=== PATIENT | male | born 1965 | race Caucasian/White ===

== ENCOUNTER 2018-09-28 18:02 | Emergency (ER) | payer OTHER ==
[2018-09-28] MEDS ORDERED: SODIUM CHLORIDE 0.9% 500 ML 500 ML IV STA ×2 (19:31→23:24)
[2018-09-28] MEDS ORDERED: HYDROmorphone 1 MG/ML 1 ML SYRINGE IVP STA (19:31)
[2018-09-28] MEDS ORDERED: ONDANSETRON 4 MG/2 ML VIAL IVP STA (19:31)
[2018-09-28] MEDS ORDERED: ACETAMINOPHEN IV (For NPO) 1,000 MG in EMPTY BAG 1 BAG IVPB STA (19:32)
[2018-09-28] MEDS ORDERED: IBUPROFEN IV 600 MG in SODIUM CHLORIDE 0.9% 250 ML IV STA (19:32)
--- NOTE | 2018-09-28 19:40 | ED ---
General Adult HPI - General Source: patient, RN notes reviewed Mode of arrival: wheelchair Limitations: no limitations <Matt Villar - Last Filed: 09/28/18 20:39> <Matt Finney - Last Filed: 09/28/18 23:27> - General Chief complaint: Abdominal Pain Stated complaint: Right flank pain Time Seen by Provider: 09/28/18 18:30 - History of Present Illness Initial comments: This is a 52-year-old male who presents to the emergency room Department complaining of right lower abdominal pain since this morning upon awakening. Patient states since then he's got the chills and has been chilled all day. Patient denies any nausea vomiting per patient denies any diarrhea. Patient denies any similar symptoms. Patient denies any hematuria dysuria or urinary frequency. Patient states he doesn't know if he has a fever or not. He didn't take his temperature. Patient denies any chest pain difficult breathing first breath per patient denies any cough. Patient denies any lightheadedness dizziness or syncopal episode. Patient denies any back pain. (Matt Villar) - Related Data Home Medications Medication Instructions Recorded Confirmed Atorvastatin [Lipitor] 20 mg PO HS 09/28/18 09/28/18 Cyanocobalamin [Vitamin B-12] 1,000 mcg PO DAILY 09/28/18 09/28/18 Famotidine 20 mg PO DAILY PRN 09/28/18 09/28/18 Ferrous Sulfate [Feosol] 325 mg PO BID 09/28/18 09/28/18 Gabapentin [Neurontin] 100 mg PO TID 09/28/18 09/28/18 Insulin Glargine [Lantus] 27 unit SQ HS 09/28/18 09/28/18 Insulin Glulisine [Apidra] 6 unit SQ AC-TID 09/28/18 09/28/18 Levothyroxine Sodium [Synthroid] 125 mcg PO DAILY 09/28/18 09/28/18 Lisinopril [Zestril] 5 mg PO DAILY 09/28/18 09/28/18 Allergies Allergy/AdvReac Type Severity Reaction Status Date / Time No Known Allergies Allergy Verified 09/28/18 18:32 Review of Systems ROS Other: All systems not noted in ROS Statement are negative. <Matt Villar - Last Filed: 09/28/18 20:39> ROS Other: All systems not noted in ROS Statement are negative. <Matt Finney - Last Filed: 09/28/18 23:27> ROS Statement: Those systems with pertinent positive or pertinent negative responses have been documented in the HPI. Past Medical History Past Medical History: Diabetes Mellitus, Deep Vein Thrombosis (DVT) History of Any Multi-Drug Resistant Organisms: None Reported Past Surgical History: No Surgical Hx Reported Past Psychological History: No Psychological Hx Reported Smoking Status: Never smoker Past Alcohol Use History: None Reported Past Drug Use History: None Reported <JianMatt - Last Filed: 09/28/18 20:39> General Exam Limitations: no limitations <JianMatt - Last Filed: 09/28/18 20:39> General appearance: alert, in no apparent distress Head exam: Present: atraumatic, normocephalic, normal inspection Eye exam: Present: normal appearance, PERRL, EOMI. Absent: scleral icterus, conjunctival injection, periorbital swelling ENT exam: Present: normal exam, mucous membranes moist Neck exam: Present: normal inspection. Absent: tenderness, meningismus, lymphadenopathy Respiratory exam: Present: normal lung sounds bilaterally. Absent: respiratory distress, wheezes, rales, rhonchi, stridor Cardiovascular Exam: Present: regular rate, normal rhythm, normal heart sounds. Absent: systolic murmur, diastolic murmur, rubs, gallop, clicks GI/Abdominal exam: Present: soft, normal bowel sounds. Absent: distended, tenderness, guarding, rebound, rigid Extremities exam: Present: normal inspection, full ROM, normal capillary refill. Absent: tenderness, pedal edema, joint swelling, calf tenderness Back exam: Present: normal inspection Neurological exam: Present: alert, oriented X3, CN II-XII intact Psychiatric exam: Present: normal affect, normal mood Skin exam: Present: warm, dry, intact, normal color. Absent: rash <Matt Finney - Last Filed: 09/28/18 23:27> - General Exam Comments Initial Comments: GENERAL: Patient is well-developed and well-nourished. Patient is nontoxic and well- hydrated and is in moderate distress. ENT: Neck is soft and supple. No significant lymphadenopathy is noted. Oropharynx is clear. Moist mucous membranes. Neck has full range of motion without eliciting any pain. EYES: The sclera were anicteric and conjunctiva were pink and moist. Extraocular movements were intact and pupils were equal round and reactive to light. Eyelids were unremarkable. PULMONARY: Unlabored respirations. Good breath sounds bilaterally. No audible rales rhonchi or wheezing was noted. CARDIOVASCULAR: There is a regular rate and rhythm without any murmurs gallops or rubs. ABDOMEN: Right lower quadrant abdominal tenderness with rebound. No palpable organomegaly was noted. There is no palpable pulsatile mass. SKIN: Skin is clear with no lesions or rashes and otherwise unremarkable. NEUROLOGIC: Patient is alert and oriented x3. Cranial nerves II through XII are grossly intact. Motor and sensory are also intact. Normal speech, volume and content. Symmetrical smile. MUSCULOSKELETAL: Normal extremities with adequate strength and full range of motion. No lower extremity swelling or edema. No calf tenderness. LYMPHATICS: No significant lymphadenopathy is noted PSYCHIATRIC: Normal psychiatric evaluation. Normal interpersonal interactions appears functionally intact in deals appropriately with others. No signs of depression. No signs of anxiety. (Matt Villar) Course <Matt Villar - Last Filed: 09/28/18 20:39> <Matt Finney - Last Filed: 09/28/18 23:27> Vital Signs 09/28/18 09/28/18 09/28/18 18:30 19:17 20:00 Temperature 99.4 F 100.4 F H 100.3 F H Pulse Rate 96 79 Respiratory 16 18 Rate Blood Pressure 99/59 94/75 O2 Sat by Pulse 97 97 Oximetry 09/28/18 23:01 Temperature 97.7 F Pulse Rate 70 Respiratory 18 Rate Blood Pressure 87/57 O2 Sat by Pulse 96 Oximetry - Reevaluation(s) Reevaluation #1: 09/28/18 23:25 Medical record is reviewed Patient was reevaluated having more right upper quadrant bowel pain we did perform right upper quadrant ultrasound of gallbladder, that is negative and this time, patient states pain remains improved (Matt Finney) Reevaluation #2: 09/28/18 23:26 Patient asked concerning blood pressure. Patient states his blood pressure usually runs low low end of normal. Really denying any complaints of lightheadedness dizziness or weakness (Matt Finney) Medical Decision Making - Lab Data Result diagrams: 09/28/18 20:20 <Matt Villar - Last Filed: 09/28/18 20:39> - Lab Data Result diagrams: 09/28/18 20:20 09/28/18 20:20 - Radiology Data Radiology results: report reviewed (CT abdomen and pelvis negative for acute disease ultrasound gallbladder negative for acute disease), image reviewed <Matt Finney - Last Filed: 09/28/18 23:27> - Medical Decision Making CT of the brain and C-spine showed no acute abnormality. Since nurse came to me stating that he was now complaining of some right-sided abdominal pain. One pack and reexamined him he was tender in the right mid abdomen I will be placing a CAT scan and for his abdomen. Dr. Finney be taking over the care of this patient at 9 PM (Matt Villar) 52 male the ER with nonspecific abdominal pain. Patient had negative gallbladder ultrasound, negative CT with negative labwork. Patient can be discharged home (Matt Finney) - Lab Data Lab Results 09/28/18 09/28/18 09/28/18 Range/Units 20:20 20:20 21:25 WBC 7.7 (3.8-10.6) k/uL RBC 4.14 L (4.30-5.90) m/uL Hgb 13.0 (13.0-17.5) gm/dL Hct 38.7 L (39.0-53.0) % MCV 93.5 (80.0-100.0) fL MCH 31.3 (25.0-35.0) pg MCHC 33.5 (31.0-37.0) g/dL RDW 13.3 (11.5-15.5) % Plt Count 204 (150-450) k/uL Neutrophils % 70 % Lymphocytes % 20 % Monocytes % 6 % Eosinophils % 3 % Basophils % 0 % Neutrophils # 5.4 (1.3-7.7) k/uL Lymphocytes # 1.5 (1.0-4.8) k/uL Monocytes # 0.4 (0-1.0) k/uL Eosinophils # 0.2 (0-0.7) k/uL Basophils # 0.0 (0-0.2) k/uL Sodium 133 L (137-145) mmol/L Potassium 4.3 (3.5-5.1) mmol/L Chloride 98 (98-107) mmol/L Carbon Dioxide 27 (22-30) mmol/L Anion Gap 8 mmol/L BUN 16 (9-20) mg/dL Creatinine 0.81 (0.66-1.25) mg/dL Est GFR (CKD-EPI)AfAm >90 (>60 ml/min/1.73 sqM) Est GFR (CKD-EPI)NonAf >90 (>60 ml/min/1.73 sqM) Glucose 248 H (74-99) mg/dL Calcium 8.8 (8.4-10.2) mg/dL Total Bilirubin 0.4 (0.2-1.3) mg/dL AST 16 L (17-59) U/L ALT 22 (21-72) U/L Alkaline Phosphatase 43 (38-126) U/L Total Protein 6.4 (6.3-8.2) g/dL Albumin 3.5 (3.5-5.0) g/dL Amylase 36 (30-110) U/L Lipase 38 (23-300) U/L Urine Color Yellow Urine Appearance Clear (Clear) Urine pH 6.0 (5.0-8.0) Ur Specific [place] 1.014 (1.001-1.035) Urine Protein Negative (Negative) Urine Glucose (UA) 3+ H (Negative) Urine Ketones Negative (Negative) Urine Blood Negative (Negative) Urine Nitrite Negative (Negative) Urine Bilirubin Negative (Negative) Urine Urobilinogen <2.0 (<2.0) mg/dL Ur Leukocyte Esterase Negative (Negative) Disposition <Matt Villar - Last Filed: 09/28/18 20:39> Is patient prescribed a controlled substance at d/c from ED?: No <Matt Finney - Last Filed: 09/28/18 23:27> Clinical Impression: Abdominal pain Disposition: HOME SELF-CARE Condition: Good Instructions: Abdominal Pain (ED) Referrals: Nonstaff,Physician [REFERRING] - 1-2 days
[2018-09-28 20:01] VITALS: RESP 18
[2018-09-28 20:34] LABS: Basophils % (A) 0 %; Eosinophils # (A) 0.2 k/uL (0-0.7); Eosinophils % (A) 3 %; HCT 38.7 % (39.0-53.0); Lymphocytes # (A) 1.5 k/uL (1.0-4.8); Lymphocytes % (A) 20 %; MCH 31.3 pg (25.0-35.0); MCHC 33.5 g/dL (31.0-37.0); MCV 93.5 fL (80.0-100.0); Monocytes # (A) 0.4 k/uL (0-1.0); Monocytes % (A) 6 %; Neutrophils # (A) 5.4 k/uL (1.3-7.7); Neutrophils % (A) 70 %; Platelet Count 204 k/uL (150-450); RBC 4.14 m/uL (4.30-5.90); RDW 13.3 % (11.5-15.5); WBC 7.7 k/uL (3.8-10.6)
[2018-09-28 20:43] LABS: ALT 22 U/L (21-72); AST 16 U/L (17-59); Albumin 3.5 g/dL (3.5-5.0); Alkaline Phosphatase 43 U/L (38-126); Amylase 36 U/L (30-110); Anion Gap 8 mmol/L; Blood Urea Nitrogen 16 mg/dL (9-20); Calcium 8.8 mg/dL (8.4-10.2); Carbon Dioxide 27 mmol/L (22-30); Chloride 98 mmol/L (98-107); Glucose 248 mg/dL (74-99); Lipase 38 U/L (23-300); Potassium 4.3 mmol/L (3.5-5.1); Sodium 133 mmol/L (137-145); Total Bilirubin 0.4 mg/dL (0.2-1.3); Total Protein 6.4 g/dL (6.3-8.2)
--- NOTE | 2018-09-28 21:29 | CT ---
EXAMINATION TYPE: CT abdomen pelvis w con DATE OF EXAM: 09/28/2018 COMPARISON: None HISTORY: Right side abdominal pain. CT DLP: 708.2 mGycm Automated exposure control for dose reduction was used. TECHNIQUE: Helical acquisition of images was performed from the lung bases through the pelvis. CONTRAST: Performed without Oral Contrast and with IV Contrast, patient injected with 100ml mL of Isovue 300. FINDINGS: Lung bases are clear. There is no pleural effusion. Heart size is normal. There is no pericardial eff usion. Liver spleen gallbladder appear normal. Bile ducts are not dilated. Stomach appears normal. Th ere is no evidence of pancreatic mass. There is no adrenal mass. Kidneys show satisfactory contrast opacification. There is no hydronephrosi s. Ureters are not dilated. There is no retroperitoneal adenopathy. Bladder distends smoothly. There is no inguinal hernia. There is no evidence of a pelvic mass. There is no ascites. There is no sign o f free air. Appendix is not seen. There is no sign of appendicitis. There are some small bowel mesent sunni lymph nodes. Lumbar spine is intact. I see no bony destructive process. Bony pelvis is intact. IMPRESSION: THERE ARE SOME NONSPECIFIC ENLARGED MESENTERIC LYMPH NODES. OTHERWISE NEGATIVE EXAM.
[2018-09-28 21:45] LABS: Appearance,Urine Clear (Clear); Bilirubin,Urine Negative (Negative); Blood,Urine Negative (Negative); Color,Urine Yellow; Glucose,Urine (UA) 3+ (Negative); Ketones,Urine Negative (Negative); Leukocyte Esterase,Urine Negative (Negative); Nitrite,Urine Negative (Negative); Protein,Urine Negative (Negative); Specific Gravity,Urine 1.014 (1.001-1.035); Urobilinogen,Urine <2.0 mg/dL (<2.0)
[2018-09-28] MEDS ORDERED: MORPHINE SULFATE 4 MG/ML SYRINGE IVP STA (22:10)
[2018-09-28 23:03] VITALS: TEMP 97.7
--- NOTE | 2018-09-28 23:14 | US ---
EXAMINATION TYPE: US gallbladder DATE OF EXAM: 09/28/2018 COMPARISON: CT 09/28/2018 CLINICAL HISTORY: Pain. EXAM MEASUREMENTS: Liver Length: 17.7 cm Gallbladder Wall: 0.2 cm CBD: 0.5 cm Right Kidney: 10.7 x 4.5 x 5.4 cm Pancreas: Tail obscured by overlying bowel gas Liver: Measuring upper limits of normal Gallbladder: wnl Evidence for sonographic Monzon's sign: No CBD: wnl Right Kidney: No hydronephrosis or masses seen IMPRESSION: Negative right upper quadrant abdominal sonogram. No gallstones or dilated ducts.
[2018-09-28] MEDS ORDERED: SODIUM CHLORIDE 0.9% 1,000 ML IV STA (23:24)
[2018-09-29 00:13] VITALS: BP 94/70; PULSE 89
== END 2018-09-29 00:13 | disposition home or self-care (01) ==
LOC: EC 18:02
DX: R10.31 Right lower quadrant pain (principal); E11.9 Type 2 diabetes mellitus without complications; Z79.4 Long term (current) use of insulin; Z79.899 Other long term (current) drug therapy; Z86.718 Personal history of other venous thrombosis and embolism
CPT/HCPCS: 36415; 80053; 82150; 83605; 83690; 85025; 81003; 87040; 76705; 74177; 99284; 96365; 96375 ×3; J2405; J1170; J0131; J1741; Q9967

== ENCOUNTER 2018-10-19 08:32 | Observation (INO) | payer OTHER ==
[2018-10-19] MEDS ORDERED: SODIUM CHLORIDE 0.9% 1,000 ML IV STA ×2 (08:46)
[2018-10-19] MEDS ORDERED: ONDANSETRON 4 MG/2 ML VIAL IVP STA (08:46)
--- NOTE | 2018-10-19 08:49 | ED ---
General Adult HPI - General Chief complaint: Abdominal Pain Stated complaint: Abd.pain Time Seen by Provider: 10/19/18 08:35 Source: patient, EMS, RN notes reviewed Mode of arrival: EMS Limitations: no limitations - History of Present Illness Initial comments: Patient 52-year-old male significant past medical history for diabetes, presenting to the emergency room today with a chief complaint of elevated blood sugar. Patient does admit that around 4 AM he was feeling nauseated and did have a couple episodes of vomiting. States that he did take 10 units of insulin at 6 AM fell back asleep. States he woke up 2 hours later with a dry mouth was worried about possible DKA streaking here to the emergency room. Patient states nausea somewhat improved was able to keep down some water before he came. Patient denies any other complaints or symptoms at this time. Patient denies any recent fever, chills, shortness of breath, chest pain, back pain, numbness or tingling, headaches or visual changes, or any other complaints. - Related Data Home Medications Medication Instructions Recorded Confirmed Atorvastatin [Lipitor] 20 mg PO HS 09/28/18 10/19/18 Cyanocobalamin [Vitamin B-12] 1,000 mcg PO DAILY 09/28/18 10/19/18 Famotidine 20 mg PO DAILY PRN 09/28/18 10/19/18 Ferrous Sulfate [Feosol] 325 mg PO BID 09/28/18 10/19/18 Gabapentin [Neurontin] 100 mg PO TID 09/28/18 10/19/18 Insulin Glargine [Lantus] 27 unit SQ HS 09/28/18 10/19/18 Insulin Glulisine [Apidra] 6 unit SQ AC-TID 09/28/18 10/19/18 Lisinopril [Zestril] 5 mg PO DAILY 09/28/18 10/19/18 Levothyroxine Sodium [Synthroid] 150 mcg PO DAILY 10/19/18 10/19/18 Allergies Allergy/AdvReac Type Severity Reaction Status Date / Time No Known Allergies Allergy Verified 10/19/18 09:38 Review of Systems ROS Statement: Those systems with pertinent positive or pertinent negative responses have been documented in the HPI. ROS Other: All systems not noted in ROS Statement are negative. Past Medical History Past Medical History: Diabetes Mellitus, Deep Vein Thrombosis (DVT) History of Any Multi-Drug Resistant Organisms: None Reported Past Surgical History: No Surgical Hx Reported Past Psychological History: No Psychological Hx Reported Smoking Status: Never smoker Past Alcohol Use History: None Reported Past Drug Use History: None Reported General Exam - General Exam Comments Initial Comments: General: The patient is awake and alert, in no distress, and does not appear acutely ill. Eye: There is normal conjunctiva bilaterally. No signs of icterus. Ears, nose, mouth and throat: There are moist mucous membranes and no oral lesions. Neck: The neck is supple, there is no tenderness or JVD. Cardiovascular: There is a regular rate and rhythm. No murmur, rub or gallop is appreciated. Respiratory: Lungs are clear to auscultation, respirations are non-labored, breath sounds are equal. No wheezes, stridor, rales, or rhonchi. Gastrointestinal: Soft, non-distended, non-tender abdomen without masses or organomegaly noted. There is no rebound or guarding present. No CVA tenderness. Musculoskeletal: Normal ROM, no tenderness. Neurological: A&O x 3. CN II-XII intact, There are no obvious motor or sensory deficits. Coordination appears grossly intact. Speech is normal. Skin: Skin is warm and dry and no rashes or lesions are noted. Psychiatric: Cooperative, appropriate mood & affect, normal judgment. Limitations: no limitations Course Vital Signs 10/19/18 08:34 Temperature 97.1 F L Pulse Rate 115 H Respiratory 18 Rate Blood Pressure 118/75 O2 Sat by Pulse 97 Oximetry Medical Decision Making - Medical Decision Making Patient's labs been reviewed and does show positive acetone. Blood sugar greater than 300. Patient's had multiple episodes of nausea vomiting. Patient will be admitted for DKA started on protocol. - Lab Data Result diagrams: 10/19/18 08:59 10/19/18 08:59 Lab Results 10/19/18 10/19/18 Range/Units 08:59 08:59 WBC 10.9 H (3.8-10.6) k/uL RBC 4.58 (4.30-5.90) m/uL Hgb 14.1 (13.0-17.5) gm/dL Hct 43.0 (39.0-53.0) % MCV 93.9 (80.0-100.0) fL MCH 30.8 (25.0-35.0) pg MCHC 32.9 (31.0-37.0) g/dL RDW 13.1 (11.5-15.5) % Plt Count 227 (150-450) k/uL Neutrophils % 88 % Lymphocytes % 6 % Monocytes % 5 % Eosinophils % 0 % Basophils % 0 % Neutrophils # 9.6 H (1.3-7.7) k/uL Lymphocytes # 0.6 L (1.0-4.8) k/uL Monocytes # 0.6 (0-1.0) k/uL Eosinophils # 0.0 (0-0.7) k/uL Basophils # 0.0 (0-0.2) k/uL Sodium 135 L (137-145) mmol/L Potassium 4.4 (3.5-5.1) mmol/L Chloride 98 (98-107) mmol/L Carbon Dioxide 19 L (22-30) mmol/L Anion Gap 18 mmol/L BUN 21 H (9-20) mg/dL Creatinine 0.93 (0.66-1.25) mg/dL Est GFR (CKD-EPI)AfAm >90 (>60 ml/min/1.73 sqM) Est GFR (CKD-EPI)NonAf >90 (>60 ml/min/1.73 sqM) Glucose 345 H (74-99) mg/dL Calcium 9.7 (8.4-10.2) mg/dL Total Bilirubin 1.5 H (0.2-1.3) mg/dL AST 19 (17-59) U/L ALT 25 (21-72) U/L Alkaline Phosphatase 44 (38-126) U/L Total Protein 7.2 (6.3-8.2) g/dL Albumin 4.3 (3.5-5.0) g/dL Amylase 33 (30-110) U/L Lipase 36 (23-300) U/L Acetone, Qual Positive (Negative) Disposition Clinical Impression: DKA (diabetic ketoacidoses) Disposition: ADMITTED IP TO THIS [facility] Condition: Good Is patient prescribed a controlled substance at d/c from ED?: No Referrals: Marshall Beal DO [Primary Care Provider] - 1-2 days Time of Disposition: 10:10
[2018-10-19 09:33] LABS: Basophils % (A) 0 %; Eosinophils % (A) 0 %; HGB 14.1 gm/dL (13.0-17.5); Lymphocytes # (A) 0.6 k/uL (1.0-4.8); Lymphocytes % (A) 6 %; MCH 30.8 pg (25.0-35.0); MCHC 32.9 g/dL (31.0-37.0); MCV 93.9 fL (80.0-100.0); Mean Platelet Volume 7.4; Monocytes # (A) 0.6 k/uL (0-1.0); Monocytes % (A) 5 %; Neutrophils # (A) 9.6 k/uL (1.3-7.7); Neutrophils % (A) 88 %; Platelet Count 227 k/uL (150-450); RBC 4.58 m/uL (4.30-5.90); RDW 13.1 % (11.5-15.5); WBC 10.9 k/uL (3.8-10.6)
[2018-10-19 09:47] LABS: ALT 25 U/L (21-72); AST 19 U/L (17-59); Albumin 4.3 g/dL (3.5-5.0); Alkaline Phosphatase 44 U/L (38-126); Amylase 33 U/L (30-110); Anion Gap 18 mmol/L; Blood Urea Nitrogen 21 mg/dL (9-20); Calcium 9.7 mg/dL (8.4-10.2); Carbon Dioxide 19 mmol/L (22-30); Chloride 98 mmol/L (98-107); Glucose 345 mg/dL (74-99); Lipase 36 U/L (23-300); Potassium 4.4 mmol/L (3.5-5.1); Sodium 135 mmol/L (137-145); Total Bilirubin 1.5 mg/dL (0.2-1.3); Total Protein 7.2 g/dL (6.3-8.2)
[2018-10-19] MEDS ORDERED: INSULIN REGULAR 100 UNIT in SODIUM CHLORIDE 0.9% 100 ML IV SCH (10:45)
[2018-10-19] MEDS: SODIUM CHLORIDE 0.9% 1,000 ML IV SCH ×3 (11:13→20:26)
[2018-10-19 11:26] LABS: Glucose,Whole Blood 240 mg/dL (75-99)
[2018-10-19] MEDS: D5-0.45% NACL WITH KCL 20MEQ/L 1,000 ML IV SCH ×2 (11:34→17:13)
[2018-10-19] MEDS ORDERED: FAMOTIDINE 20 MG TAB PO PRN (11:50)
[2018-10-19 12:28] LABS: Glucose,Whole Blood 213 mg/dL (75-99)
[2018-10-19 13:57] LABS: Glucose,Whole Blood 178 mg/dL (75-99)
--- NOTE | 2018-10-19 14:01 | P.HPIM ---
History of Present Illness 52-year-old the with the insulin-dependent diabetes mellitus type 2 came in with elevated blood sugars has been feeling nausea today today vomited multiple times with the abdominal discomfort mild to moderate diffusely in the abdomen. Patient felt that he may be having DKA episode because of which patient came to ER patient is found to have anion gap metabolic acidosis found to be in DKA patient was started on IV insulin and IV fluids" lites are being corrected. Patient did not take his Lantus today patient denied any fever chills cough runny nose and dysuria patient does not have any signs or symptoms of infection. Review of Systems REVIEW OF SYSTEMS: CONSTITUTIONAL: No fever, no malaise, no fatigue. HEENT: No recent visual problems or hearing problems. Denied any sore throat. CARDIOVASCULAR: No chest pain, orthopnea, PND, no palpitations, no syncope. PULMONARY: No shortness of breath, no cough, no hemoptysis. GASTROINTESTINAL: As mentioned in HPI NEUROLOGICAL: No headaches, no weakness, no numbness. HEMATOLOGICAL: Denies any bleeding or petechiae. GENITOURINARY: Denies any burning micturition, frequency, or urgency. MUSCULOSKELETAL/RHEUMATOLOGICAL: Denies any joint pain, swelling, or any muscle pain. ENDOCRINE: Denies any polyuria or polydipsia. The rest of the 14-point review of systems is negative. Past Medical History Past Medical History: Diabetes Mellitus, Deep Vein Thrombosis (DVT), GERD/Reflux , Hyperlipidemia, Hypertension Additional Past Medical History / Comment(s): IDDM type II, neuropathy bilateral hands/feet, bilateral leg DVTs, carpal tunnel syndrome bilaterally, migraines,. hypothyroid, low iron, hydrocele R side. History of Any Multi-Drug Resistant Organisms: None Reported Past Surgical History: No Surgical Hx Reported Additional Past Surgical History / Comment(s): Colonoscopy Past Anesthesia/Blood Transfusion Reactions: No Reported Reaction Smoking Status: Former smoker - Past Family History Father Family Medical History: Cancer Additional Family Medical History / Comment(s): Father had melanoma. He is -pt is not sure but thinks he drowned. Mother Family Medical History: No Reported History Additional Family Medical History / Comment(s): Mother is healthy. Medications and Allergies Home Medications Medication Instructions Recorded Confirmed Type Atorvastatin [Lipitor] 20 mg PO HS 09/28/18 10/19/18 History Cyanocobalamin [Vitamin B-12] 1,000 mcg PO DAILY 09/28/18 10/19/18 History Famotidine 20 mg PO DAILY PRN 09/28/18 10/19/18 History Ferrous Sulfate [Feosol] 325 mg PO BID 09/28/18 10/19/18 History Gabapentin [Neurontin] 100 mg PO TID 09/28/18 10/19/18 History Insulin Glargine [Lantus] 27 unit SQ HS 09/28/18 10/19/18 History Insulin Glulisine [Apidra] 6 unit SQ AC-TID 09/28/18 10/19/18 History Lisinopril [Zestril] 5 mg PO DAILY 09/28/18 10/19/18 History Levothyroxine Sodium [Synthroid] 150 mcg PO DAILY 10/19/18 10/19/18 History Allergies Allergy/AdvReac Type Severity Reaction Status Date / Time No Known Allergies Allergy Verified 10/19/18 09:38 Physical Exam Vitals: Vital Signs Temp Pulse Pulse Resp BP BP Pulse Ox 10/19/18 12:00 98.2 F 107 H 16 109/66 98 10/19/18 11:19 99 18 114/67 97 10/19/18 08:34 97.1 F L 115 H 18 118/75 97 Intake and Output 10/18/18 10/19/18 10/19/18 22:59 06:59 14:59 Intake Total 10.013 Balance 10.013 Intake: Intake, IV Titration 10.013 Amount Insulin Regular 100 unit 10.013 In Sodium Chloride 0.9% 100 ml @ 0.1 UNITS/KG/HR 8.01 mls/hr IV .[id number] [facility] Rx#:[id number] Other: Weight 79.379 kg PHYSICAL EXAMINATION: GENERAL: The patient is alert and oriented x3, not in any acute distress. Well developed, well nourished. HEENT: Pupils are round and equally reacting to light. EOMI. No scleral icterus. No conjunctival pallor. Normocephalic, atraumatic. No pharyngeal erythema. No thyromegaly. CARDIOVASCULAR: S1 and S2 present. No murmurs, rubs, or gallops. PULMONARY: Chest is clear to auscultation, no wheezing or crackles. ABDOMEN: Soft, nontender, nondistended, normoactive bowel sounds. No palpable organomegaly. MUSCULOSKELETAL: No joint swelling or deformity. EXTREMITIES: No cyanosis, clubbing, or pedal edema. NEUROLOGICAL: Gross neurological examination did not reveal any focal deficits. SKIN: No rashes. Results CBC & Chem 7: 10/19/18 08:59 10/19/18 08:59 Labs: Abnormal Lab Results - Last 24 Hours (Table) 10/19/18 10/19/18 10/19/18 Range/Units 08:59 08:59 11:14 WBC 10.9 H (3.8-10.6) k/uL Neutrophils # 9.6 H (1.3-7.7) k/uL Lymphocytes # 0.6 L (1.0-4.8) k/uL Sodium 135 L (137-145) mmol/L Carbon Dioxide 19 L (22-30) mmol/L BUN 21 H (9-20) mg/dL Glucose 345 H (74-99) mg/dL POC Glucose (mg/dL) 240 H (75-99) mg/dL Total Bilirubin 1.5 H (0.2-1.3) mg/dL 10/19/18 Range/Units 12:26 WBC (3.8-10.6) k/uL Neutrophils # (1.3-7.7) k/uL Lymphocytes # (1.0-4.8) k/uL Sodium (137-145) mmol/L Carbon Dioxide (22-30) mmol/L BUN (9-20) mg/dL Glucose (74-99) mg/dL POC Glucose (mg/dL) 213 H (75-99) mg/dL Total Bilirubin (0.2-1.3) mg/dL Thrombosis Risk Factor Assmnt - Choose All That Apply Any of the Below Risk Factors Present?: Yes Each Factor Represents 1 point: Age 41-60 years Other Risk Factors: Yes Each Risk Factor Represents 3 Points: History of DVT/PE Other congenital or acquired thrombophilia - If yes, enter type in comment: No Thrombosis Risk Factor Assessment Total Risk Factor Score: 4 Thrombosis Risk Factor Assessment Level: Moderate Risk Assessment and Plan Plan: -Diabetic keto acidosis: No signs or symptoms of infection continue with the D5 with insulin once anion gap resolves patient will be started on Lantus and an hour later IV insulin can be discontinued and patient was started on IV normal saline and the patient can use pre-meal insulin and can eat at that time patient will remain in and 21 2 that time. -Type 2 diabetes mellitus with uncontrolled and elevated blood sugars -Tachycardia probably secondary to hypovolemia from DKA -Diabetic peripheral neuropathy -DVT in the past not any anti-correlation at this time -Gastroesophageal reflux disease -Hypertension next For above-mentioned chronic medical problems patient will resume and continued on appropriate home medications.
[2018-10-19 14:24] LABS: Anion Gap 10 mmol/L; Blood Urea Nitrogen 17 mg/dL (9-20); Carbon Dioxide 23 mmol/L (22-30); Chloride 104 mmol/L (98-107); Glucose 209 mg/dL (74-99); Phosphorus 3.4 mg/dL (2.5-4.5); Potassium 3.9 mmol/L (3.5-5.1); Sodium 137 mmol/L (137-145)
[2018-10-19] MEDS ORDERED: INSULIN DETEMIR 100 UNIT/ML 10 ML VIAL SQ ONE (14:35)
[2018-10-19] MEDS: PANTOPRAZOLE 40 MG/10 ML VIAL IVP SCH (15:03)
[2018-10-19] MEDS: GABAPENTIN 100 MG CAP PO SCH ×2 (15:04→20:25)
[2018-10-19 15:26] LABS: Glucose,Whole Blood 116 mg/dL (75-99)
[2018-10-19 16:35] LABS: Glucose,Whole Blood 127 mg/dL (75-99)
[2018-10-19] MEDS: INSULIN ASPART 100 UNIT/ML 1 ML 10 ML VIAL SQ SCH ×3 (17:32→20:25)
[2018-10-19 18:46] LABS: Anion Gap 8 mmol/L; Blood Urea Nitrogen 15 mg/dL (9-20); Carbon Dioxide 24 mmol/L (22-30); Chloride 104 mmol/L (98-107); Glucose 142 mg/dL (74-99); Potassium 4.5 mmol/L (3.5-5.1); Sodium 136 mmol/L (137-145)
[2018-10-19 20:25] LABS: Glucose,Whole Blood 111 mg/dL (75-99)
[2018-10-19 20:43] LABS: Hemoglobin A1C 12.3 % (4.0-6.0)
[2018-10-19] MEDS ORDERED: ATORVASTATIN 20 MG TAB PO SCH (21:00)
[2018-10-20] MEDS: SODIUM CHLORIDE 0.9% 1,000 ML IV SCH ×2 (01:45→07:18)
[2018-10-20] MEDS ORDERED: LEVOTHYROXINE 75 MCG TAB PO SCH (06:30)
[2018-10-20 06:38] LABS: Glucose,Whole Blood 136 mg/dL (75-99)
[2018-10-20] MEDS: INSULIN ASPART 100 UNIT/ML 1 ML 10 ML VIAL SQ SCH ×6 (07:17→17:20)
[2018-10-20 07:32] LABS: Basophils % (A) 0 %; Eosinophils # (A) 0.2 k/uL (0-0.7); Eosinophils % (A) 3 %; HCT 37.5 % (39.0-53.0); Lymphocytes # (A) 1.4 k/uL (1.0-4.8); Lymphocytes % (A) 28 %; MCH 30.7 pg (25.0-35.0); MCHC 32.1 g/dL (31.0-37.0); MCV 95.6 fL (80.0-100.0); Mean Platelet Volume 6.9; Monocytes # (A) 0.2 k/uL (0-1.0); Monocytes % (A) 5 %; Neutrophils % (A) 62 %; Platelet Count 190 k/uL (150-450); RBC 3.92 m/uL (4.30-5.90); RDW 13.3 % (11.5-15.5); WBC 4.9 k/uL (3.8-10.6)
[2018-10-20 07:35] LABS: ALT 21 U/L (21-72); AST 18 U/L (17-59); Albumin 2.9 g/dL (3.5-5.0); Alkaline Phosphatase 32 U/L (38-126); Anion Gap 5 mmol/L; Blood Urea Nitrogen 11 mg/dL (9-20); Calcium 8.3 mg/dL (8.4-10.2); Carbon Dioxide 26 mmol/L (22-30); Chloride 106 mmol/L (98-107); Glucose 134 mg/dL (74-99); Potassium 4.4 mmol/L (3.5-5.1); Sodium 137 mmol/L (137-145); Total Bilirubin 0.8 mg/dL (0.2-1.3); Total Protein 5.5 g/dL (6.3-8.2)
[2018-10-20 08:39] VITALS: PULSE 78
[2018-10-20] MEDS: GABAPENTIN 100 MG CAP PO SCH ×2 (08:44→16:05)
[2018-10-20] MEDS: PANTOPRAZOLE 40 MG/10 ML VIAL IVP SCH (08:44)
[2018-10-20 08:56] LABS: Appearance,Urine Clear (Clear); Bilirubin,Urine Negative (Negative); Blood,Urine Negative (Negative); Color,Urine Light Yellow; Glucose,Urine (UA) 1+ (Negative); Ketones,Urine Trace (Negative); Leukocyte Esterase,Urine Negative (Negative); Nitrite,Urine Negative (Negative); PH, Urine 5.5 (5.0-8.0); Protein,Urine Negative (Negative); Specific Gravity,Urine 1.006 (1.001-1.035); Urobilinogen,Urine <2.0 mg/dL (<2.0)
[2018-10-20 11:51] LABS: Glucose,Whole Blood 178 mg/dL (75-99)
[2018-10-20 12:17] VITALS: TEMP 97.7
--- NOTE | 2018-10-20 12:22 | P.DS ---
Providers Date of admission: 10/19/18 10:16 Attending physician: Deborah Villalobos Primary care physician: Marshall Beal Hospital Course: 52-year-old gentleman admitted for diabetic ketoacidosis which resolved at this time patient did sugars are well controlled with home regimen and patient will be resumed on home regimen and will be discharged today PHYSICAL EXAMINATION: GENERAL: The patient is alert and oriented x3, not in any acute distress. Well developed, well nourished. HEENT: Pupils are round and equally reacting to light. EOMI. No scleral icterus. No conjunctival pallor. Normocephalic, atraumatic. No pharyngeal erythema. No thyromegaly. CARDIOVASCULAR: S1 and S2 present. No murmurs, rubs, or gallops. PULMONARY: Chest is clear to auscultation, no wheezing or crackles. ABDOMEN: Soft, nontender, nondistended, normoactive bowel sounds. No palpable organomegaly. MUSCULOSKELETAL: No joint swelling or deformity. EXTREMITIES: No cyanosis, clubbing, or pedal edema. NEUROLOGICAL: Gross neurological examination did not reveal any focal deficits. SKIN: No rashes. Please refer to my HPI from yesterday for possible physician course chronic medical problems and their management. Patient Condition at Discharge: Good Plan - Discharge Summary Discharge Rx Participant: No New Discharge Prescriptions: No Action Insulin Glulisine [Apidra] 6 unit SQ AC-TID Ferrous Sulfate [Feosol] 325 mg PO BID Famotidine 20 mg PO DAILY PRN PRN Reason: HEART BURN Atorvastatin [Lipitor] 20 mg PO HS Lisinopril [Zestril] 5 mg PO DAILY Insulin Glargine [Lantus] 27 unit SQ HS Gabapentin [Neurontin] 100 mg PO TID Cyanocobalamin [Vitamin B-12] 1,000 mcg PO DAILY Levothyroxine Sodium [Synthroid] 150 mcg PO DAILY Discharge Medication List Atorvastatin [Lipitor] 20 mg PO HS 09/28/18 [History] Cyanocobalamin [Vitamin B-12] 1,000 mcg PO DAILY 09/28/18 [History] Famotidine 20 mg PO DAILY PRN 09/28/18 [History] Ferrous Sulfate [Feosol] 325 mg PO BID 09/28/18 [History] Gabapentin [Neurontin] 100 mg PO TID 09/28/18 [History] Insulin Glargine [Lantus] 27 unit SQ HS 09/28/18 [History] Insulin Glulisine [Apidra] 6 unit SQ AC-TID 09/28/18 [History] Lisinopril [Zestril] 5 mg PO DAILY 09/28/18 [History] Levothyroxine Sodium [Synthroid] 150 mcg PO DAILY 10/19/18 [History] Follow up Appointment(s)/Referral(s): Marshall Beal DO [Primary Care Provider] - 3 Days Discharge Disposition: HOME SELF-CARE
[2018-10-20] MEDS ORDERED: IOPAMIDOL-300 CONTRAST 30 ML VIAL (ORAL USE) PO PRN ×2 (13:50→15:11)
[2018-10-20 13:52] VITALS: BMI 25.1
[2018-10-20 15:27] VITALS: BP 103/65; RESP 20
[2018-10-20 16:48] LABS: Glucose,Whole Blood 221 mg/dL (75-99)
--- NOTE | 2018-10-20 17:30 | CT ---
EXAMINATION TYPE: CT abdomen pelvis w con DATE OF EXAM: 10/20/2018 COMPARISON: Prior CT 09/28/2018 HISTORY: abdominal pain CT DLP: 824 mGycm Automated exposure control for dose reduction was used. TECHNIQUE: Helical acquisition of images from the lung bases through the pelvis have been completed. CONTRAST: Performed with Oral Contrast and with IV Contrast, patient injected with 100 mL of Isovue 300. FINDINGS: LUNG BASES: Stable, no pleural or pericardial effusion, minimal dependent atelectatic changes again s een, left lower lobe lung cyst AORTA: No significant abnormality is appreciated. LIVER/GB: No significant abnormality is appreciated. PANCREAS: No significant abnormality is seen. SPLEEN: No significant abnormality is seen. ADRENALS: No significant abnormality is seen. KIDNEYS: No significant abnormality is seen. REPRODUCTIVE ORGANS: Low dense focus is present within the right hemiscrotum which may represent a si zable hydrocele, serpiginous high density focus at the level of the right hemiscrotum is again noted and may be sales representative church furniture of calcification or postop change, some thickening of the scrotum is stable , correlate BOWEL: Contrast has not coursed distally within the bowel. Retained fecal debris present within the colon. Nonspecific nonenlarged nodes are present within the abdomen as on prior, question some small bowel wall thickening. FREE AIR: No Free Air visible. ASCITES: None visible. PELVIC ADENOPATHY: None visualized. RETROPERITONEAL ADENOPATHY: No Retroperitoneal Adenopathy visible. URINARY BLADDER: No significant abnormality is seen. OSSEOUS STRUCTURES: No significant abnormality is seen. IMPRESSION: CORRELATE FOR POSSIBLE FECAL STASIS. THERE IS SOME LIMITATION IN THE EXAM. Nonspecific lymph nodes se en within the abdomen, correlate for possible enteritis. Additional nonspecific findings above.
[2018-10-20] MEDS ORDERED: INSULIN DETEMIR 100 UNIT/ML 10 ML VIAL SQ SCH (21:00)
== END 2018-10-20 18:21 | disposition home or self-care (01) ==
LOC: EC 08:32 → 3SCARD 10:16 → INTOOBSV 10:16 → 3SCARD 11:28 → UNDODISIN 10-20 18:21
PROVIDERS: ADMIT Internal Medicine; ATTEND Internal Medicine
DX: E11.10 Type 2 diabetes mellitus with ketoacidosis without coma (principal); E03.9 Hypothyroidism, unspecified; E61.1 Iron deficiency; E11.42 Type 2 diabetes mellitus with diabetic polyneuropathy; E78.5 Hyperlipidemia, unspecified; E86.1 Hypovolemia; I10 Essential (primary) hypertension; K21.9 Gastro-esophageal reflux disease without esophagitis; G43.909 Migraine, unspecified, not intractable, without status migrainosus; R00.0 Tachycardia, unspecified; Z79.4 Long term (current) use of insulin; Z79.890 Hormone replacement therapy; Z79.899 Other long term (current) drug therapy; Z87.891 Personal history of nicotine dependence; Z86.718 Personal history of other venous thrombosis and embolism; Z80.8 Family history of malignant neoplasm of other organs or systems
CPT/HCPCS: 96376; 96375; 96361; 96374; 99285; 36415; 80051; 80053 ×2; 82150; 82565; 82009; 83690; 84100; 82947; 84520; 85025 ×2; 81003; 83036; 74177; G0378 ×2; J2405; C9113 ×2; Q9967

== ENCOUNTER 2019-09-17 08:12 | Emergency (ER) | payer OTHER ==
[2019-09-17 08:18] VITALS: BP 99/69; PULSE 102; RESP 20; TEMP 97.7
[2019-09-17] MEDS ORDERED: IBUPROFEN 600 MG STARTER PACK 4 TAB BTL PO STA (08:49)
--- NOTE | 2019-09-17 08:55 | ED ---
General Adult HPI - General Chief complaint: Back Pain/Injury Stated complaint: back pain Time Seen by Provider: 09/17/19 08:25 Source: patient, RN notes reviewed Mode of arrival: ambulatory Limitations: no limitations - History of Present Illness Initial comments: Patient is a pleasant 53-year-old male presenting to the emergency Department with complaints of left lower back discomfort. Discomfort is 5 or 6/10. Patient states symptoms have been occurring for the past 3-4 days. Patient states discomfort is left lower back. Patient states he has been carrying 2 bags on the left shoulder and he believes this is contributing to his symptoms. Patient denies chronic back pain. Patient states carrying the bags makes his symptoms worse. Patient states going from sitting to standing as well as certain positions also make his back discomfort worse. No abdominal pain. Discomfort feels like an ache. No loss of control of bowel or bladder function. No leg weakness. - Related Data Home Medications Medication Instructions Recorded Confirmed Atorvastatin [Lipitor] 20 mg PO HS 09/28/18 10/19/18 Cyanocobalamin [Vitamin B-12] 1,000 mcg PO DAILY 09/28/18 10/19/18 Famotidine 20 mg PO DAILY PRN 09/28/18 10/19/18 Ferrous Sulfate [Feosol] 325 mg PO BID 09/28/18 10/19/18 Gabapentin [Neurontin] 100 mg PO TID 09/28/18 10/19/18 Insulin Glargine [Lantus] 27 unit SQ HS 09/28/18 10/19/18 Insulin Glulisine [Apidra] 6 unit SQ AC-TID 09/28/18 10/19/18 Lisinopril [Zestril] 5 mg PO DAILY 09/28/18 10/19/18 Levothyroxine Sodium [Synthroid] 150 mcg PO DAILY 10/19/18 10/19/18 Previous Rx's Medication Instructions Recorded Omeprazole [PriLOSEC] 40 mg PO AC-BRKFST #14 capsule. 10/20/18 Ibuprofen [Motrin] 600 mg PO Q6HR PRN #20 tab 09/17/19 Allergies Allergy/AdvReac Type Severity Reaction Status Date / Time No Known Allergies Allergy Verified 09/17/19 08:18 Review of Systems ROS Statement: Those systems with pertinent positive or pertinent negative responses have been documented in the HPI. ROS Other: All systems not noted in ROS Statement are negative. Constitutional: Denies: fever Eyes: Denies: eye pain ENT: Denies: ear pain Respiratory: Denies: dyspnea Cardiovascular: Denies: chest pain Endocrine: Denies: fatigue Gastrointestinal: Denies: abdominal pain Genitourinary: Denies: dysuria Musculoskeletal: Reports: as per HPI, back pain Skin: Denies: rash Neurological: Denies: weakness Past Medical History Past Medical History: Diabetes Mellitus, Deep Vein Thrombosis (DVT), GERD/Reflux, Hyperlipidemia Additional Past Medical History / Comment(s): IDDM type II, neuropathy bilateral hands/feet, bilateral leg DVTs, carpal tunnel syndrome bilaterally, migraines,. hypothyroid, low iron, hydrocele R side. History of Any Multi-Drug Resistant Organisms: None Reported Past Surgical History: No Surgical Hx Reported Additional Past Surgical History / Comment(s): Colonoscopy Past Anesthesia/Blood Transfusion Reactions: No Reported Reaction Past Psychological History: No Psychological Hx Reported Smoking Status: Former smoker Past Alcohol Use History: None Reported Past Drug Use History: None Reported - Past Family History Father Family Medical History: Cancer Additional Family Medical History / Comment(s): Father had melanoma. He is -pt is not sure but thinks he drowned. Mother Family Medical History: No Reported History Additional Family Medical History / Comment(s): Mother is healthy. General Exam Limitations: no limitations General appearance: alert, in no apparent distress Head exam: Present: normocephalic Eye exam: Present: normal appearance Neck exam: Present: normal inspection Respiratory exam: Present: normal lung sounds bilaterally Cardiovascular Exam: Present: regular rate, normal rhythm Expanded Peripheral pulses: 2+: Femoral (R), Femoral (L), Posterior Tibialis (R), Posterior Tibialis (L), Dorsalis Pedis (R), Dorsalis Pedis (L) GI/Abdominal exam: Present: soft. Absent: distended, tenderness, guarding, rebound, rigid, pulsatile mass Extremities exam: Present: normal inspection, full ROM. Absent: tenderness Back exam: Present: tenderness (Mild tenderness left lateral lumbar region). Absent: vertebral tenderness Neurological exam: Present: alert. Absent: motor sensory deficit Expanded Motor strength exam: RUE: 5, LUE: 5, RLE: 5, LLE: 5 Psychiatric exam: Present: normal affect, normal mood Skin exam: Present: normal color Course Vital Signs 09/17/19 08:15 Temperature 97.7 F Pulse Rate 102 H Respiratory 20 Rate Blood Pressure 99/69 O2 Sat by Pulse 96 Oximetry Disposition Clinical Impression: Low back pain Disposition: HOME SELF-CARE Condition: Stable Instructions (If sedation given, give patient instructions): Acute Low Back Pain (ED) Additional Instructions: Please try not to carry 2 bags on the left side to allow your back time to rest. Please follow-up with primary care physician in the next couple days for recheck. Return for weakness, loss of control of bowel or bladder function, abdominal pain, worsening symptoms or any other concerns. Your prescription has been sent to [facility] pharmacy Prescriptions: Ibuprofen [Motrin] 600 mg PO Q6HR PRN #20 tab PRN Reason: Pain Is patient prescribed a controlled substance at d/c from ED?: No Referrals: Linda Jasmine MD [Primary Care Provider] - 1-2 days Time of Disposition: 08:55
== END 2019-09-17 09:24 | disposition home or self-care (01) ==
LOC: EC 08:12
DX: M54.5 Low back pain (principal); E78.5 Hyperlipidemia, unspecified; E11.40 Type 2 diabetes mellitus with diabetic neuropathy, unspecified; E03.9 Hypothyroidism, unspecified; Z79.4 Long term (current) use of insulin; Z79.899 Other long term (current) drug therapy; Z79.890 Hormone replacement therapy; Z87.891 Personal history of nicotine dependence; Z86.718 Personal history of other venous thrombosis and embolism
CPT/HCPCS: 99283

== ENCOUNTER 2019-10-03 11:46 | Emergency (ER) | payer OTHER ==
[2019-10-03 11:55] VITALS: TEMP 97.8
[2019-10-03] MEDS ORDERED: ORPHENADRINE 30 MG/ML 2 ML VIAL IM STA (12:43)
[2019-10-03] MEDS ORDERED: KETOROLAC 60 MG/2 ML VIAL IM STA (12:43)
[2019-10-03 13:32] LABS: Appearance,Urine Clear (Clear); Bilirubin,Urine Negative (Negative); Blood,Urine Negative (Negative); Color,Urine Light Yellow; Glucose,Urine (UA) 4+ (Negative); Ketones,Urine Negative (Negative); Leukocyte Esterase,Urine Negative (Negative); Nitrite,Urine Negative (Negative); Protein,Urine Negative (Negative); Specific Gravity,Urine 1.021 (1.001-1.035); Urobilinogen,Urine <2.0 mg/dL (<2.0)
--- NOTE | 2019-10-03 13:46 | XR ---
Lumbar spine HISTORY: Pain 3 views of the lumbar spine Lumbar vertebral bodies show preserved height, alignment, and bone mineralization. Disc spaces are ma intained with exception of some disc height loss L5-S1. Sclerosis present in the posterior elements o f the lower lumbar spine is consistent with facet arthropathy. IMPRESSION: Degenerative disc disease and facet arthropathy, lumbar MRI may be of benefit.
--- NOTE | 2019-10-03 13:47 | XR ---
Thoracic spine HISTORY: Pain 3 views of the thoracic spine Dressed vertebral bodies show preserved height and bone mineralization. There is a mild spinal curvat ure. Disc spaces are maintained. No paraspinal mass. IMPRESSION: Mild spinal curvature.
--- NOTE | 2019-10-03 13:57 | ED ---
Back Pain HPI - General Chief Complaint: Back Pain/Injury Stated Complaint: recheck- back apin Time Seen by Provider: 10/03/19 12:21 Source: patient, RN notes reviewed, old records reviewed Limitations: no limitations - History of Present Illness Initial Comments: 53 year old male presents for recheck for lower back pain and pain with movement for the past 2 weeks. PAtient reports no fall or trauma. He was seen in ED placed on pain medication, but reports the pain continues. Patient reports that he has no abdominal pain, saddle anesthesia. Denies weight loss and fevers and chills. - Related Data Home Medications Medication Instructions Recorded Confirmed Atorvastatin [Lipitor] 20 mg PO HS 09/28/18 09/17/19 Cyanocobalamin [Vitamin B-12] 1,000 mcg PO DAILY 09/28/18 09/17/19 Famotidine 20 mg PO BID 09/28/18 09/17/19 Ferrous Sulfate [Feosol] 325 mg PO TID 09/28/18 09/17/19 Gabapentin [Neurontin] 100 mg PO TID 09/28/18 09/17/19 Insulin Glargine [Lantus] 40 unit SQ HS 09/28/18 09/17/19 Insulin Lispro [Admelog] 6 unit SQ AC-TID 09/17/19 09/17/19 Insulin Lispro [Admelog] See Protocol SQ AC-TID 09/17/19 09/17/19 Levothyroxine Sodium [Synthroid] 125 mcg PO DAILY 09/17/19 09/17/19 Lisinopril [Zestril] 2.5 mg PO DAILY 09/17/19 09/17/19 Previous Rx's Medication Instructions Recorded Ibuprofen [Motrin] 600 mg PO Q6HR PRN #20 tab 09/17/19 Cyclobenzaprine [Flexeril] 10 mg PO TID #12 tab 10/03/19 Ketorolac [Toradol] 10 mg PO Q6HR #12 tab 10/03/19 Allergies Allergy/AdvReac Type Severity Reaction Status Date / Time No Known Allergies Allergy Verified 10/03/19 11:51 Review of Systems ROS Statement: Those systems with pertinent positive or pertinent negative responses have been documented in the HPI. ROS Other: All systems not noted in ROS Statement are negative. Past Medical History Past Medical History: Diabetes Mellitus, Deep Vein Thrombosis (DVT), GERD/Reflux, Hyperlipidemia Additional Past Medical History / Comment(s): IDDM type II, neuropathy bilateral hands/feet, bilateral leg DVTs, carpal tunnel syndrome bilaterally, migraines,. hypothyroid, low iron, hydrocele R side. History of Any Multi-Drug Resistant Organisms: None Reported Past Surgical History: No Surgical Hx Reported Additional Past Surgical History / Comment(s): Colonoscopy Past Anesthesia/Blood Transfusion Reactions: No Reported Reaction Past Psychological History: No Psychological Hx Reported Smoking Status: Former smoker Past Alcohol Use History: None Reported Past Drug Use History: None Reported - Past Family History Father Family Medical History: Cancer Additional Family Medical History / Comment(s): Father had melanoma. He is -pt is not sure but thinks he drowned. Mother Family Medical History: No Reported History Additional Family Medical History / Comment(s): Mother is healthy. General Exam - General Exam Comments Initial Comments: 53 year old male, no distress. Limitations: no limitations General appearance: alert, in no apparent distress Head exam: Present: atraumatic, normocephalic, normal inspection Eye exam: Present: normal appearance, PERRL, EOMI. Absent: scleral icterus, conjunctival injection, periorbital swelling ENT exam: Present: normal exam, mucous membranes moist Neck exam: Present: normal inspection. Absent: tenderness, meningismus, lymphadenopathy Respiratory exam: Present: normal lung sounds bilaterally. Absent: respiratory distress, wheezes, rales, rhonchi, stridor Cardiovascular Exam: Present: regular rate, normal rhythm, normal heart sounds. Absent: systolic murmur, diastolic murmur, rubs, gallop, clicks GI/Abdominal exam: Present: soft, normal bowel sounds. Absent: distended, tenderness, guarding, rebound, rigid Extremities exam: Present: normal inspection, full ROM, normal capillary refill. Absent: tenderness, pedal edema, joint swelling, calf tenderness Back exam: Present: normal inspection Neurological exam: Present: alert, oriented X3, CN II-XII intact Psychiatric exam: Present: normal affect, normal mood Skin exam: Present: warm, dry, intact, normal color. Absent: rash Course Vital Signs 10/03/19 10/03/19 11:52 14:00 Temperature 97.8 F Pulse Rate 78 70 Respiratory 16 18 Rate Blood Pressure 133/84 105/76 O2 Sat by Pulse 100 98 Oximetry Medical Decision Making - Medical Decision Making 53 year old male presents today for concern for lower back pain, worse with movment. Due to repeat visit, xrays obtained. PAtient has no compression fracture. PAtient given IM toradol adn norflex. Discussed patient follow up with back specialist for possible MRI. Discussed return parameters. - Lab Data Lab Results 10/03/19 Range/Units 12:56 Urine Color Light Yellow Urine Appearance Clear (Clear) Urine pH 5.0 (5.0-8.0) Ur Specific [place] 1.021 (1.001-1.035) Urine Protein Negative (Negative) Urine Glucose (UA) 4+ H (Negative) Urine Ketones Negative (Negative) Urine Blood Negative (Negative) Urine Nitrite Negative (Negative) Urine Bilirubin Negative (Negative) Urine Urobilinogen <2.0 (<2.0) mg/dL Ur Leukocyte Esterase Negative (Negative) - Radiology Data Radiology results: report reviewed Thoracic spine shows mild spinal curvature. Lumbar spine shows degenerative disc disease and facet arthropathy, lumbar MRI may be of benefit. Read by Dr. Olivera. Disposition Clinical Impression: Lumbar degenerative disc disease, Glucose found in urine on examination, Back spasm Disposition: HOME SELF-CARE Condition: Good Instructions (If sedation given, give patient instructions): Acute Low Back Pain (ED), Degenerative Disc Disease (ED) Additional Instructions: Please use medication as discussed. Please follow up with family doctor if symptoms have not improved over the next two days. Please return to the emergency room if your symptoms increase or worsen or for any other concerns. Prescriptions: Cyclobenzaprine [Flexeril] 10 mg PO TID #12 tab Ketorolac [Toradol] 10 mg PO Q6HR #12 tab Is patient prescribed a controlled substance at d/c from ED?: No Referrals: Linda Jasmine MD [Primary Care Provider] - 1-2 days Hali Hernandez DO [Doctor of Osteopathic Medicine] - 1-2 days Time of Disposition: 13:56
[2019-10-03 14:02] VITALS: BP 105/76; PULSE 70; RESP 18
== END 2019-10-03 14:15 | disposition home or self-care (01) ==
LOC: EC 11:46
DX: M51.36 Other intervertebral disc degeneration, lumbar region (principal); R81 Glycosuria; E11.42 Type 2 diabetes mellitus with diabetic polyneuropathy; K21.9 Gastro-esophageal reflux disease without esophagitis; E78.5 Hyperlipidemia, unspecified; E03.9 Hypothyroidism, unspecified; Z87.891 Personal history of nicotine dependence; Z79.4 Long term (current) use of insulin; Z79.890 Hormone replacement therapy; Z79.899 Other long term (current) drug therapy; Z86.2 Personal history of diseases of the blood and blood-forming organs and certain disorders involving the immune mechanism; Z86.69 Personal history of other diseases of the nervous system and sense organs
CPT/HCPCS: 81003; 72070; 72100; 99284; 96372 ×2; J2360; J1885

== ENCOUNTER 2019-12-03 09:58 | Observation (INO) | payer OTHER ==
[2019-12-03 18:11] VITALS: RESP 16
[2019-12-04 11:05] VITALS: BP 112/76; PULSE 76; TEMP 97.8
[2019-12-04 13:09] VITALS: BMI 28.8
== END 2019-12-04 15:15 | disposition home or self-care (01) ==
LOC: EC 09:58 → INTOOBSV 11:25 → UNDOADMIN 11:25 → 3SCARD 11:25 → UNDODISIN 12-04 15:15
PROVIDERS: ADMIT Internal Medicine; ATTEND Internal Medicine
DX: E11.10 Type 2 diabetes mellitus with ketoacidosis without coma (principal); E03.9 Hypothyroidism, unspecified; E78.5 Hyperlipidemia, unspecified; I10 Essential (primary) hypertension; E11.40 Type 2 diabetes mellitus with diabetic neuropathy, unspecified; E86.0 Dehydration; K21.9 Gastro-esophageal reflux disease without esophagitis; G43.909 Migraine, unspecified, not intractable, without status migrainosus; G56.03 Carpal tunnel syndrome, bilateral upper limbs; Z79.4 Long term (current) use of insulin; Z79.890 Hormone replacement therapy; Z79.899 Other long term (current) drug therapy; Z80.8 Family history of malignant neoplasm of other organs or systems; Z86.718 Personal history of other venous thrombosis and embolism; Z87.891 Personal history of nicotine dependence
CPT/HCPCS: 93005; 96361; 96365; 96366; 99285; 36415; 80053; 80048 ×2; 82009; 85025; 81003; 83036; G0378 ×2; J3480

== ENCOUNTER 2019-12-18 13:01 | Emergency (ER) | payer OTHER ==
[2019-12-18 13:10] VITALS: TEMP 97.9
[2019-12-18] MEDS ORDERED: IBUPROFEN 600 MG TAB PO STA (13:44)
[2019-12-18 13:58] LABS: Appearance,Urine Clear (Clear); Bilirubin,Urine Negative (Negative); Blood,Urine Negative (Negative); Color,Urine Light Yellow; Glucose,Urine (UA) 4+ (Negative); Ketones,Urine Negative (Negative); Leukocyte Esterase,Urine Negative (Negative); Nitrite,Urine Negative (Negative); PH, Urine 5.5 (5.0-8.0); Protein,Urine Negative (Negative); Specific Gravity,Urine 1.026 (1.001-1.035); Urobilinogen,Urine <2.0 mg/dL (<2.0)
--- NOTE | 2019-12-18 14:18 | XR ---
EXAMINATION TYPE: XR Hip LT and AP Pelvis DATE OF EXAM: 12/18/2019 COMPARISON: NONE HISTORY: Left hip pain for 3 days with no known injury TECHNIQUE: A single AP view of the pelvis is obtained. Two views of the left hip are obtained. FINDINGS: There is no acute fracture/dislocation evident in the pelvis. The hip and sacroiliac join ts appear symmetric with mild cephalad joint space narrowing bilaterally and acetabular roof sclerosi s. The overlying soft tissue appears unremarkable. Two views of left hip show no acute fracture or dislocation. No focal lytic or sclerotic lesion seen in the proximal left femur. Few subchondral cysts are seen of the left acetabular rim. The overlyin g soft tissue is unremarkable. IMPRESSION: There is no acute fracture or dislocation in the pelvis or left hip.
[2019-12-18 14:40] VITALS: BP 97/77; PULSE 83; RESP 16
--- NOTE | 2019-12-18 15:08 | ED ---
General Adult HPI - General Chief complaint: Abdominal Pain Stated complaint: left side hip pain Source: patient Mode of arrival: ambulatory Limitations: no limitations - History of Present Illness Initial comments: The patient is a 54-year-old male with past medical history of diabetes who presents to emergency room with reported left-sided abdominal wall pain. The patient reports that he is insulin-dependent and has been taking his insulin injections to the left side of his abdomen. He does believe that it has caused him some discomfort in this area. He is also having left-sided hip pain. Denies trauma to the site. No history of arthritis. Denies any swelling. Denies difficulty with ambulation. States the pain is worse when he was sitting still at a computer. He has not taken any medications for his symptoms. He denies any weakness in his lower extremity. Denies back or flank pain. Denies any changes in his urination. No saddle anesthesia or bowel or bladder incontinence. States that his sugars have been well controlled in the 200s. Denies any fevers or chills. No hardware in his back or hips. Denies any chest pain or shortness of breath. There are no alleviating, precipitating or modifying factors - Related Data Home Medications Medication Instructions Recorded Confirmed Cyanocobalamin [Vitamin B-12] 1,000 mcg PO DAILY 09/28/18 12/18/19 Gabapentin [Neurontin] 100 mg PO TID 09/28/18 12/18/19 Insulin Glargine [Lantus] 50 unit SQ HS 09/28/18 12/18/19 Insulin Lispro [Admelog] 6 unit SQ AC-TID 09/17/19 12/18/19 Insulin Lispro [Admelog] See Protocol SQ AC-TID 09/17/19 12/18/19 Levothyroxine Sodium [Synthroid] 125 mcg PO DAILY 09/17/19 12/18/19 Lisinopril [Zestril] 2.5 mg PO DAILY 09/17/19 12/18/19 Famotidine 20 mg PO BID 12/18/19 12/18/19 Previous Rx's Medication Instructions Recorded Ibuprofen 400 mg PO BID #10 tab 12/18/19 Allergies Allergy/AdvReac Type Severity Reaction Status Date / Time No Known Allergies Allergy Verified 12/18/19 14:45 Review of Systems ROS Statement: Those systems with pertinent positive or pertinent negative responses have been documented in the HPI. ROS Other: All systems not noted in ROS Statement are negative. Past Medical History Past Medical History: Diabetes Mellitus, Deep Vein Thrombosis (DVT), GERD/Reflux, Hyperlipidemia Additional Past Medical History / Comment(s): IDDM type II, neuropathy bilateral hands/feet, bilateral leg DVTs, carpal tunnel syndrome bilaterally, migraines,. hypothyroid, low iron, hydrocele R side. History of Any Multi-Drug Resistant Organisms: None Reported Past Surgical History: No Surgical Hx Reported Additional Past Surgical History / Comment(s): Colonoscopy Past Anesthesia/Blood Transfusion Reactions: No Reported Reaction Past Psychological History: No Psychological Hx Reported Smoking Status: Former smoker Past Alcohol Use History: None Reported Past Drug Use History: None Reported - Past Family History Father Family Medical History: Cancer Additional Family Medical History / Comment(s): Father had melanoma. He is -pt is not sure but thinks he drowned. Mother Family Medical History: No Reported History Additional Family Medical History / Comment(s): Mother is healthy. General Exam Limitations: no limitations Course Vital Signs 12/18/19 12/18/19 13:05 14:37 Temperature 97.9 F Pulse Rate 99 83 Respiratory 20 16 Rate Blood Pressure 109/77 97/77 O2 Sat by Pulse 97 97 Oximetry Medical Decision Making - Medical Decision Making Upon arrival the patient was placed into room 10. A thorough history and was performed in the patient does provide a urine sample. He does have reproducible pain with palpation of the subcutaneous tissue on the left side of his abdomen. He also has pain with palpation of the left hip. I did recommend a urinalysis, laboratory studies and imaging the patient's abdomen. He states that he will consent to a urinalysis and an x-ray at this time. He is refusing all other laboratory studies. He is of sound mind and capable of making his own decisions. I did discuss the risks of completing an incomplete workup and the patient understood this. Laboratory studies demonstrate 4+ glucose in the urine. I did request to perform an Accu-Chek of the patient refused. We did perform a left hip and pelvic x-ray which demonstrates no acute fracture dislocation. The patient was given 400 mg of Motrin for his pain. I reevaluated the patient he states that his pain has improved. He is requesting discharge at this time. I did inform the patient and he needs to follow up with his primary care physician in 2-4 days for reevaluation of his symptoms. Return to the emergency room for any new or worsening symptoms. Patient did agree to this. He was given a prescription for Motrin. She states he does not have a history of kidney issues. He is to take it on full stomach. He was then discharged home in good and stable condition - Lab Data Lab Results 12/18/19 Range/Units 13:40 Urine Color Light Yellow Urine Appearance Clear (Clear) Urine pH 5.5 (5.0-8.0) Ur Specific [place] 1.026 (1.001-1.035) Urine Protein Negative (Negative) Urine Glucose (UA) 4+ H (Negative) Urine Ketones Negative (Negative) Urine Blood Negative (Negative) Urine Nitrite Negative (Negative) Urine Bilirubin Negative (Negative) Urine Urobilinogen <2.0 (<2.0) mg/dL Ur Leukocyte Esterase Negative (Negative) Disposition Clinical Impression: Left hip pain Disposition: HOME SELF-CARE Condition: Stable Instructions (If sedation given, give patient instructions): Hip Pain (ED) Additional Instructions: Please follow-up with your primary care doctor in 2-4 days. Return to the emergency room for any new or worsening symptoms Prescriptions: Ibuprofen 400 mg PO BID #10 tab Is patient prescribed a controlled substance at d/c from ED?: No Referrals: Linda Jasmine MD [Primary Care Provider] - 1-2 days Time of Disposition: 15:08
== END 2019-12-18 15:25 | disposition home or self-care (01) ==
LOC: EC 13:01
DX: M25.552 Pain in left hip (principal); R10.9 Unspecified abdominal pain; E11.40 Type 2 diabetes mellitus with diabetic neuropathy, unspecified; E03.9 Hypothyroidism, unspecified; Z79.4 Long term (current) use of insulin; Z79.890 Hormone replacement therapy; Z87.891 Personal history of nicotine dependence; Z86.718 Personal history of other venous thrombosis and embolism
CPT/HCPCS: 73502; 81003; 99284

== ENCOUNTER 2020-01-30 13:19 | Inpatient (IN) | payer OTHER ==
[2020-01-30] MEDS ORDERED: ONDANSETRON 4 MG/2 ML VIAL IVP STA ×2 (13:45→14:55)
[2020-01-30] MEDS ORDERED: SODIUM CHLORIDE 0.9% 1,000 ML IV STA (13:45)
[2020-01-30 13:57] LABS: Glucose,Whole Blood 406 mg/dL (75-99)
[2020-01-30 13:59] LABS: Basophils % (A) 1 %; Eosinophils # (A) 0.1 k/uL (0-0.7); Eosinophils % (A) 2 %; HCT 47.3 % (39.0-53.0); HGB 15.3 gm/dL (13.0-17.5); Lymphocytes # (A) 1.6 k/uL (1.0-4.8); Lymphocytes % (A) 23 %; MCH 30.8 pg (25.0-35.0); MCHC 32.3 g/dL (31.0-37.0); MCV 95.4 fL (80.0-100.0); Mean Platelet Volume 7.5; Monocytes # (A) 0.3 k/uL (0-1.0); Monocytes % (A) 5 %; Neutrophils # (A) 4.8 k/uL (1.3-7.7); Neutrophils % (A) 68 %; Platelet Count 276 k/uL (150-450); RBC 4.95 m/uL (4.30-5.90); RDW 12.7 % (11.5-15.5); WBC 7.1 k/uL (3.8-10.6)
[2020-01-30 14:13] LABS: ALT 19 U/L (4-49); AST 19 U/L (17-59); African American GFR (CKD) >90 (>60 ml/min/1.73 sqM); Albumin 4.3 g/dL (3.5-5.0); Alkaline Phosphatase 81 U/L (38-126); Anion Gap 21 mmol/L; Blood Urea Nitrogen 19 mg/dL (9-20); Calcium 8.9 mg/dL (8.4-10.2); Carbon Dioxide 10 mmol/L (22-30); Chloride 100 mmol/L (98-107); Glucose 454 mg/dL (74-99); Non-African American GFR(CKD) 82 (>60 ml/min/1.73 sqM); Potassium 5.3 mmol/L (3.5-5.1); Sodium 131 mmol/L (137-145); Total Protein 7.3 g/dL (6.3-8.2)
[2020-01-30] MEDS ORDERED: INSULIN REGULAR BOLUS (FROM DRIP BAG) IV ONE (14:40)
[2020-01-30 14:45] LABS: VBG PH 7.27 (7.31-7.41)
--- NOTE | 2020-01-30 14:45 | ED ---
Abdominal Pain HPI - General Source: patient Mode of arrival: wheelchair Limitations: no limitations <Vaibhav Anderson - Last Filed: 01/30/20 15:34> <Lesvia Adkins - Last Filed: 02/03/20 21:09> - General Chief Complaint: Abdominal Pain Stated Complaint: Abd Pain Time Seen by Provider: 01/30/20 13:36 - History of Present Illness Initial Comments: Patient is a 54-year-old male with history of diabetes presenting to emergency Department with a chief complaint of abdominal pain nausea vomiting. Patient states his been following strict carbohydrate diet for his diabetes. Patient states prior to coming to the ED he checked his blood sugar and it was in the low 200s. Patient reports his glucose meter could be inaccurate. States he is also been urinating almost every hour. States the "water is running through him". States she has been in DKA before and this one feels like it. Does report some abdominal pain at the epigastric region but he suspects it is more due to the vomiting. Denies any hematuria, hematochezia or melena. Denies any diarrhea or constipation. Denies any fevers or chills cough chest pain shortness of breath headaches. (Vaibhav Anderson) - Related Data Home Medications Medication Instructions Recorded Confirmed Cyanocobalamin [Vitamin B-12] 1,000 mcg PO DAILY 09/28/18 01/30/20 Gabapentin [Neurontin] 100 mg PO DAILY 09/28/18 01/30/20 Insulin Lispro [Admelog] 6 unit SQ AC-TID 09/17/19 01/30/20 Insulin Lispro [Admelog] See Protocol SQ AC-TID 09/17/19 01/30/20 Lisinopril [Zestril] 2.5 mg PO DAILY 09/17/19 01/30/20 Atorvastatin Calcium [Lipitor] 20 mg PO DAILY 01/30/20 01/30/20 Ferrous Sulfate [Iron (65 MG 325 mg PO DAILY 01/30/20 01/30/20 Elemental)] Insulin Glargine,Hum.rec.anlog 50 unit SQ HS 01/30/20 01/30/20 [Basaglar Kwikpen U-100] Allergies Allergy/AdvReac Type Severity Reaction Status Date / Time No Known Allergies Allergy Verified 01/30/20 15:19 Review of Systems ROS Other: All systems not noted in ROS Statement are negative. <Vaibhav Anderson - Last Filed: 01/30/20 15:34> ROS Other: All systems not noted in ROS Statement are negative. <Lesvia Adkins Ezio - Last Filed: 02/03/20 21:09> ROS Statement: Those systems with pertinent positive or pertinent negative responses have been documented in the HPI. Past Medical History Past Medical History: Diabetes Mellitus, Deep Vein Thrombosis (DVT), GERD/Reflux, Hyperlipidemia Additional Past Medical History / Comment(s): IDDM type II, neuropathy bilateral hands/feet, bilateral leg DVTs, carpal tunnel syndrome bilaterally, migraines,. hypothyroid, low iron, hydrocele R side. History of Any Multi-Drug Resistant Organisms: None Reported Past Surgical History: No Surgical Hx Reported Additional Past Surgical History / Comment(s): Colonoscopy Past Anesthesia/Blood Transfusion Reactions: No Reported Reaction Past Psychological History: No Psychological Hx Reported Smoking Status: Former smoker Past Alcohol Use History: None Reported Past Drug Use History: None Reported - Past Family History Father Family Medical History: Cancer Additional Family Medical History / Comment(s): Father had melanoma. He is -pt is not sure but thinks he drowned. Mother Family Medical History: No Reported History Additional Family Medical History / Comment(s): Mother is healthy. <Vaibhav Anderson - Last Filed: 01/30/20 15:34> General Exam Limitations: no limitations General appearance: alert, in no apparent distress Head exam: Present: atraumatic, normocephalic, normal inspection Eye exam: Present: normal appearance Pupils: Present: normal accommodation ENT exam: Present: normal exam, normal oropharynx, mucous membranes moist, TM's normal bilaterally Neck exam: Present: normal inspection, full ROM Respiratory exam: Present: normal lung sounds bilaterally Cardiovascular Exam: Present: regular rate, normal rhythm, normal heart sounds GI/Abdominal exam: Present: soft, tenderness (Left lower quadrant epigastric tenderness, Mild.). Absent: distended Extremities exam: Present: normal inspection, full ROM Back exam: Present: normal inspection, full ROM Neurological exam: Present: alert, oriented X3 Psychiatric exam: Present: normal affect, normal mood Skin exam: Present: warm, dry, intact, normal color <Vaibhav Anderson - Last Filed: 01/30/20 15:34> Course Vital Signs 01/30/20 01/30/20 13:25 15:58 Temperature 98.2 F Pulse Rate 121 H 104 H Respiratory 18 19 Rate Blood Pressure 103/70 110/76 O2 Sat by Pulse 98 100 Oximetry Medical Decision Making - Lab Data Result diagrams: 01/30/20 13:42 01/30/20 13:42 <Vaibhav Anderson - Last Filed: 01/30/20 15:34> - Lab Data Result diagrams: 02/01/20 05:45 02/01/20 05:45 <Lesvia Adkins - Last Filed: 02/03/20 21:09> - Medical Decision Making Patient is a 54-year-old male with history of type 2 diabetes presenting to the emergency room with a chief complaint abdominal pain nausea vomiting. On exam patient does have some epigastric left upper quadrant abdominal tenderness that is mild. Patient was given fluids anti-medics. DK protocol started. Patient given bolus fluids and insulin with a slow drip of insulin. Potassium levels are at 5.3. Patient is positive for acetone. Blood glucose is 450. UA shows positive ketones and glucose. VBG shows metabolic acidosis with respiratory compensation.. Patient will be admitted for further management. also examined the patient and is in agreement with treatment plan. (Vaibhav Anderson) I was available for consultation in the emergency department. The history and physical exam were done by the midlevel provider. I was consulted for this patients care. I reviewed the case with the midlevel provider and based on the ir presentation of the patient, I agree with the assessment, medical decision making and plan of care as documented. I discussed the case with Dr. Garcia who accepted admission. Chart was dictated using [employer] dictation software. Attempts were made to correct any dictation errors however some typographical errors may persist. (Lesvia Adkins) - Lab Data Lab Results 01/30/20 01/30/20 01/30/20 Range/Units 13:42 13:42 13:45 WBC 7.1 (3.8-10.6) k/uL RBC 4.95 (4.30-5.90) m/uL Hgb 15.3 (13.0-17.5) gm/dL Hct 47.3 (39.0-53.0) % MCV 95.4 (80.0-100.0) fL MCH 30.8 (25.0-35.0) pg MCHC 32.3 (31.0-37.0) g/dL RDW 12.7 (11.5-15.5) % Plt Count 276 (150-450) k/uL Neutrophils % 68 % Lymphocytes % 23 % Monocytes % 5 % Eosinophils % 2 % Basophils % 1 % Neutrophils # 4.8 (1.3-7.7) k/uL Lymphocytes # 1.6 (1.0-4.8) k/uL Monocytes # 0.3 (0-1.0) k/uL Eosinophils # 0.1 (0-0.7) k/uL Basophils # 0.0 (0-0.2) k/uL VBG pH (7.31-7.41) VBG pCO2 (37-51) mmHg VBG HCO3 (24-28) mmol/L Sodium 131 L (137-145) mmol/L Potassium 5.3 H (3.5-5.1) mmol/L Chloride 100 (98-107) mmol/L Carbon Dioxide 10 L (22-30) mmol/L Anion Gap 21 mmol/L BUN 19 (9-20) mg/dL Creatinine 1.02 (0.66-1.25) mg/dL Est GFR (CKD-EPI)AfAm >90 (>60 ml/min/1.73 sqM) Est GFR (CKD-EPI)NonAf 82 (>60 ml/min/1.73 sqM) Glucose 454 H (74-99) mg/dL POC Glucose (mg/dL) 406 H (75-99) mg/dL POC Glu Financial Aid ID [place] Calcium 8.9 (8.4-10.2) mg/dL Total Bilirubin 1.0 (0.2-1.3) mg/dL AST 19 (17-59) U/L ALT 19 (4-49) U/L Alkaline Phosphatase 81 (38-126) U/L Total Protein 7.3 (6.3-8.2) g/dL Albumin 4.3 (3.5-5.0) g/dL Urine Color Urine Appearance (Clear) Urine pH (5.0-8.0) Ur Specific [place] (1.001-1.035) Urine Protein (Negative) Urine Glucose (UA) (Negative) Urine Ketones (Negative) Urine Blood (Negative) Urine Nitrite (Negative) Urine Bilirubin (Negative) Urine Urobilinogen (<2.0) mg/dL Ur Leukocyte Esterase (Negative) Acetone, Qual (Negative) 01/30/20 01/30/20 01/30/20 Range/Units 13:45 14:23 14:56 WBC (3.8-10.6) k/uL RBC (4.30-5.90) m/uL Hgb (13.0-17.5) gm/dL Hct (39.0-53.0) % MCV (80.0-100.0) fL MCH (25.0-35.0) pg MCHC (31.0-37.0) g/dL RDW (11.5-15.5) % Plt Count (150-450) k/uL Neutrophils % % Lymphocytes % % Monocytes % % Eosinophils % % Basophils % % Neutrophils # (1.3-7.7) k/uL Lymphocytes # (1.0-4.8) k/uL Monocytes # (0-1.0) k/uL Eosinophils # (0-0.7) k/uL Basophils # (0-0.2) k/uL VBG pH 7.27 L (7.31-7.41) VBG pCO2 21 L (37-51) mmHg VBG HCO3 9 L* (24-28) mmol/L Sodium (137-145) mmol/L Potassium (3.5-5.1) mmol/L Chloride (98-107) mmol/L Carbon Dioxide (22-30) mmol/L Anion Gap mmol/L BUN (9-20) mg/dL Creatinine (0.66-1.25) mg/dL Est GFR (CKD-EPI)AfAm (>60 ml/min/1.73 sqM) Est GFR (CKD-EPI)NonAf (>60 ml/min/1.73 sqM) Glucose (74-99) mg/dL POC Glucose (mg/dL) 427 H (75-99) mg/dL POC Glu Financial Aid ID [place], [place] Calcium (8.4-10.2) mg/dL Total Bilirubin (0.2-1.3) mg/dL AST (17-59) U/L ALT (4-49) U/L Alkaline Phosphatase (38-126) U/L Total Protein (6.3-8.2) g/dL Albumin (3.5-5.0) g/dL Urine Color Urine Appearance (Clear) Urine pH (5.0-8.0) Ur Specific [place] (1.001-1.035) Urine Protein (Negative) Urine Glucose (UA) (Negative) Urine Ketones (Negative) Urine Blood (Negative) Urine Nitrite (Negative) Urine Bilirubin (Negative) Urine Urobilinogen (<2.0) mg/dL Ur Leukocyte Esterase (Negative) Acetone, Qual Positive (Negative) 01/30/20 Range/Units 15:39 WBC (3.8-10.6) k/uL RBC (4.30-5.90) m/uL Hgb (13.0-17.5) gm/dL Hct (39.0-53.0) % MCV (80.0-100.0) fL MCH (25.0-35.0) pg MCHC (31.0-37.0) g/dL RDW (11.5-15.5) % Plt Count (150-450) k/uL Neutrophils % % Lymphocytes % % Monocytes % % Eosinophils % % Basophils % % Neutrophils # (1.3-7.7) k/uL Lymphocytes # (1.0-4.8) k/uL Monocytes # (0-1.0) k/uL Eosinophils # (0-0.7) k/uL Basophils # (0-0.2) k/uL VBG pH (7.31-7.41) VBG pCO2 (37-51) mmHg VBG HCO3 (24-28) mmol/L Sodium (137-145) mmol/L Potassium (3.5-5.1) mmol/L Chloride (98-107) mmol/L Carbon Dioxide (22-30) mmol/L Anion Gap mmol/L BUN (9-20) mg/dL Creatinine (0.66-1.25) mg/dL Est GFR (CKD-EPI)AfAm (>60 ml/min/1.73 sqM) Est GFR (CKD-EPI)NonAf (>60 ml/min/1.73 sqM) Glucose (74-99) mg/dL POC Glucose (mg/dL) (75-99) mg/dL POC Glu Financial Aid ID Calcium (8.4-10.2) mg/dL Total Bilirubin (0.2-1.3) mg/dL AST (17-59) U/L ALT (4-49) U/L Alkaline Phosphatase (38-126) U/L Total Protein (6.3-8.2) g/dL Albumin (3.5-5.0) g/dL Urine Color Light Yellow Urine Appearance Clear (Clear) Urine pH 5.0 (5.0-8.0) Ur Specific [place] 1.025 (1.001-1.035) Urine Protein Trace H (Negative) Urine Glucose (UA) 4+ H (Negative) Urine Ketones 4+ H (Negative) Urine Blood Negative (Negative) Urine Nitrite Negative (Negative) Urine Bilirubin Negative (Negative) Urine Urobilinogen <2.0 (<2.0) mg/dL Ur Leukocyte Esterase Negative (Negative) Acetone, Qual (Negative) Disposition Is patient prescribed a controlled substance at d/c from ED?: No Time of Disposition: 15:57 <Vaibhav Anderson - Last Filed: 01/30/20 15:34> <Lesvia Adkins - Last Filed: 02/03/20 21:09> Clinical Impression: DKA (diabetic ketoacidoses) Disposition: ADMITTED IP TO THIS HOSP Condition: Good
[2020-01-30 14:58] LABS: Glucose,Whole Blood 427 mg/dL (75-99)
[2020-01-30] MEDS: INSULIN REGULAR 100 UNIT in SODIUM CHLORIDE 0.9% 100 ML IV SCH (15:33)
[2020-01-30 15:48] LABS: Appearance,Urine Clear (Clear); Bilirubin,Urine Negative (Negative); Blood,Urine Negative (Negative); Color,Urine Light Yellow; Glucose,Urine (UA) 4+ (Negative); Leukocyte Esterase,Urine Negative (Negative); Nitrite,Urine Negative (Negative); Protein,Urine Trace (Negative); Specific Gravity,Urine 1.025 (1.001-1.035); Urobilinogen,Urine <2.0 mg/dL (<2.0)
[2020-01-30 15:54] LABS: Ketones,Urine 4+ (Negative)
[2020-01-30] MEDS: SODIUM CHLORIDE 0.9% 1,000 ML IV SCH ×2 (15:58→21:56)
[2020-01-30 16:17] LABS: Glucose,Whole Blood 419 mg/dL (75-99)
[2020-01-30] MEDS ORDERED: ACETAMINOPHEN TAB 325 MG TAB PO PRN (16:30)
[2020-01-30] MEDS ORDERED: NALOXONE 0.4 MG/ML 1 ML VIAL IV PRN (16:30)
--- NOTE | 2020-01-30 16:35 | P.HPIM ---
History of Present Illness H&P Date: 01/30/20 Chief Complaint: Vomiting 54-year-old male with a PMH of type 2 diabetes mellitus insulin-dependent, hypertension, hyperlipidemia, and hypothyroidism who is mentally challenged, presented to the emergency room with complaints of increased urination, thirst, nausea, vomiting, abdominal pain and high blood glucose levels at home. The patient reports that though he has been compliant with his insulin at home. He reported problems with his meter but denied any changes to his insulin doses. Symptoms started today. He denied visual changes, chest pain, shortness of breath, nausea, vomiting, headaches. No hematemesis, no hematochezia, no diarrhea. Evaluation in the emergency room revealed a blood glucose level of 454, A-gap 21, urine with 4+ ketones. The patient was admitted to the medicine service for management of DKA. Review of Systems Complete review of system performed, pertinent positives per HPI, otherwise negative Past Medical History Past Medical History: Diabetes Mellitus, Deep Vein Thrombosis (DVT), GERD/Reflux, Hyperlipidemia Additional Past Medical History / Comment(s): IDDM type II, neuropathy bilateral hands/feet, bilateral leg DVTs, carpal tunnel syndrome bilaterally, migraines,. hypothyroid, low iron, hydrocele R side. History of Any Multi-Drug Resistant Organisms: None Reported Past Surgical History: No Surgical Hx Reported Additional Past Surgical History / Comment(s): Colonoscopy Past Anesthesia/Blood Transfusion Reactions: No Reported Reaction Past Psychological History: No Psychological Hx Reported Smoking Status: Former smoker Past Alcohol Use History: None Reported Past Drug Use History: None Reported - Past Family History Father Family Medical History: Cancer Additional Family Medical History / Comment(s): Father had melanoma. He is -pt is not sure but thinks he drowned. Mother Family Medical History: No Reported History Additional Family Medical History / Comment(s): Mother is healthy. Medications and Allergies Home Medications Medication Instructions Recorded Confirmed Type Cyanocobalamin [Vitamin B-12] 1,000 mcg PO DAILY 09/28/18 01/30/20 History Gabapentin [Neurontin] 100 mg PO DAILY 09/28/18 01/30/20 History Insulin Lispro [Admelog] 6 unit SQ AC-TID 09/17/19 01/30/20 History Insulin Lispro [Admelog] See Protocol SQ AC-TID 09/17/19 01/30/20 History Lisinopril [Zestril] 2.5 mg PO DAILY 09/17/19 01/30/20 History Atorvastatin Calcium [Lipitor] 20 mg PO DAILY 01/30/20 01/30/20 History Ferrous Sulfate [Feosol] 325 mg PO DAILY 01/30/20 01/30/20 History Insulin Glargine,Hum.rec.anlog 50 unit SQ HS 01/30/20 01/30/20 History [Basaglnaida Brunerpen U-100] Allergies Allergy/AdvReac Type Severity Reaction Status Date / Time No Known Allergies Allergy Verified 01/30/20 15:19 Physical Exam Vitals: Vital Signs Temp Pulse Resp BP Pulse Ox 01/30/20 15:58 104 H 19 110/76 100 01/30/20 13:25 98.2 F 121 H 18 103/70 98 Intake and Output 01/30/20 01/30/20 01/30/20 06:59 14:59 22:59 Other: Weight 83.915 kg Constitutional: No acute distress, conversant, pleasant Eyes:Anicteric sclerae, moist conjunctiva, no lid-lag, PERRLA, ENMT: Oropharynx clear, no erythema, exudates Neck: Supple, FROM, no masses, or JVD, No carotid bruits, No thyromegaly Lungs: Clear to auscultation, Clear to percussion, Normal respiratory effort, no accessory muscle use Cardiovascular: Heart regular in rate and rhythm, No murmurs, gallops, or rubs, No peripheral edema Abdominal: Soft, diffusely tender, no guarding, rebound or rigidity, Normoactive bowel sounds, No hepatomegaly, No splenomegaly, No palpable mass Skin: Normal temperature, tone, texture, turgor, no induration, No subcutaneous nodules, No rash, lesions, No ulcers Extremities: No digital cyanosis, No clubbing, Pedal pulses intact and symmetrical, Radial pulses intact and symmetrical, No calf tenderness Psychiatric: Alert and oriented to person, place and time, appropriate affect, intact judgement Neuro: Muscles Strength 5/5 in all 4 extremities, Sensation to light touch grossly present throughout, Cranial nerves II-XII grossly intact, no focal sensory deficits Results CBC & Chem 7: 01/30/20 13:42 01/30/20 13:42 Labs: Abnormal Lab Results - Last 24 Hours (Table) 01/30/20 01/30/20 01/30/20 Range/Units 13:42 13:45 14:23 VBG pH 7.27 L (7.31-7.41) VBG pCO2 21 L (37-51) mmHg VBG HCO3 9 L* (24-28) mmol/L Sodium 131 L (137-145) mmol/L Potassium 5.3 H (3.5-5.1) mmol/L Carbon Dioxide 10 L (22-30) mmol/L Glucose 454 H (74-99) mg/dL POC Glucose (mg/dL) 406 H (75-99) mg/dL Urine Protein (Negative) Urine Glucose (UA) (Negative) Urine Ketones (Negative) 01/30/20 01/30/20 01/30/20 Range/Units 14:56 15:39 16:15 VBG pH (7.31-7.41) VBG pCO2 (37-51) mmHg VBG HCO3 (24-28) mmol/L Sodium (137-145) mmol/L Potassium (3.5-5.1) mmol/L Carbon Dioxide (22-30) mmol/L Glucose (74-99) mg/dL POC Glucose (mg/dL) 427 H 419 H (75-99) mg/dL Urine Protein Trace H (Negative) Urine Glucose (UA) 4+ H (Negative) Urine Ketones 4+ H (Negative) Assessment and Plan Plan: Diabetic ketoacidosis IV fluids Insulin drip BMP every 4hrs Blood glucose every 1 hour Restart subcu insulin once gap closes Nausea and vomiting Secondary to above Zofran and Reglan when necessary Chronic GERD/Reflux, Hyperlipidemia All stable Resume meds Patient will be admitted to inpatient Expected length of stay more than 2 midnights
[2020-01-30] MEDS ORDERED: ONDANSETRON 4 MG/2 ML VIAL IVP PRN (16:37)
[2020-01-30 16:53] LABS: Glucose,Whole Blood 349 mg/dL (75-99)
[2020-01-30 17:22] LABS: Glucose,Whole Blood 294 mg/dL (75-99)
[2020-01-30 18:57] LABS: Glucose,Whole Blood 199 mg/dL (75-99)
[2020-01-30 19:58] LABS: Glucose,Whole Blood 165 mg/dL (75-99)
[2020-01-30 20:09] LABS: African American GFR (CKD) >90 (>60 ml/min/1.73 sqM); Anion Gap 13 mmol/L; Blood Urea Nitrogen 18 mg/dL (9-20); Calcium 8.4 mg/dL (8.4-10.2); Carbon Dioxide 14 mmol/L (22-30); Chloride 104 mmol/L (98-107); Glucose 162 mg/dL (74-99); Non-African American GFR(CKD) >90 (>60 ml/min/1.73 sqM); Phosphorus 2.7 mg/dL (2.5-4.5); Potassium 4.3 mmol/L (3.5-5.1); Sodium 131 mmol/L (137-145)
[2020-01-30 20:43] LABS: Glucose,Whole Blood 95 mg/dL (75-99)
[2020-01-30 21:17] LABS: Glucose,Whole Blood 77 mg/dL (75-99)
[2020-01-30 21:36] LABS: Glucose,Whole Blood 99 mg/dL (75-99)
[2020-01-30] MEDS ORDERED: DEXTROSE 5%-0.45% NACL 1,000 ML with POTASSIUM CHLORIDE 20 MEQ IV SCH ×2 (21:45)
[2020-01-30] MEDS: D5-0.45% NACL WITH KCL 20MEQ/L 1,000 ML IV SCH (22:36)
[2020-01-30 22:39] LABS: Glucose,Whole Blood 166 mg/dL (75-99)
[2020-01-30 22:54] LABS: African American GFR (CKD) >90 (>60 ml/min/1.73 sqM); Anion Gap 14 mmol/L; Blood Urea Nitrogen 18 mg/dL (9-20); Calcium 7.9 mg/dL (8.4-10.2); Carbon Dioxide 13 mmol/L (22-30); Chloride 104 mmol/L (98-107); Glucose 166 mg/dL (74-99); Non-African American GFR(CKD) >90 (>60 ml/min/1.73 sqM); Sodium 131 mmol/L (137-145)
[2020-01-30 23:03] LABS: Potassium 4.7 mmol/L (3.5-5.1)
[2020-01-30 23:42] LABS: Glucose,Whole Blood 303 mg/dL (75-99)
[2020-01-31 00:46] LABS: Glucose,Whole Blood 288 mg/dL (75-99)
[2020-01-31 00:58] LABS: African American GFR (CKD) >90 (>60 ml/min/1.73 sqM); Anion Gap 14 mmol/L; Blood Urea Nitrogen 16 mg/dL (9-20); Carbon Dioxide 14 mmol/L (22-30); Chloride 102 mmol/L (98-107); Glucose 288 mg/dL (74-99); Non-African American GFR(CKD) >90 (>60 ml/min/1.73 sqM); Phosphorus 3.5 mg/dL (2.5-4.5); Potassium 4.5 mmol/L (3.5-5.1); Sodium 130 mmol/L (137-145)
[2020-01-31 01:45] LABS: Glucose,Whole Blood 258 mg/dL (75-99)
[2020-01-31 02:39] LABS: Glucose,Whole Blood 186 mg/dL (75-99)
[2020-01-31] MEDS: INSULIN REGULAR 100 UNIT in SODIUM CHLORIDE 0.9% 100 ML IV SCH (03:37)
[2020-01-31 03:42] LABS: Glucose,Whole Blood 152 mg/dL (75-99)
[2020-01-31 03:51] LABS: Basophils % (A) 0 %; Eosinophils # (A) 0.1 k/uL (0-0.7); Eosinophils % (A) 2 %; HCT 42.1 % (39.0-53.0); Lymphocytes # (A) 1.9 k/uL (1.0-4.8); Lymphocytes % (A) 31 %; MCH 30.7 pg (25.0-35.0); MCHC 33.2 g/dL (31.0-37.0); MCV 92.6 fL (80.0-100.0); Mean Platelet Volume 7.1; Monocytes # (A) 0.4 k/uL (0-1.0); Monocytes % (A) 6 %; Neutrophils # (A) 3.7 k/uL (1.3-7.7); Neutrophils % (A) 60 %; Platelet Count 210 k/uL (150-450); RBC 4.55 m/uL (4.30-5.90); RDW 12.5 % (11.5-15.5); WBC 6.3 k/uL (3.8-10.6)
[2020-01-31 04:05] LABS: African American GFR (CKD) >90 (>60 ml/min/1.73 sqM); Anion Gap 8 mmol/L; Blood Urea Nitrogen 16 mg/dL (9-20); Calcium 8.3 mg/dL (8.4-10.2); Carbon Dioxide 19 mmol/L (22-30); Chloride 105 mmol/L (98-107); Glucose 153 mg/dL (74-99); Non-African American GFR(CKD) >90 (>60 ml/min/1.73 sqM); Sodium 132 mmol/L (137-145)
[2020-01-31 04:41] LABS: Glucose,Whole Blood 90 mg/dL (75-99)
[2020-01-31 05:14] LABS: Glucose,Whole Blood 89 mg/dL (75-99)
[2020-01-31 06:02] LABS: Glucose,Whole Blood 132 mg/dL (75-99)
[2020-01-31] MEDS: D5-0.45% NACL WITH KCL 20MEQ/L 1,000 ML IV SCH ×2 (06:24→15:47)
[2020-01-31 06:32] LABS: African American GFR (CKD) >90 (>60 ml/min/1.73 sqM); Anion Gap 9 mmol/L; Blood Urea Nitrogen 15 mg/dL (9-20); Calcium 8.2 mg/dL (8.4-10.2); Carbon Dioxide 16 mmol/L (22-30); Chloride 108 mmol/L (98-107); Glucose 139 mg/dL (74-99); Magnesium 1.9 mg/dL (1.6-2.3); Non-African American GFR(CKD) >90 (>60 ml/min/1.73 sqM); Phosphorus 2.5 mg/dL (2.5-4.5); Potassium 4.3 mmol/L (3.5-5.1); Sodium 133 mmol/L (137-145)
[2020-01-31 06:51] LABS: Glucose,Whole Blood 164 mg/dL (75-99)
[2020-01-31 07:51] LABS: Glucose,Whole Blood 233 mg/dL (75-99)
[2020-01-31] MEDS: GABAPENTIN 100 MG CAP PO SCH (08:43)
[2020-01-31] MEDS: ATORVASTATIN 20 MG TAB PO SCH (08:43)
[2020-01-31] MEDS: FERROUS SULFATE 325 MG TAB PO SCH (08:43)
[2020-01-31] MEDS: CYANOCOBALAMIN 500 MCG TAB PO SCH (08:43)
[2020-01-31] MEDS: LISINOPRIL 2.5 MG TAB PO SCH (08:43)
[2020-01-31 08:52] LABS: Glucose,Whole Blood 213 mg/dL (75-99)
[2020-01-31 09:51] LABS: Glucose,Whole Blood 256 mg/dL (75-99)
[2020-01-31 10:53] LABS: Glucose,Whole Blood 199 mg/dL (75-99)
[2020-01-31 11:16] VITALS: BMI 28.3
[2020-01-31 11:51] LABS: Glucose,Whole Blood 148 mg/dL (75-99)
[2020-01-31 12:51] LABS: Glucose,Whole Blood 197 mg/dL (75-99)
[2020-01-31 13:03] LABS: Glucose,Whole Blood 201 mg/dL (75-99)
[2020-01-31 13:50] LABS: Glucose,Whole Blood 203 mg/dL (75-99)
[2020-01-31] MEDS ORDERED: INSULIN DETEMIR (LEVEMIR) 100 UNIT/ML SYR SQ ONE (14:05)
[2020-01-31 14:22] LABS: Glucose,Whole Blood 186 mg/dL (75-99)
[2020-01-31 16:36] LABS: Glucose,Whole Blood 170 mg/dL (75-99)
[2020-01-31] MEDS: INSULIN ASPART (NovoLOG) 100 UNIT/ML VIAL SQ SCH ×2 (17:38→21:15)
--- NOTE | 2020-01-31 19:51 | P.PN ---
Subjective Progress Note Date: 01/31/20 (delayed charting seen at 1100) Principal diagnosis: vomiting Patient is a 54-year-old male past medical history of diabetes mellitus, DVT, GERD, and dyslipidemia who presented to the emergency department with complaints of increased urination, thirst, nausea, and vomiting. He was ultimately diagnosed with DKA. He was started on an insulin drip and IV fluids. He was admitted for further monitoring. By the morning after admission his anion gap had closed and his acidosis was improving. Patient seen and examined at bedside. He complains of continued abdominal pain across the lower abdomen that is worse when he is eating. He denies any nausea or vomiting. He denies any chest discomfort. He is very concerned about what insulin to take when he goes home. He has no other complaints currently. Apparently he is just going to start switching to basal Magdy from his Lantus. He states that his meter has not been working but he has his lancets and testing supplies. He is out of both needles and syringes. Objective - Vital Signs Vital signs: Vital Signs Temp 98.2 F 01/31/20 16:00 Pulse 95 01/31/20 16:00 Resp 16 01/31/20 16:00 BP 119/76 01/31/20 16:00 Pulse Ox 97 01/31/20 16:00 Intake & Output 01/31/20 01/31/20 02/01/20 06:59 18:59 06:59 Intake Total 512.367 4099 Output Total 300 300 Balance 43.849 976 Weight 87 kg 87 kg Intake: Intake, IV Titration 103.849 Amount Insulin Regular 100 unit 103.849 In Sodium Chloride 0.9% 100 ml @ 0.1 UNITS/KG/HR 8.475 mls/hr IV .[id number] EUGENIA Rx#:[id number] Oral 240 1276 Output: Urine 300 300 Other: # Voids 1 1 - Exam General: non toxic , no distress, appears at stated age Derm: warm, dry Head: atraumatic, normocephalic, symmetric Eyes: EOMI, no lid lag, anicteric sclera Mouth: no lip lesion, mucus membranes moist Cardiovascular: S1S2 reg, no murmur, positive posterior tibial pulse bilateral, Lungs: CTA bilateral, no rhonchi, no rales , no accessory muscle use Abdominal: soft, + tender to palpation right upper quadrant, no guarding, no appreciable organomegaly Ext: no gross muscle atrophy, no edema, no contractures Neuro: CN II-XI grossly intact, no focal neuro deficits Psych: Alert, oriented, appropriate affect , appears fixated - Labs CBC & Chem 7: 01/31/20 03:26 01/31/20 05:51 Labs: Abnormal Lab Results - Last 24 Hours (Table) 01/30/20 01/30/20 01/30/20 Range/Units 19:24 19:46 22:25 Sodium 131 L 131 L (137-145) mmol/L Chloride (98-107) mmol/L Carbon Dioxide 14 L 13 L (22-30) mmol/L Glucose 162 H 166 H (74-99) mg/dL POC Glucose (mg/dL) 165 H (75-99) mg/dL Calcium 7.9 L (8.4-10.2) mg/dL 01/30/20 01/30/20 01/31/20 Range/Units 22:36 23:40 00:17 Sodium 130 L (137-145) mmol/L Chloride (98-107) mmol/L Carbon Dioxide 14 L (22-30) mmol/L Glucose 288 H (74-99) mg/dL POC Glucose (mg/dL) 166 H 303 H (75-99) mg/dL Calcium (8.4-10.2) mg/dL 01/31/20 01/31/20 01/31/20 Range/Units 00:44 01:43 02:37 Sodium (137-145) mmol/L Chloride (98-107) mmol/L Carbon Dioxide (22-30) mmol/L Glucose (74-99) mg/dL POC Glucose (mg/dL) 288 H 258 H 186 H (75-99) mg/dL Calcium (8.4-10.2) mg/dL 01/31/20 01/31/20 01/31/20 Range/Units 03:26 03:40 05:51 Sodium 132 L 133 L (137-145) mmol/L Chloride 108 H (98-107) mmol/L Carbon Dioxide 19 L 16 L (22-30) mmol/L Glucose 153 H 139 H (74-99) mg/dL POC Glucose (mg/dL) 152 H (75-99) mg/dL Calcium 8.3 L 8.2 L (8.4-10.2) mg/dL 01/31/20 01/31/20 01/31/20 Range/Units 05:58 06:50 07:49 Sodium (137-145) mmol/L Chloride (98-107) mmol/L Carbon Dioxide (22-30) mmol/L Glucose (74-99) mg/dL POC Glucose (mg/dL) 132 H 164 H 233 H (75-99) mg/dL Calcium (8.4-10.2) mg/dL 01/31/20 01/31/20 01/31/20 Range/Units 08:50 09:49 10:52 Sodium (137-145) mmol/L Chloride (98-107) mmol/L Carbon Dioxide (22-30) mmol/L Glucose (74-99) mg/dL POC Glucose (mg/dL) 213 H 256 H 199 H (75-99) mg/dL Calcium (8.4-10.2) mg/dL 01/31/20 01/31/20 01/31/20 Range/Units 11:49 12:50 13:00 Sodium (137-145) mmol/L Chloride (98-107) mmol/L Carbon Dioxide (22-30) mmol/L Glucose (74-99) mg/dL POC Glucose (mg/dL) 148 H 197 H 201 H (75-99) mg/dL Calcium (8.4-10.2) mg/dL 01/31/20 01/31/20 01/31/20 Range/Units 13:49 14:20 16:33 Sodium (137-145) mmol/L Chloride (98-107) mmol/L Carbon Dioxide (22-30) mmol/L Glucose (74-99) mg/dL POC Glucose (mg/dL) 203 H 186 H 170 H (75-99) mg/dL Calcium (8.4-10.2) mg/dL Assessment and Plan Assessment: Diabetic ketoacidosis -Transition from insulin drip to sliding scale and long-acting, diet, follow blood sugars -Await hemoglobin A1c -He needs a new order for syringes and needles on discharge Abdominal pain - check CMP and lipase in AM - Start PPI - likely related to DKA DM 2 with neuropathy - Neurontin -Management and diabetes as above dyslipidemia -Statin Chronic: Hypothyroidism Iron deficiency GERD nausea and vomiting, resolved DVT prophylaxis: SCDs Discussed with: Patient, nursing Anticipated discharge: In a.m. Anticipated discharge place: Home A total of 25 minutes was spent on the care of this complex patient more than 50% of the time was spent in counseling and care coordination.
[2020-01-31 20:31] LABS: Glucose,Whole Blood 300 mg/dL (75-99)
[2020-01-31] MEDS ORDERED: INSULIN DETEMIR (LEVEMIR) 100 UNIT/ML SYR SQ SCH ×2 (21:00)
[2020-02-01 03:41] LABS: Glucose,Whole Blood 126 mg/dL (75-99)
[2020-02-01 04:38] VITALS: TEMP 97.9
[2020-02-01 06:08] LABS: HCT 39.4 % (39.0-53.0); HGB 13.3 gm/dL (13.0-17.5); MCH 31.2 pg (25.0-35.0); MCHC 33.7 g/dL (31.0-37.0); MCV 92.7 fL (80.0-100.0); Mean Platelet Volume 7.3; Platelet Count 207 k/uL (150-450); RBC 4.25 m/uL (4.30-5.90); RDW 12.8 % (11.5-15.5); WBC 4.3 k/uL (3.8-10.6)
[2020-02-01 06:22] LABS: Glucose,Whole Blood 127 mg/dL (75-99)
[2020-02-01 06:29] LABS: ALT 15 U/L (4-49); AST 24 U/L (17-59); African American GFR (CKD) >90 (>60 ml/min/1.73 sqM); Albumin 3.1 g/dL (3.5-5.0); Alkaline Phosphatase 51 U/L (38-126); Anion Gap 6 mmol/L; Blood Urea Nitrogen 10 mg/dL (9-20); Calcium 8.4 mg/dL (8.4-10.2); Carbon Dioxide 25 mmol/L (22-30); Chloride 105 mmol/L (98-107); Glucose 143 mg/dL (74-99); Non-African American GFR(CKD) >90 (>60 ml/min/1.73 sqM); Potassium 4.1 mmol/L (3.5-5.1); Sodium 136 mmol/L (137-145); Total Bilirubin 0.4 mg/dL (0.2-1.3)
[2020-02-01] MEDS: INSULIN ASPART (NovoLOG) 100 UNIT/ML VIAL SQ SCH ×2 (06:36→12:02)
[2020-02-01 09:49] VITALS: RESP 18
[2020-02-01] MEDS: FERROUS SULFATE 325 MG TAB PO SCH (09:57)
[2020-02-01] MEDS: ATORVASTATIN 20 MG TAB PO SCH (09:57)
[2020-02-01] MEDS: CYANOCOBALAMIN 500 MCG TAB PO SCH (09:57)
[2020-02-01] MEDS: LISINOPRIL 2.5 MG TAB PO SCH (09:57)
[2020-02-01] MEDS: GABAPENTIN 100 MG CAP PO SCH (09:57)
--- NOTE | 2020-02-01 11:24 | P.DS ---
Providers Date of admission: 01/30/20 15:41 Expected date of discharge: 02/01/20 Attending physician: Marv Adams MD Primary care physician: Linda Jasmine [facility] Course: Discharge Diagnosis: Diabetic ketoacidosis Abdominal pain Diabetes mellitus type 2 with neuropathy Dyslipidemia Hypothyroidism Iron deficiency GERD Intractable nausea and vomiting Hospital Course: Patient is a 54-year-old male past medical history of diabetes mellitus, DVT, GERD, and dyslipidemia who presented to the emergency department with complaints of increased urination, thirst, nausea, and vomiting. He was ultimately diagnosed with DKA. He was started on an insulin drip and IV fluids. He was admitted for further monitoring. By the morning after admission his anion gap had closed and his acidosis was improving. He was transitioned to sliding scale plus fixed dose insulin. He continued to do well. His anion gap remained close to his blood sugars were controlled. He was determined stable for discharge home. He will follow-up with his primary care physician. He was given a new prescription for needles and syringes. Patient seen and examined at bedside. Feeling much improved today. His abdominal pain is better but not completely resolved. No chest pain or shortness of breath. Vital signs reviewed and stable. General: non toxic, no distress, appears at stated age Derm: warm, dry Head: atraumatic, normocephalic, symmetric Eyes: EOMI, no lid lag, anicteric sclera Mouth: no lip lesion, mucus membranes moist Cardiovascular: S1S2 reg, no murmur, positive posterior tibial pulse bilateral, Lungs: CTA bilateral, no rhonchi, no rales , no accessory muscle use Abdominal: soft, nontender to palpation, no guarding, no appreciable organomegaly Ext: no gross muscle atrophy, no edema, no contractures Neuro: CN II-XI grossly intact, no focal neuro deficits Psych: Alert, oriented, appropriate affect A total of 35 minutes of time were spent preparing this complex discharge summary . Patient Condition at Discharge: Good Plan - Discharge Summary Discharge Rx Participant: Yes New Discharge Prescriptions: Continue Gabapentin [Neurontin] 100 mg PO DAILY Cyanocobalamin [Vitamin B-12] 1,000 mcg PO DAILY Insulin Lispro [Admelog] 6 unit SQ AC-TID Lisinopril [Zestril] 2.5 mg PO DAILY Insulin Lispro [Admelog] See Protocol SQ AC-TID Atorvastatin Calcium [Lipitor] 20 mg PO DAILY Insulin Glargine,Hum.rec.anlog [Basaglar Kwikpen U-100] 50 unit SQ HS Ferrous Sulfate [Iron (65 MG Elemental)] 325 mg PO DAILY Discharge Medication List Cyanocobalamin [Vitamin B-12] 1,000 mcg PO DAILY 09/28/18 [History] Gabapentin [Neurontin] 100 mg PO DAILY 09/28/18 [History] Insulin Lispro [Admelog] 6 unit SQ AC-TID 09/17/19 [History] Insulin Lispro [Admelog] See Protocol SQ AC-TID 09/17/19 [History] Lisinopril [Zestril] 2.5 mg PO DAILY 09/17/19 [History] Atorvastatin Calcium [Lipitor] 20 mg PO DAILY 01/30/20 [History] Ferrous Sulfate [Iron (65 MG Elemental)] 325 mg PO DAILY 01/30/20 [History] Insulin Glargine,Hum.rec.anlog [Basaglar Kwikpen U-100] 50 unit SQ HS 01/30/20 [History] Follow up Appointment(s)/Referral(s): iLnda Jasmine MD [Primary Care Provider] - 1-2 days Patient Instructions/Handouts: Diabetic Ketoacidosis (DC) Activity/Diet/Wound Care/Special Instructions: Activity: As tolerated Diet: carb consistent Special Instructions: Check blood sugars 4 times daily, make a log for your physician. Seek medical attention if BS is greater and 250 Discharge Disposition: HOME SELF-CARE
[2020-02-01 11:31] LABS: Glucose,Whole Blood 221 mg/dL (75-99)
[2020-02-01 12:42] VITALS: BP 118/74; PULSE 72
== END 2020-02-01 13:12 | disposition home or self-care (01) | DRG 639 ==
LOC: EC 13:19 → 3SCARD 15:41
PROVIDERS: ADMIT Internal Medicine; ATTEND Internal Medicine
DX: E11.10 Type 2 diabetes mellitus with ketoacidosis without coma (principal); E03.9 Hypothyroidism, unspecified; E11.40 Type 2 diabetes mellitus with diabetic neuropathy, unspecified; E78.5 Hyperlipidemia, unspecified; I10 Essential (primary) hypertension; K21.9 Gastro-esophageal reflux disease without esophagitis; Z79.4 Long term (current) use of insulin; Z79.899 Other long term (current) drug therapy; Z80.8 Family history of malignant neoplasm of other organs or systems; Z86.718 Personal history of other venous thrombosis and embolism; Z87.891 Personal history of nicotine dependence; Z98.890 Other specified postprocedural states
CPT/HCPCS: 36415; 80048; 80051; 80053; 81003; 82009; 82565; 82803; 82947; 83690; 83735; 84100; 84520; 85025; 85027; 93005; 96361; 96374; 96376; 99285

== ENCOUNTER 2020-04-13 10:00 | Observation (INO) | payer OTHER ==
[2020-04-13] MEDS ORDERED: SODIUM CHLORIDE 0.9% 1,000 ML IV STA (10:51)
--- NOTE | 2020-04-13 10:52 | ED ---
General Adult HPI - General Chief complaint: Nausea/Vomiting/Diarrhea Stated complaint: light headed, vomiting Time Seen by Provider: 04/13/20 10:44 Source: patient Mode of arrival: wheelchair Limitations: no limitations - History of Present Illness Initial comments: Patient is a 54-year-old male with history of diabetes and DKA presenting to emergency Department with a chief complaint of nausea vomiting and drama. Patient states yesterday he developed nausea with multiple episodes of nonbilious, nonbloody vomiting. States he took 50 units of long acting insulin last night. Patient states he continued to have dry mouth and some lightheadedness. States he feels dehydrated. States he woke up multiple times throughout the night with nausea. States he obtained his blood glucose level but was not coherent enough to repeat it. Patient states this morning he took 20 units short-acting insulin the morning. States he did not check his blood g lucose levels prior to ED arrival. This report abdominal discomfort from the vomiting. Denies any diarrhea. Neither night sweats or chills. - Related Data Home Medications Medication Instructions Recorded Confirmed Cyanocobalamin [Vitamin B-12] 1,000 mcg PO DAILY 09/28/18 01/30/20 Gabapentin [Neurontin] 100 mg PO DAILY 09/28/18 01/30/20 Insulin Lispro [Admelog] 6 unit SQ AC-TID 09/17/19 01/30/20 Insulin Lispro [Admelog] See Protocol SQ AC-TID 09/17/19 01/30/20 Lisinopril [Zestril] 2.5 mg PO DAILY 09/17/19 01/30/20 Atorvastatin Calcium [Lipitor] 20 mg PO DAILY 01/30/20 01/30/20 Ferrous Sulfate [Iron (65 MG 325 mg PO DAILY 01/30/20 01/30/20 Elemental)] Insulin Glargine,Hum.rec.anlog 50 unit SQ HS 01/30/20 01/30/20 [Basaglar Kwikpen U-100] Allergies Allergy/AdvReac Type Severity Reaction Status Date / Time No Known Allergies Allergy Verified 04/13/20 10:41 Review of Systems ROS Statement: Those systems with pertinent positive or pertinent negative responses have been documented in the HPI. ROS Other: All systems not noted in ROS Statement are negative. Past Medical History Past Medical History: Diabetes Mellitus, Deep Vein Thrombosis (DVT), GERD/Reflux, Hyperlipidemia Additional Past Medical History / Comment(s): IDDM type II, neuropathy bilateral hands/feet, bilateral leg DVTs, carpal tunnel syndrome bilaterally, migraines,. hypothyroid, low iron, hydrocele R side. History of Any Multi-Drug Resistant Organisms: None Reported Past Surgical History: No Surgical Hx Reported Additional Past Surgical History / Comment(s): Colonoscopy Past Anesthesia/Blood Transfusion Reactions: No Reported Reaction Past Psychological History: No Psychological Hx Reported Smoking Status: Former smoker Past Alcohol Use History: None Reported Past Drug Use History: None Reported - Past Family History Father Family Medical History: Cancer Additional Family Medical History / Comment(s): Father had melanoma. He is -pt is not sure but thinks he drowned. Mother Family Medical History: No Reported History Additional Family Medical History / Comment(s): Mother is healthy. General Exam Limitations: no limitations General appearance: alert, in no apparent distress Head exam: Present: atraumatic, normocephalic, normal inspection Eye exam: Present: normal appearance, PERRL, EOMI Pupils: Present: normal accommodation ENT exam: Present: normal exam, normal oropharynx, mucous membranes dry Neck exam: Present: normal inspection, full ROM Respiratory exam: Present: normal lung sounds bilaterally Cardiovascular Exam: Present: normal rhythm, tachycardia, normal heart sounds Extremities exam: Present: normal inspection, full ROM Back exam: Present: normal inspection, full ROM Neurological exam: Present: alert, oriented X3 Psychiatric exam: Present: normal affect, normal mood Skin exam: Present: warm, dry, intact, normal color Course Vital Signs 04/13/20 10:34 Temperature 98.5 F Pulse Rate 125 H Respiratory 18 Rate Blood Pressure 102/69 O2 Sat by Pulse 98 Oximetry Medical Decision Making - Medical Decision Making Patient 54-year-old male with history of diabetes and DKA presenting to the emergency department with a chief complaint of nausea vomiting and dry mouth. Patient has been admitted multiple times today hospital for DKA. Patient noticed the symptoms after he developed dry mouth along with nausea and vomiting. Patient take his nightly dose of long acting insulin. He took his short-acting insulin this morning but continued to be symptomatic so he came to the ED for evaluation. Patient is otherwise well-appearing. No complains of fevers chills or night sweats. Blood glucose is 290. Patient positive for a cetone. Patient has low carbon dioxide enlarged. Patient started on bolus fluids. He'll be admitted under DKA protocol. I spoke with who will admit the patient for further medical management. Case discussed with - Lab Data Result diagrams: 04/13/20 11:06 04/13/20 11:06 Lab Results 04/13/20 04/13/20 04/13/20 Range/Units 11:06 11:06 11:06 WBC 15.4 H (3.8-10.6) k/uL RBC 4.98 (4.30-5.90) m/uL Hgb 15.7 (13.0-17.5) gm/dL Hct 46.7 (39.0-53.0) % MCV 93.8 (80.0-100.0) fL MCH 31.5 (25.0-35.0) pg MCHC 33.6 (31.0-37.0) g/dL RDW 12.6 (11.5-15.5) % Plt Count 255 (150-450) k/uL Neutrophils % 86 % Lymphocytes % 8 % Monocytes % 5 % Eosinophils % 0 % Basophils % 0 % Neutrophils # 13.3 H (1.3-7.7) k/uL Lymphocytes # 1.2 (1.0-4.8) k/uL Monocytes # 0.8 (0-1.0) k/uL Eosinophils # 0.0 (0-0.7) k/uL Basophils # 0.0 (0-0.2) k/uL Sodium 137 (137-145) mmol/L Potassium 5.2 H (3.5-5.1) mmol/L Chloride 104 (98-107) mmol/L Carbon Dioxide 10 L (22-30) mmol/L Anion Gap 23 mmol/L BUN 19 (9-20) mg/dL Creatinine 1.05 (0.66-1.25) mg/dL Est GFR (CKD-EPI)AfAm >90 (>60 ml/min/1.73 sqM) Est GFR (CKD-EPI)NonAf 80 (>60 ml/min/1.73 sqM) Glucose 289 H (74-99) mg/dL Calcium 9.2 (8.4-10.2) mg/dL Total Bilirubin 0.9 (0.2-1.3) mg/dL AST 26 (17-59) U/L ALT 22 (4-49) U/L Alkaline Phosphatase 66 (38-126) U/L Total Protein 7.8 (6.3-8.2) g/dL Albumin 4.4 (3.5-5.0) g/dL Lipase 15 L (23-300) U/L Acetone, Qual Positive (Negative) Disposition Clinical Impression: Hyperglycemia, Dehydration, DKA (diabetic ketoacidoses) Disposition: ADMITTED IP TO THIS [facility] Condition: Stable Instructions (If sedation given, give patient instructions): Acute Diarrhea (ED) Additional Instructions: She will be admitted Is patient prescribed a controlled substance at d/c from ED?: No Referrals: Linda Jasmine MD [Primary Care Provider] - 1-2 days Time of Disposition: 12:22
[2020-04-13 11:17] LABS: Basophils % (A) 0 %; Eosinophils % (A) 0 %; HCT 46.7 % (39.0-53.0); HGB 15.7 gm/dL (13.0-17.5); Lymphocytes # (A) 1.2 k/uL (1.0-4.8); Lymphocytes % (A) 8 %; MCH 31.5 pg (25.0-35.0); MCHC 33.6 g/dL (31.0-37.0); MCV 93.8 fL (80.0-100.0); Mean Platelet Volume 7.5; Monocytes # (A) 0.8 k/uL (0-1.0); Monocytes % (A) 5 %; Neutrophils # (A) 13.3 k/uL (1.3-7.7); Neutrophils % (A) 86 %; Platelet Count 255 k/uL (150-450); RBC 4.98 m/uL (4.30-5.90); RDW 12.6 % (11.5-15.5); WBC 15.4 k/uL (3.8-10.6)
[2020-04-13 11:28] LABS: ALT 22 U/L (4-49); AST 26 U/L (17-59); African American GFR (CKD) >90 (>60 ml/min/1.73 sqM); Albumin 4.4 g/dL (3.5-5.0); Alkaline Phosphatase 66 U/L (38-126); Blood Urea Nitrogen 19 mg/dL (9-20); Calcium 9.2 mg/dL (8.4-10.2); Chloride 104 mmol/L (98-107); Glucose 289 mg/dL (74-99); Non-African American GFR(CKD) 80 (>60 ml/min/1.73 sqM); Potassium 5.2 mmol/L (3.5-5.1); Sodium 137 mmol/L (137-145); Total Bilirubin 0.9 mg/dL (0.2-1.3); Total Protein 7.8 g/dL (6.3-8.2)
[2020-04-13 11:35] LABS: Anion Gap 23 mmol/L; Carbon Dioxide 10 mmol/L (22-30)
[2020-04-13 12:36] LABS: Glucose,Whole Blood 255 mg/dL (75-99)
[2020-04-13 13:25] LABS: Glucose,Whole Blood 219 mg/dL (75-99)
[2020-04-13 13:41] LABS: VBG PH 7.22 (7.31-7.41)
[2020-04-13] MEDS: SODIUM CHLORIDE 0.9% 1,000 ML IV SCH ×2 (13:41→18:18)
[2020-04-13] MEDS: INSULIN REGULAR 100 UNIT in SODIUM CHLORIDE 0.9% 100 ML IV SCH ×2 (13:44→17:33)
--- NOTE | 2020-04-13 14:04 | P.HPIM ---
History of Present Illness 54-year-old male came in with complains of nausea vomiting epigastric abdominal pain multiple episodes abuse vomiting. Patient says he may have missed some pre-meal insulin as today I believe he missed more than that. Patient is found to be in DKA patient is insulin-dependent and insulin deficiency diabetic unsure whether patient has type I or type 2 diabetes mellitus. Patient was diagnosed with diabetes with us in 2008. Patient denied any fever chills dysuria patient doesn't have any signs or symptoms of sepsis. Patient presently has an gap of 23 and a bicarbonate of 10 patient's acetone is positive. Review of Systems REVIEW OF SYSTEMS: CONSTITUTIONAL: No fever, no malaise, no fatigue. HEENT: No recent visual problems or hearing problems. Denied any sore throat. CARDIOVASCULAR: No chest pain, orthopnea, PND, no palpitations, no syncope. PULMONARY: No shortness of breath, no cough, no hemoptysis. GASTROINTESTINAL: No diarrhea, no nausea, no vomiting, no abdominal pain. NEUROLOGICAL: No headaches, no weakness, no numbness. HEMATOLOGICAL: Denies any bleeding or petechiae. GENITOURINARY: Denies any burning micturition, frequency, or urgency. MUSCULOSKELETAL/RHEUMATOLOGICAL: Denies any joint pain, swelling, or any muscle pain. ENDOCRINE: As mentioned in HPI patient does have polyuria and polydipsia The rest of the 14-point review of systems is negative. Past Medical History Past Medical History: Diabetes Mellitus, Deep Vein Thrombosis (DVT), GERD/Reflux, Hyperlipidemia Additional Past Medical History / Comment(s): IDDM type II, neuropathy bilateral hands/feet, bilateral leg DVTs, carpal tunnel syndrome bilaterally, migraines,. hypothyroid, low iron, hydrocele R side. History of Any Multi-Drug Resistant Organisms: None Reported Past Surgical History: No Surgical Hx Reported Additional Past Surgical History / Comment(s): Colonoscopy Past Anesthesia/Blood Transfusion Reactions: No Reported Reaction Past Psychological History: No Psychological Hx Reported Smoking Status: Former smoker Past Alcohol Use History: None Reported Past Drug Use History: None Reported - Past Family History Father Family Medical History: Cancer Additional Family Medical History / Comment(s): Father had melanoma. He is -pt is not sure but thinks he drowned. Mother Family Medical History: No Reported History Additional Family Medical History / Comment(s): Mother is healthy. Medications and Allergies Home Medications Medication Instructions Recorded Confirmed Type Cyanocobalamin [Vitamin B-12] 1,000 mcg PO DAILY 09/28/18 04/13/20 History Gabapentin [Neurontin] 100 mg PO TID 09/28/18 04/13/20 History Insulin Lispro [Admelog] 6 unit SQ AC-TID 09/17/19 04/13/20 History Insulin Lispro [Admelog] See Protocol SQ AC-TID 09/17/19 04/13/20 History Lisinopril [Zestril] 2.5 mg PO DAILY 09/17/19 04/13/20 History Atorvastatin Calcium [Lipitor] 20 mg PO DAILY 01/30/20 04/13/20 History Ferrous Sulfate [Iron (65 MG 325 mg PO DAILY 01/30/20 04/13/20 History Elemental)] Insulin Glargine,Hum.rec.anlog 50 unit SQ HS 01/30/20 04/13/20 History [Basaglar Kwikpen U-100] Famotidine [Pepcid] 20 mg PO BID 04/13/20 04/13/20 History Levothyroxine Sodium [Synthroid] 137 mcg PO DAILY 04/13/20 04/13/20 History Allergies Allergy/AdvReac Type Severity Reaction Status Date / Time No Known Allergies Allergy Verified 04/13/20 12:36 Physical Exam Vitals: Vital Signs Temp Pulse Resp BP Pulse Ox 04/13/20 13:44 82 18 106/71 99 04/13/20 10:34 98.5 F 125 H 18 102/69 98 Intake and Output 04/12/20 04/13/20 04/13/20 22:59 06:59 14:59 Other: Weight 92.986 kg PHYSICAL EXAMINATION: GENERAL: The patient is alert and oriented x3, not in any acute distress. Well developed, well nourished. HEENT: Pupils are round and equally reacting to light. EOMI. No scleral icterus. No conjunctival pallor. Normocephalic, atraumatic. No pharyngeal erythema. No thyromegaly. CARDIOVASCULAR: S1 and S2 present. No murmurs, rubs, or gallops. PULMONARY: Chest is clear to auscultation, no wheezing or crackles. ABDOMEN: Soft, nontender, nondistended, normoactive bowel sounds. No palpable organomegaly. MUSCULOSKELETAL: No joint swelling or deformity. EXTREMITIES: No cyanosis, clubbing, or pedal edema. NEUROLOGICAL: Gross neurological examination did not reveal any focal deficits. SKIN: No rashes. Results CBC & Chem 7: 04/13/20 11:06 04/13/20 11:06 Labs: Abnormal Lab Results - Last 24 Hours (Table) 04/13/20 04/13/20 04/13/20 Range/Units 11:00 11:06 11:06 WBC 15.4 H (3.8-10.6) k/uL Neutrophils # 13.3 H (1.3-7.7) k/uL Potassium 5.2 H (3.5-5.1) mmol/L Carbon Dioxide 10 L (22-30) mmol/L Glucose 289 H (74-99) mg/dL POC Glucose (mg/dL) 255 H (75-99) mg/dL Lipase (23-300) U/L 04/13/20 04/13/20 Range/Units 11:06 13:19 WBC (3.8-10.6) k/uL Neutrophils # (1.3-7.7) k/uL Potassium (3.5-5.1) mmol/L Carbon Dioxide (22-30) mmol/L Glucose (74-99) mg/dL POC Glucose (mg/dL) 219 H (75-99) mg/dL Lipase 15 L (23-300) U/L Assessment and Plan Plan: -Diabetic ketoacidosis: His symptoms of nausea vomiting abdominal pain are secondary to diabetic ketoacidosis. Patient will be started on IV insulin and will be on DKA protocol here. Was in DKA resolves patient will be given long- acting insulin and at that time patient kidney. Correct lites will be corrected accordingly -Uncontrolled elevated blood sugars and insulin-dependent diabetes with us: Was indicated results patient will be resumed on his home regimen and will monitor -History of DVT in the past Heparin gases patient reflux disease -Hyperlipidemia -Leukocytosis no evidence of infection reactive secondary to DKA -Hyperkalemia secondary to acidosis expected to improve with IV insulin and resolution of DKA -Acute renal failure secondary to excessive diuresis and dehydration from DKA -DVT prophylaxis early ambulation
[2020-04-13 14:26] LABS: Glucose,Whole Blood 233 mg/dL (75-99)
[2020-04-13 15:04] VITALS: BMI 30.2
[2020-04-13 15:47] LABS: Appearance,Urine Clear (Clear); Bilirubin,Urine 1+ (Negative); Blood,Urine Negative (Negative); Color,Urine Yellow; Glucose,Urine (UA) 4+ (Negative); Granular Casts,Urine 1 /lpf (0); Hyaline Casts,Urine 21 /lpf (0-2); Leukocyte Esterase,Urine Negative (Negative); Mucus,Urine Rare /hpf; Nitrite,Urine Negative (Negative); PH, Urine 5.5 (5.0-8.0); Protein,Urine 1+ (Negative); Specific Gravity,Urine 1.023 (1.001-1.035); Squamous Epithelial Cell,Urine <1 /hpf (0-4); WBC,Urine 1 /hpf (0-5)
[2020-04-13 16:02] LABS: Ketones,Urine 4+ (Negative)
[2020-04-13 16:22] LABS: Glucose,Whole Blood 252 mg/dL (75-99)
[2020-04-13] MEDS: GABAPENTIN 100 MG CAP PO SCH ×2 (16:51→20:57)
[2020-04-13 17:05] LABS: African American GFR (CKD) >90 (>60 ml/min/1.73 sqM); Anion Gap 16 mmol/L; Blood Urea Nitrogen 16 mg/dL (9-20); Carbon Dioxide 11 mmol/L (22-30); Chloride 103 mmol/L (98-107); Glucose 266 mg/dL (74-99); Non-African American GFR(CKD) >90 (>60 ml/min/1.73 sqM); Phosphorus 3.3 mg/dL (2.5-4.5); Potassium 4.9 mmol/L (3.5-5.1); Sodium 130 mmol/L (137-145)
[2020-04-13 17:56] LABS: Glucose,Whole Blood 276 mg/dL (75-99)
[2020-04-13 18:53] LABS: Glucose,Whole Blood 327 mg/dL (75-99)
[2020-04-13 19:55] LABS: Glucose,Whole Blood 267 mg/dL (75-99)
[2020-04-13 20:49] LABS: African American GFR (CKD) >90 (>60 ml/min/1.73 sqM); Blood Urea Nitrogen 14 mg/dL (9-20); Glucose 251 mg/dL (74-99); Non-African American GFR(CKD) >90 (>60 ml/min/1.73 sqM); Phosphorus 1.6 mg/dL (2.5-4.5)
[2020-04-13 20:57] LABS: Glucose,Whole Blood 205 mg/dL (75-99)
[2020-04-13] MEDS: FAMOTIDINE 20 MG TAB PO SCH (20:57)
[2020-04-13] MEDS ORDERED: INSULIN DETEMIR (LEVEMIR) 100 UNIT/ML SYR SQ SCH (21:00)
[2020-04-13 21:55] LABS: Glucose,Whole Blood 142 mg/dL (75-99)
[2020-04-13 22:36] LABS: ALT 17 U/L (4-49); AST 16 U/L (17-59); Albumin 3.2 g/dL (3.5-5.0); Alkaline Phosphatase 53 U/L (38-126); Anion Gap 11 mmol/L; Carbon Dioxide 17 mmol/L (22-30); Chloride 103 mmol/L (98-107); Potassium 3.7 mmol/L (3.5-5.1); Sodium 131 mmol/L (137-145); Total Bilirubin 0.6 mg/dL (0.2-1.3); Total Protein 6.2 g/dL (6.3-8.2)
[2020-04-13 22:58] LABS: Glucose,Whole Blood 94 mg/dL (75-99)
[2020-04-13 23:33] LABS: Glucose,Whole Blood 81 mg/dL (75-99)
[2020-04-13 23:57] LABS: Glucose,Whole Blood 90 mg/dL (75-99)
[2020-04-14 01:53] LABS: Glucose,Whole Blood 119 mg/dL (75-99)
[2020-04-14 05:54] LABS: Glucose,Whole Blood 235 mg/dL (75-99)
[2020-04-14 06:12] VITALS: TEMP 98.1
[2020-04-14] MEDS ORDERED: LEVOTHYROXINE 137 MCG TAB PO SCH (06:30)
[2020-04-14 06:31] LABS: HCT 36.9 % (39.0-53.0); MCH 31.8 pg (25.0-35.0); MCHC 33.9 g/dL (31.0-37.0); MCV 93.7 fL (80.0-100.0); Mean Platelet Volume 7.6; Platelet Count 196 k/uL (150-450); RBC 3.94 m/uL (4.30-5.90); RDW 12.8 % (11.5-15.5)
[2020-04-14 06:32] LABS: HGB 12.5 gm/dL (13.0-17.5)
[2020-04-14 06:35] LABS: African American GFR (CKD) >90 (>60 ml/min/1.73 sqM); Anion Gap 9 mmol/L; Blood Urea Nitrogen 13 mg/dL (9-20); Calcium 7.7 mg/dL (8.4-10.2); Carbon Dioxide 16 mmol/L (22-30); Chloride 108 mmol/L (98-107); Glucose 220 mg/dL (74-99); Non-African American GFR(CKD) >90 (>60 ml/min/1.73 sqM); Potassium 4.3 mmol/L (3.5-5.1); Sodium 133 mmol/L (137-145)
[2020-04-14] MEDS: INSULIN ASPART (NovoLOG) 100 UNIT/ML VIAL SQ SCH ×4 (06:35→12:23)
[2020-04-14] MEDS: SODIUM CHLORIDE 0.9% 1,000 ML IV SCH ×2 (07:15)
[2020-04-14] MEDS ORDERED: ATORVASTATIN 20 MG TAB PO SCH (09:00)
[2020-04-14] MEDS: FAMOTIDINE 20 MG TAB PO SCH (09:19)
[2020-04-14] MEDS: GABAPENTIN 100 MG CAP PO SCH (09:19)
[2020-04-14 10:15] LABS: Glucose,Whole Blood 233 mg/dL (75-99)
[2020-04-14] MEDS ORDERED: SODIUM CHLORIDE 0.9% 1,000 ML IV SCH (11:00)
[2020-04-14 11:30] VITALS: RESP 16
[2020-04-14 11:31] LABS: Glucose,Whole Blood 181 mg/dL (75-99)
--- NOTE | 2020-04-14 11:33 | P.DS ---
Providers Date of admission: 04/13/20 12:14 Attending physician: Deborah Villalobos Primary care physician: Linda Mitali [facility] Hospital Course: Patient with initially insulin deficient diabetes with us is admitted for diabetic ketoacidosis Acidosis resolved patient was a switched to subcutaneous insulin patient is eating. Patient's anion gap is around 10 still has some acidosis which is secondary to hyperchloremia rather than ketoacidosis. Patient declined to take Levemir yesterday before he transitioned to subcutaneous insulin patient will be given a Levemir now his blood sugars are elevated as he didn't receive his Levemir last night. I didn't have enough time to titrate his insulin because of which I'll let him follow with PCP closely for titration of his insulin regimen. Patient will be discharged today PHYSICAL EXAMINATION: GENERAL: The patient is alert and oriented x3, not in any acute distress. Well developed, well nourished. HEENT: Pupils are round and equally reacting to light. EOMI. No scleral icterus. No conjunctival pallor. Normocephalic, atraumatic. No pharyngeal erythema. No thyromegaly. CARDIOVASCULAR: S1 and S2 present. No murmurs, rubs, or gallops. PULMONARY: Chest is clear to auscultation, no wheezing or crackles. ABDOMEN: Soft, nontender, nondistended, normoactive bowel sounds. No palpable organomegaly. MUSCULOSKELETAL: No joint swelling or deformity. EXTREMITIES: No cyanosis, clubbing, or pedal edema. NEUROLOGICAL: Gross neurological examination did not reveal any focal deficits. SKIN: No rashes. Please refer to my HPI from yesterday for further details of hospital physician and other medical problems that were addressed during this hospitalization Patient Condition at Discharge: Stable Plan - Discharge Summary Discharge Rx Participant: Yes New Discharge Prescriptions: Continue Gabapentin [Neurontin] 100 mg PO TID Cyanocobalamin [Vitamin B-12] 1,000 mcg PO DAILY Insulin Lispro [Admelog] 6 unit SQ AC-TID Lisinopril [Zestril] 2.5 mg PO DAILY Insulin Lispro [Admelog] See Protocol SQ AC-TID Atorvastatin Calcium [Lipitor] 20 mg PO DAILY Insulin Glargine,Hum.rec.anlog [Basaglar Kwikpen U-100] 50 unit SQ HS Ferrous Sulfate [Iron (65 MG Elemental)] 325 mg PO DAILY Levothyroxine Sodium [Synthroid] 137 mcg PO DAILY Famotidine [Pepcid] 20 mg PO BID Discharge Medication List Cyanocobalamin [Vitamin B-12] 1,000 mcg PO DAILY 09/28/18 [History] Gabapentin [Neurontin] 100 mg PO TID 09/28/18 [History] Insulin Lispro [Admelog] 6 unit SQ AC-TID 09/17/19 [History] Insulin Lispro [Admelog] See Protocol SQ AC-TID 09/17/19 [History] Lisinopril [Zestril] 2.5 mg PO DAILY 09/17/19 [History] Atorvastatin Calcium [Lipitor] 20 mg PO DAILY 01/30/20 [History] Ferrous Sulfate [Iron (65 MG Elemental)] 325 mg PO DAILY 01/30/20 [History] Insulin Glargine,Hum.rec.anlog [Basaglar Kwikpen U-100] 50 unit SQ HS 01/30/20 [History] Famotidine [Pepcid] 20 mg PO BID 04/13/20 [History] Levothyroxine Sodium [Synthroid] 137 mcg PO DAILY 04/13/20 [History] Follow up Appointment(s)/Referral(s): Linda Jasmine MD [Primary Care Provider] - 3 Days Patient Instructions/Handouts: Acute Diarrhea (ED) Activity/Diet/Wound Care/Special Instructions: She will be admitted Discharge Disposition: HOME SELF-CARE
[2020-04-14] MEDS ORDERED: INSULIN DETEMIR (LEVEMIR) 100 UNIT/ML SYR SQ ONE (12:00)
[2020-04-14 12:25] VITALS: BP 97/56; PULSE 77
[2020-04-14] MEDS ORDERED: INSULIN DETEMIR (LEVEMIR) 100 UNIT/ML SYR SQ SCH (21:00)
== END 2020-04-14 14:54 | disposition home or self-care (01) ==
LOC: EC 10:00 → INTOOBSV 12:14 → 3SCARD 12:14 → UNDODISIN 04-14 14:54
PROVIDERS: ADMIT Internal Medicine; ATTEND Internal Medicine
DX: E11.10 Type 2 diabetes mellitus with ketoacidosis without coma (principal); E11.65 Type 2 diabetes mellitus with hyperglycemia; E86.0 Dehydration; E87.5 Hyperkalemia; K21.9 Gastro-esophageal reflux disease without esophagitis; N17.9 Acute kidney failure, unspecified; Z86.718 Personal history of other venous thrombosis and embolism; E78.5 Hyperlipidemia, unspecified; E11.40 Type 2 diabetes mellitus with diabetic neuropathy, unspecified; G56.03 Carpal tunnel syndrome, bilateral upper limbs; G43.909 Migraine, unspecified, not intractable, without status migrainosus; E03.9 Hypothyroidism, unspecified; E61.1 Iron deficiency; N43.3 Hydrocele, unspecified; Z98.890 Other specified postprocedural states; Z87.891 Personal history of nicotine dependence; Z80.8 Family history of malignant neoplasm of other organs or systems; Z79.890 Hormone replacement therapy; Z79.4 Long term (current) use of insulin; Z79.899 Other long term (current) drug therapy
CPT/HCPCS: 93005; 96360; 99285; 36415; 80051; 80053; 80048; 82565; 82803; 82009; 83690; 84100; 82947; 84520; 85025; 85027; 81001; G0378 ×2; U0003; 96361; 99284

== ENCOUNTER 2020-07-31 14:06 | Inpatient (IN) | payer OTHER ==
[2020-07-31 14:34] LABS: Glucose,Whole Blood 359 mg/dL (75-99)
[2020-07-31] MEDS ORDERED: SODIUM CHLORIDE 0.9% 1,000 ML IV STA ×2 (14:44→15:42)
[2020-07-31] MEDS ORDERED: ONDANSETRON 4 MG/2 ML VIAL IVP STA (14:48)
[2020-07-31] MEDS ORDERED: MORPHINE SULFATE 4 MG/ML SYRINGE IVP STA (14:48)
--- NOTE | 2020-07-31 14:53 | ED ---
General Adult HPI - General Chief complaint: Nausea/Vomiting/Diarrhea Stated complaint: Vomiting,Dry Mouth Time Seen by Provider: 07/31/20 14:18 Source: patient, RN notes reviewed Mode of arrival: ambulatory Limitations: no limitations - History of Present Illness Initial comments: 54-year-old male with a past medical history of IDDM, DVT, GERD, hyperlipidemia recently seen for DKA presents to the emergency department for nausea or vomiting. Patient states it started last night. States he has a generalized abdominal pain associated with this. Denies diarrhea. States his mouth feels very dry. Patient denies any chest pain or shortness of breath whatsoever. Denies any fevers at home.Patient has no other complaints at this time including shortness of breath, chest pain, abdominal pain, headache, or visual changes. - Related Data Home Medications Medication Instructions Recorded Confirmed Cyanocobalamin [Vitamin B-12] 1,000 mcg PO DAILY 09/28/18 04/13/20 Gabapentin [Neurontin] 100 mg PO TID 09/28/18 04/13/20 Insulin Lispro [Admelog] 6 unit SQ AC-TID 09/17/19 04/13/20 Insulin Lispro [Admelog] See Protocol SQ AC-TID 09/17/19 04/13/20 lisinopriL [Zestril] 2.5 mg PO DAILY 09/17/19 04/13/20 Atorvastatin Calcium [Lipitor] 20 mg PO DAILY 01/30/20 04/13/20 Ferrous Sulfate [Iron (65 MG 325 mg PO DAILY 01/30/20 04/13/20 Elemental)] Insulin Glargine,Hum.rec.anlog 50 unit SQ HS 01/30/20 04/13/20 [Basaglar Kwikpen U-100] Famotidine [Pepcid] 20 mg PO BID 04/13/20 04/13/20 Levothyroxine Sodium [Synthroid] 137 mcg PO DAILY 04/13/20 04/13/20 Allergies Allergy/AdvReac Type Severity Reaction Status Date / Time No Known Allergies Allergy Verified 07/31/20 14:16 Review of Systems ROS Statement: Those systems with pertinent positive or pertinent negative responses have been documented in the HPI. ROS Other: All systems not noted in ROS Statement are negative. Past Medical History Past Medical History: Diabetes Mellitus, Deep Vein Thrombosis (DVT), GERD/Reflux, Hyperlipidemia Additional Past Medical History / Comment(s): IDDM type II, neuropathy bilateral hands/feet, bilateral leg DVTs, carpal tunnel syndrome bilaterally, migraines,. hypothyroid, low iron, hydrocele R side. History of Any Multi-Drug Resistant Organisms: None Reported Past Surgical History: No Surgical Hx Reported Additional Past Surgical History / Comment(s): Colonoscopy Past Anesthesia/Blood Transfusion Reactions: No Reported Reaction Past Psychological History: No Psychological Hx Reported Smoking Status: Never smoker Past Alcohol Use History: None Reported Past Drug Use History: None Reported - Past Family History Father Family Medical History: Cancer Additional Family Medical History / Comment(s): Father had melanoma. He is -pt is not sure but thinks he drowned. Mother Family Medical History: No Reported History Additional Family Medical History / Comment(s): Mother is healthy. General Exam Limitations: no limitations General appearance: alert, in no apparent distress Head exam: Present: atraumatic, normocephalic, normal inspection Eye exam: Present: normal appearance, PERRL, EOMI. Absent: scleral icterus, conjunctival injection, periorbital swelling ENT exam: Present: normal exam, mucous membranes moist Neck exam: Present: normal inspection, full ROM. Absent: tenderness, meningismus, lymphadenopathy Respiratory exam: Present: normal lung sounds bilaterally. Absent: respiratory distress, wheezes, rales, rhonchi, stridor Cardiovascular Exam: Present: regular rate, normal rhythm, normal heart sounds. Absent: systolic murmur, diastolic murmur, rubs, gallop, clicks GI/Abdominal exam: Present: soft, normal bowel sounds. Absent: distended, tenderness, guarding, rebound, rigid Neurological exam: Present: alert Course Vital Signs 07/31/20 07/31/20 07/31/20 14:16 14:42 15:11 Temperature 98.1 F 99.4 F 98.4 F Pulse Rate 144 H 128 H 128 H Respiratory 16 26 H 25 H Rate Blood Pressure 111/78 107/74 O2 Sat by Pulse 98 100 100 Oximetry EKG Findings - EKG Comments: EKG Findings:: Sinus tachycardia, ventricular rate 123, IN interval 124, QTC is 475. Medical Decision Making - Medical Decision Making Patient presents with a chief complaint of vomiting. Patient has a strong history of DKA. Patient reports his glucose has been running in the 200s and he has been taking his insulin. CBC demonstrates leukocytosis of 21.5. CMP shows a potassium of 5.6 with a CO2 of less than 5. Glucose is 389. Lactic acid 4.7. Labs consistent with DKA with positive acetone and 4+ ketones in the urine. Patient was given 2 L of fluids. He was started on an insulin drip. Dr. Henderson reviewed EKG and consulted with exhibit electrician as well as admitting Dr. Espino. Patient will go to ICU. - Lab Data Result diagrams: 07/31/20 14:46 07/31/20 14:46 Lab Results 07/31/20 07/31/20 07/31/20 Range/Units 14:32 14:46 14:46 WBC 21.5 H (3.8-10.6) k/uL RBC 5.52 (4.30-5.90) m/uL Hgb 16.0 (13.0-17.5) gm/dL Hct 54.0 H (39.0-53.0) % MCV 97.8 (80.0-100.0) fL MCH 29.0 (25.0-35.0) pg MCHC 29.7 L (31.0-37.0) g/dL RDW 13.4 (11.5-15.5) % Plt Count 301 (150-450) k/uL Neutrophils % 90 % Lymphocytes % 4 % Monocytes % 5 % Eosinophils % 0 % Basophils % 0 % Neutrophils # 19.4 H (1.3-7.7) k/uL Lymphocytes # 0.9 L (1.0-4.8) k/uL Monocytes # 1.0 (0-1.0) k/uL Eosinophils # 0.0 (0-0.7) k/uL Basophils # 0.0 (0-0.2) k/uL Hypochromasia Moderate VBG pH (7.31-7.41) VBG pCO2 (37-51) mmHg VBG HCO3 (24-28) mmol/L Sodium (137-145) mmol/L Potassium (3.5-5.1) mmol/L Chloride (98-107) mmol/L Carbon Dioxide (22-30) mmol/L Anion Gap mmol/L BUN (9-20) mg/dL Creatinine (0.66-1.25) mg/dL Est GFR (CKD-EPI)AfAm (>60 ml/min/1.73 sqM) Est GFR (CKD-EPI)NonAf (>60 ml/min/1.73 sqM) Glucose (74-99) mg/dL POC Glucose (mg/dL) 359 H (75-99) mg/dL POC Glu Primary Care Md ID Stephanie De La Torre Plasma Lactic Acid Marcos (0.7-2.0) mmol/L Calcium (8.4-10.2) mg/dL Total Bilirubin (0.2-1.3) mg/dL AST (17-59) U/L ALT (4-49) U/L Alkaline Phosphatase (38-126) U/L Total Protein (6.3-8.2) g/dL Albumin (3.5-5.0) g/dL Amylase (30-110) U/L Lipase (23-300) U/L Urine Color Light Yellow Urine Appearance Clear (Clear) Urine pH 5.0 (5.0-8.0) Ur Specific [place] 1.023 (1.001-1.035) Urine Protein 1+ H (Negative) Urine Glucose (UA) 4+ H (Negative) Urine Ketones 4+ H (Negative) Urine Blood Negative (Negative) Urine Nitrite Negative (Negative) Urine Bilirubin Negative (Negative) Urine Urobilinogen <2.0 (<2.0) mg/dL Ur Leukocyte Esterase Negative (Negative) Urine WBC <1 (0-5) /hpf Hyaline Casts 5 H (0-2) /lpf Urine Mucus Rare H (None) /hpf Acetone, Qual (Negative) 07/31/20 07/31/20 07/31/20 Range/Units 14:46 14:46 15:09 WBC (3.8-10.6) k/uL RBC (4.30-5.90) m/uL Hgb (13.0-17.5) gm/dL Hct (39.0-53.0) % MCV (80.0-100.0) fL MCH (25.0-35.0) pg MCHC (31.0-37.0) g/dL RDW (11.5-15.5) % Plt Count (150-450) k/uL Neutrophils % % Lymphocytes % % Monocytes % % Eosinophils % % Basophils % % Neutrophils # (1.3-7.7) k/uL Lymphocytes # (1.0-4.8) k/uL Monocytes # (0-1.0) k/uL Eosinophils # (0-0.7) k/uL Basophils # (0-0.2) k/uL Hypochromasia VBG pH 7.16 L* (7.31-7.41) VBG pCO2 19 L (37-51) mmHg VBG HCO3 7 L* (24-28) mmol/L Sodium 143 (137-145) mmol/L Potassium 5.6 H (3.5-5.1) mmol/L Chloride 109 H (98-107) mmol/L Carbon Dioxide <5 L* (22-30) mmol/L Anion Gap mmol/L BUN 14 (9-20) mg/dL Creatinine 1.60 H (0.66-1.25) mg/dL Est GFR (CKD-EPI)AfAm 55 (>60 ml/min/1.73 sqM) Est GFR (CKD-EPI)NonAf 48 (>60 ml/min/1.73 sqM) Glucose 389 H (74-99) mg/dL POC Glucose (mg/dL) (75-99) mg/dL POC Glu Primary Care Md ID Plasma Lactic Acid Marcos 4.7 H* (0.7-2.0) mmol/L Calcium 10.0 (8.4-10.2) mg/dL Total Bilirubin 0.6 (0.2-1.3) mg/dL AST 22 (17-59) U/L ALT 25 (4-49) U/L Alkaline Phosphatase 99 (38-126) U/L Total Protein 8.4 H (6.3-8.2) g/dL Albumin 4.9 (3.5-5.0) g/dL Amylase 60 (30-110) U/L Lipase 21 L (23-300) U/L Urine Color Urine Appearance (Clear) Urine pH (5.0-8.0) Ur Specific [place] (1.001-1.035) Urine Protein (Negative) Urine Glucose (UA) (Negative) Urine Ketones (Negative) Urine Blood (Negative) Urine Nitrite (Negative) Urine Bilirubin (Negative) Urine Urobilinogen (<2.0) mg/dL Ur Leukocyte Esterase (Negative) Urine WBC (0-5) /hpf Hyaline Casts (0-2) /lpf Urine Mucus (None) /hpf Acetone, Qual Positive (Negative) Disposition Clinical Impression: DKA (diabetic ketoacidoses), Dehydration Disposition: ADMITTED IP TO THIS HOSP Condition: Serious Is patient prescribed a controlled substance at d/c from ED?: No Referrals: Linda Jasmine MD [Primary Care Provider] - 1-2 days Time of Disposition: 16:12
[2020-07-31 15:35] LABS: Basophils % (A) 0 %; Eosinophils % (A) 0 %; Hypochromasia Moderate; Lymphocytes # (A) 0.9 k/uL (1.0-4.8); Lymphocytes % (A) 4 %; MCHC 29.7 g/dL (31.0-37.0); MCV 97.8 fL (80.0-100.0); Mean Platelet Volume 7.6; Monocytes % (A) 5 %; Neutrophils # (A) 19.4 k/uL (1.3-7.7); Neutrophils % (A) 90 %; Platelet Count 301 k/uL (150-450); RBC 5.52 m/uL (4.30-5.90); RDW 13.4 % (11.5-15.5); WBC 21.5 k/uL (3.8-10.6)
[2020-07-31 15:39] LABS: Appearance,Urine Clear (Clear); Bilirubin,Urine Negative (Negative); Blood,Urine Negative (Negative); Color,Urine Light Yellow; Glucose,Urine (UA) 4+ (Negative); Hyaline Casts,Urine 5 /lpf (0-2); Leukocyte Esterase,Urine Negative (Negative); Mucus,Urine Rare /hpf; Nitrite,Urine Negative (Negative); Protein,Urine 1+ (Negative); Specific Gravity,Urine 1.023 (1.001-1.035); Urobilinogen,Urine <2.0 mg/dL (<2.0); WBC,Urine <1 /hpf (0-5)
[2020-07-31 15:40] LABS: VBG PH 7.16 (7.31-7.41)
[2020-07-31 15:49] LABS: ALT 25 U/L (4-49); AST 22 U/L (17-59); African American GFR (CKD) 55 (>60 ml/min/1.73 sqM); Albumin 4.9 g/dL (3.5-5.0); Alkaline Phosphatase 99 U/L (38-126); Amylase 60 U/L (30-110); Blood Urea Nitrogen 14 mg/dL (9-20); Chloride 109 mmol/L (98-107); Glucose 389 mg/dL (74-99); Non-African American GFR(CKD) 48 (>60 ml/min/1.73 sqM); Potassium 5.6 mmol/L (3.5-5.1); Sodium 143 mmol/L (137-145); Total Bilirubin 0.6 mg/dL (0.2-1.3); Total Protein 8.4 g/dL (6.3-8.2)
[2020-07-31 15:52] LABS: Ketones,Urine 4+ (Negative)
--- NOTE | 2020-07-31 15:52 | XR ---
EXAMINATION TYPE: XR chest 2V DATE OF EXAM: 07/31/2020 CLINICAL HISTORY: DKA TECHNIQUE: Frontal and lateral views of the chest are obtained. COMPARISON: None FINDINGS: The cardiomediastinal silhouette is within normal limits for size. Pulmonary vasculature i s normal. There is no focal air space opacity, pleural effusion, or pneumothorax seen. The osseous st ructures are intact. IMPRESSION: No acute cardiopulmonary process.
[2020-07-31 15:55] LABS: Carbon Dioxide <5 mmol/L (22-30)
[2020-07-31 16:14] LABS: Glucose,Whole Blood 314 mg/dL (75-99)
[2020-07-31] MEDS: INSULIN REGULAR 100 UNIT in SODIUM CHLORIDE 0.9% 100 ML IV SCH (17:01)
[2020-07-31] MEDS: SODIUM CHLORIDE 0.9% 1,000 ML IV SCH ×2 (17:09→19:33)
[2020-07-31 17:24] LABS: Glucose,Whole Blood 301 mg/dL (75-99)
[2020-07-31 18:10] LABS: Glucose,Whole Blood 268 mg/dL (75-99)
[2020-07-31] MEDS: D5-0.45% NACL WITH KCL 20MEQ/L 1,000 ML IV SCH (18:50)
--- NOTE | 2020-07-31 19:06 | P.HPIM ---
History of Present Illness H&P Date: 07/31/20 Chief Complaint: Nausea/vomiting/diarrhea 54-year-old male with a past medical history of IDDM, DVT, GERD, hyperlipidemia recently seen for DKA presents to the emergency department for nausea or vomiting. Patient states it started last night. States he has a generalized abdominal pain associated with this. Denies diarrhea. States his mouth feels very dry. Patient denies any chest pain or shortness of breath whatsoever. Denies any fevers at home.Patient has no other complaints at this time including shortness of breath, chest pain, abdominal pain, headache, or visual changes. Workup in ED including an EKG revealed a sinus tachycardia with heart rate in 120s; blood work revealed a white blood count of 21.5, potassium of 5.6 with a CO2 of less than 5; glucose was 389 with a lactic acid of 4.7; patient was given 2 L of IV fluid and started on IV insulin infusion and is being admitted to ICU Review of Systems REVIEW OF SYSTEMS: CONSTITUTIONAL: No fever, no malaise, no fatigue. HEENT: No recent visual problems or hearing problems. Denied any sore throat. CARDIOVASCULAR: No chest pain, orthopnea, PND, no palpitations, no syncope. PULMONARY: No shortness of breath, no cough, no hemoptysis. GASTROINTESTINAL: Complaining of nausea/vomiting/diarrhea. NEUROLOGICAL: No headaches, no weakness, no numbness. HEMATOLOGICAL: Denies any bleeding or petechiae. GENITOURINARY: Denies any burning micturition, frequency, or urgency. MUSCULOSKELETAL/RHEUMATOLOGICAL: Denies any joint pain, swelling, or any muscle pain. ENDOCRINE: Denies any polyuria or polydipsia. The rest of the 14-point review of systems is negative. Past Medical History Past Medical History: Diabetes Mellitus, Deep Vein Thrombosis (DVT), GERD/Reflux, Hyperlipidemia Additional Past Medical History / Comment(s): IDDM type II, neuropathy bilateral hands/feet, bilateral leg DVTs, carpal tunnel syndrome bilaterally, migraines,. hypothyroid, low iron, hydrocele R side. History of Any Multi-Drug Resistant Organisms: None Reported Past Surgical History: No Surgical Hx Reported Additional Past Surgical History / Comment(s): Colonoscopy Past Anesthesia/Blood Transfusion Reactions: No Reported Reaction Past Psychological History: No Psychological Hx Reported Smoking Status: Never smoker Past Alcohol Use History: None Reported Past Drug Use History: None Reported - Past Family History Father Family Medical History: Cancer Additional Family Medical History / Comment(s): Father had melanoma. He is -pt is not sure but thinks he drowned. Mother Family Medical History: No Reported History Additional Family Medical History / Comment(s): Mother is healthy. Medications and Allergies Home Medications Medication Instructions Recorded Confirmed Type Cyanocobalamin [Vitamin B-12] 1,000 mcg PO DAILY 09/28/18 07/31/20 History Gabapentin [Neurontin] 100 mg PO TID 09/28/18 07/31/20 History Insulin Lispro [Admelog] See Protocol SQ AC-TID 09/17/19 07/31/20 History lisinopriL [Zestril] 2.5 mg PO DAILY 09/17/19 07/31/20 History Atorvastatin Calcium [Lipitor] 20 mg PO HS 01/30/20 07/31/20 History Ferrous Sulfate [Iron (65 MG 325 mg PO DAILY 01/30/20 07/31/20 History Elemental)] Insulin Glargine,Hum.rec.anlog 50 unit SQ HS 01/30/20 07/31/20 History [Basaglar Kwikpen U-100] Famotidine [Pepcid] 20 mg PO BID 04/13/20 07/31/20 History Levothyroxine Sodium [Synthroid] 137 mcg PO DAILY 04/13/20 07/31/20 History Triamcinolone 0.1% Ointment 1 applic TOPICAL BID 07/31/20 07/31/20 History [Kenalog 0.1% Ointment] Allergies Allergy/AdvReac Type Severity Reaction Status Date / Time No Known Allergies Allergy Verified 07/31/20 16:19 Physical Exam Vitals: Vital Signs Temp Pulse Resp BP Pulse Ox 07/31/20 17:00 98.5 F 121 H 24 110/70 99 07/31/20 16:13 121 H 24 103/73 07/31/20 15:11 98.4 F 128 H 25 H 107/74 100 07/31/20 14:42 99.4 F 128 H 26 H 111/78 100 07/31/20 14:16 98.1 F 144 H 16 98 Intake and Output 07/31/20 07/31/20 07/31/20 06:59 14:59 22:59 Other: Weight 89.358 kg General appearance: alert, in no apparent distress Head exam: Present: atraumatic, normocephalic, normal inspection Eye exam: Present: normal appearance, PERRL, EOMI. Absent: scleral icterus, conjunctival injection, periorbital swelling ENT exam: Present: normal exam, mucous membranes moist Neck exam: Present: normal inspection, full ROM. Absent: tenderness, meningismus, lymphadenopathy Respiratory exam: Present: normal lung sounds bilaterally. Absent: respiratory distress, wheezes, rales, rhonchi, stridor Cardiovascular Exam: Present: regular rate, normal rhythm, normal heart sounds. Absent: systolic murmur, diastolic murmur, rubs, gallop, clicks GI/Abdominal exam: Present: soft, normal bowel sounds. Absent: distended, tenderness, guarding, rebound, rigid Neurological exam: Present: alert Results CBC & Chem 7: 07/31/20 14:46 07/31/20 14:46 Labs: Abnormal Lab Results - Last 24 Hours (Table) 07/31/20 07/31/20 07/31/20 Range/Units 14:32 14:46 14:46 WBC 21.5 H (3.8-10.6) k/uL Hct 54.0 H (39.0-53.0) % MCHC 29.7 L (31.0-37.0) g/dL Neutrophils # 19.4 H (1.3-7.7) k/uL Lymphocytes # 0.9 L (1.0-4.8) k/uL VBG pH (7.31-7.41) VBG pCO2 (37-51) mmHg VBG HCO3 (24-28) mmol/L Potassium (3.5-5.1) mmol/L Chloride (98-107) mmol/L Carbon Dioxide (22-30) mmol/L Creatinine (0.66-1.25) mg/dL Glucose (74-99) mg/dL POC Glucose (mg/dL) 359 H (75-99) mg/dL Plasma Lactic Acid Marcos (0.7-2.0) mmol/L Total Protein (6.3-8.2) g/dL Lipase (23-300) U/L Urine Protein 1+ H (Negative) Urine Glucose (UA) 4+ H (Negative) Urine Ketones 4+ H (Negative) Hyaline Casts 5 H (0-2) /lpf Urine Mucus Rare H (None) /hpf 07/31/20 07/31/20 07/31/20 Range/Units 14:46 14:46 15:09 WBC (3.8-10.6) k/uL Hct (39.0-53.0) % MCHC (31.0-37.0) g/dL Neutrophils # (1.3-7.7) k/uL Lymphocytes # (1.0-4.8) k/uL VBG pH 7.16 L* (7.31-7.41) VBG pCO2 19 L (37-51) mmHg VBG HCO3 7 L* (24-28) mmol/L Potassium 5.6 H (3.5-5.1) mmol/L Chloride 109 H (98-107) mmol/L Carbon Dioxide <5 L* (22-30) mmol/L Creatinine 1.60 H (0.66-1.25) mg/dL Glucose 389 H (74-99) mg/dL POC Glucose (mg/dL) (75-99) mg/dL Plasma Lactic Acid Marcos 4.7 H* (0.7-2.0) mmol/L Total Protein 8.4 H (6.3-8.2) g/dL Lipase 21 L (23-300) U/L Urine Protein (Negative) Urine Glucose (UA) (Negative) Urine Ketones (Negative) Hyaline Casts (0-2) /lpf Urine Mucus (None) /hpf 07/31/20 07/31/20 07/31/20 Range/Units 16:12 17:22 18:09 WBC (3.8-10.6) k/uL Hct (39.0-53.0) % MCHC (31.0-37.0) g/dL Neutrophils # (1.3-7.7) k/uL Lymphocytes # (1.0-4.8) k/uL VBG pH (7.31-7.41) VBG pCO2 (37-51) mmHg VBG HCO3 (24-28) mmol/L Potassium (3.5-5.1) mmol/L Chloride (98-107) mmol/L Carbon Dioxide (22-30) mmol/L Creatinine (0.66-1.25) mg/dL Glucose (74-99) mg/dL POC Glucose (mg/dL) 314 H 301 H 268 H (75-99) mg/dL Plasma Lactic Acid Marcos (0.7-2.0) mmol/L Total Protein (6.3-8.2) g/dL Lipase (23-300) U/L Urine Protein (Negative) Urine Glucose (UA) (Negative) Urine Ketones (Negative) Hyaline Casts (0-2) /lpf Urine Mucus (None) /hpf Assessment and Plan Assessment: 1. Acute diabetic ketoacidosis - Patient is admitted to ICU with IV fluids, IV insulin per protocol; monitor Accu-Cheks and metabolic panel per protocol with plan to make adjustments accordingly; inspectors and regulatory officers consult is in place; we will resume with home schedule of insulin once stable 2. Hypertension; restart home dose of lisinopril 2.5 mg daily 3. Hyperlipidemia; Lipitor 20 mg by mouth daily at bedtime 4. Hypothyroidism; levothyroxin 137 MCG daily 5. Peripheral neuropathy; Neurontin 100 mg 3 times a day DVT prophylaxis; subcu Lovenox CODE STATUS; full code
[2020-07-31 19:16] LABS: Glucose,Whole Blood 234 mg/dL (75-99)
[2020-07-31 20:04] LABS: Glucose,Whole Blood 241 mg/dL (75-99)
[2020-07-31] MEDS: FAMOTIDINE 20 MG TAB PO SCH (20:12)
[2020-07-31] MEDS: ATORVASTATIN 20 MG TAB PO SCH (20:12)
[2020-07-31] MEDS: GABAPENTIN 100 MG CAP PO SCH (20:12)
[2020-07-31 20:52] LABS: Phosphorus 2.1 mg/dL (2.5-4.5); Potassium 4.5 mmol/L (3.5-5.1)
[2020-07-31 21:04] LABS: Glucose,Whole Blood 208 mg/dL (75-99)
[2020-07-31 22:08] LABS: Glucose,Whole Blood 158 mg/dL (75-99)
[2020-07-31 23:01] LABS: Glucose,Whole Blood 134 mg/dL (75-99)
[2020-08-01] MEDS: INSULIN REGULAR 100 UNIT in SODIUM CHLORIDE 0.9% 100 ML IV SCH (00:04)
[2020-08-01 00:05] LABS: Glucose,Whole Blood 132 mg/dL (75-99)
[2020-08-01 01:09] LABS: Glucose,Whole Blood 140 mg/dL (75-99)
[2020-08-01 01:19] LABS: African American GFR (CKD) >90 (>60 ml/min/1.73 sqM); Anion Gap 5 mmol/L; Blood Urea Nitrogen 13 mg/dL (9-20); Carbon Dioxide 18 mmol/L (22-30); Chloride 116 mmol/L (98-107); Glucose 142 mg/dL (74-99); Non-African American GFR(CKD) 89 (>60 ml/min/1.73 sqM); Phosphorus 1.6 mg/dL (2.5-4.5); Potassium 4.4 mmol/L (3.5-5.1); Sodium 139 mmol/L (137-145)
[2020-08-01 02:12] LABS: Glucose,Whole Blood 145 mg/dL (75-99)
[2020-08-01] MEDS: SODIUM CHLORIDE 0.9% 1,000 ML IV SCH ×3 (03:22→17:49)
[2020-08-01 03:23] LABS: Glucose,Whole Blood 158 mg/dL (75-99)
[2020-08-01] MEDS: D5-0.45% NACL WITH KCL 20MEQ/L 1,000 ML IV SCH ×2 (03:23)
[2020-08-01 04:18] LABS: Glucose,Whole Blood 181 mg/dL (75-99)
[2020-08-01 05:14] LABS: Glucose,Whole Blood 235 mg/dL (75-99)
[2020-08-01 05:58] LABS: Glucose,Whole Blood 229 mg/dL (75-99)
[2020-08-01] MEDS: LEVOTHYROXINE 137 MCG TAB PO SCH (06:41)
[2020-08-01 07:06] LABS: Basophils % (A) 0 %; Eosinophils % (A) 0 %; HCT 42.3 % (39.0-53.0); Lymphocytes # (A) 1.3 k/uL (1.0-4.8); Lymphocytes % (A) 12 %; MCH 29.3 pg (25.0-35.0); MCHC 30.6 g/dL (31.0-37.0); MCV 95.8 fL (80.0-100.0); Mean Platelet Volume 7.4; Monocytes # (A) 0.7 k/uL (0-1.0); Monocytes % (A) 7 %; Neutrophils # (A) 8.7 k/uL (1.3-7.7); Neutrophils % (A) 79 %; Platelet Count 181 k/uL (150-450); RBC 4.42 m/uL (4.30-5.90); RDW 13.7 % (11.5-15.5)
[2020-08-01 07:08] LABS: Glucose,Whole Blood 232 mg/dL (75-99)
[2020-08-01 07:19] LABS: ALT 17 U/L (4-49); AST 16 U/L (17-59); African American GFR (CKD) >90 (>60 ml/min/1.73 sqM); Albumin 3.1 g/dL (3.5-5.0); Alkaline Phosphatase 64 U/L (38-126); Anion Gap 9 mmol/L; Blood Urea Nitrogen 11 mg/dL (9-20); Calcium 8.2 mg/dL (8.4-10.2); Carbon Dioxide 16 mmol/L (22-30); Chloride 113 mmol/L (98-107); Glucose 245 mg/dL (74-99); Non-African American GFR(CKD) >90 (>60 ml/min/1.73 sqM); Potassium 4.5 mmol/L (3.5-5.1); Sodium 138 mmol/L (137-145); Total Bilirubin 0.7 mg/dL (0.2-1.3); Total Protein 5.9 g/dL (6.3-8.2)
[2020-08-01] MEDS ORDERED: BENZOCAINE/MENTHOL LOZENG 1 EACH LOZENGE MUCOUS MEM PRN (07:53)
[2020-08-01] MEDS: FERROUS SULFATE 325 MG TAB PO SCH (08:22)
[2020-08-01] MEDS: INSULIN DETEMIR (LEVEMIR) 100 UNIT/ML SYR SQ SCH (08:22)
[2020-08-01] MEDS: GABAPENTIN 100 MG CAP PO SCH ×3 (08:22→22:02)
[2020-08-01] MEDS: FAMOTIDINE 20 MG TAB PO SCH ×2 (08:22→22:02)
[2020-08-01] MEDS: CYANOCOBALAMIN 500 MCG TAB PO SCH (08:22)
[2020-08-01 11:01] VITALS: BMI 28.5
--- NOTE | 2020-08-01 11:49 | P.CNPUL ---
History of Present Illness Consult date: 08/01/20 Chief complaint: diminished level of consciousness, nausea vomiting, DKA, hyperglycemia History of present illness: 54-year-old male patient, diabetic, experienced nausea and emesis and missed insulin dose. He came in with acute DKA. His serum bicarbonate was less than 5. Potassium level is at 5.6. Anion gap was elevated at more than 20, the initial blood sugar was at 389. The lactic acid level was at 4.7. The patient had positive acetones and ketones. Amylase lipase were within normal limits. The patient some reactive leukocytosis white cell count of 21. The VBG showed a pH of 7.16. Based on that, the patient was given IV fluids and the patient was started on insulin drip per DKA protocol. He was transferred to the intensive care unit. Overnight he was treated appropriately and anion gap this morning is down to 9 and the serum bicarb is up to 16. He was given long-acting insulin and the patient received Levemir insulin 50 units and he is also on a NovoLog 5 units every before meals and at bedtime. The patient is back on having his breakfast and is tolerating it well without any major difficulties and is on a D5 half-normal infusion at the rate of 150 mL an hour. This will be cut down to 50 mL. All medications will be also resume. No fever. No chills. No hypotension. He seems to be rather noncompliant and he has been in DKA in the past. Review of Systems CONSTITUTIONAL: No fever, no malaise, no fatigue. HEENT: No recent visual problems or hearing problems. Denied any sore throat. CARDIOVASCULAR: No chest pain, orthopnea, PND, no palpitations, no syncope. PULMONARY: No shortness of breath, no cough, no hemoptysis. GASTROINTESTINAL: Complaining of nausea/vomiting/diarrhea. NEUROLOGICAL: No headaches, no weakness, no numbness. HEMATOLOGICAL: Denies any bleeding or petechiae. GENITOURINARY: Denies any burning micturition, frequency, or urgency. MUSCULOSKELETAL/RHEUMATOLOGICAL: Denies any joint pain, swelling, or any muscle pain. ENDOCRINE: positive polyuria, polydipsia and hyperglycemia indicating an underlying diabetic ketoacidosis. Past Medical History Past Medical History: Diabetes Mellitus, Deep Vein Thrombosis (DVT), GERD/Reflux, Hyperlipidemia Additional Past Medical History / Comment(s): IDDM type II, neuropathy bilateral hands/feet, bilateral leg DVTs, carpal tunnel syndrome bilaterally, migraines,. hypothyroid, low iron, hydrocele R side. History of Any Multi-Drug Resistant Organisms: None Reported Past Surgical History: No Surgical Hx Reported Additional Past Surgical History / Comment(s): Colonoscopy Past Anesthesia/Blood Transfusion Reactions: No Reported Reaction Past Psychological History: No Psychological Hx Reported Smoking Status: Never smoker Past Alcohol Use History: None Reported Past Drug Use History: None Reported - Past Family History Father Family Medical History: Cancer Additional Family Medical History / Comment(s): Father had melanoma. He is -pt is not sure but thinks he drowned. Mother Family Medical History: No Reported History Additional Family Medical History / Comment(s): Mother is healthy. Medications and Allergies Home Medications Medication Instructions Recorded Confirmed Type Cyanocobalamin [Vitamin B-12] 1,000 mcg PO DAILY 09/28/18 07/31/20 History Gabapentin [Neurontin] 100 mg PO TID 09/28/18 07/31/20 History Insulin Lispro [Admelog] See Protocol SQ AC-TID 09/17/19 07/31/20 History lisinopriL [Zestril] 2.5 mg PO DAILY 09/17/19 07/31/20 History Atorvastatin Calcium [Lipitor] 20 mg PO HS 01/30/20 07/31/20 History Ferrous Sulfate [Iron (65 MG 325 mg PO DAILY 01/30/20 07/31/20 History Elemental)] Insulin Glargine,Hum.rec.anlog 50 unit SQ HS 01/30/20 07/31/20 History [Basaglar Kwikpen U-100] Famotidine [Pepcid] 20 mg PO BID 04/13/20 07/31/20 History Levothyroxine Sodium [Synthroid] 137 mcg PO DAILY 04/13/20 07/31/20 History Triamcinolone 0.1% Ointment 1 applic TOPICAL BID 07/31/20 07/31/20 History [Kenalog 0.1% Ointment] Allergies Allergy/AdvReac Type Severity Reaction Status Date / Time No Known Allergies Allergy Verified 07/31/20 16:19 Physical Exam Vitals: Vital Signs Temp Pulse Resp BP Pulse Ox 08/01/20 10:00 92 17 94/74 08/01/20 09:00 98.6 F 97 16 104/86 98 08/01/20 08:00 29 H 08/01/20 07:00 105 H 16 103/69 08/01/20 06:00 99 12 103/69 97 08/01/20 05:00 104 H 17 92/61 96 08/01/20 04:00 98.3 F 96 16 92/58 95 08/01/20 03:00 101 H 18 89/61 94 L 08/01/20 02:00 98 16 87/57 93 L 08/01/20 01:00 108 H 18 98/75 94 L 08/01/20 00:00 97.9 F 105 H 15 95/69 94 L 07/31/20 23:00 101 H 16 93/58 96 07/31/20 22:00 110 H 16 107/70 95 07/31/20 21:00 112 H 18 89/62 96 07/31/20 20:00 99.2 F 114 H 17 99/65 95 07/31/20 19:00 118 H 13 99/65 97 07/31/20 18:04 98.9 F 07/31/20 18:00 117 H 14 101/68 96 07/31/20 17:24 21 103/68 96 07/31/20 17:00 98.5 F 121 H 24 110/70 99 07/31/20 16:13 121 H 24 103/73 07/31/20 15:11 98.4 F 128 H 25 H 107/74 100 07/31/20 14:42 99.4 F 128 H 26 H 111/78 100 07/31/20 14:16 98.1 F 144 H 16 98 Intake and Output 07/31/20 08/01/20 08/01/20 22:59 06:59 14:59 Intake Total 294.118 7422.235 960 Output Total 700 400 Balance 616.546 550.235 560 Intake: IV 600 1200 600 D5-0.45% NaCl with KCl 600 1200 600 20Meq/l 1,000 ml @ 150 mls/hr IV .[id number] [facility] Rx# :[id number] Intake, IV Titration 16.546 50.235 Amount Insulin Regular 100 unit 16.546 50.235 In Sodium Chloride 0.9% 100 ml @ 0.1 UNITS/KG/HR 9.025 mls/hr IV .[id number] [facility] Rx#:[id number] Blood Product 360 Output: Urine 700 400 Other: Weight 89.358 kg 90.1 kg 90.1 kg The patient appeared well nourished and normally developed. Vital signs as documented. Head exam is unremarkable. No scleral icterus or corneal arcus noted. Neck is without jugular venous distension, thyromegaly, or carotid bruits. Carotid upstrokes are brisk bilaterally. Lungs are clear to auscultation and percussion. Cardiac exam reveals the PMI to be normally sized and situated. Rhythm is regular. First and second heart sounds normal. No murmurs, rubs or gallops. Abdominal exam reveals normal bowel sounds, no masses, no organomegaly and no aortic enlargement. Extremities are nonedematous and both femoral and p edal pulses are normal. Examination of the skin revealed no evidence of significant rashes, suspicious appearing nevi or other concerning lesions.Neurologically, the patient is awake and alert and the patient does not have any focal neurological deficit. Cranial nerves are essentially intact. Results - Laboratory Findings CBC and BMP: 08/01/20 06:25 08/01/20 06:25 Abnormal lab findings: Abnormal Labs 07/31/20 07/31/20 07/31/20 14:32 14:46 14:46 WBC 21.5 H Hct 54.0 H MCHC 29.7 L Neutrophils # 19.4 H Lymphocytes # 0.9 L VBG pH VBG pCO2 VBG HCO3 Potassium Chloride Carbon Dioxide Creatinine Glucose POC Glucose (mg/dL) 359 H Plasma Lactic Acid Marcos Calcium Phosphorus AST Total Protein Albumin Lipase Urine Protein 1+ H Urine Glucose (UA) 4+ H Urine Ketones 4+ H Hyaline Casts 5 H Urine Mucus Rare H 07/31/20 07/31/20 07/31/20 14:46 14:46 15:09 WBC Hct MCHC Neutrophils # Lymphocytes # VBG pH 7.16 L* VBG pCO2 19 L VBG HCO3 7 L* Potassium 5.6 H Chloride 109 H Carbon Dioxide <5 L* Creatinine 1.60 H Glucose 389 H POC Glucose (mg/dL) Plasma Lactic Acid Marcos 4.7 H* Calcium Phosphorus AST Total Protein 8.4 H Albumin Lipase 21 L Urine Protein Urine Glucose (UA) Urine Ketones Hyaline Casts Urine Mucus 07/31/20 07/31/20 07/31/20 16:12 17:22 18:09 WBC Hct MCHC Neutrophils # Lymphocytes # VBG pH VBG pCO2 VBG HCO3 Potassium Chloride Carbon Dioxide Creatinine Glucose POC Glucose (mg/dL) 314 H 301 H 268 H Plasma Lactic Acid Marcos Calcium Phosphorus AST Total Protein Albumin Lipase Urine Protein Urine Glucose (UA) Urine Ketones Hyaline Casts Urine Mucus 07/31/20 07/31/20 07/31/20 19:14 20:03 20:27 WBC Hct MCHC Neutrophils # Lymphocytes # VBG pH VBG pCO2 VBG HCO3 Potassium Chloride 115 H Carbon Dioxide 13 L Creatinine Glucose 234 H POC Glucose (mg/dL) 234 H 241 H Plasma Lactic Acid Marcos Calcium Phosphorus 2.1 L AST Total Protein Albumin Lipase Urine Protein Urine Glucose (UA) Urine Ketones Hyaline Casts Urine Mucus 07/31/20 07/31/20 07/31/20 21:03 22:07 23:00 WBC Hct MCHC Neutrophils # Lymphocytes # VBG pH VBG pCO2 VBG HCO3 Potassium Chloride Carbon Dioxide Creatinine Glucose POC Glucose (mg/dL) 208 H 158 H 134 H Plasma Lactic Acid Marcos Calcium Phosphorus AST Total Protein Albumin Lipase Urine Protein Urine Glucose (UA) Urine Ketones Hyaline Casts Urine Mucus 08/01/20 08/01/20 08/01/20 00:03 00:10 01:08 WBC Hct MCHC Neutrophils # Lymphocytes # VBG pH VBG pCO2 VBG HCO3 Potassium Chloride 116 H Carbon Dioxide 18 L Creatinine Glucose 142 H POC Glucose (mg/dL) 132 H 140 H Plasma Lactic Acid Marcos Calcium Phosphorus 1.6 L AST Total Protein Albumin Lipase Urine Protein Urine Glucose (UA) Urine Ketones Hyaline Casts Urine Mucus 08/01/20 08/01/20 08/01/20 02:11 03:22 04:17 WBC Hct MCHC Neutrophils # Lymphocytes # VBG pH VBG pCO2 VBG HCO3 Potassium Chloride Carbon Dioxide Creatinine Glucose POC Glucose (mg/dL) 145 H 158 H 181 H Plasma Lactic Acid Marcos Calcium Phosphorus AST Total Protein Albumin Lipase Urine Protein Urine Glucose (UA) Urine Ketones Hyaline Casts Urine Mucus 08/01/20 08/01/20 08/01/20 05:12 05:56 06:25 WBC 11.0 H Hct MCHC 30.6 L Neutrophils # 8.7 H Lymphocytes # VBG pH VBG pCO2 VBG HCO3 Potassium Chloride Carbon Dioxide Creatinine Glucose POC Glucose (mg/dL) 235 H 229 H Plasma Lactic Acid Marcos Calcium Phosphorus AST Total Protein Albumin Lipase Urine Protein Urine Glucose (UA) Urine Ketones Hyaline Casts Urine Mucus 08/01/20 08/01/20 06:25 07:07 WBC Hct MCHC Neutrophils # Lymphocytes # VBG pH VBG pCO2 VBG HCO3 Potassium Chloride 113 H Carbon Dioxide 16 L Creatinine Glucose 245 H POC Glucose (mg/dL) 232 H Plasma Lactic Acid Marcos Calcium 8.2 L Phosphorus AST 16 L Total Protein 5.9 L Albumin 3.1 L Lipase Urine Protein Urine Glucose (UA) Urine Ketones Hyaline Casts Urine Mucus - Diagnostic Findings Chest x-ray: image reviewed Assessment and Plan Plan: 1 diabetic ketoacidosis. The patient had a positive anion gap. The patient was hyperglycemic. The patient's electrolytes abnormalities are all consistent with DKA including some mild hyperkalemia. The patient was resuscitated with IV fluids. The patient was treated with insulin protocol per DKA protocol. Blood sugars have been checked. Anion gap has closed today the serum bicarbs of 16. The patient was given long-acting insulin with Levemir 50 units this morning and he is also on a sliding scale coverage. 2 hypothyroidism 3 hypertension 4 hyperlipidemia 5 reactive leukocytosis 6 peripheral neuropathy maintained on Neurontin 7 previous history of DVTs currently on no anticoagulants. Plan kept on IV fluids to 50 mL an hour Long-acting insulin with Levemir has been initiated 50 units daily along with a scale and NovoLog 5 units every before meals and at bedtime Resume home medication Diet has been provided the patient is able to tolerate without any major difficulties We'll continue to follow. The patient will be leaving the ICU to medical floor.
[2020-08-01 11:56] LABS: Glucose,Whole Blood 325 mg/dL (75-99)
[2020-08-01] MEDS: INSULIN ASPART (NovoLOG) 100 UNIT/ML VIAL SQ SCH ×5 (12:10→22:12)
[2020-08-01 13:40] LABS: Glucose,Whole Blood 301 mg/dL (75-99)
[2020-08-01 17:34] LABS: Glucose,Whole Blood 136 mg/dL (75-99)
--- NOTE | 2020-08-01 17:54 | P.PN ---
Subjective Progress Note Date: 08/01/20 Principal diagnosis: DKA 54-year-old male with a past medical history of IDDM, DVT, GERD, hyperlipidemia recently seen for DKA presents to the emergency department for nausea or vo miting. Patient states it started last night. States he has a generalized abdominal pain associated with this. Denies diarrhea. States his mouth feels very dry. Patient denies any chest pain or shortness of breath whatsoever. Denies any fevers at home.Patient has no other complaints at this time including shortness of breath, chest pain, abdominal pain, headache, or visual changes. Workup in ED including an EKG revealed a sinus tachycardia with heart rate in 120s; blood work revealed a white blood count of 21.5, potassium of 5.6 with a CO2 of less than 5; glucose was 389 with a lactic acid of 4.7; patient was given 2 L of IV fluid and started on IV insulin infusion and is being admitted to ICU 08/01/2020 Patient is seen and evaluated in ICU at bedside; patient has been maintained on IV fluids and IV insulin infusion per protocol; anion gap is down to 9 and bicarb is up to 16; patient has been started on subcu Levemir 50 units along with NovoLog 5 units before each meal and bedtime; he is planned to be continued on IV fluids; transfer to general medical floor Objective - Vital Signs Vital signs: Vital Signs Temp 98.6 F 08/01/20 09:00 Pulse 92 08/01/20 10:00 Resp 17 08/01/20 10:00 BP 94/74 08/01/20 10:00 Pulse Ox 98 08/01/20 09:00 Intake & Output 07/31/20 08/01/20 08/01/20 18:59 06:59 18:59 Intake Total 16.546 7820.439 6694 Output Total 700 400 Balance 16.546 5826.437 8556 Weight 89.358 kg 90.1 kg 90.1 kg Intake: IV 1800 800 D5-0.45% NaCl with KCl 1800 800 20Meq/l 1,000 ml @ 50 mls /hr IV .Q20H [facility] Rx#: [id number] Intake, IV Titration 16.546 50.235 Amount Insulin Regular 100 unit 16.546 50.235 In Sodium Chloride 0.9% 100 ml @ 0.1 UNITS/KG/HR 9.025 mls/hr IV .[id number] [facility] Rx#:[id number] Blood Product 960 Output: Urine 700 400 Other: # Voids 1 - Exam PHYSICAL EXAMINATION: GENERAL: The patient is alert and oriented x3, not in any acute distress. Well developed, well nourished. HEENT: Pupils are round and equally reacting to light. EOMI. No scleral icterus. No conjunctival pallor. Normocephalic, atraumatic. No pharyngeal erythema. No thyromegaly. CARDIOVASCULAR: S1 and S2 present. No murmurs, rubs, or gallops. PULMONARY: Chest is clear to auscultation, no wheezing or crackles. ABDOMEN: Soft, nontender, nondistended, normoactive bowel sounds. No palpable organomegaly. MUSCULOSKELETAL: No joint swelling or deformity. EXTREMITIES: No cyanosis, clubbing, or pedal edema. NEUROLOGICAL: Gross neurological examination did not reveal any focal deficits. SKIN: No rashes. - Labs CBC & Chem 7: 08/01/20 06:25 08/01/20 06:25 Labs: Abnormal Lab Results - Last 24 Hours (Table) 07/31/20 07/31/20 07/31/20 Range/Units 14:32 14:46 14:46 WBC 21.5 H (3.8-10.6) k/uL Hct 54.0 H (39.0-53.0) % MCHC 29.7 L (31.0-37.0) g/dL Neutrophils # 19.4 H (1.3-7.7) k/uL Lymphocytes # 0.9 L (1.0-4.8) k/uL VBG pH (7.31-7.41) VBG pCO2 (37-51) mmHg VBG HCO3 (24-28) mmol/L Potassium (3.5-5.1) mmol/L Chloride (98-107) mmol/L Carbon Dioxide (22-30) mmol/L Creatinine (0.66-1.25) mg/dL Glucose (74-99) mg/dL POC Glucose (mg/dL) 359 H (75-99) mg/dL Plasma Lactic Acid Marcos (0.7-2.0) mmol/L Calcium (8.4-10.2) mg/dL Phosphorus (2.5-4.5) mg/dL AST (17-59) U/L Total Protein (6.3-8.2) g/dL Albumin (3.5-5.0) g/dL Lipase (23-300) U/L Urine Protein 1+ H (Negative) Urine Glucose (UA) 4+ H (Negative) Urine Ketones 4+ H (Negative) Hyaline Casts 5 H (0-2) /lpf Urine Mucus Rare H (None) /hpf 07/31/20 07/31/20 07/31/20 Range/Units 14:46 14:46 15:09 WBC (3.8-10.6) k/uL Hct (39.0-53.0) % MCHC (31.0-37.0) g/dL Neutrophils # (1.3-7.7) k/uL Lymphocytes # (1.0-4.8) k/uL VBG pH 7.16 L* (7.31-7.41) VBG pCO2 19 L (37-51) mmHg VBG HCO3 7 L* (24-28) mmol/L Potassium 5.6 H (3.5-5.1) mmol/L Chloride 109 H (98-107) mmol/L Carbon Dioxide <5 L* (22-30) mmol/L Creatinine 1.60 H (0.66-1.25) mg/dL Glucose 389 H (74-99) mg/dL POC Glucose (mg/dL) (75-99) mg/dL Plasma Lactic Acid Marcos 4.7 H* (0.7-2.0) mmol/L Calcium (8.4-10.2) mg/dL Phosphorus (2.5-4.5) mg/dL AST (17-59) U/L Total Protein 8.4 H (6.3-8.2) g/dL Albumin (3.5-5.0) g/dL Lipase 21 L (23-300) U/L Urine Protein (Negative) Urine Glucose (UA) (Negative) Urine Ketones (Negative) Hyaline Casts (0-2) /lpf Urine Mucus (None) /hpf 07/31/20 07/31/20 07/31/20 Range/Units 16:12 17:22 18:09 WBC (3.8-10.6) k/uL Hct (39.0-53.0) % MCHC (31.0-37.0) g/dL Neutrophils # (1.3-7.7) k/uL Lymphocytes # (1.0-4.8) k/uL VBG pH (7.31-7.41) VBG pCO2 (37-51) mmHg VBG HCO3 (24-28) mmol/L Potassium (3.5-5.1) mmol/L Chloride (98-107) mmol/L Carbon Dioxide (22-30) mmol/L Creatinine (0.66-1.25) mg/dL Glucose (74-99) mg/dL POC Glucose (mg/dL) 314 H 301 H 268 H (75-99) mg/dL Plasma Lactic Acid Marcos (0.7-2.0) mmol/L Calcium (8.4-10.2) mg/dL Phosphorus (2.5-4.5) mg/dL AST (17-59) U/L Total Protein (6.3-8.2) g/dL Albumin (3.5-5.0) g/dL Lipase (23-300) U/L Urine Protein (Negative) Urine Glucose (UA) (Negative) Urine Ketones (Negative) Hyaline Casts (0-2) /lpf Urine Mucus (None) /hpf 07/31/20 07/31/20 07/31/20 Range/Units 19:14 20:03 20:27 WBC (3.8-10.6) k/uL Hct (39.0-53.0) % MCHC (31.0-37.0) g/dL Neutrophils # (1.3-7.7) k/uL Lymphocytes # (1.0-4.8) k/uL VBG pH (7.31-7.41) VBG pCO2 (37-51) mmHg VBG HCO3 (24-28) mmol/L Potassium (3.5-5.1) mmol/L Chloride 115 H (98-107) mmol/L Carbon Dioxide 13 L (22-30) mmol/L Creatinine (0.66-1.25) mg/dL Glucose 234 H (74-99) mg/dL POC Glucose (mg/dL) 234 H 241 H (75-99) mg/dL Plasma Lactic Acid Marcos (0.7-2.0) mmol/L Calcium (8.4-10.2) mg/dL Phosphorus 2.1 L (2.5-4.5) mg/dL AST (17-59) U/L Total Protein (6.3-8.2) g/dL Albumin (3.5-5.0) g/dL Lipase (23-300) U/L Urine Protein (Negative) Urine Glucose (UA) (Negative) Urine Ketones (Negative) Hyaline Casts (0-2) /lpf Urine Mucus (None) /hpf 07/31/20 07/31/20 07/31/20 Range/Units 21:03 22:07 23:00 WBC (3.8-10.6) k/uL Hct (39.0-53.0) % MCHC (31.0-37.0) g/dL Neutrophils # (1.3-7.7) k/uL Lymphocytes # (1.0-4.8) k/uL VBG pH (7.31-7.41) VBG pCO2 (37-51) mmHg VBG HCO3 (24-28) mmol/L Potassium (3.5-5.1) mmol/L Chloride (98-107) mmol/L Carbon Dioxide (22-30) mmol/L Creatinine (0.66-1.25) mg/dL Glucose (74-99) mg/dL POC Glucose (mg/dL) 208 H 158 H 134 H (75-99) mg/dL Plasma Lactic Acid Marcos (0.7-2.0) mmol/L Calcium (8.4-10.2) mg/dL Phosphorus (2.5-4.5) mg/dL AST (17-59) U/L Total Protein (6.3-8.2) g/dL Albumin (3.5-5.0) g/dL Lipase (23-300) U/L Urine Protein (Negative) Urine Glucose (UA) (Negative) Urine Ketones (Negative) Hyaline Casts (0-2) /lpf Urine Mucus (None) /hpf 08/01/20 08/01/20 08/01/20 Range/Units 00:03 00:10 01:08 WBC (3.8-10.6) k/uL Hct (39.0-53.0) % MCHC (31.0-37.0) g/dL Neutrophils # (1.3-7.7) k/uL Lymphocytes # (1.0-4.8) k/uL VBG pH (7.31-7.41) VBG pCO2 (37-51) mmHg VBG HCO3 (24-28) mmol/L Potassium (3.5-5.1) mmol/L Chloride 116 H (98-107) mmol/L Carbon Dioxide 18 L (22-30) mmol/L Creatinine (0.66-1.25) mg/dL Glucose 142 H (74-99) mg/dL POC Glucose (mg/dL) 132 H 140 H (75-99) mg/dL Plasma Lactic Acid Marcos (0.7-2.0) mmol/L Calcium (8.4-10.2) mg/dL Phosphorus 1.6 L (2.5-4.5) mg/dL AST (17-59) U/L Total Protein (6.3-8.2) g/dL Albumin (3.5-5.0) g/dL Lipase (23-300) U/L Urine Protein (Negative) Urine Glucose (UA) (Negative) Urine Ketones (Negative) Hyaline Casts (0-2) /lpf Urine Mucus (None) /hpf 08/01/20 08/01/20 08/01/20 Range/Units 02:11 03:22 04:17 WBC (3.8-10.6) k/uL Hct (39.0-53.0) % MCHC (31.0-37.0) g/dL Neutrophils # (1.3-7.7) k/uL Lymphocytes # (1.0-4.8) k/uL VBG pH (7.31-7.41) VBG pCO2 (37-51) mmHg VBG HCO3 (24-28) mmol/L Potassium (3.5-5.1) mmol/L Chloride (98-107) mmol/L Carbon Dioxide (22-30) mmol/L Creatinine (0.66-1.25) mg/dL Glucose (74-99) mg/dL POC Glucose (mg/dL) 145 H 158 H 181 H (75-99) mg/dL Plasma Lactic Acid Marcos (0.7-2.0) mmol/L Calcium (8.4-10.2) mg/dL Phosphorus (2.5-4.5) mg/dL AST (17-59) U/L Total Protein (6.3-8.2) g/dL Albumin (3.5-5.0) g/dL Lipase (23-300) U/L Urine Protein (Negative) Urine Glucose (UA) (Negative) Urine Ketones (Negative) Hyaline Casts (0-2) /lpf Urine Mucus (None) /hpf 08/01/20 08/01/20 08/01/20 Range/Units 05:12 05:56 06:25 WBC 11.0 H (3.8-10.6) k/uL Hct (39.0-53.0) % MCHC 30.6 L (31.0-37.0) g/dL Neutrophils # 8.7 H (1.3-7.7) k/uL Lymphocytes # (1.0-4.8) k/uL VBG pH (7.31-7.41) VBG pCO2 (37-51) mmHg VBG HCO3 (24-28) mmol/L Potassium (3.5-5.1) mmol/L Chloride (98-107) mmol/L Carbon Dioxide (22-30) mmol/L Creatinine (0.66-1.25) mg/dL Glucose (74-99) mg/dL POC Glucose (mg/dL) 235 H 229 H (75-99) mg/dL Plasma Lactic Acid Marcos (0.7-2.0) mmol/L Calcium (8.4-10.2) mg/dL Phosphorus (2.5-4.5) mg/dL AST (17-59) U/L Total Protein (6.3-8.2) g/dL Albumin (3.5-5.0) g/dL Lipase (23-300) U/L Urine Protein (Negative) Urine Glucose (UA) (Negative) Urine Ketones (Negative) Hyaline Casts (0-2) /lpf Urine Mucus (None) /hpf 08/01/20 08/01/20 08/01/20 Range/Units 06:25 07:07 11:55 WBC (3.8-10.6) k/uL Hct (39.0-53.0) % MCHC (31.0-37.0) g/dL Neutrophils # (1.3-7.7) k/uL Lymphocytes # (1.0-4.8) k/uL VBG pH (7.31-7.41) VBG pCO2 (37-51) mmHg VBG HCO3 (24-28) mmol/L Potassium (3.5-5.1) mmol/L Chloride 113 H (98-107) mmol/L Carbon Dioxide 16 L (22-30) mmol/L Creatinine (0.66-1.25) mg/dL Glucose 245 H (74-99) mg/dL POC Glucose (mg/dL) 232 H 325 H (75-99) mg/dL Plasma Lactic Acid Marcos (0.7-2.0) mmol/L Calcium 8.2 L (8.4-10.2) mg/dL Phosphorus (2.5-4.5) mg/dL AST 16 L (17-59) U/L Total Protein 5.9 L (6.3-8.2) g/dL Albumin 3.1 L (3.5-5.0) g/dL Lipase (23-300) U/L Urine Protein (Negative) Urine Glucose (UA) (Negative) Urine Ketones (Negative) Hyaline Casts (0-2) /lpf Urine Mucus (None) /hpf 08/01/20 Range/Units 13:28 WBC (3.8-10.6) k/uL Hct (39.0-53.0) % MCHC (31.0-37.0) g/dL Neutrophils # (1.3-7.7) k/uL Lymphocytes # (1.0-4.8) k/uL VBG pH (7.31-7.41) VBG pCO2 (37-51) mmHg VBG HCO3 (24-28) mmol/L Potassium (3.5-5.1) mmol/L Chloride (98-107) mmol/L Carbon Dioxide (22-30) mmol/L Creatinine (0.66-1.25) mg/dL Glucose (74-99) mg/dL POC Glucose (mg/dL) 301 H (75-99) mg/dL Plasma Lactic Acid Marcos (0.7-2.0) mmol/L Calcium (8.4-10.2) mg/dL Phosphorus (2.5-4.5) mg/dL AST (17-59) U/L Total Protein (6.3-8.2) g/dL Albumin (3.5-5.0) g/dL Lipase (23-300) U/L Urine Protein (Negative) Urine Glucose (UA) (Negative) Urine Ketones (Negative) Hyaline Casts (0-2) /lpf Urine Mucus (None) /hpf Assessment and Plan Assessment: 1. Acute diabetic ketoacidosis - Patient is admitted to ICU with IV fluids, IV insulin per protocol; monitor Accu-Cheks and metabolic panel per protocol with plan to make adjustments accordingly; senior java software engineer consult is in place; we will resume with home schedule of insulin once stable 2. Hypertension; restart home dose of lisinopril 2.5 mg daily 3. Hyperlipidemia; Lipitor 20 mg by mouth daily at bedtime 4. Hypothyroidism; levothyroxin 137 MCG daily 5. Peripheral neuropathy; Neurontin 100 mg 3 times a day DVT prophylaxis; subcu Lovenox CODE STATUS; full code
[2020-08-01 21:34] LABS: Glucose,Whole Blood 139 mg/dL (75-99)
[2020-08-01] MEDS: ATORVASTATIN 20 MG TAB PO SCH (22:02)
[2020-08-02] MEDS: LEVOTHYROXINE 137 MCG TAB PO SCH (06:12)
[2020-08-02 06:45] LABS: Glucose,Whole Blood 110 mg/dL (75-99)
[2020-08-02] MEDS: INSULIN ASPART (NovoLOG) 100 UNIT/ML VIAL SQ SCH ×6 (07:11→17:24)
[2020-08-02] MEDS: CYANOCOBALAMIN 500 MCG TAB PO SCH (07:32)
[2020-08-02] MEDS: FAMOTIDINE 20 MG TAB PO SCH ×2 (07:32→21:00)
[2020-08-02] MEDS: INSULIN DETEMIR (LEVEMIR) 100 UNIT/ML SYR SQ SCH (07:32)
[2020-08-02] MEDS: FERROUS SULFATE 325 MG TAB PO SCH (07:33)
[2020-08-02] MEDS: GABAPENTIN 100 MG CAP PO SCH ×3 (07:33→21:00)
[2020-08-02 11:31] LABS: Glucose,Whole Blood 255 mg/dL (75-99)
[2020-08-02 11:51] LABS: African American GFR (CKD) >90 (>60 ml/min/1.73 sqM); Anion Gap 6 mmol/L; Blood Urea Nitrogen 9 mg/dL (9-20); Calcium 8.2 mg/dL (8.4-10.2); Carbon Dioxide 19 mmol/L (22-30); Chloride 105 mmol/L (98-107); Glucose 271 mg/dL (74-99); Non-African American GFR(CKD) >90 (>60 ml/min/1.73 sqM); Potassium 4.6 mmol/L (3.5-5.1); Sodium 130 mmol/L (137-145)
[2020-08-02 11:59] LABS: Basophils % (A) 0 %; Eosinophils # (A) 0.1 k/uL (0-0.7); Eosinophils % (A) 2 %; HCT 41.1 % (39.0-53.0); HGB 12.8 gm/dL (13.0-17.5); Hypochromasia Slight; Lymphocytes # (A) 1.6 k/uL (1.0-4.8); Lymphocytes % (A) 23 %; MCH 30.5 pg (25.0-35.0); MCHC 31.2 g/dL (31.0-37.0); MCV 97.6 fL (80.0-100.0); Mean Platelet Volume 6.9; Monocytes # (A) 0.5 k/uL (0-1.0); Monocytes % (A) 7 %; Neutrophils # (A) 4.5 k/uL (1.3-7.7); Neutrophils % (A) 66 %; Platelet Count 179 k/uL (150-450); RBC 4.21 m/uL (4.30-5.90); RDW 13.9 % (11.5-15.5); WBC 6.8 k/uL (3.8-10.6)
[2020-08-02] MEDS: NITROGLYCERIN OINT 1 INCH/GM PACKET TOPICAL SCH ×2 (13:32→21:00)
[2020-08-02 13:52] LABS: Creatine Kinase MB 0.3 ng/mL (0.0-2.4)
--- NOTE | 2020-08-02 14:57 | P.PN ---
Subjective Progress Note Date: 08/02/20 Principal diagnosis: DKA 54-year-old male with a past medical history of IDDM, DVT, GERD, hyperlipidemia recently seen for DKA presents to the emergency department for nausea or vo miting. Patient states it started last night. States he has a generalized abdominal pain associated with this. Denies diarrhea. States his mouth feels very dry. Patient denies any chest pain or shortness of breath whatsoever. Denies any fevers at home.Patient has no other complaints at this time including shortness of breath, chest pain, abdominal pain, headache, or visual changes. Workup in ED including an EKG revealed a sinus tachycardia with heart rate in 120s; blood work revealed a white blood count of 21.5, potassium of 5.6 with a CO2 of less than 5; glucose was 389 with a lactic acid of 4.7; patient was given 2 L of IV fluid and started on IV insulin infusion and is being admitted to ICU 08/01/2020 Patient is seen and evaluated in ICU at bedside; patient has been maintained on IV fluids and IV insulin infusion per protocol; anion gap is down to 9 and bicarb is up to 16; patient has been started on subcu Levemir 50 units along with NovoLog 5 units before each meal and bedtime; he is planned to be continued on IV fluids; transfer to general medical floor 08/02/2020 Patient is seen and evaluated on general medical floor; complains of chest pain which has been going on for past few days; patient complains that he gets quite short of breath when he gets episodes of chest pain Vital signs remained stable; DKA has resolved; patient remains on home schedule of insulin; we will order EKG and trend troponin; order 2-D echo; we will consult cardiology for further recommendations Objective - Vital Signs Vital signs: Vital Signs Temp 98 F 08/02/20 06:57 Pulse 90 08/02/20 12:59 Resp 18 08/02/20 12:59 BP 126/83 08/02/20 12:59 Pulse Ox 98 08/02/20 12:59 Intake & Output 08/01/20 08/02/20 08/02/20 18:59 06:59 18:59 Intake Total 1760 Output Total 400 Balance 1360 Weight 90.1 kg 86.8 kg Intake: IV 800 D5-0.45% NaCl with KCl 800 20Meq/l 1,000 ml @ 50 mls /hr IV .Q20H [facility] Rx#: [id number] Blood Product 960 Output: Urine 400 Stool 0 Other: # Voids 1 1 - Exam PHYSICAL EXAMINATION: GENERAL: The patient is alert and oriented x3, not in any acute distress. Well developed, well nourished. HEENT: Pupils are round and equally reacting to light. EOMI. No scleral icterus. No conjunctival pallor. Normocephalic, atraumatic. No pharyngeal erythema. No thyromegaly. CARDIOVASCULAR: S1 and S2 present. No murmurs, rubs, or gallops. PULMONARY: Chest is clear to auscultation, no wheezing or crackles. ABDOMEN: Soft, nontender, nondistended, normoactive bowel sounds. No palpable organomegaly. MUSCULOSKELETAL: No joint swelling or deformity. EXTREMITIES: No cyanosis, clubbing, or pedal edema. NEUROLOGICAL: Gross neurological examination did not reveal any focal deficits. SKIN: No rashes. - Labs CBC & Chem 7: 08/02/20 11:10 08/02/20 11:10 Labs: Abnormal Lab Results - Last 24 Hours (Table) 08/01/20 08/01/20 08/02/20 Range/Units 17:17 21:33 06:41 RBC (4.30-5.90) m/uL Hgb (13.0-17.5) gm/dL Sodium (137-145) mmol/L Carbon Dioxide (22-30) mmol/L Glucose (74-99) mg/dL POC Glucose (mg/dL) 136 H 139 H 110 H (75-99) mg/dL Calcium (8.4-10.2) mg/dL Total Creatine Kinase (55-170) U/L 08/02/20 08/02/20 08/02/20 Range/Units 11:10 11:10 11:10 RBC 4.21 L (4.30-5.90) m/uL Hgb 12.8 L (13.0-17.5) gm/dL Sodium 130 L (137-145) mmol/L Carbon Dioxide 19 L (22-30) mmol/L Glucose 271 H (74-99) mg/dL POC Glucose (mg/dL) (75-99) mg/dL Calcium 8.2 L (8.4-10.2) mg/dL Total Creatine Kinase 30 L (55-170) U/L 08/02/20 Range/Units 11:28 RBC (4.30-5.90) m/uL Hgb (13.0-17.5) gm/dL Sodium (137-145) mmol/L Carbon Dioxide (22-30) mmol/L Glucose (74-99) mg/dL POC Glucose (mg/dL) 255 H (75-99) mg/dL Calcium (8.4-10.2) mg/dL Total Creatine Kinase (55-170) U/L Assessment and Plan Assessment: 1. Acute diabetic ketoacidosis - Patient is admitted to ICU with IV fluids, IV insulin per protocol; monitor Accu-Cheks and metabolic panel per protocol with plan to make adjustments accordingly; lead cytogenetic technologist consult is in place; we will resume with home schedule of insulin once stable 2. Hypertension; restart home dose of lisinopril 2.5 mg daily 3. Hyperlipidemia; Lipitor 20 mg by mouth daily at bedtime 4. Hypothyroidism; levothyroxin 137 MCG daily 5. Peripheral neuropathy; Neurontin 100 mg 3 times a day DVT prophylaxis; subcu Lovenox CODE STATUS; full code
[2020-08-02 15:38] VITALS: RESP 16
[2020-08-02 16:40] LABS: Glucose,Whole Blood 132 mg/dL (75-99)
[2020-08-02 20:39] LABS: Glucose,Whole Blood 78 mg/dL (75-99)
[2020-08-02] MEDS: ATORVASTATIN 20 MG TAB PO SCH (21:00)
[2020-08-03 01:44] LABS: Glucose,Whole Blood 94 mg/dL (75-99)
[2020-08-03 06:06] LABS: Basophils % (A) 1 %; Eosinophils # (A) 0.2 k/uL (0-0.7); Eosinophils % (A) 3 %; HCT 37.6 % (39.0-53.0); HGB 12.3 gm/dL (13.0-17.5); Lymphocytes # (A) 1.2 k/uL (1.0-4.8); Lymphocytes % (A) 23 %; MCH 30.3 pg (25.0-35.0); MCHC 32.8 g/dL (31.0-37.0); Mean Platelet Volume 7.3; Monocytes # (A) 0.3 k/uL (0-1.0); Monocytes % (A) 6 %; Neutrophils # (A) 3.5 k/uL (1.3-7.7); Neutrophils % (A) 66 %; Platelet Count 155 k/uL (150-450); RBC 4.07 m/uL (4.30-5.90); RDW 13.8 % (11.5-15.5); WBC 5.4 k/uL (3.8-10.6)
[2020-08-03 06:10] LABS: MCV 92.4 fL (80.0-100.0)
[2020-08-03] MEDS: LEVOTHYROXINE 137 MCG TAB PO SCH (06:17)
[2020-08-03] MEDS: INSULIN ASPART (NovoLOG) 100 UNIT/ML VIAL SQ SCH ×5 (06:22→12:03)
[2020-08-03 07:28] LABS: Glucose,Whole Blood 237 mg/dL (75-99)
[2020-08-03] MEDS: CYANOCOBALAMIN 500 MCG TAB PO SCH (07:30)
[2020-08-03] MEDS: FERROUS SULFATE 325 MG TAB PO SCH (07:30)
[2020-08-03] MEDS: FAMOTIDINE 20 MG TAB PO SCH (07:30)
[2020-08-03] MEDS: GABAPENTIN 100 MG CAP PO SCH (07:30)
[2020-08-03] MEDS: NITROGLYCERIN OINT 1 INCH/GM PACKET TOPICAL SCH (07:31)
[2020-08-03] MEDS: INSULIN DETEMIR (LEVEMIR) 100 UNIT/ML SYR SQ SCH (07:31)
[2020-08-03 10:07] LABS: African American GFR (CKD) 115.7 (60.0-200.0); Anion Gap 4.7 mmol/L (4.00-12.00); Calcium 8.1 mg/dL (8.7-10.3); Carbon Dioxide 25.3 mmol/L (21.6-31.8); Non-African American GFR(CKD) 99.9 (60.0-200.0); Potassium 4.5 mmol/L (3.5-5.5)
[2020-08-03 11:51] LABS: Glucose,Whole Blood 123 mg/dL (75-99)
[2020-08-03 15:16] VITALS: BP 126/85; PULSE 80; TEMP 98.1
--- NOTE | 2020-08-03 15:16 | P.CN ---
Psychiatric Consult - . Consult date: 08/03/20 Consult:: 08/03/20 15:16IDENTIFYING DATA: This patient is a 54-year-old, on disability, male with a significant history of IDDM, DVT, GERD, hyperlipidemia, DKA who was admitted for nausea and vomiting. Consultation was placed for evaluation of possible response to internal stimuli. HISTORY OF PRESENT ILLNESS: The patient presented to the hospital 54-year-old, male. Patient reports that his mood is good. He is denying any history of mental illness. He is not reporting any symptoms of depression or bipolar disorder at this time. At this time patient denies any suicidal or homicidal ideations, intent or plan. As per nurse, patient has been noted to be responding to internal stimuli as he has been noticed to be having frequent conversations with himself using different voices. When confronted, patient reports that he was practicing multiple impersonation's including that of "Unreal [employer] [facility]." He also reports that he has been talking to himself as a way to differentiate between the direction of the [employer] books and the movies. Patient denies any auditory, visual hallucinations and denies any paranoia or delusions. Patient vehemently denies any alcohol, marijuana, tobacco, or any other illicit drug use. Patient does not endorse any significant history of trauma. He denies any physical, emotional, or sexual abuse. PAST PSYCHIATRIC HISTORY: Patient denies any significant history of mental illness. Patient denies being on any psychiatric medications. Patient denies any previous psychiatric hospitalizations. Patient denies any psychiatric outpatient follow-up. Patient denies any history of suicide attempts in the past. PAST MEDICAL HISTORY: Diabetes mellitus, DVT, GERD, hyperlipidemia, carpal tunnel. ALLERGIES: as per EMR. CHEMICAL DEPENDENCY HISTORY: as per HPI. FAMILY PSYCHIATRIC/SUBSTANCE USE HISTORY: denies SOCIAL HISTORY: Patient was born and raised in [place]. He has recently relocated to [place] after living in [place]. He is currently receiving disability. MENTAL STATUS EXAM: General Appearance: Patient appears to be stated age is alert, pleasant, and cooperative. Patient appears to have fair hygiene and grooming wearing hospital gown with fair eye contact. Behavior: Patient is calmly lying in bed without any agitated behavior. Speech: Patient's speech is fluent and rapid but nonpressured. Patient is interruptible. Mood/Affect: Patient reports their mood is "pretty good", affect is congruent Suicidality/Homicidality: Patient denies having any suicidal or homicidal ideation intent or plan. Perceptions: Patient denies any visual hallucinations and denies any auditory hallucinations Though content/process: There is no evidence of any delusional thought content and thought process is tangential with very specific interests. Memory and concentration: AOX3, grossly intact for the purposes of this session. Can spell "WORLD" backwards Judgment and insight: Fair IMPRESSIONS: Patient has unique and specific interests and odd social mannerisms that may be indicative of an autism spectrum disorder. Due to lack of significant psychiatric history, lack of affective symptoms, and lack of psychotic symptoms, patient is not suspected to have schizophrenia or other psychotic illnesses at this time. He does not feel criteria for dissociative identity disorder and has no significant history of trauma that would point towards this diagnosis. PLAN: -At this time patient DOES NOT meet criteria for inpatient psychiatric admission. -Delirium precautions recommended with patient including - avoiding use of narcotics and SANITATION DIRECTOR sedatives, limit anticholinergic medications when possible, frequent re-orientation, minimize use of restraints, open window shades during the day and close them at night -We will not start medications at this time. -Psychiatry will sign off at this point, please contact with any questions.
[2020-08-03 15:21] LABS: Glucose,Whole Blood 71 mg/dL (75-99)
--- NOTE | 2020-08-03 15:22 | P.CRDCN ---
History of Present Illness Consult date: 08/03/20 History of present illness: CHIEF COMPLAINT: Chest pain HISTORY OF PRESENT ILLNESS: This is a 54-year old male with a past medical history significant for diabetes mellitus, DVT, and hyperlipidemia. Patient does not follow with a senior database engineer outpatient. We have been asked to see the patient in consultation for chest pain. Patient examined at the bedside. Patient states yesterday he was sitting up in bed at a 45 angle and states he began having left-sided chest pain. Patient denies radiation to the jaw or arm. He denies shortness of breath. The patient was given nitropaste yesterday and he reports resolution of his chest pain. Patient is a nonsmoker. He denies alcohol use. He states his father passed a heart attack in his 70s. He is currently denying chest pain and is hoping to be discharged home today. DIAGNOSTICS: EKG reveals sinus rhythm. Chest xray negative for acute cardiopulmonary process. Laboratory data: WBC 5.4. Hemoglobin 12.3. Platelet count 155. Sodium 134. Potassium 4.5. BUN 12. Creatinine 0.8.. Current home cardiac medications include lisinopril 2.5 mg daily and Lipitor 20 mg daily REVIEW OF SYSTEMS: At the time of my exam: CONSTITUTIONAL: Denies fever or chills. HEENT: Denies blurred vision, vision changes, or eye pain. Denies hemoptysis CARDIOVASCULAR: Denies chest pain, orthopnea, PND or palpitations RESPIRATORY: No shortness of breath. GASTROINTESTINAL: Denies abdominal pain. Denies nausea or vomiting. HEMATOLOGIC: Denies bleeding disorders. GENITOURINARY: Denies any blood in urine. SKIN: Denies pruitis. Denies rash. PHYSICAL EXAM: VITAL SIGNS: Reviewed. GENERAL: Well-developed in no acute distress. HEENT: Head is normocephalic. Pupils are equal, round. Sclerae anicteric. Mucous membranes of the mouth are moist. Neck supple. No JVD or thyromegaly LUNGS: Respirations even and unlabored. Lungs essentially clear to auscultation bilaterally. HEART: Regular rate and rhythm. S1 and S2 heard. ABDOMEN: Soft. Nondistended. Nontender. EXTREMITIES: Normal range of motion. No clubbing or cyanosis. Peripheral pulses intact. No lower extremity edema NEUROLOGIC: Awake and alert. Oriented x 3. ASSESSMENT: Chest pain, atypical Diabetic ketoacidosis Hypertension History of DVT, not on long-term anticoagulation PLAN: Continue current cardiac medications Discontinue Nitropaste Obtain additional troponin Obtain 2-D echo to assess cardiac structure and function Nurse practitioner note has been reviewed by physician. Signing provider agrees with the documented findings, assessment, and plan of care. Past Medical History Past Medical History: Diabetes Mellitus, Deep Vein Thrombosis (DVT), GERD/Reflux, Hyperlipidemia Additional Past Medical History / Comment(s): IDDM type II, neuropathy bilateral hands/feet, bilateral leg DVTs, carpal tunnel syndrome bilaterally, migraines,. hypothyroid, low iron, hydrocele R side. History of Any Multi-Drug Resistant Organisms: None Reported Past Surgical History: No Surgical Hx Reported Additional Past Surgical History / Comment(s): Colonoscopy Past Anesthesia/Blood Transfusion Reactions: No Reported Reaction Past Psychological History: No Psychological Hx Reported Smoking Status: Never smoker Past Alcohol Use History: None Reported Past Drug Use History: None Reported - Past Family History Father Family Medical History: Cancer Additional Family Medical History / Comment(s): Father had melanoma. He is -pt is not sure but thinks he drowned. Mother Family Medical History: No Reported History Additional Family Medical History / Comment(s): Mother is healthy. Medications and Allergies Home Medications Medication Instructions Recorded Confirmed Type Cyanocobalamin [Vitamin B-12] 1,000 mcg PO DAILY 09/28/18 07/31/20 History Gabapentin [Neurontin] 100 mg PO TID 09/28/18 07/31/20 History Insulin Lispro [Admelog] See Protocol SQ AC-TID 09/17/19 07/31/20 History lisinopriL [Zestril] 2.5 mg PO DAILY 09/17/19 07/31/20 History Atorvastatin Calcium [Lipitor] 20 mg PO HS 01/30/20 07/31/20 History Ferrous Sulfate [Iron (65 MG 325 mg PO DAILY 01/30/20 07/31/20 History Elemental)] Insulin Glargine,Hum.rec.anlog 50 unit SQ HS 01/30/20 07/31/20 History [Basaglar Kwikpen U-100] Famotidine [Pepcid] 20 mg PO BID 04/13/20 07/31/20 History Levothyroxine Sodium [Synthroid] 137 mcg PO DAILY 04/13/20 07/31/20 History Triamcinolone 0.1% Ointment 1 applic TOPICAL BID 07/31/20 07/31/20 History [Kenalog 0.1% Ointment] Allergies Allergy/AdvReac Type Severity Reaction Status Date / Time No Known Allergies Allergy Verified 07/31/20 16:19 Physical Exam Vitals: Vital Signs Temp Pulse Resp BP Pulse Ox 08/03/20 07:00 98.0 F 87 16 102/86 96 08/03/20 02:05 98.1 F 92 16 113/79 96 08/02/20 18:35 97.7 F 85 16 131/85 98 08/02/20 14:35 98.1 F 60 16 98/60 96 Intake and Output 08/02/20 08/03/20 08/03/20 22:59 06:59 14:59 Intake Total 1180 300 200 Balance 1180 300 200 Intake: Oral 1180 300 200 Other: # Voids 1 1 Weight 88.8 kg Results 08/03/20 05:32 08/03/20 05:32 Cardiac Enzymes 08/02/20 08/02/20 Range/Units 11:10 11:10 CK-MB (CK-2) 0.3 (0.0-2.4) ng/mL Troponin I <0.012 (0.000-0.034) ng/mL CBC 08/03/20 Range/Units 05:32 WBC 5.4 (3.8-10.6) k/uL RBC 4.07 L (4.30-5.90) m/uL Hgb 12.3 L (13.0-17.5) gm/dL Hct 37.6 L (39.0-53.0) % Plt Count 155 (150-450) k/uL Comprehensive Metabolic Panel 08/03/20 Range/Units 05:32 Sodium 134 L (135-145) mmol/L Potassium 4.5 (3.5-5.5) mmol/L Chloride 104 (96-109) mmol/L Carbon Dioxide 25.3 (21.6-31.8) mmol/L BUN 12.0 (9.0-27.0) mg/dL Creatinine 0.8 (0.6-1.5) mg/dL Glucose 228 H (70-110) mg/dL Calcium 8.1 L (8.7-10.3) mg/dL Current Medications Generic Name Dose Route Start Last Admin Trade Name Freq PRN Reason Stop Dose Admin Atorvastatin Calcium 20 mg 07/31/20 21:00 08/02/20 21:00 Atorvastatin 20 Mg Tab PO 20 mg HS EUGENIA Administration Benzocaine/Menthol 1 each 08/01/20 07:53 Benzocaine/Menthol Lozeng 1 Each Lozenge MUCOUS MEM Q4HR PRN Sore Throat Cyanocobalamin 1,000 mcg 08/01/20 09:00 08/03/20 07:30 Cyanocobalamin 500 Mcg Tab PO 1,000 mcg DAILY EUGENIA Administration Famotidine 20 mg 07/31/20 21:00 08/03/20 07:30 Famotidine 20 Mg Tab PO 20 mg BID EUGENIA Administration Ferrous Sulfate 325 mg 08/01/20 09:00 08/03/20 07:30 Ferrous Sulfate 325 Mg Tab PO 325 mg DAILY EUGENIA Administration Gabapentin 100 mg 07/31/20 22:00 08/03/20 07:30 Gabapentin 100 Mg Cap PO 100 mg TID EUGENIA Administration Insulin Aspart 5 unit 08/01/20 12:30 08/03/20 12:03 Insulin Aspart (Novolog) 100 Unit/Ml Vial SQ 5 unit AC-TID EUGENIA Administration Insulin Aspart 0 unit 08/01/20 12:30 08/03/20 11:50 Insulin Aspart (Novolog) 100 Unit/Ml Vial SQ Not Given A[facility]S [facility] Protocol Insulin Detemir 50 unit 08/01/20 07:45 08/03/20 07:31 Insulin Detemir (Levemir) 100 Unit/Ml Syr SQ 50 unit DAILY@0700 EUGENIA Administration Levothyroxine Sodium 137 mcg 08/01/20 06:30 08/03/20 06:17 Levothyroxine 137 Mcg Tab PO 137 mcg 0630 EUGENIA Administration Lisinopril 2.5 mg 08/01/20 09:00 08/03/20 07:31 Lisinopril 2.5 Mg Tab PO Not Given DAILY EUGENIA Nitroglycerin 1 inch 08/02/20 13:15 08/03/20 07:31 Nitroglycerin Oint 1 Inch/Gm Packet TOPICAL Not Given Q12HR EUGENIA Intake and Output 08/02/20 08/03/20 08/03/20 22:59 06:59 14:59 Intake Total 1180 300 200 Balance 1180 300 200 Intake: Oral 1180 300 200 Other: # Voids 1 1 Weight 88.8 kg 08/03/20 05:32 08/03/20 05:32
[2020-08-03] MEDS ORDERED: INSULIN ASPART (NovoLOG) 100 UNIT/ML VIAL SQ SCH (17:30)
--- NOTE | 2020-08-03 18:07 | ECHOF ---
Referral Reason: MEASUREMENTS -------- HEIGHT: 177.8 cm WEIGHT: 88.5 kg BP: 113/79 IVSd: 1.0 cm (0.6 - 1.1) LVIDd: 4.6 cm (3.9 - 5.3) LVPWd: 1.1 cm (0.6 - 1.1) IVSs: 1.5 cm LVIDs: 3.1 cm LVPWs: 1.7 cm LA Diam: 3.4 cm (2.7 - 3.8) RVIDd: 2.9 cm (< 3.3) LAESV Index (A-L): 19.11 ml/m Ao Diam: 3.3 cm (2.0 - 3.7) AV Cusp: 1.6 cm (1.5 - 2.6) EPSS: 0.9 cm MV E Kapil: 0.52 m/s MV DecT: 133 ms MV A Kapil: 0.76 m/s MV E/A Ratio: 0.69 MV EF SLOPE: 60.49 mm/s (70 - 150) MV EXCURSION: 13.36 mm (> 18.000) FINDINGS -------- Sinus rhythm. This was a technically good study. The left ventricular size is normal. Left ventricular wall thickness is normal. Overall left vent ricular systolic function is low-normal with, an EF between 50 - 55 %. The right ventricle is normal in size. Normal LA size by volume 22+/-6 ml/m2. The right atrium is normal in size. Interatrial and interventricular septum intact. The aortic valve is trileaflet and appears structurally normal. Mild mitral regurgitation is present. Trace tricuspid regurgitation present. Trace/mild (physiologic) pulmonic regurgitation. The aortic root size is normal. Normal inferior vena cava with normal inspiratory collapse consistent with estimated right atrial pre ssure of 5 mmHg. There is no pericardial effusion. CONCLUSIONS -------- 1. The left ventricular size is normal. 2. Left ventricular wall thickness is normal. 3. Overall left ventricular systolic function is low-normal with, an EF between 50 - 55 %. 4. Mild mitral regurgitation is present. 5. Trace tricuspid regurgitation present. 6. Trace/mild (physiologic) pulmonic regurgitation. 7. There is no pericardial effusion. [employer]: Iram Hoffman [facility]
[2020-08-04] MEDS ORDERED: INSULIN DETEMIR (LEVEMIR) 100 UNIT/ML SYR SQ SCH ×2 (07:00→21:00)
== END 2020-08-03 16:25 | disposition home or self-care (01) | DRG 638 ==
LOC: EC 14:06 → 2SICU 16:04 → 4SSUR 08-01 16:21
PROVIDERS: ADMIT Internal Medicine; ATTEND Internal Medicine
DX: E11.10 Type 2 diabetes mellitus with ketoacidosis without coma (principal); F84.0 Autistic disorder; I10 Essential (primary) hypertension; K21.9 Gastro-esophageal reflux disease without esophagitis; E78.5 Hyperlipidemia, unspecified; G43.909 Migraine, unspecified, not intractable, without status migrainosus; G56.03 Carpal tunnel syndrome, bilateral upper limbs; E03.9 Hypothyroidism, unspecified; E86.0 Dehydration; N43.3 Hydrocele, unspecified; D72.828 Other elevated white blood cell count; E11.42 Type 2 diabetes mellitus with diabetic polyneuropathy; E87.5 Hyperkalemia; R07.89 Other chest pain; Z79.890 Hormone replacement therapy; Z79.899 Other long term (current) drug therapy; Z79.4 Long term (current) use of insulin; Z86.718 Personal history of other venous thrombosis and embolism; Z98.890 Other specified postprocedural states; Z80.8 Family history of malignant neoplasm of other organs or systems; Z82.49 Family history of ischemic heart disease and other diseases of the circulatory system
CPT/HCPCS: 36415; 71046; 80048; 80051; 80053; 81001; 82009; 82150; 82550; 82553; 82565; 82803; 82947; 83605; 83690; 84100; 84484; 84520; 85025; 93005; 93306; 96361; 96374; 96375; 99285

== ENCOUNTER → 2020-12-22 | Outpatient (CLI) | payer OTHER | END | disposition home or self-care (01) | LOC: LABWHC1 14:26 | PROVIDERS: ATTEND Ophthalmology | DX: M31.6 Other giant cell arteritis (principal) | CPT/HCPCS: 36415; 85652; 86140 ==

== ENCOUNTER 2021-02-06 10:31 | Emergency (ER) | payer OTHER ==
[2021-02-06 10:44] VITALS: RESP 18
[2021-02-06] MEDS ORDERED: IBUPROFEN 800 MG TAB PO STA (10:51)
[2021-02-06] MEDS ORDERED: PANTOPRAZOLE 40 MG/10 ML VIAL IVP STA (10:51)
[2021-02-06] MEDS ORDERED: SODIUM CHLORIDE 0.9% 1,000 ML IV STA ×2 (10:51)
[2021-02-06] MEDS ORDERED: ONDANSETRON 4 MG/2 ML VIAL IVP STA (10:51)
[2021-02-06] MEDS ORDERED: ACETAMINOPHEN TAB 500 MG TAB PO STA (10:51)
--- NOTE | 2021-02-06 10:53 | ED ---
Fever HPI - General Chief Complaint: Upper Respiratory Infection Stated Complaint: ABD pain Time Seen by Provider: 02/06/21 10:49 Source: patient, RN notes reviewed, old records reviewed Mode of arrival: ambulatory Limitations: no limitations - History of Present Illness Initial Comments: This is a 55-year-old male to the ER for evaluation patient presents today for evaluation regards to bodyaches and pains and fevers. Patient is medical history consistent for diabetes. Patient comes in with fever today and left arm left shoulder chest pain bodyaches pains leg pain. Patient does have known positive sick contacts, not immunized for COVID Complaint: fever, malaise -: days(s) Temperature Source: subjective Context: sick contacts, multiple patients with similar symptoms Associated Symptoms: chills, myalgias, sore throat, cough, abdominal pain, nausea Treatments Prior to Arrival: none - Related Data Home Medications Medication Instructions Recorded Confirmed Cyanocobalamin [Vitamin B-12] 1,000 mcg PO DAILY 09/28/18 07/31/20 Gabapentin [Neurontin] 100 mg PO TID 09/28/18 07/31/20 Insulin Lispro [Admelog] See Protocol SQ AC-TID 09/17/19 07/31/20 lisinopriL [Zestril] 2.5 mg PO DAILY 09/17/19 07/31/20 Atorvastatin Calcium [Lipitor] 20 mg PO HS 01/30/20 07/31/20 Ferrous Sulfate [Iron (65 MG 325 mg PO DAILY 01/30/20 07/31/20 Elemental)] Famotidine [Pepcid] 20 mg PO BID 04/13/20 07/31/20 Levothyroxine Sodium [Synthroid] 137 mcg PO DAILY 04/13/20 07/31/20 Triamcinolone 0.1% Ointment 1 applic TOPICAL BID 07/31/20 07/31/20 [Kenalog 0.1% Ointment] Previous Rx's Medication Instructions Recorded Insulin Glargine,Hum.rec.anlog 36 unit SQ HS #0 08/03/20 [Basaglar Kwikpen U-100] Allergies Allergy/AdvReac Type Severity Reaction Status Date / Time No Known Allergies Allergy Verified 02/06/21 10:41 Review of Systems ROS Statement: Those systems with pertinent positive or pertinent negative responses have been documented in the HPI. ROS Other: All systems not noted in ROS Statement are negative. Past Medical History Past Medical History: Diabetes Mellitus, Deep Vein Thrombosis (DVT), GERD/Reflux, Hyperlipidemia Additional Past Medical History / Comment(s): IDDM type II, neuropathy bilateral hands/feet, bilateral leg DVTs, carpal tunnel syndrome bilaterally, migraines,. hypothyroid, low iron, hydrocele R side. History of Any Multi-Drug Resistant Organisms: None Reported Past Surgical History: No Surgical Hx Reported Additional Past Surgical History / Comment(s): Colonoscopy Past Anesthesia/Blood Transfusion Reactions: No Reported Reaction Past Psychological History: No Psychological Hx Reported Smoking Status: Never smoker Past Alcohol Use History: None Reported Past Drug Use History: None Reported - Past Family History Father Family Medical History: Cancer Additional Family Medical History / Comment(s): Father had melanoma. He is -pt is not sure but thinks he drowned. Mother Family Medical History: No Reported History Additional Family Medical History / Comment(s): Mother is healthy. General Exam Limitations: no limitations General appearance: alert, in no apparent distress Head exam: Present: atraumatic, normocephalic, normal inspection Eye exam: Present: normal appearance, PERRL, EOMI. Absent: scleral icterus, conjunctival injection, periorbital swelling ENT exam: Present: normal exam, mucous membranes moist Neck exam: Present: normal inspection. Absent: tenderness, meningismus, lymphadenopathy Respiratory exam: Present: normal lung sounds bilaterally. Absent: respiratory distress, wheezes, rales, rhonchi, stridor Cardiovascular Exam: Present: normal rhythm, tachycardia, normal heart sounds. Absent: systolic murmur, diastolic murmur, rubs, gallop, clicks GI/Abdominal exam: Present: soft, normal bowel sounds. Absent: distended, tenderness, guarding, rebound, rigid Extremities exam: Present: normal inspection, full ROM, normal capillary refill. Absent: tenderness, pedal edema, joint swelling, calf tenderness Back exam: Present: normal inspection Neurological exam: Present: alert, oriented X3, CN II-XII intact Psychiatric exam: Present: normal affect, normal mood Skin exam: Present: warm, dry, intact, normal color. Absent: rash Course Vital Signs 02/06/21 02/06/21 02/06/21 10:41 11:00 11:15 Temperature 100.3 F H 102.4 F H 102.4 F H Pulse Rate 107 H 117 H 115 H Respiratory 18 18 18 Rate Blood Pressure 100/66 103/77 112/79 O2 Sat by Pulse 94 L 100 95 Oximetry 02/06/21 02/06/21 02/06/21 11:30 11:45 12:33 Temperature 102 F H 101.9 F H 101.5 F H Pulse Rate 112 H 110 H 92 Respiratory 18 18 18 Rate Blood Pressure 125/78 119/80 111/78 O2 Sat by Pulse 96 96 95 Oximetry - Reevaluation(s) Reevaluation #1: 02/06/21 12:57 medical records reviewed Reevaluation #2: 02/06/21 12:57 Patient remains in no significant respiratory distress Reevaluation #3: 02/06/21 12:57 Patient symptoms have been improved much here in the ER Reevaluation #4: 02/06/21 12:57 Patient is informed results questions answered, desire to give BAm and patient agrees Medical Decision Making - Medical Decision Making 55 male DF for evaluation of fever bodyaches and pains. Patient is found of coronavirus no difficulty respiratory issues. Patient is diabetic will be given BAM. and can be discharged home - Lab Data Result diagrams: 02/06/21 11:41 02/06/21 11:41 Lab Results 02/06/21 02/06/21 02/06/21 Range/Units 11:41 11:41 11:41 WBC 5.4 (3.8-10.6) k/uL RBC 4.59 (4.30-5.90) m/uL Hgb 14.2 (13.0-17.5) gm/dL Hct 42.8 (39.0-53.0) % MCV 93.2 (80.0-100.0) fL MCH 31.0 (25.0-35.0) pg MCHC 33.3 (31.0-37.0) g/dL RDW 13.2 (11.5-15.5) % Plt Count 146 L (150-450) k/uL MPV 7.5 Neutrophils % 78 % Lymphocytes % 11 % Monocytes % 9 % Eosinophils % 0 % Basophils % 0 % Neutrophils # 4.2 (1.3-7.7) k/uL Lymphocytes # 0.6 L (1.0-4.8) k/uL Monocytes # 0.5 (0-1.0) k/uL Eosinophils # 0.0 (0-0.7) k/uL Basophils # 0.0 (0-0.2) k/uL PT 10.4 (9.0-12.0) sec INR 1.0 (<1.2) APTT 23.2 (22.0-30.0) sec D-Dimer 0.33 (<0.60) mg/L FEU Sodium 132 L (137-145) mmol/L Potassium 4.1 (3.5-5.1) mmol/L Chloride 100 (98-107) mmol/L Carbon Dioxide 21 L (22-30) mmol/L Anion Gap 11 mmol/L BUN 15 (9-20) mg/dL Creatinine 0.73 (0.66-1.25) mg/dL Est GFR (CKD-EPI)AfAm >90 (>60 ml/min/1.73 sqM) Est GFR (CKD-EPI)NonAf >90 (>60 ml/min/1.73 sqM) Glucose 263 H (74-99) mg/dL Plasma Lactic Acid Marcos (0.7-2.0) mmol/L Calcium 8.5 (8.4-10.2) mg/dL Magnesium 1.8 (1.6-2.3) mg/dL Total Bilirubin 0.8 (0.2-1.3) mg/dL AST 30 (17-59) U/L ALT 21 (4-49) U/L Alkaline Phosphatase 61 (38-126) U/L Lactate Dehydrogenase 347 (313-618) U/L C-Reactive Protein 11.4 H (<10.0) mg/L Total Protein 6.7 (6.3-8.2) g/dL Albumin 3.8 (3.5-5.0) g/dL Coronavirus (PCR) (Not Detectd) 02/06/21 02/06/21 Range/Units 11:41 11:41 WBC (3.8-10.6) k/uL RBC (4.30-5.90) m/uL Hgb (13.0-17.5) gm/dL Hct (39.0-53.0) % MCV (80.0-100.0) fL MCH (25.0-35.0) pg MCHC (31.0-37.0) g/dL RDW (11.5-15.5) % Plt Count (150-450) k/uL MPV Neutrophils % % Lymphocytes % % Monocytes % % Eosinophils % % Basophils % % Neutrophils # (1.3-7.7) k/uL Lymphocytes # (1.0-4.8) k/uL Monocytes # (0-1.0) k/uL Eosinophils # (0-0.7) k/uL Basophils # (0-0.2) k/uL PT (9.0-12.0) sec INR (<1.2) APTT (22.0-30.0) sec D-Dimer (<0.60) mg/L FEU Sodium (137-145) mmol/L Potassium (3.5-5.1) mmol/L Chloride (98-107) mmol/L Carbon Dioxide (22-30) mmol/L Anion Gap mmol/L BUN (9-20) mg/dL Creatinine (0.66-1.25) mg/dL Est GFR (CKD-EPI)AfAm (>60 ml/min/1.73 sqM) Est GFR (CKD-EPI)NonAf (>60 ml/min/1.73 sqM) Glucose (74-99) mg/dL Plasma Lactic Acid Marcos 1.1 (0.7-2.0) mmol/L Calcium (8.4-10.2) mg/dL Magnesium (1.6-2.3) mg/dL Total Bilirubin (0.2-1.3) mg/dL AST (17-59) U/L ALT (4-49) U/L Alkaline Phosphatase (38-126) U/L Lactate Dehydrogenase (313-618) U/L C-Reactive Protein (<10.0) mg/L Total Protein (6.3-8.2) g/dL Albumin (3.5-5.0) g/dL Coronavirus (PCR) Detected A (Not Detectd) - EKG Data -: EKG Interpreted by Me (EKG shows sinus tachycardia 109 RI 126 QRS 88 QTc 455) - Radiology Data Radiology results: report reviewed (Chest x-rays negative for acute disease), image reviewed Disposition Clinical Impression: Coronavirus infection, Fever Disposition: HOME SELF-CARE Condition: Good Instructions (If sedation given, give patient instructions): Coronavirus Disease 2019 (COVID-19) Is patient prescribed a controlled substance at d/c from ED?: No Referrals: Linda Jasmine MD [Primary Care Provider] - 1-2 days
--- NOTE | 2021-02-06 11:08 | XR ---
EXAMINATION TYPE: XR chest 1V portable DATE OF EXAM: 02/06/2021 HISTORY: Shortness of breath. COMPARISON: 07/31/2020 TECHNIQUE: Single view of the chest is submitted. FINDINGS: Demonstrated are scattered senescent parenchymal change. There is no evidence for focal infiltrate. The heart is stable. Hilar and mediastinal structures are within normal limits. Degenerative changes are seen of the dorsal spine. IMPRESSION: 1. Chronic changes without evidence for acute pulmonary disease.
[2021-02-06 12:03] LABS: Basophils % (A) 0 %; Eosinophils % (A) 0 %; HCT 42.8 % (39.0-53.0); HGB 14.2 gm/dL (13.0-17.5); Lymphocytes # (A) 0.6 k/uL (1.0-4.8); Lymphocytes % (A) 11 %; MCHC 33.3 g/dL (31.0-37.0); MCV 93.2 fL (80.0-100.0); Mean Platelet Volume 7.5; Monocytes # (A) 0.5 k/uL (0-1.0); Monocytes % (A) 9 %; Neutrophils # (A) 4.2 k/uL (1.3-7.7); Neutrophils % (A) 78 %; Platelet Count 146 k/uL (150-450); RBC 4.59 m/uL (4.30-5.90); RDW 13.2 % (11.5-15.5); WBC 5.4 k/uL (3.8-10.6)
[2021-02-06 12:19] LABS: ALT 21 U/L (4-49); AST 30 U/L (17-59); African American GFR (CKD) >90 (>60 ml/min/1.73 sqM); Albumin 3.8 g/dL (3.5-5.0); Alkaline Phosphatase 61 U/L (38-126); Anion Gap 11 mmol/L; Blood Urea Nitrogen 15 mg/dL (9-20); C Reactive Protein 11.4 mg/L (<10.0); Calcium 8.5 mg/dL (8.4-10.2); Carbon Dioxide 21 mmol/L (22-30); Chloride 100 mmol/L (98-107); Glucose 263 mg/dL (74-99); LDH 347 U/L (313-618); Magnesium 1.8 mg/dL (1.6-2.3); Non-African American GFR(CKD) >90 (>60 ml/min/1.73 sqM); Potassium 4.1 mmol/L (3.5-5.1); Sodium 132 mmol/L (137-145); Total Bilirubin 0.8 mg/dL (0.2-1.3); Total Protein 6.7 g/dL (6.3-8.2)
[2021-02-06 12:26] LABS: D-Dimer 0.33 mg/L FEU (<0.60); Partial Thromboplastin Time 23.2 sec (22.0-30.0); Prothrombin Time 10.4 sec (9.0-12.0)
[2021-02-06] MEDS ORDERED: BAMLANIVIMAB 700 MG in SODIUM CHLORIDE 0.9% 50 ML IVPB ONE (13:45)
[2021-02-06 14:49] VITALS: BP 91/62; PULSE 100; TEMP 99.5
[2021-02-06 14:52] LABS: Glucose,Whole Blood 308 mg/dL (75-99)
[2021-02-06 18:53] LABS: Ferritin 459.3 ng/mL (22.0-322.0)
== END 2021-02-06 15:07 | disposition home or self-care (01) ==
LOC: EC 10:31
DX: U07.1 COVID-19 (principal); K21.9 Gastro-esophageal reflux disease without esophagitis; E03.9 Hypothyroidism, unspecified; E78.5 Hyperlipidemia, unspecified; E11.40 Type 2 diabetes mellitus with diabetic neuropathy, unspecified; Z86.718 Personal history of other venous thrombosis and embolism
CPT/HCPCS: 36415; 93005; 85379; 80053; 82728; 83605; 83615; 83735; 85025; 85610; 85730; 86140; 87040; 84145; 87635; 71045; 99284; 96374; 96375; 96361; J2405; C9113; Q0239

== ENCOUNTER 2021-02-10 10:09 | Inpatient (IN) | payer OTHER ==
[2021-02-10] MEDS ORDERED: SODIUM CHLORIDE 0.9% 1,000 ML IV STA ×3 (10:39→13:19)
[2021-02-10 10:41] LABS: Glucose,Whole Blood >600 mg/dL (75-99)
[2021-02-10 11:02] LABS: Basophils # (A) 0.1 k/uL (0-0.2); Basophils % (A) 0 %; Eosinophils # (A) 0.1 k/uL (0-0.7); Eosinophils % (A) 0 %; HCT 52.5 % (39.0-53.0); HGB 15.5 gm/dL (13.0-17.5); Hypochromasia Marked; Lymphocytes # (A) 2.7 k/uL (1.0-4.8); Lymphocytes % (A) 10 %; MCH 31.2 pg (25.0-35.0); MCHC 29.6 g/dL (31.0-37.0); Macrocytosis Slight; Mean Platelet Volume 7.8; Monocytes # (A) 2.2 k/uL (0-1.0); Monocytes % (A) 9 %; Neutrophils # (A) 20.7 k/uL (1.3-7.7); Neutrophils % (A) 79 %; RBC 4.98 m/uL (4.30-5.90); RDW 12.5 % (11.5-15.5); WBC 26.1 k/uL (3.8-10.6)
[2021-02-10 11:03] LABS: MCV 105.4 fL (80.0-100.0); Platelet Count 336 k/uL (150-450)
[2021-02-10] MEDS ORDERED: INSULIN REGULAR BOLUS (FROM DRIP BAG) IV ONE (11:09)
[2021-02-10 11:13] LABS: ALT 26 U/L (4-49); AST 38 U/L (17-59); African American GFR (CKD) 51 (>60 ml/min/1.73 sqM); Albumin 4.3 g/dL (3.5-5.0); Alkaline Phosphatase 125 U/L (38-126); Blood Urea Nitrogen 22 mg/dL (9-20); C Reactive Protein 41.9 mg/L (<10.0); Chloride 97 mmol/L (98-107); Magnesium 2.8 mg/dL (1.6-2.3); Non-African American GFR(CKD) 44 (>60 ml/min/1.73 sqM); Sodium 130 mmol/L (137-145); Total Bilirubin 0.6 mg/dL (0.2-1.3); Total Protein 7.5 g/dL (6.3-8.2)
[2021-02-10 11:14] LABS: Partial Thromboplastin Time 33.2 sec (22.0-30.0); Prothrombin Time 10.5 sec (9.0-12.0)
--- NOTE | 2021-02-10 11:15 | XR ---
EXAMINATION TYPE: XR chest 2V DATE OF EXAM: 02/10/2021 COMPARISON: 02/06/2021 INDICATION: Weakness, covid TECHNIQUE: Frontal and lateral views of the chest are obtained. FINDINGS: The heart size is normal. The pulmonary vasculature is normal. Mild lower lobe posterior infiltrates are evident better visualized on the lateral projection. Findin gs are worsening over the interval. IMPRESSION: 1. Worsening posterior bibasilar infiltrates. Correlate for atypical pneumonia.
[2021-02-10] MEDS: SODIUM CHLORIDE 0.9% 1,000 ML IV SCH ×5 (11:24→21:23)
[2021-02-10] MEDS: INSULIN REGULAR 100 UNIT in SODIUM CHLORIDE 0.9% 100 ML IV SCH ×2 (11:24→18:30)
[2021-02-10 11:37] LABS: Glucose 880 mg/dL (74-99); Potassium 7.1 mmol/L (3.5-5.1)
[2021-02-10 11:38] LABS: Carbon Dioxide <5 mmol/L (22-30)
--- NOTE | 2021-02-10 12:01 | ED ---
General Adult HPI - General Chief complaint: Weakness Stated complaint: Covid+, Hyperglycemia Time Seen by Provider: 02/10/21 10:21 Source: patient, EMS, RN notes reviewed Mode of arrival: EMS Limitations: no limitations - History of Present Illness Initial comments: 55-year-old male presents emergency department via EMS for hyperglycemia, covid, altered mental status. Patient states she's not been feeling well for several days she was diagnosed with covid 4 days ago emergency department. Patient complaining of diffuse pain abdominal chest. Patient had on-and-off fevers, vomiting. Patient's blood sugar was elevated per EMS. Patient is a known diabetic. Patient does have some confusion. - Related Data Home Medications Medication Instructions Recorded Confirmed Cyanocobalamin [Vitamin B-12] 1,000 mcg PO DAILY 09/28/18 02/10/21 Gabapentin [Neurontin] 100 mg PO TID 09/28/18 02/10/21 lisinopriL [Zestril] 2.5 mg PO DAILY 09/17/19 02/10/21 Atorvastatin Calcium [Lipitor] 20 mg PO HS 01/30/20 02/10/21 Ferrous Sulfate [Iron (65 MG 325 mg PO DAILY 01/30/20 02/10/21 Elemental)] Famotidine [Pepcid] 20 mg PO BID 04/13/20 02/10/21 Levothyroxine Sodium [Synthroid] 137 mcg PO DAILY 04/13/20 02/10/21 Triamcinolone 0.1% Ointment 1 applic TOPICAL BID 07/31/20 02/10/21 [Kenalog 0.1% Ointment] INSULIN LISPRO (humaLOG) [humaLOG] 10 - 20 units SQ AC-TID 02/06/21 02/10/21 Insulin Glargine,Hum.rec.anlog 36 unit SQ HS 02/06/21 02/10/21 [Lantus Solostar] Allergies Allergy/AdvReac Type Severity Reaction Status Date / Time No Known Allergies Allergy Verified 02/10/21 12:25 Review of Systems ROS Statement: Those systems with pertinent positive or pertinent negative responses have been documented in the HPI. ROS Other: All systems not noted in ROS Statement are negative. Past Medical History Past Medical History: Diabetes Mellitus, Deep Vein Thrombosis (DVT), GERD/Reflux, Hyperlipidemia Additional Past Medical History / Comment(s): IDDM type II, neuropathy bilateral hands/feet, bilateral leg DVTs, carpal tunnel syndrome bilaterally, migraines,. hypothyroid, low iron, hydrocele R side. History of Any Multi-Drug Resistant Organisms: None Reported Past Surgical History: No Surgical Hx Reported Additional Past Surgical History / Comment(s): Colonoscopy Past Anesthesia/Blood Transfusion Reactions: No Reported Reaction Past Psychological History: No Psychological Hx Reported Smoking Status: Never smoker Past Alcohol Use History: None Reported Past Drug Use History: None Reported - Past Family History Father Family Medical History: Cancer Additional Family Medical History / Comment(s): Father had melanoma. He is -pt is not sure but thinks he drowned. Mother Family Medical History: No Reported History Additional Family Medical History / Comment(s): Mother is healthy. General Exam Limitations: altered mental status General appearance: alert, in no apparent distress Head exam: Present: atraumatic, normocephalic, normal inspection Eye exam: Present: normal appearance, PERRL, EOMI. Absent: scleral icterus, conjunctival injection, periorbital swelling ENT exam: Present: normal exam, mucous membranes moist Neck exam: Present: normal inspection, full ROM. Absent: tenderness, meningismus, lymphadenopathy Respiratory exam: Present: respiratory distress (Patient is tachypnic), decreased breath sounds. Absent: normal lung sounds bilaterally, wheezes, rales, rhonchi, stridor Cardiovascular Exam: Present: regular rate, normal rhythm, normal heart sounds. Absent: systolic murmur, diastolic murmur, rubs, gallop, clicks GI/Abdominal exam: Present: soft, tenderness, normal bowel sounds. Absent: distended, guarding, rebound, rigid Neurological exam: Present: alert, oriented X3 Skin exam: Present: warm, dry, intact, normal color. Absent: rash Course Vital Signs 02/10/21 10:16 Temperature 97.5 F L Pulse Rate 90 Respiratory 26 H Rate Blood Pressure 106/72 O2 Sat by Pulse 100 Oximetry EKG Findings - EKG Comments: EKG Findings:: EKG upon at 10:20 normal sinus rhythm with prolonged QT rate of 91 by mouth 148 QRS 110 QT/QTC 406/499 Medical Decision Making - Medical Decision Making Patient found to be in severe DKA. Patient was started on fluids insulin drip, bicarb drip. Patient's pH is less than 6.8, undetectable bicarbonate, hyperkalemia. Patient will be admitted to ICU for further management treatment. Case discussed with ICU data warehousing manager Dr. Leos who evaluated the patient emergency department. Case discussed with Dr. Fajardo. - Lab Data Result diagrams: 02/10/21 10:20 02/10/21 10:20 Lab Results 02/10/21 02/10/21 02/10/21 Range/Units 10:20 10:20 10:20 WBC 26.1 H (3.8-10.6) k/uL RBC 4.98 (4.30-5.90) m/uL Hgb 15.5 (13.0-17.5) gm/dL Hct 52.5 (39.0-53.0) % MCV 105.4 H D (80.0-100.0) fL MCH 31.2 (25.0-35.0) pg MCHC 29.6 L (31.0-37.0) g/dL RDW 12.5 (11.5-15.5) % Plt Count 336 D (150-450) k/uL MPV 7.8 Neutrophils % 79 % Lymphocytes % 10 % Monocytes % 9 % Eosinophils % 0 % Basophils % 0 % Neutrophils # 20.7 H (1.3-7.7) k/uL Lymphocytes # 2.7 (1.0-4.8) k/uL Monocytes # 2.2 H (0-1.0) k/uL Eosinophils # 0.1 (0-0.7) k/uL Basophils # 0.1 (0-0.2) k/uL Hypochromasia Marked Macrocytosis Slight PT 10.5 (9.0-12.0) sec INR 1.0 (<1.2) APTT 33.2 H (22.0-30.0) sec Sample Site ABG pH (7.35-7.45) ABG pCO2 (35-45) mmHg ABG pO2 (83-108) mmHg ABG HCO3 (21-25) mmol/L ABG Total CO2 (19-24) mmol/L ABG O2 Saturation (94-97) % ABG Base Excess mmol/L Pritesh Test FiO2 % Sodium 130 L (137-145) mmol/L Potassium 7.1 H* (3.5-5.1) mmol/L Chloride 97 L (98-107) mmol/L Carbon Dioxide <5 L* (22-30) mmol/L Anion Gap mmol/L BUN 22 H (9-20) mg/dL Creatinine 1.70 H (0.66-1.25) mg/dL Est GFR (CKD-EPI)AfAm 51 (>60 ml/min/1.73 sqM) Est GFR (CKD-EPI)NonAf 44 (>60 ml/min/1.73 sqM) Glucose 880 H* (74-99) mg/dL POC Glucose (mg/dL) (75-99) mg/dL POC Glu Machine Compositor ID Plasma Lactic Acid Marcos (0.7-2.0) mmol/L Calcium 9.0 (8.4-10.2) mg/dL Magnesium 2.8 H (1.6-2.3) mg/dL Total Bilirubin 0.6 (0.2-1.3) mg/dL AST 38 (17-59) U/L ALT 26 (4-49) U/L Alkaline Phosphatase 125 (38-126) U/L Troponin I (0.000-0.034) ng/mL C-Reactive Protein 41.9 H (<10.0) mg/L Total Protein 7.5 (6.3-8.2) g/dL Albumin 4.3 (3.5-5.0) g/dL Urine Color Urine Appearance (Clear) Urine pH (5.0-8.0) Ur Specific [place] (1.001-1.035) Urine Protein (Negative) Urine Glucose (UA) (Negative) Urine Ketones (Negative) Urine Blood (Negative) Urine Nitrite (Negative) Urine Bilirubin (Negative) Urine Urobilinogen (<2.0) mg/dL Ur Leukocyte Esterase (Negative) Urine RBC (0-5) /hpf Urine WBC (0-5) /hpf Urine Bacteria (None) /hpf Urine Mucus (None) /hpf Acetone, Qual Positive (Negative) 02/10/21 02/10/21 02/10/21 Range/Units 10:20 10:20 10:40 WBC (3.8-10.6) k/uL RBC (4.30-5.90) m/uL Hgb (13.0-17.5) gm/dL Hct (39.0-53.0) % MCV (80.0-100.0) fL MCH (25.0-35.0) pg MCHC (31.0-37.0) g/dL RDW (11.5-15.5) % Plt Count (150-450) k/uL MPV Neutrophils % % Lymphocytes % % Monocytes % % Eosinophils % % Basophils % % Neutrophils # (1.3-7.7) k/uL Lymphocytes # (1.0-4.8) k/uL Monocytes # (0-1.0) k/uL Eosinophils # (0-0.7) k/uL Basophils # (0-0.2) k/uL Hypochromasia Macrocytosis PT (9.0-12.0) sec INR (<1.2) APTT (22.0-30.0) sec Sample Site ABG pH (7.35-7.45) ABG pCO2 (35-45) mmHg ABG pO2 (83-108) mmHg ABG HCO3 (21-25) mmol/L ABG Total CO2 (19-24) mmol/L ABG O2 Saturation (94-97) % ABG Base Excess mmol/L Pritesh Test FiO2 % Sodium (137-145) mmol/L Potassium (3.5-5.1) mmol/L Chloride (98-107) mmol/L Carbon Dioxide (22-30) mmol/L Anion Gap mmol/L BUN (9-20) mg/dL Creatinine (0.66-1.25) mg/dL Est GFR (CKD-EPI)AfAm (>60 ml/min/1.73 sqM) Est GFR (CKD-EPI)NonAf (>60 ml/min/1.73 sqM) Glucose (74-99) mg/dL POC Glucose (mg/dL) >600 H (75-99) mg/dL POC Glu Machine Compositor ID Marshall Craig Plasma Lactic Acid Marcos 4.0 H* (0.7-2.0) mmol/L Calcium (8.4-10.2) mg/dL Magnesium (1.6-2.3) mg/dL Total Bilirubin (0.2-1.3) mg/dL AST (17-59) U/L ALT (4-49) U/L Alkaline Phosphatase (38-126) U/L Troponin I <0.012 (0.000-0.034) ng/mL C-Reactive Protein (<10.0) mg/L Total Protein (6.3-8.2) g/dL Albumin (3.5-5.0) g/dL Urine Color Urine Appearance (Clear) Urine pH (5.0-8.0) Ur Specific [place] (1.001-1.035) Urine Protein (Negative) Urine Glucose (UA) (Negative) Urine Ketones (Negative) Urine Blood (Negative) Urine Nitrite (Negative) Urine Bilirubin (Negative) Urine Urobilinogen (<2.0) mg/dL Ur Leukocyte Esterase (Negative) Urine RBC (0-5) /hpf Urine WBC (0-5) /hpf Urine Bacteria (None) /hpf Urine Mucus (None) /hpf Acetone, Qual (Negative) 02/10/21 02/10/21 Range/Units 10:42 12:37 WBC (3.8-10.6) k/uL RBC (4.30-5.90) m/uL Hgb (13.0-17.5) gm/dL Hct (39.0-53.0) % MCV (80.0-100.0) fL MCH (25.0-35.0) pg MCHC (31.0-37.0) g/dL RDW (11.5-15.5) % Plt Count (150-450) k/uL MPV Neutrophils % % Lymphocytes % % Monocytes % % Eosinophils % % Basophils % % Neutrophils # (1.3-7.7) k/uL Lymphocytes # (1.0-4.8) k/uL Monocytes # (0-1.0) k/uL Eosinophils # (0-0.7) k/uL Basophils # (0-0.2) k/uL Hypochromasia Macrocytosis PT (9.0-12.0) sec INR (<1.2) APTT (22.0-30.0) sec Sample Site rbrach ABG pH <6.80 L* (7.35-7.45) ABG pCO2 <15 L* (35-45) mmHg ABG pO2 148 H (83-108) mmHg ABG HCO3 0 L* (21-25) mmol/L ABG Total CO2 0 L (19-24) mmol/L ABG O2 Saturation 98.2 H (94-97) % ABG Base Excess 0.0 mmol/L Pritesh Test Yes FiO2 21 % Sodium (137-145) mmol/L Potassium (3.5-5.1) mmol/L Chloride (98-107) mmol/L Carbon Dioxide (22-30) mmol/L Anion Gap mmol/L BUN (9-20) mg/dL Creatinine (0.66-1.25) mg/dL Est GFR (CKD-EPI)AfAm (>60 ml/min/1.73 sqM) Est GFR (CKD-EPI)NonAf (>60 ml/min/1.73 sqM) Glucose (74-99) mg/dL POC Glucose (mg/dL) (75-99) mg/dL POC Glu Machine Compositor ID Plasma Lactic Acid Marcos (0.7-2.0) mmol/L Calcium (8.4-10.2) mg/dL Magnesium (1.6-2.3) mg/dL Total Bilirubin (0.2-1.3) mg/dL AST (17-59) U/L ALT (4-49) U/L Alkaline Phosphatase (38-126) U/L Troponin I (0.000-0.034) ng/mL C-Reactive Protein (<10.0) mg/L Total Protein (6.3-8.2) g/dL Albumin (3.5-5.0) g/dL Urine Color Light Yellow Urine Appearance Clear (Clear) Urine pH 5.0 (5.0-8.0) Ur Specific [place] 1.019 (1.001-1.035) Urine Protein 1+ H (Negative) Urine Glucose (UA) 4+ H (Negative) Urine Ketones 3+ H (Negative) Urine Blood Moderate H (Negative) Urine Nitrite Negative (Negative) Urine Bilirubin Negative (Negative) Urine Urobilinogen <2.0 (<2.0) mg/dL Ur Leukocyte Esterase Negative (Negative) Urine RBC <1 (0-5) /hpf Urine WBC 1 (0-5) /hpf Urine Bacteria Rare H (None) /hpf Urine Mucus Rare H (None) /hpf Acetone, Qual (Negative) Critical Care Time Critical Care Time: Yes Total Critical Care Time: 35 Critical Care Time: 1235 minutes of critical care time were used initially that the patient and reviewed past medical history ordering labs, EKG, or any medications. Patient's found to be in DKA was started on fluid bolus, pain is fluids, insulin drip. Patient found to have PH of 6.76. Patient was started on bicarb drip. Patient case discussed with hospitalist and Dr. Leos intensivists. Disposition Clinical Impression: DKA (diabetic ketoacidoses), Dehydration, Hyperglycemia, COVID-19, Hyperkalemia Disposition: ADMITTED IP TO THIS HOSP Condition: Critical Referrals: Linda Jasmine MD [Primary Care Provider] - 1-2 days
[2021-02-10 12:41] LABS: ABG Oxygen Saturation 98.2 % (94-97); ABG PO2 148 mmHg (83-108); Allen Test Performed? Yes
[2021-02-10 12:42] LABS: ABG PCO2 <15 mmHg (35-45); ABG PH <6.80 (7.35-7.45)
[2021-02-10 12:43] LABS: ABG HCO3 0 mmol/L (21-25); ABG TCO2 0 mmol/L (19-24)
[2021-02-10 12:52] LABS: Appearance,Urine Clear (Clear); Bacteria,Urine Rare /hpf; Bilirubin,Urine Negative (Negative); Blood,Urine Moderate (Negative); Color,Urine Light Yellow; Glucose,Urine (UA) 4+ (Negative); Leukocyte Esterase,Urine Negative (Negative); Mucus,Urine Rare /hpf; Nitrite,Urine Negative (Negative); Protein,Urine 1+ (Negative); RBC,Urine <1 /hpf (0-5); Specific Gravity,Urine 1.019 (1.001-1.035); Urobilinogen,Urine <2.0 mg/dL (<2.0); WBC,Urine 1 /hpf (0-5)
[2021-02-10] MEDS ORDERED: NALOXONE 0.4 MG/ML 1 ML VIAL IV PRN (12:56)
[2021-02-10] MEDS ORDERED: ACETAMINOPHEN SUPPOSITORY 650 MG SUPP RECTAL PRN (12:56)
[2021-02-10 13:11] LABS: Ketones,Urine 3+ (Negative)
[2021-02-10] MEDS ORDERED: SODIUM BICARB 8.4% 50 ML SYR (1 MEQ/ML) IV STA (13:18)
[2021-02-10 13:36] LABS: Glucose,Whole Blood >600 mg/dL (75-99)
[2021-02-10] MEDS ORDERED: DEXTROSE 5% IN WATER 1,000 ML with SODIUM BICARB (1 MEQ/ML) 150 ML IV ONE (13:45)
[2021-02-10 14:42] LABS: African American GFR (CKD) 56 (>60 ml/min/1.73 sqM); Blood Urea Nitrogen 23 mg/dL (9-20); Chloride 105 mmol/L (98-107); Non-African American GFR(CKD) 48 (>60 ml/min/1.73 sqM); Phosphorus 7.5 mg/dL (2.5-4.5); Potassium 5.6 mmol/L (3.5-5.1); Sodium 136 mmol/L (137-145)
[2021-02-10 14:48] LABS: Glucose,Whole Blood 545 mg/dL (75-99)
[2021-02-10 14:54] LABS: Carbon Dioxide <5 mmol/L (22-30); Glucose 678 mg/dL (74-99)
[2021-02-10 15:42] LABS: Glucose,Whole Blood 598 mg/dL (75-99)
--- NOTE | 2021-02-10 16:01 | P.CNPUL ---
History of Present Illness Consult date: 02/10/21 Requesting physician: Patricia Fajardo Reason for consult: other (Acute DKA and covid 19 infection.) Chief complaint: Hyperglycemia and altered mental status. History of present illness: This is a 55-year-old white male, seen in the admission room 4 days ago with abdominal pain and chest discomfort. Patient was diagnosed with covid 19 infection, received BAM, and he was discharged home since he had no respiratory symptoms whatsoever. Patient is a very poor historian, he is definitely confused, moaning and groaning in the ER, he is known to have history of diabetes, deep vein thrombosis, hyperlipidemia, and GERD. He is also known to have history of diabetic neuropathy, carpal tunnel syndrome, and history of hydrocele. At any rate I evaluated the patient in the ER, patient was noted to have acute diabetic ketoacidosis with bicarb of less than 5, his ABG on room air showed a pO2 of 148 pCO2 of less than 15 pH of 0.80. His blood sugar was as high as 678. And he had positive ketones. Obviously the patient has acute diabetic ketoacidosis, most likely triggered by his Covid 19 infection. Chest x-ray showed posterior bi basilar infiltrates, consistent with Covid 19 pneumonia. Recommended that the patient gets sodium bicarb, sodium bicarb drip, Covid 19 cocktail, and recommended admission to the ICU. Patient was also placed on insulin drip as per protocol for DKA. Review of Systems Patient is a poor historian, he is confused, mostly moaning and groaning, could not give me any history whatsoever. Past Medical History Past Medical History: Diabetes Mellitus, Deep Vein Thrombosis (DVT), GERD/Reflux, Hyperlipidemia Additional Past Medical History / Comment(s): IDDM type II, neuropathy bilateral hands/feet, bilateral leg DVTs, carpal tunnel syndrome bilaterally, migraines,. hypothyroid, low iron, hydrocele R side. History of Any Multi-Drug Resistant Organisms: None Reported Past Surgical History: No Surgical Hx Reported Additional Past Surgical History / Comment(s): Colonoscopy Past Anesthesia/Blood Transfusion Reactions: No Reported Reaction Past Psychological History: No Psychological Hx Reported Smoking Status: Never smoker Past Alcohol Use History: None Reported Past Drug Use History: None Reported - Past Family History Father Family Medical History: Cancer Additional Family Medical History / Comment(s): Father had melanoma. He is -pt is not sure but thinks he drowned. Mother Family Medical History: No Reported History Additional Family Medical History / Comment(s): Mother is healthy. Medications and Allergies Home Medications Medication Instructions Recorded Confirmed Type Cyanocobalamin [Vitamin B-12] 1,000 mcg PO DAILY 09/28/18 02/10/21 History Gabapentin [Neurontin] 100 mg PO TID 09/28/18 02/10/21 History lisinopriL [Zestril] 2.5 mg PO DAILY 09/17/19 02/10/21 History Atorvastatin Calcium [Lipitor] 20 mg PO HS 01/30/20 02/10/21 History Ferrous Sulfate [Iron (65 MG 325 mg PO DAILY 01/30/20 02/10/21 History Elemental)] Famotidine [Pepcid] 20 mg PO BID 04/13/20 02/10/21 History Levothyroxine Sodium [Synthroid] 137 mcg PO DAILY 04/13/20 02/10/21 History Triamcinolone 0.1% Ointment 1 applic TOPICAL BID 07/31/20 02/10/21 History [Kenalog 0.1% Ointment] INSULIN LISPRO (humaLOG) [humaLOG] 10 - 20 units SQ AC-TID 02/06/21 02/10/21 History Insulin Glargine,Hum.rec.anlog 36 unit SQ HS 02/06/21 02/10/21 History [Lantus Solostar] Allergies Allergy/AdvReac Type Severity Reaction Status Date / Time No Known Allergies Allergy Verified 02/10/21 12:25 Physical Exam Vitals: Vital Signs Temp Pulse Resp BP Pulse Ox 02/10/21 14:49 90 18 96/62 99 02/10/21 13:41 93 18 92/59 100 02/10/21 10:16 97.5 F L 90 26 H 106/72 100 Intake and Output 02/10/21 02/10/21 02/10/21 06:59 14:59 22:59 Output Total 1700 Balance -1700 Output: Urine 1700 Other: Weight 80.739 kg Physical Exam: Revealed 55-year-old white male not in respiratory distress, confused Head: Atraumatic, normocephalic. HEENT:[Neck is supple.] [No neck masses.] [No thyromegaly.] [No JVD.] Chest: [Crackles at the bases no rhonchi no wheezes. Cardiac Exam: [Normal S1 and S2, no S3 gallop, no murmur.] Abdomen: [Soft, nontender, no megaly, no rebound, no guarding, normal bowel sounds.] Extremities: [No clubbing, no edema, no cyanosis.] Neurological Exam: [No focal neurologic deficit.] However the patient is clearly confused and was not following any instructions. Psychiatric: Anxious mood, blunt affect, and confused mental status Results - Laboratory Findings CBC and BMP: 02/10/21 10:20 02/10/21 14:09 ABG ABG pH <6.80 (7.35-7.45) L* 02/10/21 12:37 ABG pCO2 <15 mmHg (35-45) L* 02/10/21 12:37 ABG pO2 148 mmHg (83-108) H 02/10/21 12:37 ABG O2 Saturation 98.2 % (94-97) H 02/10/21 12:37 PT/INR, D-dimer PT 10.5 sec (9.0-12.0) 02/10/21 10:20 INR 1.0 (<1.2) 02/10/21 10:20 Abnormal lab findings: Abnormal Labs 02/10/21 02/10/21 02/10/21 10:20 10:20 10:20 WBC 26.1 H MCV 105.4 H D MCHC 29.6 L Neutrophils # 20.7 H Monocytes # 2.2 H APTT 33.2 H ABG pH ABG pCO2 ABG pO2 ABG HCO3 ABG Total CO2 ABG O2 Saturation Sodium 130 L Potassium 7.1 H* Chloride 97 L Carbon Dioxide <5 L* BUN 22 H Creatinine 1.70 H Glucose 880 H* POC Glucose (mg/dL) Plasma Lactic Acid Marcos Phosphorus Magnesium 2.8 H C-Reactive Protein 41.9 H Urine Protein Urine Glucose (UA) Urine Ketones Urine Blood Urine Bacteria Urine Mucus 02/10/21 02/10/21 02/10/21 10:20 10:40 10:42 WBC MCV MCHC Neutrophils # Monocytes # APTT ABG pH ABG pCO2 ABG pO2 ABG HCO3 ABG Total CO2 ABG O2 Saturation Sodium Potassium Chloride Carbon Dioxide BUN Creatinine Glucose POC Glucose (mg/dL) >600 H Plasma Lactic Acid Marcos 4.0 H* Phosphorus Magnesium C-Reactive Protein Urine Protein 1+ H Urine Glucose (UA) 4+ H Urine Ketones 3+ H Urine Blood Moderate H Urine Bacteria Rare H Urine Mucus Rare H 02/10/21 02/10/21 02/10/21 12:37 13:34 14:09 WBC MCV MCHC Neutrophils # Monocytes # APTT ABG pH <6.80 L* ABG pCO2 <15 L* ABG pO2 148 H ABG HCO3 0 L* ABG Total CO2 0 L ABG O2 Saturation 98.2 H Sodium 136 L Potassium 5.6 H Chloride Carbon Dioxide <5 L* BUN 23 H Creatinine 1.58 H Glucose 678 H* POC Glucose (mg/dL) >600 H Plasma Lactic Acid Marcos Phosphorus 7.5 H Magnesium C-Reactive Protein Urine Protein Urine Glucose (UA) Urine Ketones Urine Blood Urine Bacteria Urine Mucus 02/10/21 02/10/21 02/10/21 14:09 14:46 15:41 WBC MCV MCHC Neutrophils # Monocytes # APTT ABG pH ABG pCO2 ABG pO2 ABG HCO3 ABG Total CO2 ABG O2 Saturation Sodium Potassium Chloride Carbon Dioxide BUN Creatinine Glucose POC Glucose (mg/dL) 545 H 598 H Plasma Lactic Acid Marcos 2.5 H* Phosphorus Magnesium C-Reactive Protein Urine Protein Urine Glucose (UA) Urine Ketones Urine Blood Urine Bacteria Urine Mucus - Diagnostic Findings Chest x-ray: image reviewed (As noted in HPI.) Assessment and Plan Assessment: Impression: Acute diabetic ketoacidosis Acute covid 19 pneumonia but no evidence of hypoxemia patient is on room air with O2 saturation of 99% Benign essential hypertension. History of hypothyroidism. History of hyperlipidemia. Peripheral diabetic neuropathy. Recommendation: Patient will be admitted to the ICU mostly because of his acute DKA. Start patient on DKA protocol. Start patient on Covid 19 cocktail. Patient already received BAM//monoclonal antibody. Will monitor closely in the ICU patient replaced on the protocol including insulin drip, bicarbonate drip, and would have to closely monitor his electrolytes specifically potassium. Prognosis is guarded, we'll continue to follow. Time with Patient: Greater than 30
[2021-02-10 16:57] LABS: Glucose,Whole Blood 576 mg/dL (75-99)
[2021-02-10] MEDS: ENOXAPARIN 40 MG/0.4 ML SYRINGE SQ SCH (17:04)
[2021-02-10] MEDS ORDERED: D5-0.45% NACL WITH KCL 20MEQ/L 1,000 ML IV SCH (18:00)
[2021-02-10 18:05] LABS: Glucose,Whole Blood 502 mg/dL (75-99)
[2021-02-10 18:31] LABS: African American GFR (CKD) 71 (>60 ml/min/1.73 sqM); Blood Urea Nitrogen 22 mg/dL (9-20); Chloride 109 mmol/L (98-107); Non-African American GFR(CKD) 61 (>60 ml/min/1.73 sqM); Phosphorus 3.9 mg/dL (2.5-4.5); Potassium 4.6 mmol/L (3.5-5.1); Sodium 135 mmol/L (137-145)
[2021-02-10 19:07] LABS: Glucose,Whole Blood 483 mg/dL (75-99)
[2021-02-10 19:15] LABS: Carbon Dioxide <5 mmol/L (22-30); Glucose 541 mg/dL (74-99)
--- NOTE | 2021-02-10 20:18 | HP ---
HISTORY AND PHYSICAL DATE OF SERVICE: 02/10/2021 CHIEF COMPLAINT: Change in mental status, acute diabetic ketoacidosis and Covid. HISTORY OF PRESENT ILLNESS: This 55-year-old gentleman with a past medical history of diabetes, DVT, GERD, hyperlipidemia, history of previous DKA, being followed by Dr. Jasmine in the outpatient setting was symptomatic with Covid symptoms for the last one week. The patient came to the ER about 3 days ago. Patient received Bamalinivumab. The patient went home. Subsequently, patient was apparently getting confused and the patient was not remembering how much insulin patient was taking and patient was taken to [facility] today with complaints of significant weakness and as well as extremely high blood sugars. The patient had blood sugars more than 800, acute diabetic ketoacidosis, severe metabolic acidosis. Patient admitted for further evaluation and treatment. There is no history of any fever, rigor or chills at this time. A detailed history could not be taken from the patient. Patient is severely confused and most of the history taken from my discussion with staff and review of chart and discussion with the ER physician at this time. PAST MEDICAL HISTORY: Diabetes, history of DVT, GERD, hyperlipidemia, history of recent diagnosis of Covid. MEDICATIONS: Home medication are: Zestril, Kenalog, Synthroid, Lantus 36 subcu q.h.s., Humalog, Neurontin, iron sulfate, Pepcid, vitamin B12, Lipitor. ALLERGIES: None. FAMILY HISTORY: Family history of cancer, melanoma. SOCIAL HISTORY: Per chart: Previous history of smoking. No history of current smoking or alcohol. REVIEW OF SYSTEMS: Could not be taken because of above mentioned reasons. PHYSICAL EXAMINATION: Patient is conscious, confused. Pulse 105, blood pressure is 89/59, respirations 30, temperature 93.2, pulse ox 97% on room air. HEENT: Conjunctivae normal. Oral mucosa moist. NECK is no jugular venous distention. No carotid bruit. No lymph node enlargement. CARDIOVASCULAR: S1, S2 muffled. RESPIRATORY: Breath sounds diminished in the bases. A few scattered rhonchi and crackles. ABDOMEN: Soft, nontender. No mass palpable. LEGS: No edema. No swelling. NERVOUS SYSTEM: Higher functions as mentioned earlier. Moves all four limbs. No focal motor or sensory deficits. LYMPHATICS: No lymph nodes palpable in the neck, axillae or groin. SKIN: No ulcer. No rashes and no bleeding. JOINTS: No active deforming arthropathy. LABS: WBC 23.1 and ABGs noted. Sodium 130. Potassium 5.6 creatinine is 1.58. ASSESSMENT: 1. Acute severe diabetic ketoacidosis. 2. Change in mental status and metabolic encephalopathy secondary to acute diabetic ketoacidosis. 3. Increased WBC with possible sepsis, severe sepsis and hypotension. 4. Acute Covid 19 status post BAM. 5. Hyponatremia. 6. Hyperkalemia. 7. Increased creatinine with possible acute renal failure and acute tubular necrosis. 8. Elevated plasma lactic acid secondary to sepsis. 9. Diabetes mellitus type 2. 10.History of deep vein thrombosis. 11.Gastroesophageal reflux disease. 12.Hyperlipidemia. 13.Diabetic peripheral neuropathy. 14.History of migraines. 15.History of carpal tunnel syndrome. 16.Hypothyroidism. 17.Hydrocele, right side. 18.History of colonoscopy. 19.FULL CODE. RECOMMENDATIONS AND DISCUSSION: In this 55-year-old gentleman who presented with multiple complex medical issues, at this time, I recommend to continue current medications, management, symptomatic treatment, insulin protocol. Resume the home medications. Otherwise, DVT prophylaxis. I would also recommend to obtain cultures and administer broad-spectrum IV antibiotics also. D-dimer will also be ordered. If positive, we will order CT angio of the chest. Prognosis extremely guarded because of multiple complex medical issues. Further recommendations to follow. A copy of this dictation is being forwarded to Dr. Jasmine who is the primary physician. We will also consult Infectious Disease also. MMODL / IJN: [id number] /
[2021-02-10 20:19] LABS: Glucose,Whole Blood 419 mg/dL (75-99)
[2021-02-10] MEDS: ASPIRIN 81 MG PO SCH (21:16)
[2021-02-10] MEDS: ASCORBIC ACID 500 MG TAB PO SCH (21:17)
[2021-02-10] MEDS: GABAPENTIN 100 MG CAP PO SCH (21:17)
[2021-02-10] MEDS: ATORVASTATIN 20 MG TAB PO SCH (21:17)
[2021-02-10] MEDS: PIPERACILLIN-TAZOBACTAM 3.375 GM in SODIUM CHLORIDE 0.9% 100 ML IVPB SCH (21:18)
[2021-02-10] MEDS: ZINC SULFATE 220 MG CAP PO SCH (21:20)
[2021-02-10] MEDS: DEXTROSE 5% IN WATER 1,000 ML with SODIUM BICARB (1 MEQ/ML) 150 ML IV SCH (21:20)
[2021-02-10] MEDS: COLCHICINE 0.6 MG EACH PO SCH (21:21)
[2021-02-10] MEDS: TRIAMCINOLONE ACET 0.1% OINTMENT 15 GM TUBE TOPICAL SCH (21:24)
[2021-02-10 21:40] LABS: Glucose,Whole Blood 288 mg/dL (75-99)
[2021-02-10] MEDS: D5-0.45% NACL WITH KCL 20MEQ/L 1,000 ML IV SCH (22:21)
[2021-02-10 22:30] LABS: Glucose,Whole Blood 242 mg/dL (75-99)
[2021-02-10 23:08] LABS: Glucose,Whole Blood 243 mg/dL (75-99)
[2021-02-11 00:28] LABS: Glucose,Whole Blood 297 mg/dL (75-99)
[2021-02-11] MEDS: SODIUM CHLORIDE 0.9% 1,000 ML IV SCH ×2 (00:34→02:28)
[2021-02-11 01:01] LABS: ALT 20 U/L (4-49); AST 31 U/L (17-59); African American GFR (CKD) >90 (>60 ml/min/1.73 sqM); Albumin 2.8 g/dL (3.5-5.0); Alkaline Phosphatase 68 U/L (38-126); Anion Gap 15 mmol/L; Blood Urea Nitrogen 19 mg/dL (9-20); Calcium 7.7 mg/dL (8.4-10.2); Carbon Dioxide 10 mmol/L (22-30); Chloride 112 mmol/L (98-107); Glucose 264 mg/dL (74-99); Non-African American GFR(CKD) 80 (>60 ml/min/1.73 sqM); Potassium 3.6 mmol/L (3.5-5.1); Sodium 137 mmol/L (137-145); Total Bilirubin 0.3 mg/dL (0.2-1.3); Total Protein 5.4 g/dL (6.3-8.2)
[2021-02-11 01:07] LABS: Glucose,Whole Blood 260 mg/dL (75-99)
[2021-02-11] MEDS: INSULIN REGULAR 100 UNIT in SODIUM CHLORIDE 0.9% 100 ML IV SCH (01:23)
[2021-02-11] MEDS ORDERED: Potassium Replacement Protocol 1 EACH MISC MISCELLANE PRN ×3 (01:31→23:11)
[2021-02-11] MEDS: POTASSIUM CHLORIDE 10 MEQ in WATER FOR INJECTION 1 100ML.BAG IVPB SCH ×7 (02:02→23:51)
[2021-02-11 02:20] LABS: Glucose,Whole Blood 203 mg/dL (75-99)
[2021-02-11 03:10] LABS: Glucose,Whole Blood 246 mg/dL (75-99)
[2021-02-11] MEDS: DEXTROSE 5% IN WATER 1,000 ML with SODIUM BICARB (1 MEQ/ML) 150 ML IV SCH (03:35)
[2021-02-11] MEDS: D5-0.45% NACL WITH KCL 20MEQ/L 1,000 ML IV SCH ×2 (03:35→13:37)
[2021-02-11] MEDS: PIPERACILLIN-TAZOBACTAM 3.375 GM in SODIUM CHLORIDE 0.9% 100 ML IVPB SCH ×3 (04:04→20:32)
[2021-02-11 04:11] LABS: Glucose,Whole Blood 138 mg/dL (75-99)
[2021-02-11 05:14] LABS: Glucose,Whole Blood 151 mg/dL (75-99)
[2021-02-11 05:53] LABS: Basophils % (A) 0 %; Eosinophils % (A) 0 %; HCT 34.6 % (39.0-53.0); Lymphocytes # (A) 0.5 k/uL (1.0-4.8); Lymphocytes % (A) 5 %; MCH 30.6 pg (25.0-35.0); MCHC 34.8 g/dL (31.0-37.0); Monocytes # (A) 0.9 k/uL (0-1.0); Monocytes % (A) 11 %; Neutrophils # (A) 7.1 k/uL (1.3-7.7); Neutrophils % (A) 83 %; Platelet Count 201 k/uL (150-450); RBC 3.94 m/uL (4.30-5.90); RDW 13.1 % (11.5-15.5); WBC 8.6 k/uL (3.8-10.6)
[2021-02-11 06:01] LABS: African American GFR (CKD) >90 (>60 ml/min/1.73 sqM); Anion Gap 5 mmol/L; Blood Urea Nitrogen 17 mg/dL (9-20); Calcium 7.4 mg/dL (8.4-10.2); Carbon Dioxide 20 mmol/L (22-30); Chloride 110 mmol/L (98-107); Glucose 137 mg/dL (74-99); Non-African American GFR(CKD) >90 (>60 ml/min/1.73 sqM); Potassium 3.3 mmol/L (3.5-5.1); Sodium 135 mmol/L (137-145)
[2021-02-11 06:05] LABS: HGB 12.1 gm/dL (13.0-17.5); MCV 87.9 fL (80.0-100.0)
[2021-02-11 06:07] LABS: Glucose,Whole Blood 122 mg/dL (75-99)
[2021-02-11 07:02] LABS: Glucose,Whole Blood 134 mg/dL (75-99)
[2021-02-11 07:12] LABS: Phosphorus <0.5 mg/dL (2.5-4.5)
[2021-02-11] MEDS: LEVOTHYROXINE 137 MCG TAB PO SCH (07:15)
[2021-02-11] MEDS ORDERED: Phosphorus Replacement Protoco 1 EACH MISC MISCELLANE PRN (07:47)
[2021-02-11 08:22] LABS: Glucose,Whole Blood 153 mg/dL (75-99)
[2021-02-11] MEDS ORDERED: INSULIN DETEMIR (LEVEMIR) 100 UNIT/ML SYR SQ SCH (09:00)
[2021-02-11] MEDS: CHOLECALCIFEROL 25 MCG (1000 IU) TABLET PO SCH (09:34)
[2021-02-11] MEDS: ASCORBIC ACID 500 MG TAB PO SCH (09:34)
[2021-02-11] MEDS: CYANOCOBALAMIN 500 MCG TAB PO SCH (09:34)
[2021-02-11] MEDS: COLCHICINE 0.6 MG EACH PO SCH (09:34)
[2021-02-11] MEDS: ASPIRIN 81 MG PO SCH (09:34)
[2021-02-11 09:35] LABS: Ferritin 3976.6 ng/mL (22.0-322.0)
[2021-02-11] MEDS: ZINC SULFATE 220 MG CAP PO SCH (09:35)
[2021-02-11] MEDS: GABAPENTIN 100 MG CAP PO SCH ×3 (09:35→21:12)
[2021-02-11] MEDS: TRIAMCINOLONE ACET 0.1% OINTMENT 15 GM TUBE TOPICAL SCH ×2 (09:40→21:12)
[2021-02-11 09:46] LABS: Glucose,Whole Blood 133 mg/dL (75-99)
[2021-02-11] MEDS: ENOXAPARIN 40 MG/0.4 ML SYRINGE SQ SCH (09:46)
--- NOTE | 2021-02-11 09:53 | XR ---
EXAMINATION TYPE: XR chest 1V DATE OF EXAM: 02/11/2021 COMPARISON: Chest x-ray 02/10/2021 HISTORY: Shortness of breath TECHNIQUE: Single frontal view of the chest is obtained. FINDINGS: Patchy density present in the bilateral lung bases, interstitium is somewhat prominent. No evident pneumothorax or pleural effusion. Cardiomediastinal silhouette is not significantly changed. There are overlying artifacts. IMPRESSION: Correlate for pneumonia, edema
[2021-02-11] MEDS: ONDANSETRON 4 MG/2 ML VIAL IVP PRN ×2 (10:11→18:48)
[2021-02-11] MEDS: POTASSIUM PHOSPHATE 10 MMOL in SODIUM CHLORIDE 0.9% 250 ML IV SCH ×3 (10:11→14:54)
--- NOTE | 2021-02-11 11:39 | P.PN ---
Subjective Progress Note Date: 02/11/21 Principal diagnosis: Acute diabetic ketoacidosis and acute covid 19 pneumonitis. This is a 55-year-old white male, seen in the admission room 4 days ago with abdominal pain and chest discomfort. Patient was diagnosed with covid 19 infection, received BAM, and he was discharged home since he had no respiratory symptoms whatsoever. Patient is a very poor historian, he is definitely confused, moaning and groaning in the ER, he is known to have history of diabetes, deep vein thrombosis, hyperlipidemia, and GERD. He is also known to have history of diabetic neuropathy, carpal tunnel syndrome, and history of hydrocele. At any rate I evaluated the patient in the ER, patient was noted to have acute diabetic ketoacidosis with bicarb of less than 5, his ABG on room air showed a pO2 of 148 pCO2 of less than 15 pH of 0.80. His blood sugar was as high as 678. And he had positive ketones. Obviously the patient has acute diabetic ketoacidosis, most likely triggered by his Covid 19 infection. Chest x-ray showed posterior bi basilar infiltrates, consistent with Covid 19 pn [place]. Recommended that the patient gets sodium bicarb, sodium bicarb drip, Covid 19 cocktail, and recommended admission to the ICU. Patient was also placed on insulin drip as per protocol for DKA. Patient was reevaluated today on 02/11/2021, patient remains in the ICU, he received treatment for his acute diabetic ketoacidosis presentation, and he is receiving the Covid 19 cocktail. Patient is doing much better today compared to yesterday. His anion gap has closed. His bicarb now is 20 and it was less than 5 yesterday. Patient remains on insulin at 2 units per hour, he is now on D5 4 5 at 100 mL per hour. Hence I plan to place him on insulin as per sliding scale, and discontinue insulin drip. Potassium and phosphorus are low and this will be corrected as per protocol. Patient received bam on 02/06/21 his presentation to the hospital. Chest x-ray continues to show minimal bilateral infiltrates. Patient is not requiring any oxygen he is presently on room air, and his O2 saturations 96%. WBC count is 8.6 hemoglobin is 12.1. Basic metabolic profile was noted low potassium and low phosphorus these are being corrected. Renal profile is normal. Objective - Vital Signs Vital signs: Vital Signs Temp 98.1 F 02/11/21 08:00 Pulse 107 H 02/11/21 10:00 Resp 15 02/11/21 10:00 BP 106/81 02/11/21 10:00 Pulse Ox 95 02/11/21 10:00 Intake & Output 02/10/21 02/11/21 02/11/21 18:59 06:59 18:59 Intake Total 0863.059 0898.830 930.188 Output Total 2300 1555 250 Balance -295.823 4895.830 680.188 Weight 80.739 kg 84.6 kg Intake: IV 3425 925 D5-0.45% NaCl with KCl 300 20Meq/l 1,000 ml @ 100 mls/hr IV .Q10H [facility] Rx#: [id number] D5-0.45% NaCl with KCl 1350 150 20Meq/l 1,000 ml @ 150 mls/hr IV .Q6H40M [facility] Rx# :[id number] Dextrose 5% in Water 1, 1375 125 000 ml @ 125 mls/hr IV . Q9H12M [facility] with Sodium Bicarb (1 Meq/ml) 150 ml Rx#:[id number] Piperacillin-Tazobactam 3 100 .375 gm In Sodium Chloride 0.9% 100 ml @ 25 mls/hr IVPB Q8H [facility] Rx#: [id number] Potassium Chloride 10 meq 200 In Water For Injection 1 100ml.bag @ 100 mls/hr IVPB Q1H [facility] Rx#: [id number] Potassium Chloride 10 meq 100 In Water For Injection 1 100ml.bag @ 100 mls/hr IVPB Q1HR [facility] Rx#: [id number] Potassium Phosphate 10 250 mmol In Sodium Chloride 0 .9% 250 ml @ 125 mls/hr IV Q2H [facility] Rx#:[id number] Sodium Chloride 0.9% 1, 400 000 ml @ 200 mls/hr IV . Q5H [facility] Rx#:[id number] Intake, IV Titration 1420.384 467.830 5.188 Amount Dextrose 5% in Water 1, 125 000 ml @ 125 mls/hr IV . Q9H12M [facility] with Sodium Bicarb (1 Meq/ml) 150 ml Rx#:[id number] Dextrose 5% in Water 1, 750 000 ml @ 250 mls/hr IV . Q4H36M [facility] with Sodium Bicarb (1 Meq/ml) 150 ml Rx#:[id number] Insulin Regular 100 unit 70.384 142.830 5.188 In Sodium Chloride 0.9% 100 ml @ 0.1 UNITS/KG/HR 8.155 mls/hr IV .[id number] [facility] Rx#:[id number] Sodium Chloride 0.9% 1, 600 200 000 ml @ 200 mls/hr IV . Q5H [facility] Rx#:[id number] Output: Urine 2300 1555 250 Other: Voiding Method Indwelling Catheter Indwelling Catheter Indwelling Catheter - Exam Physical Exam: Revealed 55-year-old white male not in respiratory distress, remains confused but less confused compared to yesterday. Head: Atraumatic, normocephalic. HEENT:[Neck is supple.] [No neck masses.] [No thyromegaly.] [No JVD.] Chest: [Crackles at the bases no rhonchi no wheezes. Cardiac Exam: [Normal S1 and S2, no S3 gallop, no murmur.] Abdomen: [Soft, nontender, no megaly, no rebound, no guarding, normal bowel sounds.] Extremities: [No clubbing, no edema, no cyanosis.] Neurological Exam: [No focal neurologic deficit.] Except for mild confusion persisting but milder than yesterday. Psychiatric: Anxious mood, blunt affect, and confused mental status - Labs CBC & Chem 7: 02/11/21 05:28 02/11/21 05:28 Labs: Abnormal Lab Results - Last 24 Hours (Table) 02/10/21 02/10/21 02/10/21 Range/Units 10:20 10:20 10:42 RBC (4.30-5.90) m/uL Hgb (13.0-17.5) gm/dL Hct (39.0-53.0) % Lymphocytes # (1.0-4.8) k/uL D-Dimer (<0.60) mg/L FEU ABG pH (7.35-7.45) ABG pCO2 (35-45) mmHg ABG pO2 (83-108) mmHg ABG HCO3 (21-25) mmol/L ABG Total CO2 (19-24) mmol/L ABG O2 Saturation (94-97) % Sodium 130 L (137-145) mmol/L Potassium 7.1 H* (3.5-5.1) mmol/L Chloride 97 L (98-107) mmol/L Carbon Dioxide <5 L* (22-30) mmol/L BUN 22 H (9-20) mg/dL Creatinine 1.70 H (0.66-1.25) mg/dL Glucose 880 H* (74-99) mg/dL POC Glucose (mg/dL) (75-99) mg/dL Plasma Lactic Acid Marcos 4.0 H* (0.7-2.0) mmol/L Calcium (8.4-10.2) mg/dL Phosphorus (2.5-4.5) mg/dL Magnesium 2.8 H (1.6-2.3) mg/dL Ferritin (22.0-322.0) ng/mL Lactate Dehydrogenase (313-618) U/L C-Reactive Protein 41.9 H (<10.0) mg/L Total Protein (6.3-8.2) g/dL Albumin (3.5-5.0) g/dL Procalcitonin (0.02-0.09) ng/mL Urine Protein 1+ H (Negative) Urine Glucose (UA) 4+ H (Negative) Urine Ketones 3+ H (Negative) Urine Blood Moderate H (Negative) Urine Bacteria Rare H (None) /hpf Urine Mucus Rare H (None) /hpf 02/10/21 02/10/21 02/10/21 Range/Units 12:37 13:34 14:09 RBC (4.30-5.90) m/uL Hgb (13.0-17.5) gm/dL Hct (39.0-53.0) % Lymphocytes # (1.0-4.8) k/uL D-Dimer (<0.60) mg/L FEU ABG pH <6.80 L* (7.35-7.45) ABG pCO2 <15 L* (35-45) mmHg ABG pO2 148 H (83-108) mmHg ABG HCO3 0 L* (21-25) mmol/L ABG Total CO2 0 L (19-24) mmol/L ABG O2 Saturation 98.2 H (94-97) % Sodium 136 L (137-145) mmol/L Potassium 5.6 H (3.5-5.1) mmol/L Chloride (98-107) mmol/L Carbon Dioxide <5 L* (22-30) mmol/L BUN 23 H (9-20) mg/dL Creatinine 1.58 H (0.66-1.25) mg/dL Glucose 678 H* (74-99) mg/dL POC Glucose (mg/dL) >600 H (75-99) mg/dL Plasma Lactic Acid Marcos (0.7-2.0) mmol/L Calcium (8.4-10.2) mg/dL Phosphorus 7.5 H (2.5-4.5) mg/dL Magnesium (1.6-2.3) mg/dL Ferritin (22.0-322.0) ng/mL Lactate Dehydrogenase (313-618) U/L C-Reactive Protein (<10.0) mg/L Total Protein (6.3-8.2) g/dL Albumin (3.5-5.0) g/dL Procalcitonin (0.02-0.09) ng/mL Urine Protein (Negative) Urine Glucose (UA) (Negative) Urine Ketones (Negative) Urine Blood (Negative) Urine Bacteria (None) /hpf Urine Mucus (None) /hpf 02/10/21 02/10/21 02/10/21 Range/Units 14:09 14:46 15:41 RBC (4.30-5.90) m/uL Hgb (13.0-17.5) gm/dL Hct (39.0-53.0) % Lymphocytes # (1.0-4.8) k/uL D-Dimer (<0.60) mg/L FEU ABG pH (7.35-7.45) ABG pCO2 (35-45) mmHg ABG pO2 (83-108) mmHg ABG HCO3 (21-25) mmol/L ABG Total CO2 (19-24) mmol/L ABG O2 Saturation (94-97) % Sodium (137-145) mmol/L Potassium (3.5-5.1) mmol/L Chloride (98-107) mmol/L Carbon Dioxide (22-30) mmol/L BUN (9-20) mg/dL Creatinine (0.66-1.25) mg/dL Glucose (74-99) mg/dL POC Glucose (mg/dL) 545 H 598 H (75-99) mg/dL Plasma Lactic Acid Marcos 2.5 H* (0.7-2.0) mmol/L Calcium (8.4-10.2) mg/dL Phosphorus (2.5-4.5) mg/dL Magnesium (1.6-2.3) mg/dL Ferritin (22.0-322.0) ng/mL Lactate Dehydrogenase (313-618) U/L C-Reactive Protein (<10.0) mg/L Total Protein (6.3-8.2) g/dL Albumin (3.5-5.0) g/dL Procalcitonin (0.02-0.09) ng/mL Urine Protein (Negative) Urine Glucose (UA) (Negative) Urine Ketones (Negative) Urine Blood (Negative) Urine Bacteria (None) /hpf Urine Mucus (None) /hpf 02/10/21 02/10/21 02/10/21 Range/Units 16:55 18:03 18:13 RBC (4.30-5.90) m/uL Hgb (13.0-17.5) gm/dL Hct (39.0-53.0) % Lymphocytes # (1.0-4.8) k/uL D-Dimer (<0.60) mg/L FEU ABG pH (7.35-7.45) ABG pCO2 (35-45) mmHg ABG pO2 (83-108) mmHg ABG HCO3 (21-25) mmol/L ABG Total CO2 (19-24) mmol/L ABG O2 Saturation (94-97) % Sodium 135 L (137-145) mmol/L Potassium (3.5-5.1) mmol/L Chloride 109 H (98-107) mmol/L Carbon Dioxide <5 L* (22-30) mmol/L BUN 22 H (9-20) mg/dL Creatinine 1.29 H (0.66-1.25) mg/dL Glucose 541 H* (74-99) mg/dL POC Glucose (mg/dL) 576 H 502 H (75-99) mg/dL Plasma Lactic Acid Marcos (0.7-2.0) mmol/L Calcium (8.4-10.2) mg/dL Phosphorus (2.5-4.5) mg/dL Magnesium (1.6-2.3) mg/dL Ferritin (22.0-322.0) ng/mL Lactate Dehydrogenase (313-618) U/L C-Reactive Protein (<10.0) mg/L Total Protein (6.3-8.2) g/dL Albumin (3.5-5.0) g/dL Procalcitonin (0.02-0.09) ng/mL Urine Protein (Negative) Urine Glucose (UA) (Negative) Urine Ketones (Negative) Urine Blood (Negative) Urine Bacteria (None) /hpf Urine Mucus (None) /hpf 02/10/21 02/10/21 02/10/21 Range/Units 18:42 18:42 18:42 RBC (4.30-5.90) m/uL Hgb (13.0-17.5) gm/dL Hct (39.0-53.0) % Lymphocytes # (1.0-4.8) k/uL D-Dimer 1.31 H (<0.60) mg/L FEU ABG pH (7.35-7.45) ABG pCO2 (35-45) mmHg ABG pO2 (83-108) mmHg ABG HCO3 (21-25) mmol/L ABG Total CO2 (19-24) mmol/L ABG O2 Saturation (94-97) % Sodium (137-145) mmol/L Potassium (3.5-5.1) mmol/L Chloride (98-107) mmol/L Carbon Dioxide (22-30) mmol/L BUN (9-20) mg/dL Creatinine (0.66-1.25) mg/dL Glucose (74-99) mg/dL POC Glucose (mg/dL) (75-99) mg/dL Plasma Lactic Acid Marcos (0.7-2.0) mmol/L Calcium (8.4-10.2) mg/dL Phosphorus (2.5-4.5) mg/dL Magnesium (1.6-2.3) mg/dL Ferritin 3976.6 H (22.0-322.0) ng/mL Lactate Dehydrogenase 959 H (313-618) U/L C-Reactive Protein 45.0 H (<10.0) mg/L Total Protein (6.3-8.2) g/dL Albumin (3.5-5.0) g/dL Procalcitonin 2.34 H (0.02-0.09) ng/mL Urine Protein (Negative) Urine Glucose (UA) (Negative) Urine Ketones (Negative) Urine Blood (Negative) Urine Bacteria (None) /hpf Urine Mucus (None) /hpf 02/10/21 02/10/21 02/10/21 Range/Units 19:06 20:17 21:39 RBC (4.30-5.90) m/uL Hgb (13.0-17.5) gm/dL Hct (39.0-53.0) % Lymphocytes # (1.0-4.8) k/uL D-Dimer (<0.60) mg/L FEU ABG pH (7.35-7.45) ABG pCO2 (35-45) mmHg ABG pO2 (83-108) mmHg ABG HCO3 (21-25) mmol/L ABG Total CO2 (19-24) mmol/L ABG O2 Saturation (94-97) % Sodium (137-145) mmol/L Potassium (3.5-5.1) mmol/L Chloride (98-107) mmol/L Carbon Dioxide (22-30) mmol/L BUN (9-20) mg/dL Creatinine (0.66-1.25) mg/dL Glucose (74-99) mg/dL POC Glucose (mg/dL) 483 H 419 H 288 H (75-99) mg/dL Plasma Lactic Acid Marcos (0.7-2.0) mmol/L Calcium (8.4-10.2) mg/dL Phosphorus (2.5-4.5) mg/dL Magnesium (1.6-2.3) mg/dL Ferritin (22.0-322.0) ng/mL Lactate Dehydrogenase (313-618) U/L C-Reactive Protein (<10.0) mg/L Total Protein (6.3-8.2) g/dL Albumin (3.5-5.0) g/dL Procalcitonin (0.02-0.09) ng/mL Urine Protein (Negative) Urine Glucose (UA) (Negative) Urine Ketones (Negative) Urine Blood (Negative) Urine Bacteria (None) /hpf Urine Mucus (None) /hpf 02/10/21 02/10/21 02/10/21 Range/Units 22:28 23:06 23:52 RBC (4.30-5.90) m/uL Hgb (13.0-17.5) gm/dL Hct (39.0-53.0) % Lymphocytes # (1.0-4.8) k/uL D-Dimer (<0.60) mg/L FEU ABG pH (7.35-7.45) ABG pCO2 (35-45) mmHg ABG pO2 (83-108) mmHg ABG HCO3 (21-25) mmol/L ABG Total CO2 (19-24) mmol/L ABG O2 Saturation (94-97) % Sodium (137-145) mmol/L Potassium (3.5-5.1) mmol/L Chloride 112 H (98-107) mmol/L Carbon Dioxide 10 L (22-30) mmol/L BUN (9-20) mg/dL Creatinine (0.66-1.25) mg/dL Glucose 264 H (74-99) mg/dL POC Glucose (mg/dL) 242 H 243 H (75-99) mg/dL Plasma Lactic Acid Marcos (0.7-2.0) mmol/L Calcium 7.7 L (8.4-10.2) mg/dL Phosphorus (2.5-4.5) mg/dL Magnesium (1.6-2.3) mg/dL Ferritin (22.0-322.0) ng/mL Lactate Dehydrogenase (313-618) U/L C-Reactive Protein (<10.0) mg/L Total Protein 5.4 L (6.3-8.2) g/dL Albumin 2.8 L (3.5-5.0) g/dL Procalcitonin (0.02-0.09) ng/mL Urine Protein (Negative) Urine Glucose (UA) (Negative) Urine Ketones (Negative) Urine Blood (Negative) Urine Bacteria (None) /hpf Urine Mucus (None) /hpf 02/11/21 02/11/21 02/11/21 Range/Units 00:26 01:05 02:18 RBC (4.30-5.90) m/uL Hgb (13.0-17.5) gm/dL Hct (39.0-53.0) % Lymphocytes # (1.0-4.8) k/uL D-Dimer (<0.60) mg/L FEU ABG pH (7.35-7.45) ABG pCO2 (35-45) mmHg ABG pO2 (83-108) mmHg ABG HCO3 (21-25) mmol/L ABG Total CO2 (19-24) mmol/L ABG O2 Saturation (94-97) % Sodium (137-145) mmol/L Potassium (3.5-5.1) mmol/L Chloride (98-107) mmol/L Carbon Dioxide (22-30) mmol/L BUN (9-20) mg/dL Creatinine (0.66-1.25) mg/dL Glucose (74-99) mg/dL POC Glucose (mg/dL) 297 H 260 H 203 H (75-99) mg/dL Plasma Lactic Acid Marcos (0.7-2.0) mmol/L Calcium (8.4-10.2) mg/dL Phosphorus (2.5-4.5) mg/dL Magnesium (1.6-2.3) mg/dL Ferritin (22.0-322.0) ng/mL Lactate Dehydrogenase (313-618) U/L C-Reactive Protein (<10.0) mg/L Total Protein (6.3-8.2) g/dL Albumin (3.5-5.0) g/dL Procalcitonin (0.02-0.09) ng/mL Urine Protein (Negative) Urine Glucose (UA) (Negative) Urine Ketones (Negative) Urine Blood (Negative) Urine Bacteria (None) /hpf Urine Mucus (None) /hpf 02/11/21 02/11/21 02/11/21 Range/Units 03:08 04:09 05:13 RBC (4.30-5.90) m/uL Hgb (13.0-17.5) gm/dL Hct (39.0-53.0) % Lymphocytes # (1.0-4.8) k/uL D-Dimer (<0.60) mg/L FEU ABG pH (7.35-7.45) ABG pCO2 (35-45) mmHg ABG pO2 (83-108) mmHg ABG HCO3 (21-25) mmol/L ABG Total CO2 (19-24) mmol/L ABG O2 Saturation (94-97) % Sodium (137-145) mmol/L Potassium (3.5-5.1) mmol/L Chloride (98-107) mmol/L Carbon Dioxide (22-30) mmol/L BUN (9-20) mg/dL Creatinine (0.66-1.25) mg/dL Glucose (74-99) mg/dL POC Glucose (mg/dL) 246 H 138 H 151 H (75-99) mg/dL Plasma Lactic Acid Marcos (0.7-2.0) mmol/L Calcium (8.4-10.2) mg/dL Phosphorus (2.5-4.5) mg/dL Magnesium (1.6-2.3) mg/dL Ferritin (22.0-322.0) ng/mL Lactate Dehydrogenase (313-618) U/L C-Reactive Protein (<10.0) mg/L Total Protein (6.3-8.2) g/dL Albumin (3.5-5.0) g/dL Procalcitonin (0.02-0.09) ng/mL Urine Protein (Negative) Urine Glucose (UA) (Negative) Urine Ketones (Negative) Urine Blood (Negative) Urine Bacteria (None) /hpf Urine Mucus (None) /hpf 02/11/21 02/11/21 02/11/21 Range/Units 05:28 05:28 06:06 RBC 3.94 L (4.30-5.90) m/uL Hgb 12.1 L D (13.0-17.5) gm/dL Hct 34.6 L (39.0-53.0) % Lymphocytes # 0.5 L (1.0-4.8) k/uL D-Dimer (<0.60) mg/L FEU ABG pH (7.35-7.45) ABG pCO2 (35-45) mmHg ABG pO2 (83-108) mmHg ABG HCO3 (21-25) mmol/L ABG Total CO2 (19-24) mmol/L ABG O2 Saturation (94-97) % Sodium 135 L (137-145) mmol/L Potassium 3.3 L (3.5-5.1) mmol/L Chloride 110 H (98-107) mmol/L Carbon Dioxide 20 L (22-30) mmol/L BUN (9-20) mg/dL Creatinine (0.66-1.25) mg/dL Glucose 137 H (74-99) mg/dL POC Glucose (mg/dL) 122 H (75-99) mg/dL Plasma Lactic Acid Marcos (0.7-2.0) mmol/L Calcium 7.4 L (8.4-10.2) mg/dL Phosphorus <0.5 L* (2.5-4.5) mg/dL Magnesium (1.6-2.3) mg/dL Ferritin (22.0-322.0) ng/mL Lactate Dehydrogenase (313-618) U/L C-Reactive Protein (<10.0) mg/L Total Protein (6.3-8.2) g/dL Albumin (3.5-5.0) g/dL Procalcitonin (0.02-0.09) ng/mL Urine Protein (Negative) Urine Glucose (UA) (Negative) Urine Ketones (Negative) Urine Blood (Negative) Urine Bacteria (None) /hpf Urine Mucus (None) /hpf 02/11/21 02/11/21 02/11/21 Range/Units 07:01 08:21 09:45 RBC (4.30-5.90) m/uL Hgb (13.0-17.5) gm/dL Hct (39.0-53.0) % Lymphocytes # (1.0-4.8) k/uL D-Dimer (<0.60) mg/L FEU ABG pH (7.35-7.45) ABG pCO2 (35-45) mmHg ABG pO2 (83-108) mmHg ABG HCO3 (21-25) mmol/L ABG Total CO2 (19-24) mmol/L ABG O2 Saturation (94-97) % Sodium (137-145) mmol/L Potassium (3.5-5.1) mmol/L Chloride (98-107) mmol/L Carbon Dioxide (22-30) mmol/L BUN (9-20) mg/dL Creatinine (0.66-1.25) mg/dL Glucose (74-99) mg/dL POC Glucose (mg/dL) 134 H 153 H 133 H (75-99) mg/dL Plasma Lactic Acid Marcos (0.7-2.0) mmol/L Calcium (8.4-10.2) mg/dL Phosphorus (2.5-4.5) mg/dL Magnesium (1.6-2.3) mg/dL Ferritin (22.0-322.0) ng/mL Lactate Dehydrogenase (313-618) U/L C-Reactive Protein (<10.0) mg/L Total Protein (6.3-8.2) g/dL Albumin (3.5-5.0) g/dL Procalcitonin (0.02-0.09) ng/mL Urine Protein (Negative) Urine Glucose (UA) (Negative) Urine Ketones (Negative) Urine Blood (Negative) Urine Bacteria (None) /hpf Urine Mucus (None) /hpf Microbiology - Last 24 Hours (Table) 02/11/21 02:15 Urine Culture - Preliminary Urine,Catheterized Assessment and Plan Assessment: Impression: Acute diabetic ketoacidosis Acute covid 19 pneumonia but no evidence of hypoxemia patient is on room air with O2 saturation of 99% Benign essential hypertension. History of hypothyroidism. History of hyperlipidemia. Peripheral diabetic neuropathy. Acute toxic metabolic encephalopathy secondary to Covid 19 pneumonitis, and hyperglycemia with DKA. Recommendation: Continue to follow the DKA protocol. Transition patient from IV insulin to subcu insulin as per scale. Start Levemir insulin at 15 units daily. Continue the Covid 19 cocktail. Continue to monitor daily labs electrolytes and renal profile. Considering the patient is on room air, no need to give the patient Decadron or remdesivir Will arrange for the patient be transferred out of the ICU to a regular medical floor today Will follow. Time with Patient: Less than 30
[2021-02-11 11:50] LABS: Glucose,Whole Blood 136 mg/dL (75-99)
[2021-02-11] MEDS: INSULIN ASPART (NovoLOG) 100 UNIT/ML VIAL SQ SCH ×3 (13:27→20:23)
[2021-02-11 13:55] LABS: Hemoglobin A1C 13.8 % (4.0-6.0)
--- NOTE | 2021-02-11 14:29 | CT ---
EXAMINATION TYPE: CT brain wo con DATE OF EXAM: 02/11/2021 COMPARISON: None HISTORY: covid confusion CT DLP: 1100.[address] of the brain was performed. The ventricles, basal cisterns and sulci overlying the cerebral convexities demonstrate mild enlargem ent. There is no evidence for intracranial hemorrhage or sulcal effacement. There is decreased attenuation about the periventricular white matter and deep white matter of both c erebral hemispheres, compatible with chronic small vessel ischemia. Differential diagnosis does inclu de demyelination. No mass effects are seen.No midline shift. Osseous calvarium is intact. If symptoms persist consider MRI. IMPRESSION: 1. Age related atrophic and chronic small vessel ischemic change without acute intracranial process s een at this time.
[2021-02-11] MEDS ORDERED: Magnesium Replacement Protocol 1 EACH MISC MISCELLANE PRN (14:56)
--- NOTE | 2021-02-11 15:36 | PN ---
PROGRESS NOTE DATE OF SERVICE: 02/11/2021 This 55-year-old gentleman admitted with COVID-19 pneumonia as well as diabetic ketoacidosis, being closely monitored at this time. The patient has been transitioned off insulin drip. The patient required significant insulin drip probably more than 150 units per 24 hours, but however the patient is still confused and the patient is not taking a full diet at this time. CAT scan of the brain was requested, which showed age- related atrophic changes without any acute abnormality. Dr. Song is following the patient closely. The patient has no hypoxia, but patient had features of COVID-19 pneumonia. PAST MEDICAL HISTORY: Reviewed. REVIEW OF SYSTEMS: Could not be taken. CURRENT MEDICATIONS: Current medications are reviewed and include Tylenol, vitamin C, aspirin, vitamin D3, Colcrys, Lovenox, Levemir. Doses are reviewed. PHYSICAL EXAMINATION: Patient is conscious, confused. Pulse 103, blood pressure is 106/74, respiration 26, temperature 98.1, pulse ox 96% on room air. HEENT: Conjunctivae normal. NECK: No jugular venous distention. CARDIOVASCULAR: S1, S2 muffled. RESPIRATORY: Breath sounds diminished at the bases. A few scattered rhonchi. ABDOMEN: Soft. NERVOUS SYSTEM: No focal deficits. LABS: WBC 8.2, hemoglobin 12.1 sodium 135, potassium 3.3. ASSESSMENT: 1. Acute severe diabetic ketoacidosis. 2. Change in mental status, acute metabolic encephalopathy secondary to acute diabetic ketoacidosis. 3. Increased WBC with possible sepsis, severe sepsis and hypotension. 4. Acute COVID-19, status post BAM. 5. Hyponatremia. 6. Hyperkalemia. 7. Increased creatinine with possible acute renal failure, acute tubular necrosis, with prerenal renal factors. 8. Elevated plasma lactic acid secondary to sepsis. 9. Diabetes mellitus type 2. 10.History of deep vein thrombosis. 11.Gastroesophageal reflux disease. 12.Hyperlipidemia. 13.Diabetic peripheral neuropathy. 14.History of migraine. 15.History of carpal tunnel syndrome. 16.History of hypothyroidism. 17.History of hydrocele, right side history. 18.History of colonoscopy. 19.FULL CODE. RECOMMENDATIONS AND DISCUSSION: I recommend to continue current medications, continue symptomatic treatment. I recommend transition to Levemir. I would recommend 25 units subcutaneously b.i.d. If the patient is hypoglycemic, hold the insulin. Otherwise, Accu-Cheks a.c. and at bedtime scale. Potassium supplementation. Magnesium supplementation. Follow the cultures. Guarded prognosis because of the multiple complex medical issues and further recommendations to follow. Closely follow with Dr. Song. Further recommendations to follow. MMNICOLEL / IJN: [id number] /
[2021-02-11 16:39] LABS: Glucose,Whole Blood 114 mg/dL (75-99)
[2021-02-11 20:17] LABS: Glucose,Whole Blood 96 mg/dL (75-99)
[2021-02-11] MEDS: ATORVASTATIN 20 MG TAB PO SCH (21:11)
[2021-02-11] MEDS: INSULIN DETEMIR (LEVEMIR) 100 UNIT/ML SYR SQ SCH (21:13)
[2021-02-11 23:54] LABS: Glucose,Whole Blood 92 mg/dL (75-99)
[2021-02-12] MEDS: INSULIN ASPART (NovoLOG) 100 UNIT/ML VIAL SQ SCH ×6 (00:01→20:34)
[2021-02-12] MEDS: POTASSIUM CHLORIDE 10 MEQ in WATER FOR INJECTION 1 100ML.BAG IVPB SCH ×5 (00:55→10:14)
[2021-02-12] MEDS: ONDANSETRON 4 MG/2 ML VIAL IVP PRN (01:53)
[2021-02-12 04:08] LABS: Glucose,Whole Blood 65 mg/dL (75-99)
[2021-02-12] MEDS ORDERED: DEXTROSE 50% SYRINGE 50 ML IVP ONE (04:24)
[2021-02-12] MEDS ORDERED: DEXTROSE 50% SYRINGE 50 ML IVP STA (04:25)
[2021-02-12] MEDS: PIPERACILLIN-TAZOBACTAM 3.375 GM in SODIUM CHLORIDE 0.9% 100 ML IVPB SCH ×3 (04:27→20:34)
[2021-02-12] MEDS: D5-0.45% NACL WITH KCL 20MEQ/L 1,000 ML IV SCH ×2 (05:01)
[2021-02-12 05:06] LABS: Glucose,Whole Blood 118 mg/dL (75-99)
[2021-02-12 05:46] LABS: Basophils % (A) 0 %; Eosinophils % (A) 0 %; HCT 33.2 % (39.0-53.0); HGB 11.5 gm/dL (13.0-17.5); Lymphocytes # (A) 0.4 k/uL (1.0-4.8); Lymphocytes % (A) 6 %; MCH 30.5 pg (25.0-35.0); MCHC 34.6 g/dL (31.0-37.0); MCV 88.2 fL (80.0-100.0); Monocytes # (A) 0.4 k/uL (0-1.0); Monocytes % (A) 7 %; Neutrophils # (A) 5.2 k/uL (1.3-7.7); Neutrophils % (A) 86 %; Platelet Count 169 k/uL (150-450); RBC 3.76 m/uL (4.30-5.90); RDW 13.2 % (11.5-15.5); WBC 6.1 k/uL (3.8-10.6)
[2021-02-12 05:58] LABS: African American GFR (CKD) >90 (>60 ml/min/1.73 sqM); Anion Gap 3 mmol/L; Blood Urea Nitrogen 9 mg/dL (9-20); Calcium 7.1 mg/dL (8.4-10.2); Carbon Dioxide 22 mmol/L (22-30); Chloride 109 mmol/L (98-107); Glucose 113 mg/dL (74-99); Magnesium 1.6 mg/dL (1.6-2.3); Non-African American GFR(CKD) >90 (>60 ml/min/1.73 sqM); Potassium 3.2 mmol/L (3.5-5.1); Sodium 134 mmol/L (137-145)
[2021-02-12] MEDS ORDERED: Potassium Replacement Protocol 1 EACH MISC MISCELLANE PRN (07:01)
[2021-02-12] MEDS: LEVOTHYROXINE 137 MCG TAB PO SCH (07:02)
--- NOTE | 2021-02-12 07:46 | XR ---
EXAMINATION TYPE: XR chest 1V DATE OF EXAM: 02/12/2021 COMPARISON: Chest x-ray 02/11/2021 HISTORY: Shortness of breath TECHNIQUE: Single frontal view of the chest is obtained. FINDINGS: Bilateral patchy airspace disease is again noted. No significant change. IMPRESSION: Correlate for pneumonia.
[2021-02-12] MEDS: ASCORBIC ACID 500 MG TAB PO SCH (10:11)
[2021-02-12] MEDS: CYANOCOBALAMIN 500 MCG TAB PO SCH (10:11)
[2021-02-12] MEDS: ZINC SULFATE 220 MG CAP PO SCH (10:11)
[2021-02-12] MEDS: COLCHICINE 0.6 MG EACH PO SCH (10:11)
[2021-02-12] MEDS: ENOXAPARIN 40 MG/0.4 ML SYRINGE SQ SCH (10:11)
[2021-02-12] MEDS: GABAPENTIN 100 MG CAP PO SCH ×3 (10:11→22:00)
[2021-02-12] MEDS: CHOLECALCIFEROL 25 MCG (1000 IU) TABLET PO SCH (10:11)
[2021-02-12] MEDS: ASPIRIN 81 MG PO SCH (10:11)
[2021-02-12] MEDS: TRIAMCINOLONE ACET 0.1% OINTMENT 15 GM TUBE TOPICAL SCH ×2 (10:12→20:35)
[2021-02-12] MEDS: INSULIN DETEMIR (LEVEMIR) 100 UNIT/ML SYR SQ SCH ×2 (10:12→20:33)
--- NOTE | 2021-02-12 12:14 | P.PN ---
Subjective Progress Note Date: 02/12/21 Principal diagnosis: Acute diabetic ketoacidosis and acute covid 19 pneumonitis. This is a 55-year-old white male, seen in the admission room 4 days ago with abdominal pain and chest discomfort. Patient was diagnosed with covid 19 infection, received BAM, and he was discharged home since he had no respiratory symptoms whatsoever. Patient is a very poor historian, he is definitely confused, moaning and groaning in the ER, he is known to have history of diabetes, deep vein thrombosis, hyperlipidemia, and GERD. He is also known to have history of diabetic neuropathy, carpal tunnel syndrome, and history of hydrocele. At any rate I evaluated the patient in the ER, patient was noted to have acute diabetic ketoacidosis with bicarb of less than 5, his ABG on room air showed a pO2 of 148 pCO2 of less than 15 pH of 0.80. His blood sugar was as high as 678. And he had positive ketones. Obviously the patient has acute diabetic ketoacidosis, most likely triggered by his Covid 19 infection. Chest x-ray showed posterior bi basilar infiltrates, consistent with Covid 19 pn eumonia. Recommended that the patient gets sodium bicarb, sodium bicarb drip, Covid 19 cocktail, and recommended admission to the ICU. Patient was also placed on insulin drip as per protocol for DKA. Patient was reevaluated today on 02/11/2021, patient remains in the ICU, he received treatment for his acute diabetic ketoacidosis presentation, and he is receiving the Covid 19 cocktail. Patient is doing much better today compared to yesterday. His anion gap has closed. His bicarb now is 20 and it was less than 5 yesterday. Patient remains on insulin at 2 units per hour, he is now on D5 4 5 at 100 mL per hour. Hence I plan to place him on insulin as per sliding scale, and discontinue insulin drip. Potassium and phosphorus are low and this will be corrected as per protocol. Patient received bam on 02/06/21 his presentation to the hospital. Chest x-ray continues to show minimal bilateral infiltrates. Patient is not requiring any oxygen he is presently on room air, and his O2 saturations 96%. WBC count is 8.6 hemoglobin is 12.1. Basic metabolic profile was noted low potassium and low phosphorus these are being corrected. Renal profile is normal. Patient was evaluated today on 02/12/2021, remains in the ICU, he responded well to treatment of his diabetic ketoacidosis, however the patient has underlying Covid 19 pneumonitis. Patient is on room air, in no distress, CBC is relatively normal lites are normal except for low potassium of 3.2. Patient is presently an overflow in the ICU. Objective - Vital Signs Vital signs: Vital Signs Temp 98.5 F 02/12/21 02:00 Pulse 100 02/12/21 02:00 Resp 26 H 02/12/21 02:00 BP 118/81 02/12/21 02:00 Pulse Ox 95 02/12/21 02:00 Intake & Output 02/11/21 02/12/21 02/12/21 18:59 06:59 18:59 Intake Total 930.188 800 Output Total 850 550 Balance 80.188 250 Weight 84.6 kg 81.3 kg Intake: IV 925 800 D5-0.45% NaCl with KCl 150 20Meq/l 1,000 ml @ 150 mls/hr IV .Q6H40M [facility] Rx# :[id number] D5-0.45% NaCl with KCl 300 400 20Meq/l 1,000 ml @ 50 mls /hr IV .Q20H EUGEN[facility] Rx#: [id number] Dextrose 5% in Water 1, 125 000 ml @ 125 mls/hr IV . Q9H12M [facility] with Sodium Bicarb (1 Meq/ml) 150 ml Rx#:[id number] Potassium Chloride 10 meq 100 400 In Water For Injection 1 100ml.bag @ 100 mls/hr IVPB Q1HR [facility] Rx#: [id number] Potassium Phosphate 10 250 mmol In Sodium Chloride 0 .9% 250 ml @ 125 mls/hr IV Q2H [facility] Rx#:[id number] Intake, IV Titration 5.188 Amount Insulin Regular 100 unit 5.188 In Sodium Chloride 0.9% 100 ml @ 0.1 UNITS/KG/HR 8.155 mls/hr IV .[id number] [facility] Rx#:[id number] Output: Urine 850 550 Other: Voiding Method Indwelling Catheter Indwelling Catheter - Exam Physical Exam: Revealed 55-year-old white male not in respiratory distress, infusion seems to be improving. Head: Atraumatic, normocephalic. HEENT:[Neck is supple.] [No neck masses.] [No thyromegaly.] [No JVD.] Chest: [Crackles at the bases no rhonchi no wheezes. Cardiac Exam: [Normal S1 and S2, no S3 gallop, no murmur.] Abdomen: [Soft, nontender, no megaly, no rebound, no guarding, normal bowel sounds.] Extremities: [No clubbing, no edema, no cyanosis.] Neurological Exam: [No focal neurologic deficit.] Except for mild confusion persisting but milder than yesterday. Psychiatric: Anxious mood, blunt affect, less confused, nonetheless the patient remains confused. - Labs CBC & Chem 7: 02/12/21 05:21 02/12/21 05:21 Labs: Abnormal Lab Results - Last 24 Hours (Table) 02/11/21 02/11/21 02/11/21 Range/Units 05:28 16:37 21:27 RBC (4.30-5.90) m/uL Hgb (13.0-17.5) gm/dL Hct (39.0-53.0) % Lymphocytes # (1.0-4.8) k/uL Sodium (137-145) mmol/L Potassium 3.2 L (3.5-5.1) mmol/L Chloride (98-107) mmol/L Glucose (74-99) mg/dL POC Glucose (mg/dL) 114 H (75-99) mg/dL Hemoglobin A1c 13.8 H (4.0-6.0) % Calcium (8.4-10.2) mg/dL 02/12/21 02/12/21 02/12/21 Range/Units 04:07 05:04 05:21 RBC 3.76 L (4.30-5.90) m/uL Hgb 11.5 L (13.0-17.5) gm/dL Hct 33.2 L (39.0-53.0) % Lymphocytes # 0.4 L (1.0-4.8) k/uL Sodium (137-145) mmol/L Potassium (3.5-5.1) mmol/L Chloride (98-107) mmol/L Glucose (74-99) mg/dL POC Glucose (mg/dL) 65 L 118 H (75-99) mg/dL Hemoglobin A1c (4.0-6.0) % Calcium (8.4-10.2) mg/dL 02/12/21 Range/Units 05:21 RBC (4.30-5.90) m/uL Hgb (13.0-17.5) gm/dL Hct (39.0-53.0) % Lymphocytes # (1.0-4.8) k/uL Sodium 134 L (137-145) mmol/L Potassium 3.2 L (3.5-5.1) mmol/L Chloride 109 H (98-107) mmol/L Glucose 113 H (74-99) mg/dL POC Glucose (mg/dL) (75-99) mg/dL Hemoglobin A1c (4.0-6.0) % Calcium 7.1 L (8.4-10.2) mg/dL Microbiology - Last 24 Hours (Table) 02/10/21 18:49 Blood Culture - Preliminary Blood No Growth after 24 hours 02/11/21 02:15 Urine Culture - Preliminary Urine,Catheterized Assessment and Plan Assessment: Impression: Acute diabetic ketoacidosis Acute covid 19 pneumonia but no evidence of hypoxemia patient is on room air with O2 saturation of 99% Benign essential hypertension. History of hypothyroidism. History of hyperlipidemia. Peripheral diabetic neuropathy. Acute toxic metabolic encephalopathy secondary to Covid 19 pneumonitis, and hyperglycemia with DKA. Improving but slowly. Recommendation: Continue to follow the DKA protocol. Continue subcu insulin as per scale. Continue Levemir insulin. Continue the Covid 19 cocktail. Continue to monitor daily labs electrolytes and renal profile. Considering the patient is on room air, no need to give the patient Decadron or remdesivir Transferred out of the ICU once a bed becomes available. Time with Patient: Less than 30
[2021-02-12 12:21] LABS: Glucose,Whole Blood 119 mg/dL (75-99)
[2021-02-12] MEDS: POTASSIUM BICARBONATE/CIT AC 20 MEQ TABLET.EFF PO SCH ×3 (14:06→20:33)
--- NOTE | 2021-02-12 15:04 | PN ---
PROGRESS NOTE DATE OF SERVICE: 02/12/2021 This 55-year-old gentleman who was admitted with acute severe diabetic ketoacidosis with change in mental status. The patient also had features of sepsis. The blood sugars have improved significantly, but p.o. intake appears to be reduced. Patient has hypokalemia. Sugar is 119. The patient has been started on Lantus 25 units subcutaneously b.i.d. and scale also. The patient has also had COVID-19 which has been treated symptomatically as well. Patient is on broad-spectrum IV antibiotics also. The most recent chest x-ray which was reviewed personally by me showed possible bibasilar pneumonia also. MMODL / IJN: [id number] /
--- NOTE | 2021-02-12 15:15 | PN ---
PROGRESS NOTE This is the rest of the progress note for today. DATE OF SERVICE: 02/12/2021. This 55-year-old gentleman who was admitted with COVID-19 pneumonia also had diabetic ketoacidosis. PAST MEDICAL HISTORY: Reviewed. REVIEW OF SYSTEMS: CARDIOVASCULAR SYSTEM: No angina. RESPIRATORY SYSTEM: As mentioned earlier. GI: As mentioned earlier. : No dysuria. NERVOUS SYSTEM: No numbness or weakness. CURRENT MEDICATIONS: Current medications are reviewed and include Tylenol, vitamin C, aspirin, Lipitor, vitamin D3, Colcrys. Doses are reviewed. PHYSICAL EXAMINATION: Patient is alert and oriented x1. Pulse is 99, blood pressure 121/68, respiration 24, temperature 97.9, pulse ox 94% on room air. HEENT: Conjunctivae normal. NECK: No jugular venous distention. CARDIOVASCULAR: S1, S2 muffled. RESPIRATORY: Breath sounds diminished bases. Scattered rhonchi and crackles. ABDOMEN: Soft, nontender. LEGS: No edema, no swelling. NERVOUS SYSTEM: No focal deficits. LABS: WBC 6.1, hemoglobin 11.5, sodium 134, potassium 3.2. ASSESSMENT: 1. Acute severe diabetic ketoacidosis, present on admission. 2. Change in mental status, acute metabolic encephalopathy secondary to acute diabetic ketoacidosis. 3. Increased WBC. Possible sepsis with severe sepsis and hypotension. 4. Acute bibasilar pneumonia possibly aspiration. 5. COVID-19, status post BAM. 6. Hyponatremia. 7. Hyperkalemia. 8. Increased creatinine with possible acute renal failure, acute tubular necrosis, with prerenal factors. 9. Elevated plasma lactic acid secondary to sepsis. 10.Diabetes mellitus type 2. 11.History of deep vein thrombosis. 12.Gastroesophageal reflux disease. 13.Hyperlipidemia. 14.Diabetic peripheral neuropathy. 15.History of migraine. 16.History of carpal tunnel syndrome. 17.History of hypothyroidism. 18.Hydrocele right-sided history. 19.History of colonoscopy. 20.FULL CODE. RECOMMENDATIONS AND DISCUSSION: Recommend to continue current medications, continue symptomatic treatment. Advance diet and assist with the feeds. Monitor blood sugars closely. Potassium supplementation. Repeat labs. The D-dimer has been elevated. I would also recommend a CT angio of the chest also to complete the workup. Repeat D-dimer. Guarded prognosis. Further recommendations to follow. Monitor electrolytes closely, monitor and replace electrolytes. Further recommendations to follow. MMODL / IJN: [id number] /
--- NOTE | 2021-02-12 16:25 | CT ---
EXAMINATION TYPE: CT angio chest DATE OF EXAM: 02/12/2021 COMPARISON: Radiograph same day HISTORY: 55 year-old male shortness of breath, assess for PE TECHNIQUE: Contiguous axial scanning of the chest performed with IV Contrast, patient injected with 1 00 mL of Isovue 370. Coronal/sagittal MIP reconstructions performed. CT DLP: 473.6 mGycm Automated exposure control for dose reduction was used. FINDINGS: Heart normal size without pericardial effusion. No flattening of the interventricular septum though t here is some reflux of contrast into the hepatic IVC. Mild ectasia aortic root at 3.8 cm a mild aneurysm ascending aorta 4.0 cm. Conventional arch vessel b ranching anatomy. Moderate bilateral gynecomastia. Some scattered prominent but nonenlarged mediastinal and hilar lymph nodes are present. The patient is breathing. This degrades assessment for pulmonary embolus. No large central or definit e lobar branch pulmonary embolus is seen. Most of the segmental and more distal arterial branches are nondiagnostic. Multifocal dependent patchy groundglass opacities, confluent at the posterior costophrenic angles. No pleural effusion. Visualized upper abdomen shows no gross abnormality. Bones: A hypodense area within the T2 vertebral body, suspected fatty matrix hemangioma. IMPRESSION: 1. THE PATIENT IS BREATHING DURING THE SCAN. NO LARGE CENTRAL OR DEFINITE LOBAR BRANCH PULMONARY EMBO SARI. MOST OF THE SEGMENTAL AND MORE DISTAL ARTERIAL BRANCHES ARE NONDIAGNOSTIC AND EMBOLI HERE CANNOT BE EXCLUDED ON THE BASIS OF THIS EXAM. 2. MULTIFOCAL DEPENDENT PATCHY GROUNDGLASS OPACITIES, CONFLUENT AT THE POSTERIOR COSTOPHRENIC ANGLES. DIFFERENTIAL CONSIDERATIONS INCLUDE COVID PNEUMONIA AND ASPIRATION. 3. MILD ANEURYSM ASCENDING AORTA at 4.0 CM.
[2021-02-12 20:19] LABS: Glucose,Whole Blood 199 mg/dL (75-99)
[2021-02-12] MEDS: ATORVASTATIN 20 MG TAB PO SCH (20:33)
[2021-02-13] MEDS ORDERED: POTASSIUM CHLORIDE ER 20 MEQ TAB.ER PO SCH
[2021-02-13 00:07] LABS: Glucose,Whole Blood 179 mg/dL (75-99)
[2021-02-13] MEDS: ACETAMINOPHEN TAB 325 MG TAB PO PRN ×2 (00:16→14:21)
[2021-02-13] MEDS: INSULIN ASPART (NovoLOG) 100 UNIT/ML VIAL SQ SCH ×6 (00:18→21:43)
[2021-02-13] MEDS: POTASSIUM CHLORIDE 10 MEQ in WATER FOR INJECTION 1 100ML.BAG IVPB SCH (02:26)
[2021-02-13 05:01] LABS: Glucose,Whole Blood 57 mg/dL (75-99)
[2021-02-13] MEDS: PIPERACILLIN-TAZOBACTAM 3.375 GM in SODIUM CHLORIDE 0.9% 100 ML IVPB SCH ×3 (05:03→21:42)
[2021-02-13 05:26] LABS: Glucose,Whole Blood 87 mg/dL (75-99)
[2021-02-13] MEDS: LEVOTHYROXINE 137 MCG TAB PO SCH (06:02)
[2021-02-13 07:12] LABS: Glucose,Whole Blood 91 mg/dL (75-99)
[2021-02-13] MEDS: CHOLECALCIFEROL 25 MCG (1000 IU) TABLET PO SCH (08:11)
[2021-02-13] MEDS: ASCORBIC ACID 500 MG TAB PO SCH (08:11)
[2021-02-13] MEDS: ASPIRIN 81 MG PO SCH (08:11)
[2021-02-13] MEDS: ENOXAPARIN 40 MG/0.4 ML SYRINGE SQ SCH (08:11)
[2021-02-13] MEDS: GABAPENTIN 100 MG CAP PO SCH ×3 (08:11→21:44)
[2021-02-13] MEDS: ZINC SULFATE 220 MG CAP PO SCH (08:11)
[2021-02-13] MEDS: CYANOCOBALAMIN 500 MCG TAB PO SCH (08:11)
[2021-02-13] MEDS: INSULIN DETEMIR (LEVEMIR) 100 UNIT/ML SYR SQ SCH ×2 (08:13→21:43)
[2021-02-13] MEDS: COLCHICINE 0.6 MG EACH PO SCH (08:46)
[2021-02-13] MEDS: TRIAMCINOLONE ACET 0.1% OINTMENT 15 GM TUBE TOPICAL SCH ×2 (08:47→21:44)
[2021-02-13 09:02] LABS: Potassium 3.2 mmol/L (3.5-5.1)
[2021-02-13 09:03] LABS: African American GFR (CKD) >90 (>60 ml/min/1.73 sqM); Anion Gap 6 mmol/L; Blood Urea Nitrogen 8 mg/dL (9-20); Carbon Dioxide 23 mmol/L (22-30); Chloride 104 mmol/L (98-107); Glucose 101 mg/dL (74-99); Non-African American GFR(CKD) >90 (>60 ml/min/1.73 sqM); Phosphorus 2.3 mg/dL (2.5-4.5); Sodium 133 mmol/L (137-145)
[2021-02-13 09:23] LABS: Basophils % (A) 0 %; Eosinophils % (A) 0 %; HCT 32.8 % (39.0-53.0); HGB 11.2 gm/dL (13.0-17.5); Lymphocytes # (A) 0.5 k/uL (1.0-4.8); Lymphocytes % (A) 12 %; MCH 30.6 pg (25.0-35.0); MCHC 34.3 g/dL (31.0-37.0); MCV 89.2 fL (80.0-100.0); Monocytes # (A) 0.4 k/uL (0-1.0); Monocytes % (A) 9 %; Neutrophils % (A) 77 %; Platelet Count 143 k/uL (150-450); RBC 3.67 m/uL (4.30-5.90); RDW 13.3 % (11.5-15.5); WBC 3.9 k/uL (3.8-10.6)
[2021-02-13] MEDS: POTASSIUM CHLORIDE 20 MEQ in WATER FOR INJECTION 1 100ML.BAG IVPB SCH ×2 (10:17→11:37)
[2021-02-13 10:34] VITALS: BMI 24.2
[2021-02-13 11:12] LABS: Glucose,Whole Blood 98 mg/dL (75-99)
[2021-02-13] MEDS: D5-0.45% NACL WITH KCL 20MEQ/L 1,000 ML IV SCH (14:21)
[2021-02-13 16:32] LABS: Glucose,Whole Blood 204 mg/dL (75-99)
--- NOTE | 2021-02-13 16:44 | PN ---
PROGRESS NOTE DATE OF SERVICE: 02/13/2021 This 55-year-old gentleman admitted with COVID-19 pneumonia also diabetic ketosis. The patient continues to be confused at this time. Patient also had elevated D- dimer and CT angio of the chest was done yesterday which showed no definite evidence of pulmonary embolism, multifocal patchy infiltrates, ascending abdominal aortic aneurysm, mild with 4 cm is also noted. The patient has had some fever. PAST MEDICAL HISTORY: Reviewed. REVIEW OF SYSTEMS: CARDIOVASCULAR: No angina or palpitations. RESPIRATORY: As mentioned earlier. GI: As mentioned earlier. : No dysuria. NERVOUS SYSTEM: No numbness, weakness. CURRENT MEDICATIONS: Tylenol suppository, vitamin C, aspirin, Lipitor, vitamin D3, Colcrys, vitamin B12, Lovenox. Doses reviewed. PHYSICAL EXAMINATION: Alert and oriented x3. Pulse 94, blood pressure 120/77, respiration 17, temperature 100.6, pulse ox 98% on room air. HEENT: Conjunctivae normal. Oral mucosa moist. NECK: No jugular venous distention. No lymph node enlargement. CARDIOVASCULAR: S1, S2, muffled. No S3, no S4, RESPIRATORY: Diminished breath sounds at the bases. A few scattered rhonchi. ABDOMEN: Soft, nontender. NERVOUS SYSTEM: No focal motor or sensory deficits. LABS: WBC , hemoglobin 7.8. ASSESSMENT: 1. Acute severe diabetic ketoacidosis, present on admission. 2. Change in mental status secondary to metabolic encephalopathy secondary to acute diabetic ketoacidosis. 3. Acute COVID-19 bilateral pneumonia. 4. Acute COVID-19 status post 5. Increased WBC, possibly severe sepsis and hypotension, present on admission. 6. Acute bibasilar pneumonia with possible aspiration or COVID pneumonia. 7. Hyponatremia. 8. Hyperkalemia. 9. Continued fever. 10.Increased creatinine with possible acute renal failure, acute tubular necrosis with prerenal factors. 11.Elevated plasma lactic acid secondary to sepsis. 12.Diabetes mellitus type 2. 13.History of DVT. 14.Gastroesophageal reflux disease. 15.Hyperlipidemia. 16.Diabetic peripheral neuropathy. 17.History of migraine. 18.History of carpal tunnel syndrome. 19.History of hypothyroidism. 20.History of right-sided hydrocele. 21.History of colonoscopy. 22.FULL CODE. RECOMMENDATIONS: Recommend to continue current management and symptomatic treatment. I would recommend repeat cultures. Patient is running some fever at this time. The patient is also started on Zosyn. Previous cultures are negative so far. Otherwise, repeat labs. Supplement potassium. Prognosis guarded because of multiple complex medical issues. Further recommendations to follow. MMODL / IJN: [id number] / MTDD
[2021-02-13 17:26] LABS: Creatine Kinase 109 U/L (55-170)
[2021-02-13 17:40] LABS: Creatine Kinase MB <0.2 ng/mL (0.0-2.4)
[2021-02-13 18:04] LABS: Troponin I 0.086 ng/mL (0.000-0.034)
[2021-02-13 21:12] LABS: Glucose,Whole Blood 214 mg/dL (75-99)
[2021-02-13] MEDS: FAMOTIDINE 20 MG/2 ML VIAL IV SCH (21:43)
[2021-02-13] MEDS: ATORVASTATIN 20 MG TAB PO SCH (21:44)
[2021-02-13 23:18] LABS: Creatine Kinase 118 U/L (55-170)
[2021-02-13 23:32] LABS: Creatine Kinase MB <0.2 ng/mL (0.0-2.4)
[2021-02-13 23:39] LABS: Troponin I 0.076 ng/mL (0.000-0.034)
[2021-02-14] MEDS: ACETAMINOPHEN TAB 325 MG TAB PO PRN ×2 (00:38→16:33)
[2021-02-14] MEDS: D5-0.45% NACL WITH KCL 20MEQ/L 1,000 ML IV SCH (02:04)
[2021-02-14 03:03] LABS: Appearance,Urine Clear (Clear); Bilirubin,Urine Negative (Negative); Blood,Urine Moderate (Negative); Color,Urine Light Yellow; Glucose,Urine (UA) 3+ (Negative); Ketones,Urine Negative (Negative); Leukocyte Esterase,Urine Negative (Negative); Mucus,Urine Rare /hpf; Nitrite,Urine Negative (Negative); Protein,Urine Trace (Negative); RBC,Urine 6 /hpf (0-5); Urobilinogen,Urine <2.0 mg/dL (<2.0); WBC,Urine 2 /hpf (0-5)
[2021-02-14 04:58] LABS: Glucose,Whole Blood 69 mg/dL (75-99)
[2021-02-14] MEDS: PIPERACILLIN-TAZOBACTAM 3.375 GM in SODIUM CHLORIDE 0.9% 100 ML IVPB SCH ×3 (05:02→21:40)
[2021-02-14 05:20] LABS: Glucose,Whole Blood 66 mg/dL (75-99)
--- NOTE | 2021-02-14 05:29 | CONS ---
CONSULTATION DATE OF SERVICE: 02/13/2021 REASON FOR CONSULTATION: COVID. HISTORY OF PRESENT ILLNESS: The patient is a 55-year-old male who has presented to the [facility] ER on February 10. The patient was brought to the hospital for mental status changes and elevated blood sugar. This patient apparently was diagnosed with COVID-19 on the for which the patient received monoclonal antibodies and was subsequently discharged home. However, the patient mentioned no improvement in his symptoms as the patient continues to have a problem with increasing shortness of breath. Did have a cough, moderate in intensity, not bringing up any sputum. Some nausea but no vomiting. No abdominal pain. Did have some diarrhea. With these symptoms, the patient was evaluated by the ER physician. On arrival to the ER, on the . The patient was afebrile. Subsequently on 02/11, he spiked a fever of 101 and a fever of 100.6 today. The patient is currently on room air though but now specifically the patient mentioned he is feeling better. Denies having any headache. No chest pain. Some shortness of breath. The cough has decreased in intensity, not bringing up any sputum. No nausea, no vomiting, no abdominal pain or diarrhea. REVIEW OF SYSTEMS: Positive points have been mentioned in HPI. Rest of systems are negative. PAST MEDICAL HISTORY: Diabetes mellitus, DVT, gastroesophageal reflux disease, hyperlipidemia, migraine headaches, hypothyroidism. PAST SURGICAL HISTORY: Colonoscopy. No other major surgeries. SOCIAL HISTORY: Denies smoking, drinking or drug use. FAMILY HISTORY: Father with history of melanoma. ALLERGIES: No known drug allergies. MEDICATIONS: Currently the patient is on Tylenol, vitamin C, aspirin, Lipitor, colchicine, Lovenox, Levemir, Zestril, Zosyn, zinc, Kenalog. PHYSICAL EXAMINATION: VITAL SIGNS: Blood pressure 104/67 with a pulse of 85, temperature 98.7, he is 93% on room air. GENERAL DESCRIPTION: Patient is a middle-aged male lying in bed in no distress. No tachypnea or accessory muscles of respiration use. HEENT: Examination shows no pallor or scleral icterus. Oral mucous membrane is dry. NECK: Trachea central, no thyromegaly. LUNGS: Unlabored breathing, decreased intensity of breath sounds, no wheeze or crackle. HEART: S1-S2, regular rate and rhythm. ABDOMEN: Soft, no tenderness. No guarding or rigidity. EXTREMITIES: No edema of the feet. SKIN: No rash or mass palpable. NEUROLOGICAL: Patient is awake, alert, oriented times two. Mood and affect normal. LABS: Hemoglobin 11.1, white count 3.9, admission white count was 26,000. D-dimer is not elevated. Creatinine 0.72. Urine was negative. The patient did have a CT angiogram of the chest completed yesterday with no evidence of PE but did show evidence of multifocal patchy ground-glass opacities, concern for COVID versus aspiration. DIAGNOSTIC IMPRESSION: Patient presented to the hospital with mental status changes, in this patient who has been diagnosed with COVID-19 on 02/06 and receive monoclonal antibodies, subsequently presented to the hospital on . This patient has been diagnosed with possible aspiration pneumonia as the patient did have elevated and is currently being treated with antibiotics in addition to the zinc, Lovenox, colchicine. With recurrent fever, source possibly pneumonia as no other obvious focus of infection. PLAN: 1. Blood cultures will be repeated. 2. We will obtain UA and culture. 3. Try to obtain sputum for Gram stain and culture. 4. Repeat inflammatory markers. 5. Continue with Zosyn 3.75 g q.8 hours. 6. We will follow on clinical condition and culture to further adjust medication if needed. Thank you for this consultation. Will follow this patient along with you. YAMILET / ARMANDON: [id number] /
[2021-02-14 05:36] LABS: Glucose,Whole Blood 79 mg/dL (75-99)
[2021-02-14] MEDS: LEVOTHYROXINE 137 MCG TAB PO SCH (06:01)
[2021-02-14 06:51] LABS: Glucose,Whole Blood 114 mg/dL (75-99)
[2021-02-14] MEDS: INSULIN ASPART (NovoLOG) 100 UNIT/ML VIAL SQ SCH ×4 (06:52→21:40)
[2021-02-14] MEDS: INSULIN DETEMIR (LEVEMIR) 100 UNIT/ML SYR SQ SCH ×2 (07:49→21:42)
[2021-02-14] MEDS: ZINC SULFATE 220 MG CAP PO SCH (07:50)
[2021-02-14] MEDS: GABAPENTIN 100 MG CAP PO SCH ×3 (07:50→21:42)
[2021-02-14] MEDS: ASCORBIC ACID 500 MG TAB PO SCH (07:50)
[2021-02-14] MEDS: TRIAMCINOLONE ACET 0.1% OINTMENT 15 GM TUBE TOPICAL SCH ×2 (07:50→21:42)
[2021-02-14] MEDS: FAMOTIDINE 20 MG/2 ML VIAL IV SCH ×2 (07:50→21:40)
[2021-02-14] MEDS: CYANOCOBALAMIN 500 MCG TAB PO SCH (07:50)
[2021-02-14] MEDS: ASPIRIN 81 MG PO SCH (07:50)
[2021-02-14] MEDS: COLCHICINE 0.6 MG EACH PO SCH (07:50)
[2021-02-14] MEDS: CHOLECALCIFEROL 25 MCG (1000 IU) TABLET PO SCH (07:50)
[2021-02-14] MEDS: ENOXAPARIN 40 MG/0.4 ML SYRINGE SQ SCH (07:51)
[2021-02-14 09:07] LABS: Basophils # (A) 0.01 X 10*3/uL (0.00-0.10); Basophils % (A) 0.2 %; Eosinophils # (A) 0 X 10*3/uL (0.04-0.35); Eosinophils % (A) 0 %; HCT 30.4 % (39.6-50.0); HGB 10.6 g/dL (13.0-17.0); Lymphocytes # (A) 0.62 X 10*3/uL (0.90-5.00); Lymphocytes % (A) 13.2 %; MCHC 34.9 g/dL (32.0-37.0); MCV 88.9 fL (80.0-97.0); Mean Platelet Volume 10.5 fL (9.5-12.2); Monocytes # (A) 0.58 X 10*3/uL (0.20-1.00); Monocytes % (A) 12.3 %; Neutrophils # (A) 3.46 X 10*3/uL (1.80-7.70); Neutrophils % (A) 73.5 %; Platelet Count 146 X 10*3/uL (140-440); RBC 3.42 X 10*6/uL (4.40-5.60); RDW 12.7 % (11.5-14.5); WBC 4.71 X 10*3/uL (4.50-10.00)
[2021-02-14 10:25] LABS: African American GFR (CKD) 114.9 (60.0-200.0); Non-African American GFR(CKD) 99.2 (60.0-200.0); Potassium 3.4 mmol/L (3.5-5.5)
[2021-02-14] MEDS: POTASSIUM CHLORIDE ER 20 MEQ TAB.ER PO SCH ×2 (11:23→12:08)
[2021-02-14 11:24] LABS: Glucose,Whole Blood 223 mg/dL (75-99)
--- NOTE | 2021-02-14 13:07 | XR ---
EXAMINATION TYPE: XR chest 1V DATE OF EXAM: 02/14/2021 COMPARISON: 02/12/2021 HISTORY: 55-year-old male with chest pain TECHNIQUE: Single frontal view of the chest is obtained. FINDINGS: Heart normal size. Aorta within normal limits. Patchy and interstitial opacities are similar to sligh tly increased in the lower lungs. No pleural effusion. IMPRESSION: Redemonstrated interstitial opacities with slight increase in patchy infiltrates at the lung bases.
[2021-02-14 13:22] LABS: Anion Gap 4.9 mmol/L (4.00-12.00); C Reactive Protein 3.4 mg/dL (0.0-0.8); Calcium 7.2 mg/dL (8.7-10.3); Carbon Dioxide 26.1 mmol/L (21.6-31.8)
[2021-02-14 17:11] LABS: Glucose,Whole Blood 132 mg/dL (75-99)
--- NOTE | 2021-02-14 19:22 | US ---
EXAMINATION TYPE: US venous doppler duplex LE BI DATE OF EXAM: 02/14/2021 7:08 PM COMPARISON: NONE CLINICAL HISTORY: dvt. Calf pain, Covid + SIDE PERFORMED: Bilateral TECHNIQUE: The lower extremity deep venous system is examined utilizing real time linear array sonog michael with graded compression, doppler sonography and color-flow sonography. VESSELS IMAGED: Common Femoral Vein Deep Femoral Vein Greater Saphenous Vein * Femoral Vein Popliteal Vein Small Saphenous Vein * Proximal Calf Veins (* superficial vessels) Right Leg: Negative for DVT Left Leg: Negative for DVT IMPRESSION: No evidence of deep vein thrombosis in both legs.
--- NOTE | 2021-02-14 19:58 | PN ---
PROGRESS NOTE DATE OF SERVICE: 02/14/2021 REASON FOR FOLLOWUP: Pneumonia. INTERVAL HISTORY: The patient has been spiking a fever this evening of 102 degrees Fahrenheit. The patient however overall mentioned he is feeling better. He is currently on room air. The patient denies having any chest pain or shortness of breath. Occasional cough. No abdominal pain. No diarrhea. PHYSICAL EXAMINATION: Blood pressure 108/66, pulse of 83, temperature 102.6. He is 92% on room air. General description is a middle-aged male lying in bed in no distress. Respiratory system: Unlabored breathing, decreased intensity of breath sounds. No wheeze. HEART: S1, S2. Regular rate and rhythm. Abdomen soft, no tenderness. LABS: Hemoglobin 10.7, white count 4.71. Troponin is mildly elevated. LDH is 279. Procalcitonin 0.30. DIAGNOSTIC IMPRESSION AND PLAN: Patient with acute COVID-19 pneumonia diagnosed on the . Has received monoclonal antibodies. Now subsequently admitted to the hospital with worsening symptoms and has been diagnosed with pneumonia. The patient has been treated with Zosyn, zinc, now with a new fever. Repeat cultures and adjust antibiotic further. Monitor clinical course closely. Prognosis remains guarded. MMODL / IJN: [id number] /
--- NOTE | 2021-02-14 20:25 | PN ---
PROGRESS NOTE DATE OF SERVICE: February 14, 2021 This 55-year-old gentleman admitted with COVID-19 pneumonia and as well as acute diabetic ketoacidosis continues to be confused at this time. Most recent chest x-ray which was reviewed personally by me showed bilateral extensive pneumonic process most likely secondary to Covid 19 at this time. The patient is currently on room air 92%. Patient is running some fever. The patient's procalcitonin is elevated. The patient also started on empiric antibiotics. So far the cultures are negative at this time. Infectious Disease also seen the patient. Patient is also complaining of left-sided chest pain. Troponin is found to be 0.076. PAST MEDICAL HISTORY: Reviewed. REVIEW OF SYSTEMS: CARDIOVASCULAR SYSTEM: No angina. Respiration: As mentioned earlier. GI as mentioned earlier. no dysuria. NERVOUS SYSTEM: No numbness or weakness. CURRENT MEDICATIONS: Reviewed and include: Tylenol, vitamin C, aspirin, vitamin D3, vitamin B12, Lovenox, Neurontin, Levothroid, Narcan, Zosyn IV. PHYSICAL EXAMINATION: Patient is alert, oriented x3. Pulse is 86, blood pressure 108/60. Respiration 18, temperature 102.6, pulse ox 98% on room air. HEENT: Conjunctivae normal. NECK: No JVD. CARDIOVASCULAR: S1, S2. LUNGS: Breath sounds diminished in the bases. A few scattered rhonchi and crackles. ABDOMEN: Soft, nontender. No mass palpable. Legs: No edema. No swelling. NERVOUS SYSTEM: Diffusely weak. LABS: The CTA which I reviewed, include mild aortic aneurysm, multifocal patchy ground-glass appearance. ASSESSMENT: 1. Acute severe diabetic ketoacidosis present on admission. 2. Acute COVID-19 bilateral pneumonia. 3. Change in mental status, acute metabolic acidosis secondary to acute diabetic ketoacidosis. 4. Increased WBC possibly severe sepsis and hypotension present on admission. 5. Troponin indeterminate at 0.076. 6. Acute bibasilar pneumonia possibly aspiration or Covid 19 pneumonia. 7. Hyponatremia. 8. Hyperkalemia. 9. Continued fever. 10.Increased creatinine with possible acute renal failure, acute tubular necrosis with prerenal factors, present on admission. 11.Elevated plasma lactic acid secondary to sepsis. 12.Diabetes type 2. 13.History of deep vein thrombosis. 14.Gastroesophageal reflux disease. 15.Hyperlipidemia. 16.History of peripheral neuropathy. 17.History of migraine. 18.History of carpal tunnel syndrome. 19.History of hypothyroidism. 20.History of right-sided hydrocele. 21.History of colonoscopy. 22.FULL CODE. RECOMMENDATIONS AND DISCUSSION: Recommend to continue current medications, management and symptomatic treatment. Continue with antibiotics and continue bronchodilators. Continue with the Lovenox. I would also recommend ultrasound of the legs. Otherwise closely monitor Would also recommend an EKG as well as cardiology consultation. A 2D echo has also been ordered. Further recommendations to follow. MMODL / IJN: [id number] /
[2021-02-14 21:00] LABS: Glucose,Whole Blood 301 mg/dL (75-99)
[2021-02-14] MEDS: ATORVASTATIN 20 MG TAB PO SCH (21:42)
[2021-02-15 04:16] LABS: Glucose,Whole Blood 188 mg/dL (75-99)
[2021-02-15] MEDS: PIPERACILLIN-TAZOBACTAM 3.375 GM in SODIUM CHLORIDE 0.9% 100 ML IVPB SCH ×3 (04:55→19:34)
[2021-02-15] MEDS: D5-0.45% NACL WITH KCL 20MEQ/L 1,000 ML IV SCH (06:23)
[2021-02-15] MEDS: LEVOTHYROXINE 137 MCG TAB PO SCH (06:24)
[2021-02-15 07:17] LABS: Glucose,Whole Blood 161 mg/dL (75-99)
[2021-02-15 07:38] LABS: African American GFR (CKD) >90 (>60 ml/min/1.73 sqM); Anion Gap 6 mmol/L; Blood Urea Nitrogen 6 mg/dL (9-20); Calcium 7.5 mg/dL (8.4-10.2); Carbon Dioxide 24 mmol/L (22-30); Chloride 98 mmol/L (98-107); Glucose 158 mg/dL (74-99); Non-African American GFR(CKD) >90 (>60 ml/min/1.73 sqM); Potassium 3.8 mmol/L (3.5-5.1); Sodium 128 mmol/L (137-145)
[2021-02-15] MEDS: INSULIN DETEMIR (LEVEMIR) 100 UNIT/ML SYR SQ SCH ×2 (08:18→20:45)
[2021-02-15] MEDS: ZINC SULFATE 220 MG CAP PO SCH (08:18)
[2021-02-15] MEDS: CYANOCOBALAMIN 500 MCG TAB PO SCH (08:18)
[2021-02-15] MEDS: ENOXAPARIN 40 MG/0.4 ML SYRINGE SQ SCH (08:18)
[2021-02-15] MEDS: GABAPENTIN 100 MG CAP PO SCH ×3 (08:18→20:45)
[2021-02-15] MEDS: ASPIRIN 81 MG PO SCH (08:18)
[2021-02-15] MEDS: FAMOTIDINE 20 MG/2 ML VIAL IV SCH (08:18)
[2021-02-15] MEDS: COLCHICINE 0.6 MG EACH PO SCH (08:18)
[2021-02-15] MEDS: CHOLECALCIFEROL 25 MCG (1000 IU) TABLET PO SCH (08:18)
[2021-02-15] MEDS: ASCORBIC ACID 500 MG TAB PO SCH (08:18)
[2021-02-15] MEDS: TRIAMCINOLONE ACET 0.1% OINTMENT 15 GM TUBE TOPICAL SCH ×2 (08:19→20:45)
[2021-02-15] MEDS: INSULIN ASPART (NovoLOG) 100 UNIT/ML VIAL SQ SCH ×4 (08:19→19:35)
[2021-02-15 11:34] LABS: Glucose,Whole Blood 78 mg/dL (75-99)
--- NOTE | 2021-02-15 14:15 | P.CRDCN ---
History of Present Illness Consult date: 02/15/21 History of present illness: CHIEF COMPLAINT: Chest pain HISTORY OF PRESENT ILLNESS: This is a 55-year-old male with a past medical history significant for diabetes mellitus, DVT, hypertension, and hyperlipidemia. Patient follows in the office with Dr. Soliman. We have been asked to see the patient in consultation for chest pain. The patient is currently admitted to the hospital secondary to Covid 19. Patient reports hav ing midsternal/epigastric discomfort since yesterday. He states the pain does not radiate to his arm, or back. He denies nausea or vomiting. He denies dizziness or lightheadedness. He states the pain is worse with deep inspiration and palpation of his chest wall. DIAGNOSTICS: EKG reveals sinus mechanism with no signs of acute ischemia Chest xray reviewed demonstrated interstitial opacities with slight increase in patchy infiltrates at the lung bases Chest CTA: Negative for pulmonary embolism Laboratory data: WBC 4.71. Hemoglobin 10.6. Platelet count 146. Sodium 128. Potassium 3.8. BUN 6. Creatinine 0.65. Magnesium 1.6. Troponin 0.012. 0.086. 0.076. 0.059. Current home cardiac medications include lisinopril 2.5 mg daily and Lipitor 20 mg daily Patient underwent Lexiscan stress test in November 2020 at the cardiology office which showed a probable abnormal study with [id number] reversible defect involving the inferior apical segment. Gait images showed normal wall motion and thickening. Negative stress test. REVIEW OF SYSTEMS: Thorough review of systems not completed secondary to limited evaluation/examination and due to Covid19 PHYSICAL EXAM: Thorough physical exam not completed secondary to limited evaluation/examination and due to Covid19 ASSESSMENT: Covid 19 Diabetic ketoacidosis Chest pain, atypical, likely secondary to Covid 19 pneumonia Mildly abnormal troponins, not suggestive of ACS Diabetic ketoacidosis Hypertension Hyperlipidemia Hyponatremia PLAN: Obtain 2D echo to assess cardiac structure and function Continue current cardiac medications including aspirin, lipitor, and lisinopril Begin small dose of metoprolol Continue telemetry monitoring Further recommendations pending patient's course Nurse practitioner note has been reviewed by physician. Signing provider agrees with the documented findings, assessment, and plan of care. Past Medical History Past Medical History: Diabetes Mellitus, Deep Vein Thrombosis (DVT), GERD/Reflux, Hyperlipidemia, Hypertension Additional Past Medical History / Comment(s): IDDM type II, neuropathy bilateral hands/feet, bilateral leg DVTs, carpal tunnel syndrome bilaterally, migraines, chronic back pain, hypothyroid, low iron, hydrocele R side. History of Any Multi-Drug Resistant Organisms: None Reported Past Surgical History: No Surgical Hx Reported Additional Past Surgical History / Comment(s): Colonoscopy Past Anesthesia/Blood Transfusion Reactions: No Reported Reaction Past Psychological History: No Psychological Hx Reported Additional Psychological History / Comment(s): . Smoking Status: Never smoker Past Alcohol Use History: None Reported Additional Past Alcohol Use History / Comment(s): . Past Drug Use History: None Reported - Past Family History Father Family Medical History: Cancer Additional Family Medical History / Comment(s): Father had melanoma. Mother Family Medical History: No Reported History Additional Family Medical History / Comment(s): Mother is healthy. Medications and Allergies Home Medications Medication Instructions Recorded Confirmed Type Cyanocobalamin [Vitamin B-12] 1,000 mcg PO DAILY 09/28/18 02/10/21 History Gabapentin [Neurontin] 100 mg PO TID 09/28/18 02/10/21 History lisinopriL [Zestril] 2.5 mg PO DAILY 09/17/19 02/10/21 History Atorvastatin Calcium [Lipitor] 20 mg PO HS 01/30/20 02/10/21 History Ferrous Sulfate [Iron (65 MG 325 mg PO DAILY 01/30/20 02/10/21 History Elemental)] Famotidine [Pepcid] 20 mg PO BID 04/13/20 02/10/21 History Levothyroxine Sodium [Synthroid] 137 mcg PO DAILY 04/13/20 02/10/21 History Triamcinolone 0.1% Ointment 1 applic TOPICAL BID 07/31/20 02/10/21 History [Kenalog 0.1% Ointment] INSULIN LISPRO (humaLOG) [humaLOG] 10 - 20 units SQ AC-TID 02/06/21 02/10/21 History Insulin Glargine,Hum.rec.anlog 36 unit SQ HS 02/06/21 02/10/21 History [Lantus Solostar] Allergies Allergy/AdvReac Type Severity Reaction Status Date / Time No Known Allergies Allergy Verified 02/10/21 12:25 Physical Exam Vitals: Vital Signs Temp Pulse Resp BP Pulse Ox 02/15/21 08:30 98.9 F 83 18 105/69 92 L 02/15/21 06:15 98.7 F 82 17 118/71 90 L 02/15/21 03:15 98.3 F 83 16 122/79 92 L 02/14/21 23:03 99.2 F 82 20 120/77 90 L 02/14/21 19:45 16 02/14/21 18:13 101.1 F H 02/14/21 17:35 102.6 F H 86 18 108/66 92 L 02/14/21 14:00 100.1 F H 90 21 100/79 94 L Intake and Output 02/14/21 02/15/21 02/15/21 22:59 06:59 14:59 Intake Total 400 Output Total 1200 600 Balance -1200 -600 400 Intake: IV 400 D5-0.45% NaCl with KCl 400 20Meq/l 1,000 ml @ 50 mls /hr IV .Q20H [facility] Rx#: [id number] Output: Urine 1200 600 Other: Voiding Method Urinal # Voids 2 Weight 73.1 kg Results 02/14/21 06:23 02/15/21 06:52 Comprehensive Metabolic Panel 02/14/21 02/15/21 Range/Units 06:23 06:52 Sodium 128 L (137-145) mmol/L Potassium 3.8 (3.5-5.1) mmol/L Chloride 98 (98-107) mmol/L Carbon Dioxide 26.1 24 (21.6-31.8) mmol/L BUN 6 L (9-20) mg/dL Creatinine 0.65 L (0.66-1.25) mg/dL Glucose 158 H (74-99) mg/dL Calcium 7.2 L 7.5 L (8.7-10.3) mg/dL Current Medications Generic Name Dose Route Start Last Admin Trade Name Freq PRN Reason Stop Dose Admin Acetaminophen 650 mg 02/10/21 12:56 02/11/21 20:32 Acetaminophen Suppository 650 Mg Supp RECTAL 650 mg Q4HR PRN Administration Fever And/ Or Mild Pain Acetaminophen 650 mg 02/10/21 12:56 02/14/21 16:33 Acetaminophen Tab 325 Mg Tab PO 650 mg Q4HR PRN Administration Fever and/or Mild Pain Ascorbic Acid 500 mg 02/10/21 17:45 02/15/21 08:18 Ascorbic Acid 500 Mg Tab PO 500 mg DAILY [facility] Administration Aspirin 81 mg 02/10/21 16:15 02/15/21 08:18 Aspirin 81 Mg PO 81 mg DAILY [facility] Administration Atorvastatin Calcium 20 mg 02/10/21 21:00 02/14/21 21:42 Atorvastatin 20 Mg Tab PO 20 mg HS [facility] Administration Cholecalciferol 25 mcg 02/11/21 09:00 02/15/21 08:18 Cholecalciferol 25 Mcg (1000 Iu) Tablet PO 25 mcg DAILY [facility]GEN[facility] Administration Colchicine 0.6 mg 02/10/21 17:45 02/15/21 08:18 Colchicine 0.6 Mg Each PO 0.6 mg DAILY [facility] Administration Cyanocobalamin 1,000 mcg 02/11/21 09:00 02/15/21 08:18 Cyanocobalamin 500 Mcg Tab PO 1,000 mcg DAILY [facility] Administration Enoxaparin Sodium 40 mg 02/10/21 16:15 02/15/21 08:18 Enoxaparin 40 Mg/0.4 Ml Syringe SQ 40 mg DAILY [facility] Administration Famotidine 20 mg 02/13/21 21:00 02/15/21 08:18 Famotidine 20 Mg/2 Ml Vial IV 20 mg Q12HR [facility] Administration Gabapentin 100 mg 02/10/21 22:00 02/15/21 08:18 Gabapentin 100 Mg Cap PO 100 mg TID [facility] Administration Piperacillin Sod/Tazobactam 100 mls @ 25 mls/hr 02/10/21 20:00 02/15/21 12:07 Sod 3.375 gm/ Sodium Chloride IVPB 25 mls/hr Q8H [facility] Administration Potassium Chloride/Dextrose/Sod Cl 1,000 mls @ 50 mls/hr 02/10/21 23:00 02/15/21 06:23 D5%-1/2ns-Kcl 20 Meq/L Iv Solution IV Not Given .Q20H [facility] Insulin Aspart 0 unit 02/13/21 17:30 02/15/21 11:37 Insulin Aspart (Novolog) 100 Unit/Ml Vial SQ Not Given ACHS [facility] Protocol Insulin Detemir 25 unit 02/11/21 21:00 02/15/21 08:18 Insulin Detemir (Levemir) 100 Unit/Ml Syr SQ 25 unit BID [facility] Administration Levothyroxine Sodium 137 mcg 02/11/21 06:30 02/15/21 06:24 Levothyroxine 137 Mcg Tab PO 137 mcg 0630 [facility] Administration Lisinopril 2.5 mg 02/11/21 09:00 02/15/21 08:18 Lisinopril 2.5 Mg Tab PO 2.5 mg DAILY [facility] Administration Miscellaneous Information 1 each 02/11/21 07:47 Phosphorus Replacement Protoco 1 Each Misc MISCELLANE DAILY PRN Per Protocol Protocol Miscellaneous Information 1 each 02/11/21 14:56 Magnesium Replacement Protocol 1 Each Misc MISCELLANE DAILY PRN Per Protocol Protocol Miscellaneous Information 1 each 02/11/21 23:11 Potassium Replacement Protocol 1 Each Misc MISCELLANE DAILY PRN Per Protocol Protocol Naloxone HCl 0.2 mg 02/10/21 12:56 Naloxone 0.4 Mg/Ml 1 Ml Vial IV Q2M PRN Opioid Reversal Ondansetron HCl 4 mg 02/11/21 09:40 02/12/21 01:53 Ondansetron 4 Mg/2 Ml Vial IVP 4 mg Q6HR PRN Administration Nausea And Vomiting Triamcinolone Acetonide 1 applic 02/10/21 21:00 02/15/21 08:19 Triamcinolone Acet 0.1% Ointment 15 Gm Tube TOPICAL 1 applic BID [facility] Administration Zinc Sulfate 220 mg 02/10/21 18:45 02/15/21 08:18 Zinc Sulfate 220 Mg Cap PO 220 mg DAILY EU[facility] Administration Intake and Output 02/14/21 02/15/21 02/15/21 22:59 06:59 14:59 Intake Total 400 Output Total 1200 600 Balance -1200 -600 400 Intake: IV 400 D5-0.45% NaCl with KCl 400 20Meq/l 1,000 ml @ 50 mls /hr IV .Q20H [facility] Rx#: [id number] Output: Urine 1200 600 Other: Voiding Method Urinal # Voids 2 Weight 73.1 kg 02/14/21 06:23 02/15/21 06:52
[2021-02-15 16:49] LABS: Glucose,Whole Blood 222 mg/dL (75-99)
--- NOTE | 2021-02-15 17:51 | PN ---
PROGRESS NOTE DATE OF SERVICE: 02/15/2021 This 55-year-old gentleman admitted with COVID-19 pneumonia as well as acute diabetic ketoacidosis is being closely monitored. Patient also had change in mental status secondary to metabolic encephalopathy, possibly related to COVID-19 as well. D-dimer was elevated. There was no evidence of pulmonary embolism. A venous Doppler was done yesterday which showed no evidence of DVT either. The patient is being closely monitored at this time. Multiple consultants are following the patient closely, including Cardiology. The patient is on broad-spectrum IV antibiotics as well. The patient was running some fever in between, but multiple cultures are negative so far. Past medical history reviewed. REVIEW OF SYSTEMS: CARDIOVASCULAR SYSTEM: No angina, palpitations. RESPIRATORY SYSTEM: As mentioned earlier. GI: As mentioned earlier. : No dysuria or retention. NERVOUS SYSTEM: No numbness, weakness. CURRENT MEDICATIONS: Reviewed. They include Tylenol, vitamin C, aspirin, Lipitor, vitamin D3, Colcrys, Lovenox, Pepcid, Synthroid. Doses are reviewed. PHYSICAL EXAMINATION: Patient is alert and oriented x3. Pulse 102, blood pressure 112/67, respiration 18, temperature 99.4, pulse ox 94% on room air. HEENT: Conjunctivae normal. NECK: No jugular venous distention. CARDIOVASCULAR SYSTEM: S1, S2 muffled. RESPIRATORY SYSTEM: Breath sounds diminished at the bases. A few scattered rhonchi. ABDOMEN: Soft, non-tender. LEGS: No edema. No swelling. NERVOUS SYSTEM: No focal deficit. LABS: Sodium is 128. WBC 4.6, hemoglobin 10.6. ASSESSMENT: 1. Acute severe diabetic ketoacidosis, present on admission. 2. Acute COVID-19 bilateral pneumonia. 3. Change in mental status, acute metabolic encephalopathy secondary to acute diabetic ketoacidosis. 4. Hyponatremia, multifactorial. 5. Increased white count, possibly severe sepsis and hypotension, present on admission. 6. Troponin, indeterminate at 0.076. 7. Acute bibasilar pneumonia, possibly aspiration or COVID-19 pneumonia. 8. Hyponatremia. 9. Hyperkalemia. 10.Continued fever. 11.Increased creatinine with possible acute renal failure, acute tubular necrosis with prerenal factors, present on admission. 12.Elevated plasma lactic acid secondary to sepsis. 13.Diabetes mellitus, type 2. 14.History of deep venous thrombosis. 15.Gastroesophageal reflux disease. 16.Hyperlipidemia. 17.History of peripheral neuropathy. 18.History of migraine. 19.History of carpal tunnel syndrome. 20.History of hypothyroidism. 21.History of right-sided hydrocele. 22.History of colonoscopy. 23.FULL CODE. RECOMMENDATIONS AND DISCUSSION: I recommend to continue current medications, continue with the monitoring, symptomatic treatment. Repeat labs. Otherwise, continue with the antibiotics. Continue the rest of the medications, including Lovenox. The patient was started on 5% dextrose, which I will stop because of the hyponatremia. Will obtain repeat labs. See orders for further details. Further recommendations to follow. MMODL / IJN: [id number] /
--- NOTE | 2021-02-15 18:00 | ECHOF ---
Referral Reason:chest pain MEASUREMENTS -------- HEIGHT: 175.3 cm WEIGHT: 72.1 kg BP: 118/71 IVSd: 1.4 cm (0.6 - 1.1) LVIDd: 4.0 cm (3.9 - 5.3) LVPWd: 1.2 cm (0.6 - 1.1) EDV(Teich): 69 ml IVSs: 1.4 cm LVIDs: 2.9 cm LVPWs: 1.9 cm %IVS Thck: -3 % ESV(Teich): 32 ml EF(Teich): 53 % %FS: 27 % SV(Teich): 36 ml RVIDd: 2.7 cm (< 3.3) LALs A4C: 5.8 cm LAAs A4C: 16.5 cm LAESV A-L A4C: 40 ml LAESV MOD A4C: 36 ml LALs A2C: 5.1 cm LAAs A2C: 17.5 cm LAESV A-L A2C: 51 ml LAESV MOD A2C: 49 ml LAESV(A-L): 48 ml LAESV Index (A-L): 25.77 ml/m Ao Diam: 3.6 cm (2.0 - 3.7) AV Cusp: 2.0 cm (1.5 - 2.6) EPSS: 1.1 cm MV E Kapil: 0.72 m/s MV DecT: 189 ms MV Dec Bennett: 3.8 m/s MV A Kapil: 0.56 m/s MV E/A Ratio: 1.29 MV PHT: 55 ms LVOT Vmax: 1.15 m/s LVOT maxP.32 mmHg AV Vmax: 1.61 m/s AV maxP.41 mmHg TR Vmax: 2.49 m/s TR maxP.72 mmHg RAP: 5.00 mmHg RVSP: 29.72 mmHg MV EF SLOPE: 229.64 mm/s (70 - 150) MV EXCURSION: 28.81 mm (> 18.000) FINDINGS -------- Sinus rhythm. This was a technically adequate study. The left ventricular size is normal. There is moderate concentric left ventricular hypertrophy. O verall left ventricular systolic function is low-normal with, an EF between 50 - 55 %. Left ventric ular systolic function is hyperdynamic with an estimated EF of >70%. The diastolic filling pattern is normal for the age of the patient 9.09. The right ventricle is normal in size. Normal LA size by volume 22+/-6 ml/m2. The right atrial size is normal. Interatrial and interventricular septum intact. There is no evidence of aortic regurgitation. There is no evidence of aortic stenosis. Moderate mitral regurgitation is present. Mild tricuspid regurgitation present. There is no evidence of pulmonary hypertension. The right v entricular systolic pressure, as measured by Doppler, is 29.72mmHg. The pulmonic valve was not well visualized. There is no pulmonic regurgitation present. The aortic root size is normal. IVC Not well visulized. There is no pericardial effusion. CONCLUSIONS -------- 1. The left ventricular size is normal. 2. There is moderate concentric left ventricular hypertrophy. 3. Overall left ventricular systolic function is low-normal with, an EF between 50 - 55 %. 4. Left ventricular systolic function is hyperdynamic with an estimated EF of >70%. 5. The diastolic filling pattern is normal for the age of the patient 9.09 6. Moderate mitral regurgitation is present. 7. Mild tricuspid regurgitation present. HORTICULTURAL NURSERY ASSISTANT: Darcy Zepeda RDCS
[2021-02-15 19:31] LABS: Glucose,Whole Blood 365 mg/dL (75-99)
[2021-02-15] MEDS: FAMOTIDINE 20 MG TAB PO SCH (20:45)
[2021-02-15] MEDS: METOPROLOL TARTRATE 12.5 MG TAB PO SCH (20:45)
[2021-02-15] MEDS: ATORVASTATIN 20 MG TAB PO SCH (20:45)
--- NOTE | 2021-02-16 00:42 | PN ---
PROGRESS NOTE DATE OF SERVICE: 02/15/2021. REASON FOR FOLLOWUP: Pneumonia. INTERVAL HISTORY: The patient has been running a low grade fever with fever 101 last evening, T-max today 100.2. The patient is currently on room air. The patient did have a complaining of a cough, not bringing up any sputum. No chest pain. No abdominal pain. No diarrhea. PHYSICAL EXAMINATION: Blood pressure 125/75, pulse of 96, temperature 100.2. He is 98% on room air. General description is a middle-aged male up in the chair in no distress. Respiratory system: Unlabored breathing, coarse breath sounds bilaterally. No wheeze. Heart S1, S2. Regular rate and rhythm. Abdomen soft, no tenderness. LABS: BUN of 6, creatinine 0.65. Blood and urine has been negative. Sputum has been collected. DIAGNOSTIC IMPRESSION AND PLAN: Patient with fever in this patient who has been diagnosed with COVID-19 infection and has been treated with supportive treatment along with antibiotics concerning for a secondary bacterial pneumonia. We will recheck his inflammatory markers. Try to obtain a sputum. Repeat a chest x-ray and monitor clinical course closely. MMODL / IJN: [id number] /
[2021-02-16 01:58] LABS: Glucose,Whole Blood 106 mg/dL (75-99)
[2021-02-16] MEDS: PIPERACILLIN-TAZOBACTAM 3.375 GM in SODIUM CHLORIDE 0.9% 100 ML IVPB SCH ×3 (04:54→20:48)
[2021-02-16] MEDS: LEVOTHYROXINE 137 MCG TAB PO SCH (05:47)
[2021-02-16 06:57] LABS: African American GFR (CKD) 114.9 (60.0-200.0); Albumin/Globulin Ratio 1.58 (1.60-3.17); Anion Gap 8.7 mmol/L (4.00-12.00); Calcium 7.5 mg/dL (8.7-10.3); Carbon Dioxide 24.3 mmol/L (21.6-31.8); Globulin 1.9 g/dL (1.6-3.3); Non-African American GFR(CKD) 99.2 (60.0-200.0); Total Bilirubin 0.5 mg/dL (0.2-1.2); Total Protein 4.9 g/dL (6.2-8.2)
[2021-02-16 07:10] LABS: Glucose,Whole Blood 89 mg/dL (75-99)
[2021-02-16] MEDS: INSULIN ASPART (NovoLOG) 100 UNIT/ML VIAL SQ SCH ×4 (08:07→20:53)
[2021-02-16] MEDS: FAMOTIDINE 20 MG TAB PO SCH ×2 (08:20→20:48)
[2021-02-16] MEDS: CYANOCOBALAMIN 500 MCG TAB PO SCH (08:20)
[2021-02-16] MEDS: METOPROLOL TARTRATE 12.5 MG TAB PO SCH ×2 (08:20→20:48)
[2021-02-16] MEDS: CHOLECALCIFEROL 25 MCG (1000 IU) TABLET PO SCH (08:20)
[2021-02-16] MEDS: INSULIN DETEMIR (LEVEMIR) 100 UNIT/ML SYR SQ SCH ×2 (08:20→20:49)
[2021-02-16] MEDS: ZINC SULFATE 220 MG CAP PO SCH (08:20)
[2021-02-16] MEDS: ENOXAPARIN 40 MG/0.4 ML SYRINGE SQ SCH (08:20)
[2021-02-16] MEDS: ASCORBIC ACID 500 MG TAB PO SCH (08:20)
[2021-02-16] MEDS: COLCHICINE 0.6 MG EACH PO SCH (08:21)
[2021-02-16] MEDS: TRIAMCINOLONE ACET 0.1% OINTMENT 15 GM TUBE TOPICAL SCH ×2 (08:21→20:49)
[2021-02-16] MEDS: ASPIRIN 81 MG PO SCH (08:21)
[2021-02-16] MEDS: GABAPENTIN 100 MG CAP PO SCH ×3 (08:21→20:48)
--- NOTE | 2021-02-16 08:26 | XR ---
EXAMINATION TYPE: XR chest 1V portable DATE OF EXAM: 02/16/2021 COMPARISON: Cough HISTORY: 02/14/2021 TECHNIQUE: Single frontal view of the chest is obtained. FINDINGS: Of patchy bilateral areas of infiltrate similar to the prior exam. No pneumothorax heart s ize normal. No sizable pleural effusion. Findings are essentially stable. Nodularity in the lungs not excluded. IMPRESSION: Patchy bilateral infiltrates bilaterally are stable. Correlate for pneumonia.
[2021-02-16] MEDS ORDERED: BENZONATATE 100 MG CAP PO PRN (08:39)
[2021-02-16 11:21] LABS: Basophils # (A) 0.01 X 10*3/uL (0.00-0.10); Basophils % (A) 0.2 %; Eosinophils # (A) 0.05 X 10*3/uL (0.04-0.35); Eosinophils % (A) 0.8 %; HCT 34.5 % (39.6-50.0); HGB 11.6 g/dL (13.0-17.0); Lymphocytes # (A) 1.01 X 10*3/uL (0.90-5.00); Lymphocytes % (A) 16.3 %; MCH 30.7 pg (27.0-32.0); MCHC 33.6 g/dL (32.0-37.0); MCV 91.3 fL (80.0-97.0); Mean Platelet Volume 9.6 fL (9.5-12.2); Monocytes # (A) 0.85 X 10*3/uL (0.20-1.00); Monocytes % (A) 13.8 %; Neutrophils # (A) 4.22 X 10*3/uL (1.80-7.70); Neutrophils % (A) 68.3 %; Platelet Count 228 X 10*3/uL (140-440); RBC 3.78 X 10*6/uL (4.40-5.60); RDW 12.7 % (11.5-14.5); WBC 6.18 X 10*3/uL (4.50-10.00)
[2021-02-16 11:26] LABS: Glucose,Whole Blood 109 mg/dL (75-99)
[2021-02-16 13:38] LABS: C Reactive Protein 4.5 mg/dL (0.0-0.8)
--- NOTE | 2021-02-16 14:49 | P.PN ---
Subjective Progress Note Date: 02/16/21 CHIEF COMPLAINT: Chest pain HISTORY OF PRESENT ILLNESS: 02/15/2021 This is a 55-year-old male with a past medical history significant for diabetes mellitus, DVT, hypertension, and hyperlipidemia. Patient follows in the office with Dr. Soliman. We have been asked to see the patient in consultation for chest pain. The patient is currently admitted to the hospital secondary to Covid 19. Patient reports having midsternal/epigastric discomfort since yesterday. He states the pain does not radiate to his arm, or back. He denies nausea or vomiting. He denies dizziness or lightheadedness. He states the pain is worse with deep inspiration and palpation of his chest wall. EKG reveals sinus mechanism with no signs of acute ischemia Chest xray reviewed demonstrated interstitial opacities with slight increase in patchy infiltrates at the lung bases Chest CTA: Negative for pulmonary embolism Laboratory data: WBC 4.71. Hemoglobin 10.6. Platelet count 146. Sodium 128. Potassium 3.8. BUN 6. Creatinine 0.65. Magnesium 1.6. Troponin 0.012. 0.086. 0.076. 0.059. Current home cardiac medications include lisinopril 2.5 mg daily and Lipitor 20 mg daily Patient underwent Lexiscan stress test in November 2020 at the cardiology office which showed a probable abnormal study with [id number] reversible defect involving the inferior apical segment. Gait images showed normal wall motion and thickening. Negative stress test. 02/16/2021 Echocardiogram completed revealing ejection fraction 50-55% with no LV wall abnormalities. Moderate mitral regurgitation. Moderate tricuspid regurgitation. Patient is on room air with oxygen saturations greater than 92%. Blood pressure 116/73. Heart rate is in 80s. He is afebrile. Chest x-ray reveals patchy bilateral infiltrates. PHYSICAL EXAM: Thorough physical exam not completed secondary to limited evaluation/examination and due to Covid19 ASSESSMENT: Covid 19 Diabetic ketoacidosis Chest pain, atypical, likely secondary to Covid 19 pneumonia Mildly abnormal troponins, not suggestive of ACS Diabetic ketoacidosis Hypertension Hyperlipidemia Hyponatremia PLAN: Continue current cardiac medications No further inpatient workup from a cardiac standpoint. Patient may follow up outpatient with Dr. Soliman We will sign off. Please reconsult if needed. Nurse practitioner note has been reviewed by physician. Signing provider agrees with the documented findings, assessment, and plan of care. Objective - Vital Signs Vital signs: Vital Signs Temp 98.2 F 02/16/21 10:00 Pulse 80 02/16/21 10:00 Resp 19 02/16/21 10:00 BP 116/73 02/16/21 10:00 Pulse Ox 93 L 02/16/21 10:00 Intake & Output 02/15/21 02/16/21 02/16/21 18:59 06:59 18:59 Intake Total 400 Balance 400 Weight 73.3 kg Intake: IV 400 D5-0.45% NaCl with KCl 400 20Meq/l 1,000 ml @ 50 mls /hr IV .Q20H [facility] Rx#: [id number] Other: Voiding Method Urinal # Voids 3 - Labs CBC & Chem 7: 02/16/21 06:53 02/15/21 17:12 Labs: Abnormal Lab Results - Last 24 Hours (Table) 02/15/21 02/15/21 02/15/21 Range/Units 16:47 17:12 19:29 RBC (4.40-5.60) X 10*6/uL Hgb (13.0-17.0) g/dL Hct (39.6-50.0) % D-Dimer (<0.60) mg/L FEU Sodium 133 L (135-145) mmol/L BUN 8.0 L (9.0-27.0) mg/dL BUN/Creatinine Ratio 10.00 L (12.00-20.00) Ratio Glucose 217 H (70-110) mg/dL POC Glucose (mg/dL) 222 H 365 H (75-99) mg/dL Calcium 7.5 L (8.7-10.3) mg/dL Lactate Dehydrogenase (120-246) U/L C-Reactive Protein (0.0-0.8) mg/dL Total Protein 4.9 L (6.2-8.2) g/dL Albumin 3.00 L (3.80-4.90) g/dL Albumin/Globulin Ratio 1.58 L (1.60-3.17) g/dL Procalcitonin (0.02-0.09) ng/mL 02/16/21 02/16/21 02/16/21 Range/Units 01:56 06:53 06:53 RBC 3.78 L (4.40-5.60) X 10*6/uL Hgb 11.6 L (13.0-17.0) g/dL Hct 34.5 L (39.6-50.0) % D-Dimer (<0.60) mg/L FEU Sodium (135-145) mmol/L BUN (9.0-27.0) mg/dL BUN/Creatinine Ratio (12.00-20.00) Ratio Glucose (70-110) mg/dL POC Glucose (mg/dL) 106 H (75-99) mg/dL Calcium (8.7-10.3) mg/dL Lactate Dehydrogenase (120-246) U/L C-Reactive Protein (0.0-0.8) mg/dL Total Protein (6.2-8.2) g/dL Albumin (3.80-4.90) g/dL Albumin/Globulin Ratio (1.60-3.17) g/dL Procalcitonin 0.18 H (0.02-0.09) ng/mL 02/16/21 02/16/21 02/16/21 Range/Units 06:53 06:53 11:24 RBC (4.40-5.60) X 10*6/uL Hgb (13.0-17.0) g/dL Hct (39.6-50.0) % D-Dimer 2.72 H (<0.60) mg/L FEU Sodium (135-145) mmol/L BUN (9.0-27.0) mg/dL BUN/Creatinine Ratio (12.00-20.00) Ratio Glucose (70-110) mg/dL POC Glucose (mg/dL) 109 H (75-99) mg/dL Calcium (8.7-10.3) mg/dL Lactate Dehydrogenase 314 H (120-246) U/L C-Reactive Protein 4.5 H (0.0-0.8) mg/dL Total Protein (6.2-8.2) g/dL Albumin (3.80-4.90) g/dL Albumin/Globulin Ratio (1.60-3.17) g/dL Procalcitonin (0.02-0.09) ng/mL Microbiology - Last 24 Hours (Table) 02/10/21 18:49 Blood Culture - Preliminary Blood No Growth after 120 hours 04/03/21 16:25 Blood Culture - Preliminary Blood No Growth after 48 hours
[2021-02-16 16:47] LABS: Glucose,Whole Blood 210 mg/dL (75-99)
[2021-02-16] MEDS: dexAMETHasone 2 MG TAB PO SCH (17:26)
--- NOTE | 2021-02-16 17:34 | PN ---
PROGRESS NOTE DATE OF SERVICE: 02/16/2021 This 55-year-old gentleman who was admitted with acute diabetic ketoacidosis also had acute COVID-19 bilateral pneumonia. The patient continues to be confused. The patient also has complaints of generalized weakness. Multiple consultants are following the patient closely. The hemoglobin is 11.6. D-dimer is persistently elevated. Inflammatory markers of COVID-19 are also elevated. Blood sugar has been elevated but currently is 109. Past medical history reviewed. REVIEW OF SYSTEMS: CARDIOVASCULAR SYSTEM: No angina, palpitations. RESPIRATORY SYSTEM: As mentioned earlier. GI: As mentioned earlier. : No dysuria or retention. NERVOUS SYSTEM: No numbness, weakness. CURRENT MEDICATIONS: Reviewed. They include Tylenol, vitamin C, aspirin, Lipitor, Tessalon Perles, vitamin D3, Colcrys, vitamin B12, Lovenox, Pepcid, Neurontin. PHYSICAL EXAMINATION: Patient alert and oriented x3. Pulse is 81, blood pressure 101/64, respiration 20, temperature 99 degrees, pulse ox 90% on 2 L. HEENT: Conjunctivae normal. NECK: No jugular venous distention. CARDIOVASCULAR SYSTEM: S1, S2 muffled. RESPIRATORY SYSTEM: Breath sounds diminished at the bases. A few scattered rhonchi. ABDOMEN: Soft, non-tender. LEGS: No edema. No swelling. NERVOUS SYSTEM: No focal deficit. LAB: WBC 6.8, hemoglobin 11.6. D-dimer is 2.72. Procalcitonin 0.18 and LDH is 314. ASSESSMENT: 1. Acute severe diabetic ketoacidosis, present on admission. 2. Acute COVID-19 bilateral interstitial pneumonia. 3. Pneumonia with acute hypoxic respiratory failure. 4. Change in mental status, acute metabolic encephalopathy secondary to acute diabetic ketoacidosis. 5. Hyponatremia, multifactorial. 6. Increased white count, possibly severe sepsis and hypotension, present on admission. 7. Troponin, indeterminate at 0.076. 8. Acute bibasilar pneumonia, possibly aspiration or COVID-19 pneumonia. 9. Hyponatremia. 10.Hyperkalemia. 11.Continued fever. 12.Increased creatinine with possible acute renal failure, acute tubular necrosis with prerenal factors, present on admission. 13.Elevated plasma lactic acid secondary to sepsis. 14.Diabetes mellitus, type 2. 15.History of deep vein thrombosis. 16.Gastroesophageal reflux disease. 17.Hyperlipidemia. 18.History of peripheral neuropathy. 19.History of migraine. 20.History of carpal tunnel syndrome. 21.History of hypothyroidism. 22.History of right-sided hydrocele. 23.History of colonoscopy. 24.FULL CODE. RECOMMENDATIONS AND DISCUSSION: I recommend to continue current medications, continue with the monitoring, symptomatic treatment. At this time the cultures are negative. The fever has come back to baseline. Will continue the current medication. Monitor blood sugars closely. The patient is on a combination of Lovenox and broad-spectrum IV antibiotics. Most recent chest x-ray, which was reviewed personally by me, showed bilateral extensive lesions. I recommend adding dexamethasone to the current regimen as well. Monitor blood sugars closely. Further recommendations to follow. MMODL / IJN: [id number] /
[2021-02-16 20:38] LABS: Glucose,Whole Blood 156 mg/dL (75-99)
[2021-02-16] MEDS: ATORVASTATIN 20 MG TAB PO SCH (20:48)
[2021-02-16 22:49] LABS: Glucose,Whole Blood 210 mg/dL (75-99)
[2021-02-17 01:57] LABS: Glucose,Whole Blood 241 mg/dL (75-99)
[2021-02-17] MEDS: PIPERACILLIN-TAZOBACTAM 3.375 GM in SODIUM CHLORIDE 0.9% 100 ML IVPB SCH ×3 (04:29→22:03)
[2021-02-17] MEDS: LEVOTHYROXINE 137 MCG TAB PO SCH (05:48)
--- NOTE | 2021-02-17 06:53 | PN ---
PROGRESS NOTE DATE OF SERVICE: 02/16/2021 REASON FOR FOLLOWUP: Pneumonia. INTERVAL HISTORY: The patient is currently afebrile. The patient on room air and responding well. The patient denies having chest pain. The patient did have a cough, not bringing up any sputum. No vomiting. No abdominal pain. No diarrhea. PHYSICAL EXAMINATION: Blood pressure 100/70 with a pulse of 90, temperature 98.1, he is 95% on 2 L nasal cannula. General description is middle-aged male in the bed in no distress. Respiratory system: Unlabored breathing coarse breath sounds bilaterally, no wheeze. Heart S1, S2. Regular rate and rhythm. Abdomen is soft, no tenderness. LABS: LDH 314 and a CRP 4.5. Procalcitonin 0.18. Blood culture has been negative. Chest x- ray, patchy bilateral infiltrate, stable. DIAGNOSTIC IMPRESSION: Patient with acute COVID-19 infection and a question of possible secondary bacterial pneumonia. Has been on Zosyn, , dexamethasone, Lovenox, and zinc. Continue with respiratory support and to wean off his oxygen. MMODL / IJN: [id number] /
[2021-02-17 07:09] LABS: Glucose,Whole Blood 312 mg/dL (75-99)
[2021-02-17] MEDS: INSULIN ASPART (NovoLOG) 100 UNIT/ML VIAL SQ SCH ×5 (08:06→22:04)
[2021-02-17] MEDS: ASPIRIN 81 MG PO SCH (08:06)
[2021-02-17] MEDS: COLCHICINE 0.6 MG EACH PO SCH (08:06)
[2021-02-17] MEDS: METOPROLOL TARTRATE 12.5 MG TAB PO SCH ×2 (08:06→22:04)
[2021-02-17] MEDS: ZINC SULFATE 220 MG CAP PO SCH (08:06)
[2021-02-17] MEDS: GABAPENTIN 100 MG CAP PO SCH ×3 (08:06→22:04)
[2021-02-17] MEDS: FAMOTIDINE 20 MG TAB PO SCH ×2 (08:06→22:04)
[2021-02-17] MEDS: CHOLECALCIFEROL 25 MCG (1000 IU) TABLET PO SCH (08:06)
[2021-02-17] MEDS: ASCORBIC ACID 500 MG TAB PO SCH (08:06)
[2021-02-17] MEDS: INSULIN DETEMIR (LEVEMIR) 100 UNIT/ML SYR SQ SCH ×2 (08:06→22:03)
[2021-02-17] MEDS: dexAMETHasone 2 MG TAB PO SCH (08:06)
[2021-02-17] MEDS: CYANOCOBALAMIN 500 MCG TAB PO SCH (08:06)
[2021-02-17] MEDS: ENOXAPARIN 40 MG/0.4 ML SYRINGE SQ SCH (08:07)
[2021-02-17] MEDS: TRIAMCINOLONE ACET 0.1% OINTMENT 15 GM TUBE TOPICAL SCH ×2 (08:07→22:04)
[2021-02-17 09:37] LABS: African American GFR (CKD) 96.4 (60.0-200.0); Albumin 3.1 g/dL (3.80-4.90); Albumin/Globulin Ratio 1.63 (1.60-3.17); Anion Gap 8.7 mmol/L (4.00-12.00); Calcium 7.9 mg/dL (8.7-10.3); Carbon Dioxide 28.3 mmol/L (21.6-31.8); Globulin 1.9 g/dL (1.6-3.3); Non-African American GFR(CKD) 83.2 (60.0-200.0); Potassium 4.6 mmol/L (3.5-5.5); Total Bilirubin 0.5 mg/dL (0.2-1.2)
[2021-02-17 10:35] LABS: HCT 34.1 % (39.6-50.0); HGB 11.5 g/dL (13.0-17.0); MCH 30.5 pg (27.0-32.0); MCHC 33.7 g/dL (32.0-37.0); MCV 90.5 fL (80.0-97.0); Mean Platelet Volume 9.9 fL (9.5-12.2); Platelet Count 277 X 10*3/uL (140-440); RBC 3.77 X 10*6/uL (4.40-5.60); RDW 12.3 % (11.5-14.5); WBC 5.03 X 10*3/uL (4.50-10.00)
[2021-02-17 11:39] LABS: Glucose,Whole Blood 392 mg/dL (75-99)
[2021-02-17 13:28] LABS: Basophils # (A) 0 X 10*3/uL (0.00-0.10); Basophils % (A) 0 %; Eosinophils # (A) 0 X 10*3/uL (0.04-0.35); Eosinophils % (A) 0 %; Lymphocytes # (A) 0.59 X 10*3/uL (0.90-5.00); Lymphocytes % (A) 11.7 %; Monocytes # (A) 0.47 X 10*3/uL (0.20-1.00); Monocytes % (A) 9.3 %; Neutrophils # (A) 3.94 X 10*3/uL (1.80-7.70); Neutrophils % (A) 78.4 %
[2021-02-17] MEDS ORDERED: INSULIN DETEMIR (LEVEMIR) 100 UNIT/ML SYR SQ ONE (14:30)
[2021-02-17 16:28] LABS: Glucose,Whole Blood 263 mg/dL (75-99)
--- NOTE | 2021-02-17 18:40 | PN ---
PROGRESS NOTE DATE OF SERVICE: 02/17/2021 This 55-year-old gentleman was admitted with acute COVID-19 pneumonia, diabetic ketoacidosis is being closely monitored. Blood sugars are fluctuating. The sugars of fluctuating between 241 currently 392. The most recent chest x-ray which was reviewed personally by me showed bilateral infiltrates. PAST MEDICAL HISTORY: Reviewed. REVIEW OF SYSTEMS: CARDIOVASCULAR SYSTEM: No angina. RESPIRATORY SYSTEM: As mentioned earlier. GI: As mentioned earlier. : No dysuria. NERVOUS SYSTEM: No numbness or weakness. CURRENT MEDICATIONS: Current medications are reviewed and include Tylenol, aspirin, Lipitor, Tessalon, Colcrys. Doses are reviewed. PHYSICAL EXAMINATION: The patient is alert and oriented x3. Pulse 80, blood pressure 111/71, respiration 18, temperature 98.2, pulse ox 93% on room air. HEENT: Conjunctivae normal. NECK: No jugular venous distention. CARDIOVASCULAR: S1, S2 muffled. RESPIRATORY: Breath sounds diminished at the bases. A few scattered rhonchi. ABDOMEN: Soft, nontender. LEGS: No edema, no swelling. NERVOUS SYSTEM: No focal deficits. LABS: WBC 5.0, hemoglobin 11.5. Other labs are noted. ASSESSMENT: 1. Acute severe diabetic ketoacidosis, present on admission. 2. Acute COVID-19 bilateral interstitial pneumonia, present on admission. 3. Pneumonia with acute hypoxic respiratory failure. 4. Change in mental status, acute metabolic encephalopathy secondary to acute diabetic ketoacidosis and multifactorial. 5. Hyponatremia, multifactorial. 6. Increased WBC possibly severe sepsis and hypotension, present on admission. 7. Troponin, indeterminate at 0.076. 8. Acute bibasilar pneumonia possibly aspiration or COVID pneumonia. 9. Hyponatremia. 10.Hyperkalemia. 11.Continued fever. 12.Increased creatinine with possible acute renal failure, acute tubular necrosis with prerenal factors, present on admission. 13.Elevated plasma lactic acid secondary to sepsis. 14.Diabetes mellitus type 2. 15.History of deep vein thrombosis. 16.History of gastroesophageal reflux disease. 17.Hyperlipidemia. 18.History of peripheral neuropathy. 19.History of migraine. 20.History of carpal tunnel syndrome. 21.History of hypothyroidism. 22.History of right-sided hydrocele. 23.History of colonoscopy. 24.FULL CODE. RECOMMENDATIONS AND DISCUSSION: Recommend to continue current medications, continue symptomatic treatment. Otherwise, we will increase the dose of Levemir to 35 units b.i.d. and also will add insulin 5 units NovoLog with meals and scale also. Otherwise continue the rest of the medications. The patient is on broad-spectrum IV antibiotics also. Cultures are negative at this time. Guarded prognosis. Further recommendations to follow. YAMILET / BRADY: [id number] /
[2021-02-17 21:28] LABS: Glucose,Whole Blood 216 mg/dL (75-99)
[2021-02-17] MEDS: ATORVASTATIN 20 MG TAB PO SCH (22:04)
--- NOTE | 2021-02-17 23:06 | PN ---
PROGRESS NOTE DATE OF SERVICE: 02/17/2021 REASON FOR FOLLOWUP: Pneumonia. INTERVAL HISTORY: The patient is currently afebrile. The patient is breathing comfortably. The patient denies having any chest pain. He continues to have a cough, which has decreased in intensity and remains dry in nature. No nausea, no vomiting, no abdominal pain or diarrhea. PHYSICAL EXAMINATION: Blood pressure is 99/65, pulse of 80, temperature 98.5. He is 94% on room air. General description is a middle-aged male lying in bed in no distress. RESPIRATORY SYSTEM: Unlabored breathing with decreased intensity of breath sounds. No wheeze. HEART: S1, S2. Regular rate and rhythm. ABDOMEN: Soft. No tenderness. LABS: Hemoglobin 11.5, white count 5.03. Blood and urine negative. DIAGNOSTIC IMPRESSION AND PLAN: Patient admitted to hospital with shortness of breath and cough and a fever with evidence of pneumonia, likely secondary to COVID-19. It was initially diagnosed on 02/10 plus/minus a component of bacterial pneumonia, though less likely. Patient seems to have shown overall clinical improvement on current treatment ; to continue for now and monitor his clinical course closely. Continue with supportive care. MMODL / IJN: [id number] /
[2021-02-18 02:42] LABS: Glucose,Whole Blood 140 mg/dL (75-99)
[2021-02-18] MEDS: PIPERACILLIN-TAZOBACTAM 3.375 GM in SODIUM CHLORIDE 0.9% 100 ML IVPB SCH ×3 (04:02→20:25)
[2021-02-18] MEDS: INSULIN ASPART (NovoLOG) 100 UNIT/ML VIAL SQ SCH ×6 (07:14→21:07)
[2021-02-18 07:15] LABS: Glucose,Whole Blood 75 mg/dL (75-99)
[2021-02-18] MEDS ORDERED: SENNOSIDES 8.6 MG TAB PO PRN (08:31)
[2021-02-18] MEDS ORDERED: bisacodyL 5 MG TABLET.DR PO PRN (08:32)
[2021-02-18] MEDS ORDERED: traMADol 50 MG TAB PO SCH (09:00)
[2021-02-18] MEDS: LEVOTHYROXINE 137 MCG TAB PO SCH (09:05)
[2021-02-18] MEDS: METOPROLOL TARTRATE 12.5 MG TAB PO SCH ×2 (09:05→20:25)
[2021-02-18] MEDS: ENOXAPARIN 40 MG/0.4 ML SYRINGE SQ SCH (09:05)
[2021-02-18] MEDS: INSULIN DETEMIR (LEVEMIR) 100 UNIT/ML SYR SQ SCH ×2 (09:05→21:07)
[2021-02-18] MEDS: ZINC SULFATE 220 MG CAP PO SCH (09:06)
[2021-02-18] MEDS: ASCORBIC ACID 500 MG TAB PO SCH (09:06)
[2021-02-18] MEDS: GABAPENTIN 100 MG CAP PO SCH ×3 (09:06→20:25)
[2021-02-18] MEDS: dexAMETHasone 2 MG TAB PO SCH (09:06)
[2021-02-18] MEDS: CHOLECALCIFEROL 25 MCG (1000 IU) TABLET PO SCH (09:06)
[2021-02-18] MEDS: FAMOTIDINE 20 MG TAB PO SCH ×2 (09:06→20:25)
[2021-02-18] MEDS: ASPIRIN 81 MG PO SCH (09:06)
[2021-02-18] MEDS: CYANOCOBALAMIN 500 MCG TAB PO SCH (09:06)
[2021-02-18] MEDS: TRIAMCINOLONE ACET 0.1% OINTMENT 15 GM TUBE TOPICAL SCH ×2 (09:07→20:30)
[2021-02-18] MEDS: COLCHICINE 0.6 MG EACH PO SCH (09:07)
[2021-02-18 09:42] LABS: HCT 32.9 % (39.6-50.0); HGB 10.9 g/dL (13.0-17.0); MCH 30.4 pg (27.0-32.0); MCHC 33.1 g/dL (32.0-37.0); MCV 91.9 fL (80.0-97.0); Mean Platelet Volume 9.9 fL (9.5-12.2); Platelet Count 315 X 10*3/uL (140-440); RBC 3.58 X 10*6/uL (4.40-5.60); RDW 12.4 % (11.5-14.5); WBC 6.01 X 10*3/uL (4.50-10.00)
[2021-02-18 10:22] LABS: Basophils # (A) 0.01 X 10*3/uL (0.00-0.10); Basophils % (A) 0.2 %; Eosinophils # (A) 0.04 X 10*3/uL (0.04-0.35); Eosinophils % (A) 0.7 %; Lymphocytes # (A) 1.49 X 10*3/uL (0.90-5.00); Lymphocytes % (A) 24.8 %; Monocytes % (A) 11.6 %; Neutrophils # (A) 3.74 X 10*3/uL (1.80-7.70); Neutrophils % (A) 62.2 %
[2021-02-18 10:28] LABS: African American GFR (CKD) 114.9 (60.0-200.0); Anion Gap 6.9 mmol/L (4.00-12.00); Calcium 7.8 mg/dL (8.7-10.3); Carbon Dioxide 30.1 mmol/L (21.6-31.8); Non-African American GFR(CKD) 99.2 (60.0-200.0); Potassium 3.7 mmol/L (3.5-5.5)
[2021-02-18] MEDS ORDERED: traMADol 50 MG TAB PO PRN ×2 (10:34→14:49)
[2021-02-18 11:38] LABS: Glucose,Whole Blood 78 mg/dL (75-99)
[2021-02-18] MEDS ORDERED: MAG HYDROX/AL HYDROX/SIMETH 30 ML, HYOSCYAMINE ELIXIR 10 ML, LIDOCAINE VISCOUS 2% 10 ML PO ONE ×3 (14:49)
--- NOTE | 2021-02-18 14:58 | P.PN ---
Subjective This is a pleasant 55 years old male with past medical history of diabetes mellitus, deep venous thrombosis, hyperlipidemia, hypertension, diabetic neuropathy. Presents with respiratory symptoms and he was diagnosed with covert pneumonia with possible secondary bacterial superinfection, he is followed closely by pulmonary and ID team. He feels much better today however he is complaining of from some pain across his upper abdomen around the umbilicus. No nausea vomiting, no diarrhea Has good bowel sounds, and abdomen looks soft. We tried Ultram 100 mg 1, patient wasn't short of that helped him. We'll add GI cocktail. Hemodynamically stable and he is saturating 92% on room air. He had fever of 100 on 4/5, no more fever. CBC and BMP are unremarkable from today. Glucose is controlled 75 and 78 today. He was taken Lantus 36 units at bedtime and short-acting insulin 10-20 units with meals, At home. Currently his dose was switched to Levemir 35 units twice a day and 5 units with meals. Which is until today. He got 25 units instead of 35 units in the morning because his sugar was in 70s. However from [facility] we will lower his dose to 40 units of Levemir at bedtime and 10 units of NovoLog with meals Also he is on vitamin C, vitamin D and zinc, he is on dexamethasone 6 mg daily oral and he is on Zosyn. Also he is on aspirin 81 mg. His hemoglobin A1c is 13.8%, patient confirmed to me he was adherent to therapy and taken his insulin at home His procalcitonin is trending down to 0.3, 0.3, 0.18. Tobacco Sweeper evaluated the patient for high troponin, and no suggestion of CAD, mostly secondary to covert and bark scaler signed off with recommendation to follow up with Dr. Ash in 2 weeks PT recommended subacute rehab, however patient refused and he wants to go home with home health care. CONSTITUTIONAL: No fever, no malaise, no fatigue. HEENT: No recent visual problems or hearing problems. Denied any sore throat. CARDIOVASCULAR: No orthopnea, PND, no palpitations, no syncope. PULMONARY: No chest wall tenderness, no hemoptysis. GASTROINTESTINAL: No diarrhea, no nausea, no vomiting, no abdominal pain. Nor moactive bowel sounds. NEUROLOGICAL: No headaches, no weakness, no numbness. Active Medications Generic Name Dose Route Start Last Admin Trade Name Freq PRN Reason Stop Dose Admin Acetaminophen 650 mg 02/10/21 12:56 02/11/21 20:32 Acetaminophen Suppository 650 Mg Supp RECTAL 650 mg Q4HR PRN Administration Fever And/ Or Mild Pain Acetaminophen 650 mg 02/10/21 12:56 02/14/21 16:33 Acetaminophen Tab 325 Mg Tab PO 650 mg Q4HR PRN Administration Fever and/or Mild Pain Ascorbic Acid 500 mg 02/10/21 17:45 02/18/21 09:06 Ascorbic Acid 500 Mg Tab PO 500 mg DAILY EUGENIA Administration Aspirin 81 mg 02/10/21 16:15 02/18/21 09:06 Aspirin 81 Mg PO 81 mg DAILY EUGENIA Administration Atorvastatin Calcium 20 mg 02/10/21 21:00 02/17/21 22:04 Atorvastatin 20 Mg Tab PO 20 mg HS EUGENIA Administration Benzonatate 200 mg 02/16/21 08:39 02/16/21 09:01 Benzonatate 100 Mg Cap PO 200 mg TID PRN Administration Cough Bisacodyl 5 mg 02/18/21 08:32 02/18/21 09:06 Bisacodyl 5 Mg Tablet.Dr PO 5 mg DAILY PRN Administration Constipation Cholecalciferol 25 mcg 02/11/21 09:00 02/18/21 09:06 Cholecalciferol 25 Mcg (1000 Iu) Tablet PO 25 mcg DAILY EUGENIA Administration Colchicine 0.6 mg 02/10/21 17:45 02/18/21 09:07 Colchicine 0.6 Mg Each PO 0.6 mg DAILY EUGENIA Administration Cyanocobalamin 1,000 mcg 02/11/21 09:00 02/18/21 09:06 Cyanocobalamin 500 Mcg Tab PO 1,000 mcg DAILY EUGENIA Administration Dexamethasone 6 mg 02/16/21 16:00 02/18/21 09:06 Dexamethasone 2 Mg Tab PO 6 mg DAILY EUGENIA Administration Enoxaparin Sodium 40 mg 02/10/21 16:15 02/18/21 09:05 Enoxaparin 40 Mg/0.4 Ml Syringe SQ 40 mg DAILY EUGENIA Administration Famotidine 20 mg 02/15/21 21:00 02/18/21 09:06 Famotidine 20 Mg Tab PO 20 mg Q12HR EUGENIA Administration Gabapentin 100 mg 02/10/21 22:00 02/18/21 09:06 Gabapentin 100 Mg Cap PO 100 mg TID EUGENIA Administration Piperacillin Sod/Tazobactam 100 mls @ 25 mls/hr 02/10/21 20:00 02/18/21 12:53 Sod 3.375 gm/ Sodium Chloride IVPB 25 mls/hr Q8H EUGENIA Administration Insulin Aspart 0 unit 02/13/21 17:30 02/18/21 11:47 Insulin Aspart (Novolog) 100 Unit/Ml Vial SQ Not Given ACHS [facility] Protocol Insulin Aspart 10 unit 02/19/21 07:30 Insulin Aspart (Novolog) 100 Unit/Ml Vial SQ AC-TID [facility] Insulin Detemir 40 unit 02/18/21 21:00 Insulin Detemir (Levemir) 100 Unit/Ml Syr SQ HS [facility] Levothyroxine Sodium 137 mcg 02/11/21 06:30 02/18/21 09:05 Levothyroxine 137 Mcg Tab PO 137 mcg 0630 EUGENIA Administration Lisinopril 2.5 mg 02/11/21 09:00 02/18/21 09:05 Lisinopril 2.5 Mg Tab PO 2.5 mg DAILY EUGENIA Administration Metoprolol Tartrate 12.5 mg 02/15/21 21:00 02/18/21 09:05 Metoprolol Tartrate 12.5 Mg Tab PO 12.5 mg BID EUGENIA Administration Miscellaneous Information 1 each 02/11/21 07:47 Phosphorus Replacement Protoco 1 Each Misc MISCELLANE DAILY PRN Per Protocol Protocol Miscellaneous Information 1 each 02/11/21 14:56 Magnesium Replacement Protocol 1 Each Misc MISCELLANE DAILY PRN Per Protocol Protocol Miscellaneous Information 1 each 02/11/21 23:11 Potassium Replacement Protocol 1 Each Misc MISCELLANE DAILY PRN Per Protocol Protocol Naloxone HCl 0.2 mg 02/10/21 12:56 Naloxone 0.4 Mg/Ml 1 Ml Vial IV Q2M PRN Opioid Reversal Ondansetron HCl 4 mg 02/11/21 09:40 02/12/21 01:53 Ondansetron 4 Mg/2 Ml Vial IVP 4 mg Q6HR PRN Administration Nausea And Vomiting Senna 8.6 mg 02/18/21 08:31 02/18/21 09:06 Sennosides 8.6 Mg Tab PO 8.6 mg BID PRN Administration Constipation Tramadol HCl 100 mg 02/18/21 14:49 Tramadol 50 Mg Tab PO QID PRN Mild Pain Triamcinolone Acetonide 1 applic 02/10/21 21:00 02/18/21 09:07 Triamcinolone Acet 0.1% Ointment 15 Gm Tube TOPICAL 1 applic BID EUGENIA Administration Zinc Sulfate 220 mg 02/10/21 18:45 02/18/21 09:06 Zinc Sulfate 220 Mg Cap PO 220 mg DAILY EUGENIA Administration Objective - Vital Signs Vital signs: Vital Signs Temp 97.6 F 02/18/21 10:09 Pulse 74 02/18/21 10:09 Resp 18 02/18/21 10:09 BP 96/61 02/18/21 10:09 Pulse Ox 92 L 02/18/21 10:09 Intake & Output 02/17/21 02/18/21 02/18/21 18:59 06:59 18:59 Intake Total 200 Balance 200 Weight 85.2 kg Intake: IV 200 Piperacillin-Tazobactam 3 200 .375 gm In Sodium Chloride 0.9% 100 ml @ 25 mls/hr IVPB Q8H EUGENIA Rx#: [id number] Other: Voiding Method Urinal # Voids 3 2 - Exam GENERAL: The patient is alert and oriented x3, not in any acute distress. Well developed, well nourished. HEENT: Pupils are round and equally reacting to light. EOMI. No scleral icterus. No conjunctival pallor. Normocephalic, atraumatic. No pharyngeal erythema. No thyromegaly. CARDIOVASCULAR: S1 and S2 present. No murmurs, rubs, or gallops. PULMONARY: Chest is clear to auscultation, no wheezing or crackles. ABDOMEN: Soft, nontender, nondistended, normoactive bowel sounds. No palpable organomegaly. MUSCULOSKELETAL: No joint swelling or deformity. EXTREMITIES: No cyanosis, clubbing, or pedal edema. NEUROLOGICAL: Gross neurological examination did not reveal any focal deficits. SKIN: No rashes. no petechiae. - Labs CBC & Chem 7: 02/18/21 04:27 02/18/21 04:27 Labs: Abnormal Lab Results - Last 24 Hours (Table) 02/17/21 02/17/21 02/18/21 Range/Units 16:26 21:26 02:41 RBC (4.40-5.60) X 10*6/uL Hgb (13.0-17.0) g/dL Hct (39.6-50.0) % Glucose (70-110) mg/dL POC Glucose (mg/dL) 263 H 216 H 140 H (75-99) mg/dL Calcium (8.7-10.3) mg/dL 02/18/21 02/18/21 Range/Units 04:27 04:27 RBC 3.58 L (4.40-5.60) X 10*6/uL Hgb 10.9 L (13.0-17.0) g/dL Hct 32.9 L (39.6-50.0) % Glucose 119 H (70-110) mg/dL POC Glucose (mg/dL) (75-99) mg/dL Calcium 7.8 L (8.7-10.3) mg/dL Microbiology - Last 24 Hours (Table) 02/18/21 07:03 Sputum Culture - Preliminary Sputum 02/13/21 16:25 Blood Culture - Preliminary Blood No Growth after 96 hours 02/15/21 14:23 Blood Culture - Preliminary Blood No Growth after 48 hours Assessment and Plan Assessment: Bilateral cold pneumonia Possible secondary bacterial pneumonia Mild hypoxic respiratory failure Hypertension 2 diabetes mellitus Diabetic neuropathy History of GERD Hyperlipidemia Chronic back pain Hypothyroidism History of migraine History of carpal tunnel syndrome history of bilateral DVT Plan: THis is a pleasant 55 years old male who presents with covert pneumonia, possible bacterial pneumonia, hyperglycemia with diabetes mellitus. Continue with steroids, continue with antibiotic, continue with multiple vitamins cocktail with vitamin C, vitamin D and zinc. Continue with aspirin. Adjust insulin dose and monitor glucose and continue with insulin sliding scale. Pulmonary and infectious disease on the case, patient last time seen by spearer on 02/12. Cardiology signed off already. Labs and medication were reviewed.. Continue same treatment. Continue with symptomatic treatment. Resume home medication. Monitor lytes and vitals. DVT and GI prophylaxis. Further recommendationsas per clinical course of the patient DVT prophylaxis: Subcutaneous Lovenox GI Prophylaxis: Pepcid PT/OT: Subacute rehab, patient refused to go to rehab unit was to go home with home health care Prognosis is guarded
[2021-02-18 16:46] LABS: Glucose,Whole Blood 120 mg/dL (75-99)
--- NOTE | 2021-02-18 19:39 | PN ---
PROGRESS NOTE DATE OF SERVICE: 02/18/2021 REASON FOR FOLLOWUP: Pneumonia. INTERVAL HISTORY: The patient is currently afebrile. The patient is breathing more comfortably. The patient denies having any chest pain or shortness of breath. He did have a cough with occasional sputum. No abdominal pain or diarrhea. PHYSICAL EXAMINATION: Blood pressure 104/68 with a pulse of 68, temperature 98.5. He is 92% on room air. General description is a middle-aged male lying in bed in no distress. RESPIRATORY SYSTEM: Unlabored breathing with decreased intensity of breath sounds. No wheeze. HEART: S1, S2. Regular rate and rhythm. ABDOMEN: Soft. No tenderness. LABS: Hemoglobin is 10.1, white count 6.01, BUN of 16, creatinine 0.8. DIAGNOSTIC IMPRESSION AND PLAN: Patient admitted to hospital with pneumonia in this patient with positive COVID test. He also had elevated procalcitonin secondary bacterial. Patient with overall improvement on Zosyn. To finish therapy with a short course of oral Avelox and close outpatient followup. MMODL / IJN: [id number] /
[2021-02-18] MEDS: ATORVASTATIN 20 MG TAB PO SCH (20:25)
[2021-02-18 20:49] LABS: Glucose,Whole Blood 192 mg/dL (75-99)
[2021-02-19 03:26] LABS: Glucose,Whole Blood 197 mg/dL (75-99)
[2021-02-19] MEDS: LEVOTHYROXINE 137 MCG TAB PO SCH (05:25)
[2021-02-19] MEDS: PIPERACILLIN-TAZOBACTAM 3.375 GM in SODIUM CHLORIDE 0.9% 100 ML IVPB SCH ×3 (05:25→20:17)
[2021-02-19 07:15] LABS: Glucose,Whole Blood 108 mg/dL (75-99)
[2021-02-19] MEDS: ASCORBIC ACID 500 MG TAB PO SCH (09:57)
[2021-02-19] MEDS: FAMOTIDINE 20 MG TAB PO SCH (09:57)
[2021-02-19] MEDS: ZINC SULFATE 220 MG CAP PO SCH (09:57)
[2021-02-19] MEDS: ENOXAPARIN 40 MG/0.4 ML SYRINGE SQ SCH (09:57)
[2021-02-19] MEDS: dexAMETHasone 2 MG TAB PO SCH (09:57)
[2021-02-19] MEDS: GABAPENTIN 100 MG CAP PO SCH ×3 (09:57→20:17)
[2021-02-19] MEDS: CYANOCOBALAMIN 500 MCG TAB PO SCH (09:57)
[2021-02-19] MEDS: COLCHICINE 0.6 MG EACH PO SCH (09:58)
[2021-02-19] MEDS: CHOLECALCIFEROL 25 MCG (1000 IU) TABLET PO SCH (09:58)
[2021-02-19] MEDS: METOPROLOL TARTRATE 12.5 MG TAB PO SCH ×2 (09:59→20:17)
[2021-02-19] MEDS: ASPIRIN 81 MG PO SCH (09:59)
[2021-02-19] MEDS: INSULIN ASPART (NovoLOG) 100 UNIT/ML VIAL SQ SCH ×7 (10:08→21:13)
[2021-02-19] MEDS: TRIAMCINOLONE ACET 0.1% OINTMENT 15 GM TUBE TOPICAL SCH ×2 (10:09→20:16)
[2021-02-19 11:40] LABS: Glucose,Whole Blood 152 mg/dL (75-99)
[2021-02-19] MEDS ORDERED: MAG HYDROX/AL HYDROX/SIMETH 30 ML, HYOSCYAMINE ELIXIR 10 ML PO ONE ×2 (13:22)
[2021-02-19] MEDS ORDERED: polyethylene glycoL 3350 17 GM POWD.PACK PO STA (13:23)
--- NOTE | 2021-02-19 14:09 | XR ---
EXAMINATION TYPE: XR KUB DATE OF EXAM: 02/19/2021 COMPARISON: NONE HISTORY: Constipation TECHNIQUE: One view abdominal series FINDINGS: The osseous structures are intact. The bowel gas pattern is nonspecific. Extensive retained fecal de bris throughout the colon. Mild hypertrophic changes and hips. Calcifications in the left hemipelvis too small to characterize. Subsegmental changes at the lung bases. IMPRESSION: 1. Lower lobe bilateral infiltrates. 2. Extensive retained fecal debris correlate for constipation.
[2021-02-19] MEDS: PANTOPRAZOLE 40 MG/10 ML VIAL IVP SCH (14:22)
[2021-02-19 16:50] LABS: Glucose,Whole Blood 215 mg/dL (75-99)
[2021-02-19 20:17] LABS: Glucose,Whole Blood 236 mg/dL (75-99)
[2021-02-19] MEDS: ATORVASTATIN 20 MG TAB PO SCH (20:17)
[2021-02-19] MEDS: INSULIN DETEMIR (LEVEMIR) 100 UNIT/ML SYR SQ SCH (21:13)
--- NOTE | 2021-02-19 21:43 | P.PN ---
Subjective This is a pleasant 55 years old male with past medical history of diabetes mellitus, deep venous thrombosis, hyperlipidemia, hypertension, diabetic neuropathy. Presents with respiratory symptoms and he was diagnosed with covert pneumonia with possible secondary bacterial superinfection, he is followed closely by pulmonary and ID team. He feels much better today however he is complaining of from some pain across his upper abdomen around the umbilicus. No nausea vomiting, no diarrhea Has good bowel sounds, and abdomen looks soft. We tried Ultram 100 mg 1, patient wasn't short of that helped him. We'll add GI cocktail. Hemodynamically stable and he is saturating 92% on room air. He had fever of 100 on 02/15, no more fever. CBC and BMP are unremarkable from today. Glucose is controlled 75 and 78 today. He was taken Lantus 36 units at bedtime and short-acting insulin 10-20 units with meals, At home. Currently his dose was switched to Levemir 35 units twice a day and 5 units with meals. Which is until today. He got 25 units instead of 35 units in the morning because his sugar was in 70s. However from tonight we will lower his dose to 40 units of Levemir at bedtime and 10 units of NovoLog with meals Also he is on vitamin C, vitamin D and zinc, he is on dexamethasone 6 mg daily oral and he is on Zosyn. Also he is on aspirin 81 mg. His hemoglobin A1c is 13.8%, patient confirmed to me he was adherent to therapy and taken his insulin at home His procalcitonin is trending down to 0.3, 0.3, 0.18. Continuous Pickling Line Pickler evaluated the patient for high troponin, and no suggestion of CAD, mostly secondary to covert and brinell tester signed off with recommendation to follow up with Dr. Ash in 2 weeks PT recommended subacute rehab, however patient refused and he wants to go home with home health care. 02/19/2021 Patient breathing is stable, no dyspnea or chest pain. No coughing. However he was complaining of from epigastric pain, KUB was done showing colon filled with stool, refer to the report. Most likely patient has gastritis secondary to covert on the top of steroid effect. Patient Pepcid was wished to Protonix and he was given GI cocktail and his abdominal pain improved from 3-5/10 down to 0-1/10. Patient is provided with Senokot and MiraLAX for his constipation. Patient kept improvement through the day and he was ready for discharge however his discharge was held because 2. Culture was growing gram-negative bacilli and pending final results. Case was discussed with ID team and their input is appreciated. Glucose is controlled on Levemir 10 units and NovoLog 10 units with meals and we'll keep monitoring for now. CONSTITUTIONAL: No fever, no malaise, no fatigue. HEENT: No recent visual problems or hearing problems. Denied any sore throat. CARDIOVASCULAR: No orthopnea, PND, no palpitations, no syncope. PULMONARY: No chest wall tenderness, no hemoptysis. GASTROINTESTINAL: No diarrhea, no nausea, no vomiting, no abdominal pain. Normoactive bowel sounds. NEUROLOGICAL: No headaches, no weakness, no numbness. Active Medications Generic Name Dose Route Start Last Admin Trade Name Freq PRN Reason Stop Dose Admin Acetaminophen 650 mg 02/10/21 12:56 02/11/21 20:32 Acetaminophen Suppository 650 Mg Supp RECTAL 650 mg Q4HR PRN Administration Fever And/ Or Mild Pain Acetaminophen 650 mg 02/10/21 12:56 02/14/21 16:33 Acetaminophen Tab 325 Mg Tab PO 650 mg Q4HR PRN Administration Fever and/or Mild Pain Ascorbic Acid 500 mg 02/10/21 17:45 02/19/21 09:57 Ascorbic Acid 500 Mg Tab PO 500 mg DAILY EUGENIA Administration Aspirin 81 mg 02/10/21 16:15 02/19/21 09:59 Aspirin 81 Mg PO Not Given DAILY EUGENIA Atorvastatin Calcium 20 mg 02/10/21 21:00 02/19/21 20:17 Atorvastatin 20 Mg Tab PO 20 mg HS EUGENIA Administration Benzonatate 200 mg 02/16/21 08:39 02/16/21 09:01 Benzonatate 100 Mg Cap PO 200 mg TID PRN Administration Cough Bisacodyl 5 mg 02/18/21 08:32 02/18/21 09:06 Bisacodyl 5 Mg Tablet.Dr PO 5 mg DAILY PRN Administration Constipation Cholecalciferol 25 mcg 02/11/21 09:00 02/19/21 09:58 Cholecalciferol 25 Mcg (1000 Iu) Tablet PO 25 mcg DAILY EUGENIA Administration Colchicine 0.6 mg 02/10/21 17:45 02/19/21 09:58 Colchicine 0.6 Mg Each PO 0.6 mg DAILY EUGENIA Administration Cyanocobalamin 1,000 mcg 02/11/21 09:00 02/19/21 09:57 Cyanocobalamin 500 Mcg Tab PO 1,000 mcg DAILY EUGENIA Administration Dexamethasone 6 mg 02/16/21 16:00 02/19/21 09:57 Dexamethasone 2 Mg Tab PO 6 mg DAILY EUGENIA Administration Enoxaparin Sodium 40 mg 02/10/21 16:15 02/19/21 09:57 Enoxaparin 40 Mg/0.4 Ml Syringe SQ 40 mg DAILY EUGENIA Administration Gabapentin 100 mg 02/10/21 22:00 02/19/21 20:17 Gabapentin 100 Mg Cap PO 100 mg TID EUGENIA Administration Piperacillin Sod/Tazobactam 100 mls @ 25 mls/hr 02/10/21 20:00 02/19/21 20:17 Sod 3.375 gm/ Sodium Chloride IVPB 25 mls/hr Q8H EUGENIA Administration Insulin Aspart 0 unit 02/13/21 17:30 02/19/21 21:13 Insulin Aspart (Novolog) 100 Unit/Ml Vial SQ 3 unit ACHS EUGENIA Administration Protocol Insulin Aspart 10 unit 02/19/21 07:30 02/19/21 17:19 Insulin Aspart (Novolog) 100 Unit/Ml Vial SQ 10 unit AC-TID EUGENIA Administration Insulin Detemir 40 unit 02/18/21 21:00 02/19/21 21:13 Insulin Detemir (Levemir) 100 Unit/Ml Syr SQ 40 unit HS EUGENIA Administration Levothyroxine Sodium 137 mcg 02/11/21 06:30 02/19/21 05:25 Levothyroxine 137 Mcg Tab PO 137 mcg 0630 EUGENIA Administration Lisinopril 2.5 mg 02/11/21 09:00 02/19/21 09:57 Lisinopril 2.5 Mg Tab PO 2.5 mg DAILY EUGENIA Administration Metoprolol Tartrate 12.5 mg 02/15/21 21:00 02/19/21 20:17 Metoprolol Tartrate 12.5 Mg Tab PO 12.5 mg BID EUGENIA Administration Miscellaneous Information 1 each 02/11/21 07:47 Phosphorus Replacement Protoco 1 Each Misc MISCELLANE DAILY PRN Per Protocol Protocol Miscellaneous Information 1 each 02/11/21 14:56 Magnesium Replacement Protocol 1 Each Misc MISCELLANE DAILY PRN Per Protocol Protocol Miscellaneous Information 1 each 02/11/21 23:11 Potassium Replacement Protocol 1 Each Misc MISCELLANE DAILY PRN Per Protocol Protocol Naloxone HCl 0.2 mg 02/10/21 12:56 Naloxone 0.4 Mg/Ml 1 Ml Vial IV Q2M PRN Opioid Reversal Ondansetron HCl 4 mg 02/11/21 09:40 02/12/21 01:53 Ondansetron 4 Mg/2 Ml Vial IVP 4 mg Q6HR PRN Administration Nausea And Vomiting Pantoprazole Sodium 40 mg 02/19/21 13:30 02/19/21 14:22 Pantoprazole 40 Mg/10 Ml Vial IVP 40 mg DAILY EUGENIA Administration Senna 8.6 mg 02/18/21 08:31 02/18/21 09:06 Sennosides 8.6 Mg Tab PO 8.6 mg BID PRN Administration Constipation Tramadol HCl 100 mg 02/18/21 14:49 Tramadol 50 Mg Tab PO QID PRN Mild Pain Triamcinolone Acetonide 1 applic 02/10/21 21:00 02/19/21 20:16 Triamcinolone Acet 0.1% Ointment 15 Gm Tube TOPICAL 1 applic BID EUGENIA Administration Zinc Sulfate 220 mg 02/10/21 18:45 02/19/21 09:57 Zinc Sulfate 220 Mg Cap PO 220 mg DAILY EUGENIA Administration Objective - Vital Signs Vital signs: Vital Signs Temp 98.2 F 02/19/21 13:45 Pulse 72 02/19/21 13:45 Resp 16 02/19/21 13:45 BP 105/97 02/19/21 13:45 Pulse Ox 94 L 02/19/21 13:45 Intake & Output 02/18/21 02/19/21 02/19/21 18:59 06:59 18:59 Intake Total 700 Output Total 350 Balance 350 Weight 86 kg Intake: IV 100 Piperacillin-Tazobactam 3 100 .375 gm In Sodium Chloride 0.9% 100 ml @ 25 mls/hr IVPB Q8H EUGENIA Rx#: [id number] Intake, IV Titration 100 Amount Piperacillin-Tazobactam 3 100 .375 gm In Sodium Chloride 0.9% 100 ml @ 25 mls/hr IVPB Q8H EUGENIA Rx#: [id number] Oral 500 Output: Urine 350 Other: Voiding Method Urinal Urinal # Voids 3 2 - Exam GENERAL: The patient is alert and oriented x3, not in any acute distress. Well d eveloped, well nourished. HEENT: Pupils are round and equally reacting to light. EOMI. No scleral icterus. No conjunctival pallor. Normocephalic, atraumatic. No pharyngeal erythema. No thyromegaly. CARDIOVASCULAR: S1 and S2 present. No murmurs, rubs, or gallops. PULMONARY: Chest is clear to auscultation, no wheezing or crackles. ABDOMEN: Soft, nontender, nondistended, normoactive bowel sounds. No palpable organomegaly. MUSCULOSKELETAL: No joint swelling or deformity. EXTREMITIES: No cyanosis, clubbing, or pedal edema. NEUROLOGICAL: Gross neurological examination did not reveal any focal deficits. SKIN: No rashes. no petechiae. - Labs CBC & Chem 7: 02/18/21 04:27 02/18/21 04:27 Labs: Abnormal Lab Results - Last 24 Hours (Table) 02/18/21 02/18/21 02/19/21 Range/Units 16:42 20:48 03:24 POC Glucose (mg/dL) 120 H 192 H 197 H (75-99) mg/dL 02/19/21 02/19/21 Range/Units 07:12 11:31 POC Glucose (mg/dL) 108 H 152 H (75-99) mg/dL Microbiology - Last 24 Hours (Table) 02/18/21 07:03 Gram Stain - Preliminary Sputum Sputum Culture - Preliminary Gram Neg Bacilli Jonelle albicans 02/13/21 16:25 Blood Culture - Preliminary Blood No Growth after 120 hours 02/15/21 14:23 Blood Culture - Preliminary Blood No Growth after 72 hours Assessment and Plan Assessment: Bilateral cold pneumonia Possible secondary bacterial pneumonia Mild hypoxic respiratory failure, improved. Culprit gastritis, in addition to steroid effect Constipation Hypertension 2 diabetes mellitus Diabetic neuropathy History of GERD Hyperlipidemia Chronic back pain Hypothyroidism History of migraine History of carpal tunnel syndrome history of bilateral DVT Plan: THis is a pleasant 55 years old male who presents with covert pneumonia, possible bacterial pneumonia, hyperglycemia with diabetes mellitus. Continue with steroids, continue with antibiotic, continue with multiple vitamins cocktail with vitamin C, vitamin D and zinc. Continue with aspirin. Adjust insulin dose and monitor glucose and continue with insulin sliding scale. Pulmonary and infectious disease on the case, patient last time seen by certification and selection specialist on 02/12. Cardiology signed off already. Follow-up sputum culture results Labs and medication were reviewed.. Continue same treatment. Continue with symptomatic treatment. Resume home medication. Monitor lytes and vitals. DVT and GI prophylaxis. Further recommendationsas per clinical course of the patient DVT prophylaxis: Subcutaneous Lovenox GI Prophylaxis: Pepcid PT/OT: Subacute rehab, patient refused to go to rehab unit was to go home with home health care Prognosis is guarded
[2021-02-20] MEDS: LEVOTHYROXINE 137 MCG TAB PO SCH (04:20)
[2021-02-20] MEDS: PIPERACILLIN-TAZOBACTAM 3.375 GM in SODIUM CHLORIDE 0.9% 100 ML IVPB SCH ×2 (04:20→15:49)
--- NOTE | 2021-02-20 06:22 | PN ---
PROGRESS NOTE DATE OF SERVICE: 02/19/2021 REASON FOR FOLLOW UP: Gram-negative pneumonia. INTERVAL HISTORY: Patient is currently afebrile. Patient is breathing more comfortably, denies having any chest pain. He did have some cough, not bringing up any sputum. No nausea. No vomiting. No abdominal pain. No diarrhea. PHYSICAL EXAMINATION: Blood pressure 94/57, pulse of 68, temperature 98.4, he is 95% on room air. General description is a middle-aged male lying in bed in no distress. Respiratory system: Unlabored breathing, decreased intensity of breath sounds. No wheeze. HEART: S1, S2. Regular rate and rhythm. ABDOMEN: Soft, no tenderness. LABS: No new labs have been obtained today. Sputum is showing Gram-negative bacilli. DIAGNOSTIC IMPRESSION AND PLAN: Patient with Gram-negative pneumonia. Clinical responding to Zosyn. Will wait for the sputum culture to finalize to determine discharge antibiotics. Continue supportive care. MMODL / IJN: [id number] /
[2021-02-20 06:59] LABS: Glucose,Whole Blood 89 mg/dL (75-99)
[2021-02-20] MEDS: INSULIN ASPART (NovoLOG) 100 UNIT/ML VIAL SQ SCH ×4 (07:07→12:19)
[2021-02-20] MEDS: TRIAMCINOLONE ACET 0.1% OINTMENT 15 GM TUBE TOPICAL SCH (08:29)
[2021-02-20] MEDS: ENOXAPARIN 40 MG/0.4 ML SYRINGE SQ SCH (08:29)
[2021-02-20] MEDS: GABAPENTIN 100 MG CAP PO SCH ×2 (08:29→15:49)
[2021-02-20] MEDS: PANTOPRAZOLE 40 MG/10 ML VIAL IVP SCH (08:29)
[2021-02-20] MEDS: ZINC SULFATE 220 MG CAP PO SCH (08:29)
[2021-02-20] MEDS: CHOLECALCIFEROL 25 MCG (1000 IU) TABLET PO SCH (08:29)
[2021-02-20] MEDS: ASCORBIC ACID 500 MG TAB PO SCH (08:29)
[2021-02-20] MEDS: CYANOCOBALAMIN 500 MCG TAB PO SCH (08:29)
[2021-02-20] MEDS: METOPROLOL TARTRATE 12.5 MG TAB PO SCH (08:29)
[2021-02-20] MEDS: dexAMETHasone 2 MG TAB PO SCH (08:29)
[2021-02-20] MEDS: ASPIRIN 81 MG PO SCH (08:30)
[2021-02-20 11:52] VITALS: RESP 16
[2021-02-20 12:18] LABS: Glucose,Whole Blood 133 mg/dL (75-99)
[2021-02-20] MEDS: COLCHICINE 0.6 MG EACH PO SCH (12:30)
[2021-02-20 15:22] VITALS: BP 90/61; PULSE 67; TEMP 98.7
--- NOTE | 2021-02-20 18:47 | PN ---
PROGRESS NOTE DATE OF SERVICE: 02/20/2021 REASON FOR FOLLOWUP: Gram-negative pneumonia. INTERVAL HISTORY: Patient is currently afebrile. Patient is feeling better. Breathing comfortably on room air. Denies any chest pain or shortness of breath. Occasional cough. No abdominal pain, no diarrhea. PHYSICAL EXAMINATION: Blood pressure 119/61, pulse of 67, temperature 98.7. He is 94% on room air. General description is a middle-aged male up in the chair in no distress. Respiratory system: Unlabored breathing, decreased intensity of breath sounds. No wheeze. Heart: S1, S2. Regular rate and rhythm. Abdomen soft, no tenderness. LABS: Sputum has been finalized with Klebsiella sensitive pathogen. DIAGNOSTIC IMPRESSION AND PLAN: Patient with Gram-negative pneumonia. Sputum finalized with Klebsiella. Finishing therapy with oral Cipro and Levaquin, and close outpatient followup. MMODL / IJN: [id number] /
--- NOTE | 2021-02-21 01:57 | P.DS ---
Providers Date of admission: 02/10/21 14:55 Attending physician: Patricia Fajardo Consults: 02/10/21 12:58 Consult Physician Stat Consulting Provider: Bhumi Song Consult Reason/Comments: ICU management Do you want consulting provider notified?: Yes 02/13/21 15:14 Consult Physician Routine Consulting Provider: Madhav Paiz Consult Reason/Comments: fever, covid Do you want consulting provider notified?: Yes Primary care physician: Linda [facility] Course: Diagnoses: Bilateral covid old pneumonia secondary bacterial pneumonia secondary to Klebsiella. Patient is discharged on Lovenox 7 days Mild hypoxic respiratory failure, improved. No need for home oxygen upon discharge when checked Covid gastritis, in addition to steroid effect.Significantly improved with Protonix and GI cocktail and rated as 0-1/10 upon discharge. Patient tolerates diet Constipation, discharged on laxatives Hypertension 2 diabetes mellitus Diabetic neuropathy History of GERD Hyperlipidemia Chronic back pain Hypothyroidism History of migraine History of carpal tunnel syndrome history of bilateral DVT Hospital course: This is a pleasant 55 years old male with past medical history of diabetes mellitus, deep venous thrombosis, hyperlipidemia, hypertension, diabetic neuropathy. Presents with respiratory symptoms and he was diagnosed with covid pneumonia with possible secondary bacterial superinfection, he is followed closely by pulmonary and ID team. He was treated with dexamethasone, vitamin C, vitamin D and zinc as well as Lovenox. And aspirin added. Also received Zosyn for secondary bacterial pneumonia with sputum culture showing Klebsiella. Patient is discharged on Avelox for 7 days per infectious disease team recommendation On the day of discharge patient dyspnea improved and he is breathing quietly on room air with saturation more than 90%. He denies chest pain. However he still complains from cough and phlegm. No abdominal pain or diarrhea or vomiting. Patient tolerates diet. Patient is working in the room freely and independently and he agrees to go home from yesterday but his discharge was held until today pending final results of sputum culture. No fever. Patient was cleared for discharge by infectious disease team. Felt Hat Steamer evaluated the patient for mild increase in troponin suggestive of coronary artery disease and they are already signed off the case. Pulmonary service evaluated the patient on admission and also signed off the case few days ago. Patient was cleared by ID team for discharge Problems and management plan were discussed with the patient and he verbalized understanding and acceptance Patient was found stable and can be discharged home however he needs follow-up as an outpatient. Patient was instructed to follow up with PCP Dr. Linda alston one week and patient agrees Patient and reviewed with the appointments made for him with Dr. Ash newspaper copy editor on 03/05. Also he was instructed to follow up with Dr. Carr from ID team in 1-2 weeks and he agrees Physical exam Gen: patient is a AAOx3, no distress CVS: S1-S2, RRR, no murmur Lungs: B/L CTA, no wheezing Abdomen: soft, no distention, no tenderness, positive bowel sounds Extremity: no leg edema or induration Time spent more than 35 minutes Patient Condition at Discharge: Critical Plan - Discharge Summary New Discharge Prescriptions: New Moxifloxacin HCl [Avelox] 400 mg PO DAILY 7 Days #7 tablet Metoprolol Tartrate [Lopressor] 12.5 mg PO BID #60 tab Zinc Sulfate [Orazinc] 220 mg PO DAILY #30 cap Sennosides [Senokot] 8.6 mg PO BID PRN 10 Days #20 tab PRN Reason: Constipation Aspirin 81 mg PO DAILY 15 Days #15 chew dexAMETHasone ORAL [Hexadrol] 6 mg PO DAILY 6 Days #6 tab Acetaminophen Tab [Tylenol] 325 mg PO Q4HR PRN tab PRN Reason: Fever And/Or Mild Pain traMADol HCl [Ultram] 100 mg PO QID PRN #6 tab PRN Reason: Mild Pain Ascorbic Acid [Vitamin C] 500 mg PO DAILY #60 tab Cholecalciferol [Vitamin D3 (25 Mcg = 1000 Iu)] 25 mcg PO DAILY #30 tablet Pantoprazole Sodium [Protonix] 40 mg PO DAILY #30 tablet. polyethylene glycoL 3350 [Miralax] 17 gm PO DAILY PRN 3 Days #3 packet PRN Reason: Constipation Insulin Glargine [Lantus] 36 unit SQ HS #1 vial Continue Gabapentin [Neurontin] 100 mg PO TID Cyanocobalamin [Vitamin B-12] 1,000 mcg PO DAILY lisinopriL [Zestril] 2.5 mg PO DAILY Atorvastatin Calcium [Lipitor] 20 mg PO HS Ferrous Sulfate [Iron (65 MG Elemental)] 325 mg PO DAILY Levothyroxine Sodium [Synthroid] 137 mcg PO DAILY Triamcinolone 0.1% Ointment [Kenalog 0.1% Ointment] 1 applic TOPICAL BID INSULIN LISPRO (humaLOG) [humaLOG] 10 - 20 units SQ AC-TID Discontinued Famotidine [Pepcid] 20 mg PO BID Insulin Glargine,Hum.rec.anlog [Lantus Solostar] 36 unit SQ HS Discharge Medication List Cyanocobalamin [Vitamin B-12] 1,000 mcg PO DAILY 09/28/18 [History] Gabapentin [Neurontin] 100 mg PO TID 09/28/18 [History] lisinopriL [Zestril] 2.5 mg PO DAILY 09/17/19 [History] Atorvastatin Calcium [Lipitor] 20 mg PO HS 01/30/20 [History] Ferrous Sulfate [Iron (65 MG Elemental)] 325 mg PO DAILY 01/30/20 [History] Levothyroxine Sodium [Synthroid] 137 mcg PO DAILY 04/13/20 [History] Triamcinolone 0.1% Ointment [Kenalog 0.1% Ointment] 1 applic TOPICAL BID 07/31/20 [History] INSULIN LISPRO (humaLOG) [humaLOG] 10 - 20 units SQ AC-TID 02/06/21 [History] Acetaminophen Tab [Tylenol] 325 mg PO Q4HR PRN tab 02/19/21 [Rx] Ascorbic Acid [Vitamin C] 500 mg PO DAILY #60 tab 02/19/21 [Rx] Aspirin 81 mg PO DAILY 15 Days #15 chew 02/19/21 [Rx] Cholecalciferol [Vitamin D3 (25 Mcg = 1000 Iu)] 25 mcg PO DAILY #30 tablet 02/19/21 [Rx] Metoprolol Tartrate [Lopressor] 12.5 mg PO BID #60 tab 02/19/21 [Rx] Moxifloxacin HCl [Avelox] 400 mg PO DAILY 7 Days #7 tablet 02/19/21 [Rx] Pantoprazole Sodium [Protonix] 40 mg PO DAILY #30 tablet.dr 02/19/21 [Rx] Sennosides [Senokot] 8.6 mg PO BID PRN 10 Days #20 tab 02/19/21 [Rx] Zinc Sulfate [Orazinc] 220 mg PO DAILY #30 cap 02/19/21 [Rx] dexAMETHasone ORAL [Hexadrol] 6 mg PO DAILY 6 Days #6 tab 04/09/21 [Rx] polyethylene glycoL 3350 [Miralax] 17 gm PO DAILY PRN 3 Days #3 packet 02/19/21 [Rx] traMADol HCl [Ultram] 100 mg PO QID PRN #6 tab 02/19/21 [Rx] Insulin Glargine [Lantus] 36 unit SQ HS #1 vial 02/20/21 [Rx] Follow up Appointment(s)/Referral(s): Nayan Soliman MD [STAFF PHYSICIAN] - 03/05/21 11:15 am (Please call office prior to appointment if you are experiencing any covid symptoms. Thank you.) [facility], [NON-STAFF] - As Needed Linda Jasmine MD [Primary Care Provider] - 02/23/21 10:40 am (This will be a VideoVisit that you will access thru your [employer] account that you have with the office. If you have any questions, please call office. Thank you.) Madhav Paiz MD [STAFF PHYSICIAN] - 1 Week (infectious disease doctor office closed. Please call Monday to make an appointment.) Patient Instructions/Handouts: Coronavirus Disease 2019 (COVID-19) Activity/Diet/Wound Care/Special Instructions: low carbohydrate diet activity is restricted till you see your doctor We recommend to keep check your glucose 4 times a day, each meal and at bedtime. Keep the results in a log book and Bring it to your doctor on your appointment date if Glucose less than 70 or more than call 911 and come to emergency room Discharge Disposition: HOME SELF-CARE
== END 2021-02-20 16:46 | disposition home or self-care (01) | DRG 871 ==
LOC: EC 10:09 → 2SICU 14:55 → 4SSUR 02-13 01:47
PROVIDERS: ADMIT Hospitalist; ATTEND Hospitalist
PROC: 3E0330M Introduction of Antineoplastic, Monoclonal Antibody, into Peripheral Vein, Percutaneous Approach (ICD-10-PCS; principal; 2021-02-10)
DX: A41.89 Other specified sepsis (principal); E11.10 Type 2 diabetes mellitus with ketoacidosis without coma; U07.1 COVID-19; G93.41 Metabolic encephalopathy; J15.6 Pneumonia due to other Gram-negative bacteria; J12.82 Pneumonia due to coronavirus disease 2019; J96.01 Acute respiratory failure with hypoxia; N17.0 Acute kidney failure with tubular necrosis; E87.1 Hypo-osmolality and hyponatremia; R65.20 Severe sepsis without septic shock; Z79.4 Long term (current) use of insulin; E11.42 Type 2 diabetes mellitus with diabetic polyneuropathy; E78.5 Hyperlipidemia, unspecified; Z79.890 Hormone replacement therapy; E86.0 Dehydration; E87.5 Hyperkalemia; Z86.718 Personal history of other venous thrombosis and embolism; Z80.8 Family history of malignant neoplasm of other organs or systems; Z87.891 Personal history of nicotine dependence; K21.9 Gastro-esophageal reflux disease without esophagitis; E03.9 Hypothyroidism, unspecified; N43.3 Hydrocele, unspecified; I10 Essential (primary) hypertension; E87.6 Hypokalemia; I71.4 Abdominal aortic aneurysm, without rupture; G89.29 Other chronic pain; K29.70 Gastritis, unspecified, without bleeding; K59.00 Constipation, unspecified; G43.909 Migraine, unspecified, not intractable, without status migrainosus
CPT/HCPCS: 36415; 36600; 70450; 71045; 71046; 71275; 74018; 80048; 80051; 80053; 81001; 82009; 82550; 82553; 82565; 82728; 82805; 82947; 83036; 83605; 83615; 83735; 83880; 84100; 84132; 84145; 84484; 84520; 85025; 85379; 85610; 85730; 86140; 87040; 87070; 87077; 87086; 87186; 87205; 93005; 93306; 93970; 96361; 96365; 96366; 99291

== ENCOUNTER 2021-05-05 10:54 | Emergency (ER) | payer OTHER ==
[2021-05-05 11:09] VITALS: BP 133/77; PULSE 121; RESP 16; TEMP 97.7
[2021-05-05 11:57] LABS: Glucose,Whole Blood 346 mg/dL (75-99)
[2021-05-05] MEDS ORDERED: ACET/COD 300 MG/30 MG STARTER PACK 6 TAB BTL PO STA (12:25)
--- NOTE | 2021-05-05 12:26 | ED ---
Extremity Problem HPI - General Chief complaint: Extremity Problem,Nontraumatic Stated complaint: pain in hands & feet Time Seen by Provider: 05/05/21 11:44 Source: patient, RN notes reviewed Mode of arrival: ambulatory Limitations: no limitations - History of Present Illness Initial comments: 55-year-old male presents emergency Department with extremity pain. This is an ongoing issue. Patient states he is a known diabetic. Patient states he gives of insulin prior arrival. Patient states his blood sugar has been more well controlled than usual. Patient denies any chest pain shortness of breath no nausea vomiting diarrhea constipation normal appetite. Patient denies any trauma to his extremities. Patient denies any discoloration. - Related Data Home Medications Medication Instructions Recorded Confirmed Cyanocobalamin [Vitamin B-12] 1,000 mcg PO DAILY 09/28/18 02/10/21 Gabapentin [Neurontin] 100 mg PO TID 09/28/18 02/10/21 lisinopriL [Zestril] 2.5 mg PO DAILY 09/17/19 02/10/21 Atorvastatin Calcium [Lipitor] 20 mg PO HS 01/30/20 02/10/21 Ferrous Sulfate [Iron (65 MG 325 mg PO DAILY 01/30/20 02/10/21 Elemental)] Levothyroxine Sodium [Synthroid] 137 mcg PO DAILY 04/13/20 02/10/21 Triamcinolone 0.1% Ointment 1 applic TOPICAL BID 07/31/20 02/10/21 [Kenalog 0.1% Ointment] INSULIN LISPRO (humaLOG) [humaLOG] 10 - 20 units SQ AC-TID 02/06/21 02/10/21 Previous Rx's Medication Instructions Recorded Acetaminophen Tab [Tylenol] 325 mg PO Q4HR PRN tab 02/19/21 Ascorbic Acid [Vitamin C] 500 mg PO DAILY #60 tab 02/19/21 Aspirin 81 mg PO DAILY 15 Days #15 chew 02/19/21 Cholecalciferol [Vitamin D3 (25 25 mcg PO DAILY #30 tablet 02/19/21 Mcg = 1000 Iu)] Metoprolol Tartrate [Lopressor] 12.5 mg PO BID #60 tab 02/19/21 Moxifloxacin HCl [Avelox] 400 mg PO DAILY 7 Days #7 tablet 02/19/21 Pantoprazole Sodium [Protonix] 40 mg PO DAILY #30 tablet. 02/19/21 Sennosides [Senokot] 8.6 mg PO BID PRN 10 Days #20 tab 02/19/21 Zinc Sulfate [Orazinc] 220 mg PO DAILY #30 cap 02/19/21 dexAMETHasone ORAL [Hexadrol] 6 mg PO DAILY 6 Days #6 tab 02/19/21 polyethylene glycoL 3350 [Miralax] 17 gm PO DAILY PRN 3 Days #3 packet 02/19/21 traMADol HCl [Ultram] 100 mg PO QID PRN #6 tab 02/19/21 Insulin Glargine [Lantus] 36 unit SQ HS #1 vial 02/20/21 Allergies Allergy/AdvReac Type Severity Reaction Status Date / Time No Known Allergies Allergy Verified 02/10/21 12:25 Review of Systems ROS Statement: Those systems with pertinent positive or pertinent negative responses have been documented in the HPI. ROS Other: All systems not noted in ROS Statement are negative. Past Medical History Past Medical History: Diabetes Mellitus, Deep Vein Thrombosis (DVT), GERD/Reflux, Hyperlipidemia, Hypertension Additional Past Medical History / Comment(s): IDDM type II, neuropathy bilateral hands/feet, bilateral leg DVTs, carpal tunnel syndrome bilaterally, migraines, chronic back pain, hypothyroid, low iron, hydrocele R side. History of Any Multi-Drug Resistant Organisms: None Reported Past Surgical History: No Surgical Hx Reported Additional Past Surgical History / Comment(s): Colonoscopy Past Anesthesia/Blood Transfusion Reactions: No Reported Reaction Past Psychological History: No Psychological Hx Reported Smoking Status: Never smoker Past Alcohol Use History: None Reported Past Drug Use History: None Reported - Past Family History Father Family Medical History: Cancer Additional Family Medical History / Comment(s): Father had melanoma. Mother Family Medical History: No Reported History Additional Family Medical History / Comment(s): Mother is healthy. General Exam Limitations: no limitations General appearance: alert, in no apparent distress Head exam: Present: atraumatic, normocephalic, normal inspection Cardiovascular Exam: Present: normal rhythm, tachycardia (Heart rate 103 on exam patient was tachycardic at triage as he states he walked to the hospital.), normal heart sounds. Absent: regular rate, systolic murmur, diastolic murmur, rubs, gallop, clicks Extremities exam: Present: other (Upper extremity lower extremity is neurovascular intact equal color equal warmth there is no ulcerations. Full strength) Neurological exam: Present: alert, oriented X3, CN II-XII intact, reflexes normal. Absent: motor sensory deficit Skin exam: Present: warm, dry, intact, normal color. Absent: rash Course Vital Signs 05/05/21 11:05 Temperature 97.7 F Pulse Rate 121 H Respiratory 16 Rate Blood Pressure 133/77 O2 Sat by Pulse 98 Oximetry Medical Decision Making - Medical Decision Making Patient has known diabetic neuropathy is on current gabapentin. Patient's blood sugar was elevated though he just took insulin. Patient will closely monitor this. Patient otherwise has no other complaints. Discharged stable condition. 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 Is patient prescribed a controlled substance at d/c from ED?: No Referrals: Lnida Jasmine MD [Primary Care Provider] - 1-2 days Time of Disposition: 12:26
== END 2021-05-05 12:35 | disposition home or self-care (01) ==
LOC: EC 10:54
DX: E11.40 Type 2 diabetes mellitus with diabetic neuropathy, unspecified (principal); E11.65 Type 2 diabetes mellitus with hyperglycemia; E78.5 Hyperlipidemia, unspecified; I10 Essential (primary) hypertension; K21.9 Gastro-esophageal reflux disease without esophagitis; E03.9 Hypothyroidism, unspecified; G43.909 Migraine, unspecified, not intractable, without status migrainosus; Z86.718 Personal history of other venous thrombosis and embolism; Z79.4 Long term (current) use of insulin; Z79.82 Long term (current) use of aspirin; Z79.890 Hormone replacement therapy; Z79.52 Long term (current) use of systemic steroids
CPT/HCPCS: 36415; 99283

== ENCOUNTER 2021-05-17 18:14 | Emergency (ER) | payer OTHER ==
--- NOTE | 2021-05-17 18:20 | ED ---
General Adult HPI - General Stated complaint: hyperglycemia Time Seen by Provider: 05/17/21 18:14 Source: patient, EMS, RN notes reviewed, old records reviewed - History of Present Illness Initial comments: This a 55-year-old male who presents emergency department with past medical history significant for diabetes and neuropathy. Patient called EMS because sugar was over 400 and he can't stop urinating. Patient states he has no new symptoms other than that he has neuropathy in his feet always hurt and there is no change in that today. Patient denies any chest pain or difficulty breathing shortest breath per patient denies lightheadedness dizziness or near syncopal episode. Patient denies headache patient denies numbness weakness. Patient denies any abdominal pain patient denies nausea vomiting or diarrhea. Patient states anytime he drinks he needs to urinate almost immediately. Patient did mention he was drinking some orange juice however. - Related Data Home Medications Medication Instructions Recorded Confirmed Cyanocobalamin [Vitamin B-12] 1,000 mcg PO DAILY 09/28/18 02/10/21 Gabapentin [Neurontin] 100 mg PO TID 09/28/18 02/10/21 lisinopriL [Zestril] 2.5 mg PO DAILY 09/17/19 02/10/21 Atorvastatin Calcium [Lipitor] 20 mg PO HS 01/30/20 02/10/21 Ferrous Sulfate [Iron (65 MG 325 mg PO DAILY 01/30/20 02/10/21 Elemental)] Levothyroxine Sodium [Synthroid] 137 mcg PO DAILY 04/13/20 02/10/21 Triamcinolone 0.1% Ointment 1 applic TOPICAL BID 07/31/20 02/10/21 [Kenalog 0.1% Ointment] INSULIN LISPRO (humaLOG) [humaLOG] 10 - 20 units SQ AC-TID 02/06/21 02/10/21 Previous Rx's Medication Instructions Recorded Acetaminophen Tab [Tylenol] 325 mg PO Q4HR PRN tab 02/19/21 Ascorbic Acid [Vitamin C] 500 mg PO DAILY #60 tab 02/19/21 Aspirin 81 mg PO DAILY 15 Days #15 chew 02/19/21 Cholecalciferol [Vitamin D3 (25 25 mcg PO DAILY #30 tablet 02/19/21 Mcg = 1000 Iu)] Metoprolol Tartrate [Lopressor] 12.5 mg PO BID #60 tab 02/19/21 Moxifloxacin HCl [Avelox] 400 mg PO DAILY 7 Days #7 tablet 02/19/21 Pantoprazole Sodium [Protonix] 40 mg PO DAILY #30 tablet. 02/19/21 Sennosides [Senokot] 8.6 mg PO BID PRN 10 Days #20 tab 02/19/21 Zinc Sulfate [Orazinc] 220 mg PO DAILY #30 cap 02/19/21 dexAMETHasone ORAL [Hexadrol] 6 mg PO DAILY 6 Days #6 tab 02/19/21 polyethylene glycoL 3350 [Miralax] 17 gm PO DAILY PRN 3 Days #3 packet 02/19/21 traMADol HCl [Ultram] 100 mg PO QID PRN #6 tab 02/19/21 Insulin Glargine [Lantus] 36 unit SQ HS #1 vial 02/20/21 Allergies Allergy/AdvReac Type Severity Reaction Status Date / Time No Known Allergies Allergy Verified 02/10/21 12:25 Review of Systems ROS Statement: Those systems with pertinent positive or pertinent negative responses have been documented in the HPI. ROS Other: All systems not noted in ROS Statement are negative. Past Medical History Past Medical History: Diabetes Mellitus, Deep Vein Thrombosis (DVT), GERD/Reflux, Hyperlipidemia, Hypertension Additional Past Medical History / Comment(s): IDDM type II, neuropathy bilateral hands/feet, bilateral leg DVTs, carpal tunnel syndrome bilaterally, migraines, chronic back pain, hypothyroid, low iron, hydrocele R side. History of Any Multi-Drug Resistant Organisms: None Reported Past Surgical History: No Surgical Hx Reported Additional Past Surgical History / Comment(s): Colonoscopy Past Anesthesia/Blood Transfusion Reactions: No Reported Reaction Past Psychological History: No Psychological Hx Reported Smoking Status: Never smoker Past Alcohol Use History: None Reported Past Drug Use History: None Reported - Past Family History Father Family Medical History: Cancer Additional Family Medical History / Comment(s): Father had melanoma. Mother Family Medical History: No Reported History Additional Family Medical History / Comment(s): Mother is healthy. General Exam - General Exam Comments Initial Comments: GENERAL: Patient is well-developed and well-nourished. Patient is nontoxic and well- hydrated and is in mild distress. ENT: Neck is soft and supple. No significant lymphadenopathy is noted. Oropharynx is clear. Moist mucous membranes. Neck has full range of motion without eliciting any pain. EYES: The sclera were anicteric and conjunctiva were pink and moist. Extraocular movements were intact and pupils were equal round and reactive to light. Eyelids were unremarkable. PULMONARY: Unlabored respirations. Good breath sounds bilaterally. No audible rales rhonchi or wheezing was noted. CARDIOVASCULAR: There is a regular rate and rhythm without any murmurs gallops or rubs. ABDOMEN: Soft and nontender with normal bowel sounds. No palpable organomegaly was noted. There is no palpable pulsatile mass. SKIN: Skin is clear with no lesions or rashes and otherwise unremarkable. NEUROLOGIC: Patient is alert and oriented x3. Cranial nerves II through XII are grossly intact. Motor and sensory are also intact. Normal speech, volume and content. Symmetrical smile. MUSCULOSKELETAL: Normal extremities with adequate strength and full range of motion. No lower extremity swelling or edema. No calf tenderness. LYMPHATICS: No significant lymphadenopathy is noted PSYCHIATRIC: Normal psychiatric evaluation. Course Vital Signs 05/17/21 18:27 Temperature 98.6 F Pulse Rate 73 Respiratory 18 Rate Blood Pressure 115/72 O2 Sat by Pulse 97 Oximetry Medical Decision Making - Medical Decision Making EKG shows sinus tachycardia at 103 bpm WI interval 232 QRS is 92 QT interval 344 QTC is 450. Patient's EKG shows no ST segment elevation or depression. Patient was in no distress throughout his ED stay. Patient was given NovoLog 10 units. Patient is also given 2 L of fluid. Patient was feeling much improved at discharge. Patient has a sliding scale at home he states she will start using even though he did not use it today. - Lab Data Result diagrams: 05/17/21 18:43 05/17/21 18:43 Lab Results 05/17/21 05/17/21 05/17/21 Range/Units 18:19 18:43 18:43 WBC 6.0 (3.8-10.6) k/uL RBC 3.99 L (4.30-5.90) m/uL Hgb 12.7 L (13.0-17.5) gm/dL Hct 37.9 L (39.0-53.0) % MCV 95.0 (80.0-100.0) fL MCH 31.9 (25.0-35.0) pg MCHC 33.6 (31.0-37.0) g/dL RDW 13.7 (11.5-15.5) % Plt Count 181 (150-450) k/uL MPV 8.2 Neutrophils % 46 % Lymphocytes % 28 % Monocytes % 5 % Eosinophils % 19 % Basophils % 1 % Neutrophils # 2.7 (1.3-7.7) k/uL Lymphocytes # 1.7 (1.0-4.8) k/uL Monocytes # 0.3 (0-1.0) k/uL Eosinophils # 1.2 H (0-0.7) k/uL Basophils # 0.0 (0-0.2) k/uL Sodium (137-145) mmol/L Potassium (3.5-5.1) mmol/L Chloride (98-107) mmol/L Carbon Dioxide (22-30) mmol/L Anion Gap mmol/L BUN (9-20) mg/dL Creatinine (0.66-1.25) mg/dL Est GFR (CKD-EPI)AfAm (>60 ml/min/1.73 sqM) Est GFR (CKD-EPI)NonAf (>60 ml/min/1.73 sqM) Glucose (74-99) mg/dL POC Glucose (mg/dL) 421 H (75-99) mg/dL POC Glu General Teller ID Tayla Mills Calcium (8.4-10.2) mg/dL Total Bilirubin (0.2-1.3) mg/dL AST (17-59) U/L ALT (4-49) U/L Alkaline Phosphatase (38-126) U/L Total Protein (6.3-8.2) g/dL Albumin (3.5-5.0) g/dL Urine Color Light Yellow Urine Appearance Clear (Clear) Urine pH 5.5 (5.0-8.0) Ur Specific [place] 1.017 (1.001-1.035) Urine Protein Negative (Negative) Urine Glucose (UA) 4+ H (Negative) Urine Ketones Negative (Negative) Urine Blood Negative (Negative) Urine Nitrite Negative (Negative) Urine Bilirubin Negative (Negative) Urine Urobilinogen <2.0 (<2.0) mg/dL Ur Leukocyte Esterase Negative (Negative) Acetone, Qual (Negative) 05/17/21 05/17/21 Range/Units 18:43 19:58 WBC (3.8-10.6) k/uL RBC (4.30-5.90) m/uL Hgb (13.0-17.5) gm/dL Hct (39.0-53.0) % MCV (80.0-100.0) fL MCH (25.0-35.0) pg MCHC (31.0-37.0) g/dL RDW (11.5-15.5) % Plt Count (150-450) k/uL MPV Neutrophils % % Lymphocytes % % Monocytes % % Eosinophils % % Basophils % % Neutrophils # (1.3-7.7) k/uL Lymphocytes # (1.0-4.8) k/uL Monocytes # (0-1.0) k/uL Eosinophils # (0-0.7) k/uL Basophils # (0-0.2) k/uL Sodium 132 L (137-145) mmol/L Potassium 4.6 (3.5-5.1) mmol/L Chloride 100 (98-107) mmol/L Carbon Dioxide 25 (22-30) mmol/L Anion Gap 7 mmol/L BUN 11 (9-20) mg/dL Creatinine 0.70 (0.66-1.25) mg/dL Est GFR (CKD-EPI)AfAm >90 (>60 ml/min/1.73 sqM) Est GFR (CKD-EPI)NonAf >90 (>60 ml/min/1.73 sqM) Glucose 479 H (74-99) mg/dL POC Glucose (mg/dL) 260 H (75-99) mg/dL POC Glu General Teller ID Garrison Faria Calcium 8.5 (8.4-10.2) mg/dL Total Bilirubin 0.2 (0.2-1.3) mg/dL AST 43 (17-59) U/L ALT 32 (4-49) U/L Alkaline Phosphatase 36 L (38-126) U/L Total Protein 5.5 L (6.3-8.2) g/dL Albumin 3.1 L (3.5-5.0) g/dL Urine Color Urine Appearance (Clear) Urine pH (5.0-8.0) Ur Specific [place] (1.001-1.035) Urine Protein (Negative) Urine Glucose (UA) (Negative) Urine Ketones (Negative) Urine Blood (Negative) Urine Nitrite (Negative) Urine Bilirubin (Negative) Urine Urobilinogen (<2.0) mg/dL Ur Leukocyte Esterase (Negative) Acetone, Qual Negative (Negative) Disposition Clinical Impression: Hyperglycemia Disposition: HOME SELF-CARE Condition: Good Instructions (If sedation given, give patient instructions): Diabetic Hyperglycemia (ED) Additional Instructions: Patient needs to monitor the blood sugar prior to every meal prior to bed. Her patient should return to emergency department if there are any new or worsening symptoms or any fever. Patient should start using his sliding scale as directed Is patient prescribed a controlled substance at d/c from ED?: No Referrals: Linda Jasmine MD [Primary Care Provider] - 1-2 days Time of Disposition: 20:16
[2021-05-17 18:22] LABS: Glucose,Whole Blood 421 mg/dL (75-99)
[2021-05-17] MEDS ORDERED: SODIUM CHLORIDE 0.9% 1,000 ML IV STA (18:24)
[2021-05-17 18:32] VITALS: BP 115/72; PULSE 73; RESP 18; TEMP 98.6
[2021-05-17] MEDS: SODIUM CHLORIDE 0.9% 1,000 ML IV ONE ×2 (18:41→18:42)
[2021-05-17 18:52] LABS: Basophils % (A) 1 %; Eosinophils # (A) 1.2 k/uL (0-0.7); Eosinophils % (A) 19 %; HCT 37.9 % (39.0-53.0); HGB 12.7 gm/dL (13.0-17.5); Lymphocytes # (A) 1.7 k/uL (1.0-4.8); Lymphocytes % (A) 28 %; MCH 31.9 pg (25.0-35.0); MCHC 33.6 g/dL (31.0-37.0); Mean Platelet Volume 8.2; Monocytes # (A) 0.3 k/uL (0-1.0); Monocytes % (A) 5 %; Neutrophils # (A) 2.7 k/uL (1.3-7.7); Neutrophils % (A) 46 %; Platelet Count 181 k/uL (150-450); RBC 3.99 m/uL (4.30-5.90); RDW 13.7 % (11.5-15.5)
[2021-05-17 18:58] LABS: Appearance,Urine Clear (Clear); Bilirubin,Urine Negative (Negative); Blood,Urine Negative (Negative); Color,Urine Light Yellow; Glucose,Urine (UA) 4+ (Negative); Ketones,Urine Negative (Negative); Leukocyte Esterase,Urine Negative (Negative); Nitrite,Urine Negative (Negative); PH, Urine 5.5 (5.0-8.0); Protein,Urine Negative (Negative); Specific Gravity,Urine 1.017 (1.001-1.035); Urobilinogen,Urine <2.0 mg/dL (<2.0)
[2021-05-17] MEDS ORDERED: INSULIN ASPART (NovoLOG) 100 UNIT/ML VIAL SQ ONE (19:04)
[2021-05-17 19:05] LABS: ALT 32 U/L (4-49); AST 43 U/L (17-59); African American GFR (CKD) >90 (>60 ml/min/1.73 sqM); Albumin 3.1 g/dL (3.5-5.0); Alkaline Phosphatase 36 U/L (38-126); Anion Gap 7 mmol/L; Blood Urea Nitrogen 11 mg/dL (9-20); Calcium 8.5 mg/dL (8.4-10.2); Carbon Dioxide 25 mmol/L (22-30); Chloride 100 mmol/L (98-107); Glucose 479 mg/dL (74-99); Non-African American GFR(CKD) >90 (>60 ml/min/1.73 sqM); Potassium 4.6 mmol/L (3.5-5.1); Sodium 132 mmol/L (137-145); Total Bilirubin 0.2 mg/dL (0.2-1.3); Total Protein 5.5 g/dL (6.3-8.2)
--- NOTE | 2021-05-17 19:06 | XR ---
EXAMINATION TYPE: XR chest 2V DATE OF EXAM: 05/17/2021 COMPARISON: 02/16/2021 HISTORY: Cough and short of breath. TECHNIQUE: 2 views FINDINGS: Heart and mediastinum are normal. Lungs are clear. Diaphragm is normal. Bony thorax is inta ct. The pulmonary vascularity is normal. IMPRESSION: Normal chest. There is clearing of the bilateral interstitial and nodular pneumonia jose red to old exam.
[2021-05-17 20:00] LABS: Glucose,Whole Blood 260 mg/dL (75-99)
== END 2021-05-17 20:49 | disposition home or self-care (01) ==
LOC: EC 18:14
DX: E11.65 Type 2 diabetes mellitus with hyperglycemia (principal); E11.40 Type 2 diabetes mellitus with diabetic neuropathy, unspecified; E03.9 Hypothyroidism, unspecified; E78.5 Hyperlipidemia, unspecified; I10 Essential (primary) hypertension; K21.9 Gastro-esophageal reflux disease without esophagitis; Z79.4 Long term (current) use of insulin; Z79.82 Long term (current) use of aspirin; Z86.718 Personal history of other venous thrombosis and embolism
CPT/HCPCS: 36415; 71046; 80053; 81003; 82009; 85025; 93005; 99285

== ENCOUNTER 2021-05-27 11:29 | Day surgery (SDC) | payer OTHER ==
[~2021-05-27 11:29] MED LIST: ALPRAZolam 0.25 MG TAB PO PRN; ALPRAZolam 0.5 MG TAB PO PRN; ASPIRIN 325 MG TAB PO STA; HEPARIN SODIUM,PORCINE 10,000 UNIT in SODIUM CHLORIDE 0.9% 1,000 ML IRRIGATION PRN; HEPARIN SODIUM,PORCINE 2,500 UNIT in SODIUM CHLORIDE 0.9% 250 ML IRRIGATION PRN; NITROGLYCERIN SL TABS 0.4 MG TAB SUBLINGUAL PRN; SODIUM CHLORIDE 0.9% 1,000 ML in EMPTY BAG 1 BAG IV ONE
[2021-05-27] MEDS ORDERED: LIDOCAINE 1% INJ 10MG/ML (20 ML MDV) ONE (11:47)
[2021-05-27] MEDS ORDERED: HEPARIN SODIUM 1,000 UN/ML (10ML VL) ONE (11:47)
[2021-05-27] MEDS ORDERED: VERAPAMIL 2.5 MG/ML 2 ML AMP ONE (11:47)
[2021-05-27 11:48] VITALS: RESP 16; TEMP 97.4
[2021-05-27 11:51] LABS: Glucose,Whole Blood 193 mg/dL (75-99)
[2021-05-27] MEDS ORDERED: fentaNYL (PF) 50 MCG/ML 2 ML AMP ONE (12:07)
[2021-05-27] MEDS ORDERED: MIDAZOLAM 2 MG/2 ML VIAL IVP ONE (12:11)
[2021-05-27] MEDS ORDERED: fentaNYL (PF) 50 MCG/ML 2 ML AMP IVP ONE (12:11)
[2021-05-27] MEDS ORDERED: LIDOCAINE 1% INJ 10MG/ML (20 ML MDV) SQ ONE ×2 (12:12→12:13)
[2021-05-27] MEDS ORDERED: VERAPAMIL SYRINGE (5 MG/10 ML) INTRAARTER ONE (12:18)
[2021-05-27] MEDS ORDERED: HEPARIN SODIUM 1,000 UN/ML (10ML VL) IV ONE (12:20)
[2021-05-27] MEDS ORDERED: IOPAMIDOL-370 125ML BTL INJ ONE (12:32)
[2021-05-27 15:53] VITALS: BP 90/55; PULSE 86
--- NOTE | 2021-05-28 12:28 | P.CARDCATH ---
Date of Procedure: 05/27/21 Description of Procedure: PROCEDURES PERFORMED: Left heart catheterization, bilateral coronary angiography INDICATION: Abnormal stress test HISTORY: Patient is a pleasant 55 year old male with atypical chest pain who had a stress test which showed reversible ischemia. Therefore heart catheterization was recommended. CONSENT:I have discussed the risks, benefits and alternative therapies for the above-mentioned procedure and for both sedation/analgesia as well as necessary blood product administration, if indicated, as they pertain to this patient. The patient has indicated understanding and acceptance of the risks and procedures discussed. PROCEDURE: After the risks, benefits and alternatives of the above mentioned procedure explained in detail with the patient, informed consent was obtained. Patient was taken to the catheterization lab and prepped and draped in usual fashion. 1% lidocaine was used to anesthetize the right radial artery. A 6- Azerbaijani sheath was placed in the right radial artery using modified Seldinger technique. Left coronary angiography was performed with a 5-[place]ij[place] JL 3.5 catheter and right coronary angiography was performed with a 5-[place] JR5 catheter in various views. A 5-[place]ij[place] FR5 catheter was inserted into the left ventricle and pressure measurements were obtained. The right radial sheath was removed and a TR band was placed with hemostasis achieved. The patient tolerated the procedure well. Patient was transported back to the post catheterization holding area in stable condition. Conscious Sedation: Patient was monitored under the direct supervision of vision of myself for conscious sedation using Versed and fentanyl for a total duration of 20 minutes HEMODYNAMICS: Ao: 91/57 LV: 89/1, LVEDP 11 SELECTIVE CORONARY ARTERIOGRAPHY: LEFT MAIN: The left main is a large caliber vessel which bifurcates into the LAD and circumflex. There is no significant stenosis. LEFT ANTERIOR DESCENDING CORONARY ARTERY: LAD is a large caliber vessel which wraps around to the apex. There is no significant stenosis. LEFT CIRCUMFLEX CORONARY ARTERY: Left circumflex is a moderate caliber vessel without significant stenosis. RIGHT CORONARY ARTERY: The right coronary artery is a large caliber vessel which gives off a PDA and PLV branch and is the dominant vessel. There is no significant stenosis. FINAL IMPRESSION: 1. Normal coronary arteries as described above. 2. Normal left sided filling pressures PLAN: 1. Aggressive risk factor modification per most recent ACC/AHA guidelines. 2. Follow-up in the office in 1-2 weeks.
== END 2021-05-27 16:25 | disposition home or self-care (01) ==
LOC: CATHCVL 11:29
PROVIDERS: ATTEND Internal Medicine
DX: I99.8 Other disorder of circulatory system (principal); R94.39 Abnormal result of other cardiovascular function study; R07.89 Other chest pain; E11.65 Type 2 diabetes mellitus with hyperglycemia; E03.9 Hypothyroidism, unspecified; Z79.4 Long term (current) use of insulin; Z79.890 Hormone replacement therapy; Z79.82 Long term (current) use of aspirin
CPT/HCPCS: 93458; C1894; J2250; J2001; J3010; J1644; Q9967

== ENCOUNTER 2022-02-20 11:14 | Emergency (ER) | payer OTHER ==
[2022-02-20 11:21] VITALS: BP 122/79; RESP 18; TEMP 97.8
[2022-02-20] MEDS ORDERED: diphenhydrAMINE 50 MG/ML 1 ML VIAL IVP STA (11:56)
[2022-02-20] MEDS ORDERED: methylPREDNISolone SOD SUCCI 125 MG/2 ML VIAL IV STA (11:56)
[2022-02-20 12:09] VITALS: PULSE 89
--- NOTE | 2022-02-20 12:10 | ED ---
Chest Pain HPI - General Chief Complaint: Chest Pain Stated Complaint: chest & back pain, itchy skin Time Seen by Provider: 02/20/22 11:42 Source: patient, RN notes reviewed, old records reviewed Mode of arrival: wheelchair Limitations: no limitations - History of Present Illness Initial Comments: This Patient is a 56-year-old male who presents emergency Department today with complaints of some sternal chest discomfort reproducible with palpation that is moved his left and right chest wall since then and today. He also complains of rash over his back has been present for 3-4 weeks. He reports it is pruritic. Patient states he also has had a rash over the tops of his feet and ankles. He does report history of swelling to the feet and ankles. Patient denies any abdominal pain nausea vomiting. Denies shortness of breath. - Related Data Home Medications Medication Instructions Recorded Confirmed Cyanocobalamin [Vitamin B-12] 1,000 mcg PO DAILY 09/28/18 05/27/21 Gabapentin [Neurontin] 100 mg PO TID 09/28/18 05/27/21 lisinopriL [Zestril] 2.5 mg PO DAILY 09/17/19 05/27/21 Atorvastatin Calcium [Lipitor] 20 mg PO HS 01/30/20 05/27/21 Ferrous Sulfate [Iron (65 MG 325 mg PO DAILY 01/30/20 05/27/21 Elemental)] Levothyroxine Sodium [Synthroid] 137 mcg PO DAILY 04/13/20 05/27/21 INSULIN LISPRO (humaLOG) [humaLOG] 15 - 20 units SQ AC-TID PRN 02/06/21 05/26/21 Famotidine [Pepcid] 20 mg PO DAILY 05/26/21 05/27/21 Insulin Glargine [Lantus] 40 unit SQ HS 05/26/21 05/27/21 Metoprolol Tartrate [Lopressor] 25 mg PO BID 05/26/21 05/27/21 Previous Rx's Medication Instructions Recorded Aspirin 81 mg PO DAILY 15 Days #15 chew 02/19/21 Pantoprazole Sodium [Protonix] 40 mg PO DAILY #30 tablet. 02/19/21 Permethrin 5% Cream [Elimite] 1 applic TOPICAL ONCE #60 gm 02/20/22 methylPREDNISolone Dose Pack 4 mg PO DIRECTED #21 tab 02/20/22 [Medrol Dose Pack] Allergies Allergy/AdvReac Type Severity Reaction Status Date / Time No Known Allergies Allergy Verified 02/20/22 11:21 Review of Systems ROS Statement: Those systems with pertinent positive or pertinent negative responses have been documented in the HPI. ROS Other: All systems not noted in ROS Statement are negative. EKG Findings - EKG Comments: EKG Findings:: EKG performed at 11:30 shows normal sinus rhythm normal EKG. Ventricular rate of 90 bpm. Verbal 145 ms. Frustration is 91 ms. QT QTc is 351/[address] elevation or T-wave inversion. Past Medical History Past Medical History: Diabetes Mellitus, Deep Vein Thrombosis (DVT), GERD/Reflux, Hyperlipidemia, Hypertension Additional Past Medical History / Comment(s): IDDM type II, neuropathy bilateral hands/feet, bilateral leg DVTs, carpal tunnel syndrome bilaterally, migraines, chronic back pain, hypothyroid, low iron, hydrocele R side. History of Any Multi-Drug Resistant Organisms: None Reported Past Surgical History: No Surgical Hx Reported Additional Past Surgical History / Comment(s): Colonoscopy Past Anesthesia/Blood Transfusion Reactions: No Reported Reaction Past Psychological History: No Psychological Hx Reported Smoking Status: Never smoker Past Alcohol Use History: None Reported Past Drug Use History: None Reported - Past Family History Father Family Medical History: Cancer Additional Family Medical History / Comment(s): Father had melanoma. Mother Family Medical History: No Reported History Additional Family Medical History / Comment(s): Mother is healthy. General Exam - General Exam Comments Initial Comments: 56 year old male Limitations: no limitations General appearance: alert, in no apparent distress Head exam: Present: atraumatic, normocephalic, normal inspection Eye exam: Present: normal appearance, PERRL, EOMI. Absent: scleral icterus, con junctival injection, periorbital swelling ENT exam: Present: normal exam, mucous membranes moist Neck exam: Present: normal inspection. Absent: tenderness, meningismus, lymphadenopathy Respiratory exam: Present: normal lung sounds bilaterally. Absent: respiratory distress, wheezes, rales, rhonchi, stridor Cardiovascular Exam: Present: regular rate, normal rhythm, normal heart sounds, other (Chest tenderness palpation over the sternum and left and right chest wall to palpation, no bruising noted.). Absent: systolic murmur, diastolic murmur, rubs, gallop, clicks GI/Abdominal exam: Present: soft, normal bowel sounds. Absent: distended, tenderness, guarding, rebound, rigid Extremities exam: Present: normal inspection, full ROM, normal capillary refill. Absent: tenderness, pedal edema, joint swelling, calf tenderness Back exam: Present: rash noted (pruritic macular rash with exocriation over back ), other. Absent: normal inspection Neurological exam: Present: alert, oriented X3, CN II-XII intact Psychiatric exam: Present: normal affect, normal mood Skin exam: Present: warm, dry, intact, normal color. Absent: rash Course Vital Signs 02/20/22 02/20/22 11:17 12:04 Temperature 97.8 F Pulse Rate 90 Pulse Rate [ 89 [employer] ] Respiratory 18 Rate Blood Pressure 122/79 O2 Sat by Pulse 98 Oximetry Chest Pain MDM - MDM 1-year-old male presented with complaints of a rash over his back legs as well as muscle skeletal chest pain starting today. Patient's EKG and lab work was reviewed and unremarkable. Chest x-ray was negative for acute process. Patients rash. Be similar to scabies is pruritic with papular lesions over her back feet neck. Discussed treatment for scabies with permethrin cream as well as continuing hydrocortisone cream for itching. I discussed the Patient needs follow-up with primary care physician. Disposition Clinical Impression: Rash, Scabies, Musculoskeletal chest pain Disposition: HOME SELF-CARE Instructions (If sedation given, give patient instructions): Costochondritis (ED), Scabies (ED) Additional Instructions: Plan the permethrin cream at night, wash her sheets in the morning and shower the cream off at night. Repeat treatment in one week. Patient should take the steroid pack to help with itching. Follow-up with her primary care doctor in regards to leg edema. Decrease salt intake. Prescriptions: Permethrin 5% Cream [Elimite] 1 applic TOPICAL ONCE #60 gm methylPREDNISolone Dose Pack [Medrol Dose Pack] 4 mg PO DIRECTED #21 tab Is patient prescribed a controlled substance at d/c from ED?: No Referrals: Linda Jasmine MD [Primary Care Provider] - 1-2 days Time of Disposition: 14:43
[2022-02-20 13:26] LABS: Basophils % (A) 1 %; Eosinophils # (A) 0.7 k/uL (0-0.7); Eosinophils % (A) 11 %; HGB 13.4 gm/dL (13.0-17.5); Lymphocytes # (A) 2.1 k/uL (1.0-4.8); Lymphocytes % (A) 34 %; MCH 31.2 pg (25.0-35.0); MCHC 32.8 g/dL (31.0-37.0); MCV 95.2 fL (80.0-100.0); Mean Platelet Volume 7.6; Monocytes # (A) 0.4 k/uL (0-1.0); Monocytes % (A) 7 %; Neutrophils # (A) 2.8 k/uL (1.3-7.7); Neutrophils % (A) 46 %; Platelet Count 229 k/uL (150-450); RBC 4.31 m/uL (4.30-5.90); RDW 12.9 % (11.5-15.5); WBC 6.1 k/uL (3.8-10.6)
[2022-02-20 13:31] LABS: Glucose,Whole Blood 55 mg/dL (75-99)
[2022-02-20 13:35] LABS: ALT 15 U/L (4-49); AST 24 U/L (17-59); African American GFR (CKD) >90 (>60 ml/min/1.73 sqM); Albumin 3.7 g/dL (3.5-5.0); Alkaline Phosphatase 58 U/L (38-126); Anion Gap 6 mmol/L; Blood Urea Nitrogen 13 mg/dL (9-20); Calcium 8.8 mg/dL (8.4-10.2); Carbon Dioxide 27 mmol/L (22-30); Chloride 101 mmol/L (98-107); Glucose 59 mg/dL (74-99); Magnesium 2.1 mg/dL (1.6-2.3); Non-African American GFR(CKD) >90 (>60 ml/min/1.73 sqM); Potassium 4.4 mmol/L (3.5-5.1); Sodium 134 mmol/L (137-145); Total Bilirubin 0.7 mg/dL (0.2-1.3); Total Protein 6.7 g/dL (6.3-8.2)
[2022-02-20] MEDS ORDERED: PROCHLORPERAZINE INJ 10 MG/2 ML VIAL IVP STA (13:36)
[2022-02-20 13:39] LABS: INR 0.9 (<1.2); Partial Thromboplastin Time 23.2 sec (22.0-30.0); Prothrombin Time 10.3 sec (9.0-12.0)
[2022-02-20 13:56] LABS: Glucose,Whole Blood 57 mg/dL (75-99)
[2022-02-20 14:16] LABS: Glucose,Whole Blood 112 mg/dL (75-99)
--- NOTE | 2022-02-20 14:19 | XR ---
EXAMINATION TYPE: XR chest 2V DATE OF EXAM: 02/20/2022 COMPARISON: 05/17/2021 HISTORY: Leg swelling TECHNIQUE: 2 views FINDINGS: Heart and mediastinum are normal. Lungs are clear. Diaphragm is normal. Bony thorax appears normal. IMPRESSION: Normal chest. No change
== END 2022-02-20 15:11 | disposition home or self-care (01) ==
LOC: EC 11:14
DX: B86 Scabies (principal); R07.2 Precordial pain; E11.40 Type 2 diabetes mellitus with diabetic neuropathy, unspecified; I10 Essential (primary) hypertension; E78.5 Hyperlipidemia, unspecified; K21.9 Gastro-esophageal reflux disease without esophagitis; E03.9 Hypothyroidism, unspecified; Z79.4 Long term (current) use of insulin; Z79.82 Long term (current) use of aspirin; Z79.890 Hormone replacement therapy; Z79.899 Other long term (current) drug therapy
CPT/HCPCS: 36415; 93005; 83880; 80053; 83735; 84484; 85025; 85610; 85730; 71046; 99285; 96374; 96375 ×2; J1200; J0780; J2930

== ENCOUNTER 2022-03-05 22:34 | Emergency (ER) | payer OTHER ==
--- NOTE | 2022-03-06 02:11 | ED ---
Extremity Problem HPI - General Chief complaint: Extremity Problem,Nontraumatic Stated complaint: leg swelling/pain Time Seen by Provider: 03/06/22 01:56 Source: patient, RN notes reviewed Mode of arrival: ambulatory Limitations: no limitations - History of Present Illness Initial comments: This is a pleasant 56-year-old diabetic male presents to emergency department today complaining of an ongoing generalized rash which is being ongoing for about 2 weeks. Patient describing itching and now some swelling to his skin. He denies any fever or chills. No shortness of breath or chest pain. Patient was seen here and given hydrocortisone cream. Patient was also treated for scabies with permethrin. Patient has been prescribed Medrol Dosepak but only took one dose of the medication stating that it made him tired. No headache, no fever or chills, no changes in vision or hearing, no sore throat or difficulty with speech, no neck pain, no chest pain or shortness of breath, no abdominal pain, no nausea or vomiting, no changes in urination or bowel movements, no numbness or tingling, no extremity pain, - Related Data Home Medications Medication Instructions Recorded Confirmed Cyanocobalamin [Vitamin B-12] 1,000 mcg PO DAILY 09/28/18 05/27/21 Gabapentin [Neurontin] 100 mg PO TID 09/28/18 05/27/21 lisinopriL [Zestril] 2.5 mg PO DAILY 09/17/19 05/27/21 Atorvastatin Calcium [Lipitor] 20 mg PO HS 01/30/20 05/27/21 Ferrous Sulfate [Iron (65 MG 325 mg PO DAILY 01/30/20 05/27/21 Elemental)] Levothyroxine Sodium [Synthroid] 137 mcg PO DAILY 04/13/20 05/27/21 INSULIN LISPRO (humaLOG) [humaLOG] 15 - 20 units SQ AC-TID PRN 02/06/21 05/26/21 Famotidine [Pepcid] 20 mg PO DAILY 05/26/21 05/27/21 Insulin Glargine [Lantus] 40 unit SQ HS 05/26/21 05/27/21 Metoprolol Tartrate [Lopressor] 25 mg PO BID 05/26/21 05/27/21 Previous Rx's Medication Instructions Recorded Aspirin 81 mg PO DAILY 15 Days #15 chew 02/19/21 Pantoprazole Sodium [Protonix] 40 mg PO DAILY #30 tablet. 02/19/21 Permethrin 5% Cream [Elimite] 1 applic TOPICAL ONCE #60 gm 02/20/22 methylPREDNISolone Dose Pack 4 mg PO DIRECTED #21 tab 02/20/22 [Medrol Dose Pack] Famotidine [Pepcid] 20 mg PO BID #30 tablet 03/06/22 hydrOXYzine HCL [Atarax] 25 mg PO QID PRN #28 tab 03/06/22 predniSONE 50 mg PO DAILY #5 tab 03/06/22 Allergies Allergy/AdvReac Type Severity Reaction Status Date / Time No Known Allergies Allergy Verified 03/05/22 22:38 Review of Systems ROS Statement: Those systems with pertinent positive or pertinent negative responses have been documented in the HPI. ROS Other: All systems not noted in ROS Statement are negative. Past Medical History Past Medical History: Diabetes Mellitus, Deep Vein Thrombosis (DVT), GERD/Reflux, Hyperlipidemia, Hypertension Additional Past Medical History / Comment(s): IDDM type II, neuropathy bilateral hands/feet, bilateral leg DVTs, carpal tunnel syndrome bilaterally, migraines, chronic back pain, hypothyroid, low iron, hydrocele R side. History of Any Multi-Drug Resistant Organisms: None Reported Past Surgical History: No Surgical Hx Reported Additional Past Surgical History / Comment(s): Colonoscopy Past Anesthesia/Blood Transfusion Reactions: No Reported Reaction Past Psychological History: No Psychological Hx Reported Smoking Status: Never smoker Past Alcohol Use History: None Reported Past Drug Use History: None Reported - Past Family History Father Family Medical History: Cancer Additional Family Medical History / Comment(s): Father had melanoma. Mother Family Medical History: No Reported History Additional Family Medical History / Comment(s): Mother is healthy. General Exam Limitations: no limitations General appearance: alert, in distress Head exam: Present: atraumatic, normocephalic, normal inspection Eye exam: Present: normal appearance, PERRL, EOMI. Absent: scleral icterus, conjunctival injection, periorbital swelling ENT exam: Present: normal exam, normal oropharynx, mucous membranes moist, TM's normal bilaterally, normal external ear exam. Absent: mucous membranes dry Neck exam: Present: normal inspection, full ROM. Absent: tenderness, meningismus, lymphadenopathy Respiratory exam: Present: normal lung sounds bilaterally. Absent: respiratory distress, wheezes, rales, rhonchi, stridor Cardiovascular Exam: Present: regular rate, normal rhythm, normal heart sounds. Absent: systolic murmur, diastolic murmur, rubs, gallop, clicks GI/Abdominal exam: Present: soft, normal bowel sounds. Absent: distended, tenderness, guarding, rebound, rigid Extremities exam: Present: normal inspection, full ROM, normal capillary refill. Absent: tenderness, pedal edema, joint swelling, calf tenderness Back exam: Present: normal inspection, rash noted Neurological exam: Present: alert, oriented X3, CN II-XII intact Psychiatric exam: Present: normal affect, normal mood Skin exam: Present: warm, dry, intact, rash, other (Patient has a generalized macular rash with multiple excoriations. No significant papules or vesicles. This is on the arms, torso, legs, neck, and spares the face, spares the palms and soles. Does not appear to be in the interdigital spaces.). Absent: normal color, cyanosis, urticaria, vesicles, pallor, mottled, abrasion Course Vital Signs 03/05/22 22:36 Temperature 97.1 F L Pulse Rate 94 Respiratory 20 Rate Blood Pressure 129/79 O2 Sat by Pulse 99 Oximetry Medical Decision Making - Medical Decision Making Patient has a widespread rash consistent with irritant dermatitis. Patient is excoriated in several areas. This does not appear to be interdigital. Neck consistent with scabies at this time. I'm going to refer the patient for dermatology follow-up. Also should follow-up with his regular physician. Famotidine, hydroxyzine, prednisone. The case was discussed in detail with ED attending physician. Presentation, findings, treatment plan discussed in detail. Patient was told to return to the ER for any signs or symptoms worsen. Told to return immediately if any other problems arise. All questions answered. Treatment plan discussed. Patient in agreement Every effort has been made to ensure accuracy of this dictation. However, due to the limitations of electronic medical records and dictation devices, errors in charting still occur. - Lab Data Result diagrams: 03/06/22 02:16 03/06/22 02:16 Lab Results 03/06/22 03/06/22 Range/Units 02:16 02:16 WBC 7.9 (3.8-10.6) k/uL RBC 4.11 L (4.30-5.90) m/uL Hgb 13.0 (13.0-17.5) gm/dL Hct 39.5 (39.0-53.0) % MCV 96.0 (80.0-100.0) fL MCH 31.7 (25.0-35.0) pg MCHC 33.0 (31.0-37.0) g/dL RDW 12.7 (11.5-15.5) % Plt Count 207 (150-450) k/uL MPV 7.8 Neutrophils % 56 % Lymphocytes % 24 % Monocytes % 7 % Eosinophils % 11 % Basophils % 1 % Neutrophils # 4.4 (1.3-7.7) k/uL Lymphocytes # 1.9 (1.0-4.8) k/uL Monocytes # 0.5 (0-1.0) k/uL Eosinophils # 0.9 H (0-0.7) k/uL Basophils # 0.1 (0-0.2) k/uL Sodium 133 L (137-145) mmol/L Potassium 4.7 (3.5-5.1) mmol/L Chloride 102 (98-107) mmol/L Carbon Dioxide 25 (22-30) mmol/L Anion Gap 6 mmol/L BUN 14 (9-20) mg/dL Creatinine 0.79 (0.66-1.25) mg/dL Est GFR (CKD-EPI)AfAm >90 (>60 ml/min/1.73 sqM) Est GFR (CKD-EPI)NonAf >90 (>60 ml/min/1.73 sqM) Glucose 85 (74-99) mg/dL Calcium 8.3 L (8.4-10.2) mg/dL Total Bilirubin 0.7 (0.2-1.3) mg/dL AST 29 (17-59) U/L ALT 15 (4-49) U/L Alkaline Phosphatase 51 (38-126) U/L Total Protein 6.7 (6.3-8.2) g/dL Albumin 3.5 (3.5-5.0) g/dL Disposition Clinical Impression: Dermatitis Disposition: HOME SELF-CARE Condition: Good Instructions (If sedation given, give patient instructions): Dermatitis (ED) Additional Instructions: Use antihistamines as directed. Take the prednisone as directed. Follow-up with regular physician. Make an appointment with the automotive salesperson as jayshree polk. Is patient prescribed a controlled substance at d/c from ED?: No Referrals: Linda Jasmine MD [Primary Care Provider] - 1-2 days Amada Maguire MD [STAFF PHYSICIAN] - 03/08/22 Time of Disposition: 03:01
[2022-03-06] MEDS ORDERED: SODIUM CHLORIDE 0.9% 500 ML 500 ML IV STA (02:13)
[2022-03-06] MEDS ORDERED: DEXAMETHASONE SOD PHOSPHATE 10 MG/ML 1 ML VIAL IVP STA (02:13)
[2022-03-06] MEDS ORDERED: diphenhydrAMINE 50 MG/ML 1 ML VIAL IVP STA (02:13)
[2022-03-06] MEDS ORDERED: FAMOTIDINE 20 MG/2 ML VIAL IV STA (02:14)
[2022-03-06 02:26] LABS: Basophils # (A) 0.1 k/uL (0-0.2); Basophils % (A) 1 %; Eosinophils # (A) 0.9 k/uL (0-0.7); Eosinophils % (A) 11 %; HCT 39.5 % (39.0-53.0); Lymphocytes # (A) 1.9 k/uL (1.0-4.8); Lymphocytes % (A) 24 %; MCH 31.7 pg (25.0-35.0); Mean Platelet Volume 7.8; Monocytes # (A) 0.5 k/uL (0-1.0); Monocytes % (A) 7 %; Neutrophils # (A) 4.4 k/uL (1.3-7.7); Neutrophils % (A) 56 %; Platelet Count 207 k/uL (150-450); RBC 4.11 m/uL (4.30-5.90); RDW 12.7 % (11.5-15.5); WBC 7.9 k/uL (3.8-10.6)
[2022-03-06 02:52] LABS: ALT 15 U/L (4-49); AST 29 U/L (17-59); African American GFR (CKD) >90 (>60 ml/min/1.73 sqM); Albumin 3.5 g/dL (3.5-5.0); Alkaline Phosphatase 51 U/L (38-126); Anion Gap 6 mmol/L; Blood Urea Nitrogen 14 mg/dL (9-20); Calcium 8.3 mg/dL (8.4-10.2); Carbon Dioxide 25 mmol/L (22-30); Chloride 102 mmol/L (98-107); Glucose 85 mg/dL (74-99); Non-African American GFR(CKD) >90 (>60 ml/min/1.73 sqM); Potassium 4.7 mmol/L (3.5-5.1); Sodium 133 mmol/L (137-145); Total Bilirubin 0.7 mg/dL (0.2-1.3); Total Protein 6.7 g/dL (6.3-8.2)
[2022-03-06] MEDS ORDERED: ENOXAPARIN 100 MG/ML SYRINGE SQ STA (03:23)
[2022-03-06 03:28] LABS: Erythrocyte Sedimentation Rate 8 mm/hr (0-15)
[2022-03-06 03:53] VITALS: BP 122/76; PULSE 76; RESP 16; TEMP 98.3
== END 2022-03-06 03:52 | disposition home or self-care (01) ==
LOC: EC 22:34
DX: L30.9 Dermatitis, unspecified (principal); R60.0 Localized edema; E11.40 Type 2 diabetes mellitus with diabetic neuropathy, unspecified; I10 Essential (primary) hypertension; E78.5 Hyperlipidemia, unspecified; K21.9 Gastro-esophageal reflux disease without esophagitis; E03.9 Hypothyroidism, unspecified; Z79.4 Long term (current) use of insulin; Z79.82 Long term (current) use of aspirin; Z79.890 Hormone replacement therapy; Z79.899 Other long term (current) drug therapy; Z86.718 Personal history of other venous thrombosis and embolism
CPT/HCPCS: 99283 ×2; 96372; 96374; 96375; 36415; 80053; 85652; 85025; J1200; J1100; J1650

== ENCOUNTER → 2022-03-07 | Outpatient (CLI) | payer OTHER ==
--- NOTE | 2022-03-07 19:43 | US ---
EXAMINATION TYPE: US venous doppler duplex LE DATE OF EXAM: 03/07/2022 3:34 PM COMPARISON: us CLINICAL HISTORY: LOWER EXTREMITY EDEMA. Bilateral leg swelling SIDE PERFORMED: Bilateral TECHNIQUE: The lower extremity deep venous system is examined utilizing real time linear array sonog michael with graded compression, doppler sonography and color-flow sonography. VESSELS IMAGED: Common Femoral Vein Deep Femoral Vein Greater Saphenous Vein * Femoral Vein Popliteal Vein Small Saphenous Vein * Proximal Calf Veins (* superficial vessels) Grayscale, color doppler, spectral doppler imaging performed of the deep veins of the lower extremiti es. There is normal flow, compressibility, vascular waveforms. Right Leg: Negative for DVT Left Leg: Negative for DVT IMPRESSION: No evidence of deep vein thrombosis of either lower extremity.
== END | disposition home or self-care (01) ==
LOC: RADUSWWP 15:18
PROVIDERS: ATTEND Emergency Medicine
DX: R60.0 Localized edema (principal); M79.89 Other specified soft tissue disorders
CPT/HCPCS: 93970

== ENCOUNTER 2022-03-14 01:05 | Observation (INO) | payer OTHER ==
--- NOTE | 2022-03-14 02:29 | XR ---
EXAMINATION TYPE: XR KUB DATE OF EXAM: 03/14/2022 COMPARISON: 02/19/2021 HISTORY: Abdominal pain TECHNIQUE: 2 views upright FINDINGS: There is no sign of intestinal obstruction or pneumoperitoneum. Fecal pattern is normal. No evidence of a mass. No calcification seen over the kidneys. Lung bases are clear. IMPRESSION: Nonacute abdomen. Mild constipation. No adverse change.
[2022-03-14 02:35] LABS: Basophils # (A) 0.1 k/uL (0-0.2); Basophils % (A) 1 %; Eosinophils # (A) 0.8 k/uL (0-0.7); Eosinophils % (A) 11 %; HCT 39.3 % (39.0-53.0); HGB 12.9 gm/dL (13.0-17.5); Lymphocytes # (A) 1.8 k/uL (1.0-4.8); Lymphocytes % (A) 26 %; MCHC 32.9 g/dL (31.0-37.0); MCV 97.2 fL (80.0-100.0); Mean Platelet Volume 7.4; Monocytes # (A) 0.4 k/uL (0-1.0); Monocytes % (A) 6 %; Neutrophils # (A) 3.9 k/uL (1.3-7.7); Neutrophils % (A) 55 %; Platelet Count 225 k/uL (150-450); RBC 4.04 m/uL (4.30-5.90); RDW 13.5 % (11.5-15.5)
[2022-03-14 02:37] LABS: Appearance,Urine Clear (Clear); Bilirubin,Urine Negative (Negative); Blood,Urine Negative (Negative); Color,Urine Light Yellow; Glucose,Urine (UA) Trace (Negative); Ketones,Urine Negative (Negative); Leukocyte Esterase,Urine Negative (Negative); Nitrite,Urine Negative (Negative); Protein,Urine Negative (Negative); Specific Gravity,Urine 1.006 (1.001-1.035); Urobilinogen,Urine <2.0 mg/dL (<2.0)
[2022-03-14 03:10] LABS: ALT 19 U/L (4-49); African American GFR (CKD) >90 (>60 ml/min/1.73 sqM); Albumin 3.2 g/dL (3.5-5.0); Amylase 41 U/L (30-110); Anion Gap 2 mmol/L; Blood Urea Nitrogen 13 mg/dL (9-20); Calcium 8.5 mg/dL (8.4-10.2); Carbon Dioxide 30 mmol/L (22-30); Chloride 101 mmol/L (98-107); Glucose 208 mg/dL (74-99); Lipase 39 U/L (23-300); Non-African American GFR(CKD) >90 (>60 ml/min/1.73 sqM); Sodium 133 mmol/L (137-145); Total Bilirubin 0.7 mg/dL (0.2-1.3); Total Protein 6.1 g/dL (6.3-8.2)
[2022-03-14 03:17] LABS: AST 36 U/L (17-59); Alkaline Phosphatase 47 U/L (38-126); Magnesium 1.8 mg/dL (1.6-2.3); Potassium 4.7 mmol/L (3.5-5.1)
[2022-03-14 04:57] LABS: Glucose,Whole Blood 312 mg/dL (75-99)
[2022-03-14] MEDS ORDERED: ACETAMINOPHEN TAB 325 MG TAB PO PRN (07:03)
[2022-03-14] MEDS ORDERED: NALOXONE 0.4 MG/ML 1 ML VIAL IV PRN (07:03)
[2022-03-14] MEDS ORDERED: ONDANSETRON 4 MG/2 ML VIAL IVP PRN (07:03)
[2022-03-14] MEDS ORDERED: MAGNESIUM CITRATE 296 ML BOTTLE PO ONE (07:05)
--- NOTE | 2022-03-14 07:13 | ED ---
Abdominal Pain HPI - General Chief Complaint: Abdominal Pain Stated Complaint: Abd Pain Time Seen by Provider: 03/14/22 01:49 Source: patient Mode of arrival: ambulatory - History of Present Illness MD Complaint: abdominal pain -: days(s) Location: diffuse Migration to: no migration Severity: moderate Quality: cramping, fullness Consistency: intermittent Improves With: nothing Worsens With: nothing Associated Symptoms: denies other symptoms - Related Data Home Medications Medication Instructions Recorded Confirmed Cyanocobalamin [Vitamin B-12] 1,000 mcg PO DAILY 09/28/18 05/27/21 Gabapentin [Neurontin] 100 mg PO TID 09/28/18 05/27/21 lisinopriL [Zestril] 2.5 mg PO DAILY 09/17/19 05/27/21 Atorvastatin Calcium [Lipitor] 20 mg PO HS 01/30/20 05/27/21 Ferrous Sulfate [Iron (65 MG 325 mg PO DAILY 01/30/20 05/27/21 Elemental)] Levothyroxine Sodium [Synthroid] 137 mcg PO DAILY 04/13/20 05/27/21 INSULIN LISPRO (humaLOG) [humaLOG] 15 - 20 units SQ AC-TID PRN 02/06/21 05/26/21 Famotidine [Pepcid] 20 mg PO DAILY 05/26/21 05/27/21 Insulin Glargine [Lantus] 40 unit SQ HS 05/26/21 05/27/21 Metoprolol Tartrate [Lopressor] 25 mg PO BID 05/26/21 05/27/21 Previous Rx's Medication Instructions Recorded Aspirin 81 mg PO DAILY 15 Days #15 chew 02/19/21 Pantoprazole Sodium [Protonix] 40 mg PO DAILY #30 tablet. 02/19/21 Permethrin 5% Cream [Elimite] 1 applic TOPICAL ONCE #60 gm 02/20/22 methylPREDNISolone Dose Pack 4 mg PO DIRECTED #21 tab 02/20/22 [Medrol Dose Pack] Famotidine [Pepcid] 20 mg PO BID #30 tablet 03/06/22 hydrOXYzine HCL [Atarax] 25 mg PO QID PRN #28 tab 03/06/22 predniSONE 50 mg PO DAILY #5 tab 03/06/22 Allergies Allergy/AdvReac Type Severity Reaction Status Date / Time No Known Allergies Allergy Verified 03/14/22 01:47 Review of Systems ROS Statement: Those systems with pertinent positive or pertinent negative responses have been documented in the HPI. ROS Other: All systems not noted in ROS Statement are negative. Constitutional: Reports: weakness. Denies: fever, chills Respiratory: Denies: cough, dyspnea Cardiovascular: Denies: chest pain, palpitations Gastrointestinal: Reports: abdominal pain. Denies: nausea, vomiting, diarrhea Genitourinary: Denies: dysuria, hematuria Musculoskeletal: Denies: back pain Skin: Reports: rash Neurological: Denies: headache, weakness, numbness Past Medical History Past Medical History: Diabetes Mellitus, Deep Vein Thrombosis (DVT), GERD/Reflux, Hyperlipidemia, Hypertension Additional Past Medical History / Comment(s): IDDM type II, neuropathy bilateral hands/feet, bilateral leg DVTs, carpal tunnel syndrome bilaterally, migraines, chronic back pain, hypothyroid, low iron, hydrocele R side. History of Any Multi-Drug Resistant Organisms: None Reported Past Surgical History: No Surgical Hx Reported Additional Past Surgical History / Comment(s): Colonoscopy Past Anesthesia/Blood Transfusion Reactions: No Reported Reaction Past Psychological History: No Psychological Hx Reported Smoking Status: Never smoker Past Alcohol Use History: None Reported Past Drug Use History: None Reported - Past Family History Father Family Medical History: Cancer Additional Family Medical History / Comment(s): Father had melanoma. Mother Family Medical History: No Reported History Additional Family Medical History / Comment(s): Mother is healthy. General Exam General appearance: alert, in no apparent distress Head exam: Present: atraumatic, normocephalic Eye exam: Present: normal appearance. Absent: scleral icterus, conjunctival injection Neck exam: Present: normal inspection Respiratory exam: Present: normal lung sounds bilaterally. Absent: respiratory distress, wheezes, rales, rhonchi, stridor Cardiovascular Exam: Present: regular rate, normal rhythm, normal heart sounds. Absent: systolic murmur, diastolic murmur, rubs, gallop GI/Abdominal exam: Present: soft. Absent: distended, tenderness, guarding, rebound, rigid, mass Extremities exam: Present: normal inspection, normal capillary refill. Absent: pedal edema, calf tenderness Back exam: Present: normal inspection. Absent: CVA tenderness (R), CVA tenderness (L) Neurological exam: Present: alert Skin exam: Present: warm, dry, intact, erythema. Absent: rash Course Vital Signs 03/14/22 03/14/22 03/14/22 01:45 04:36 06:31 Temperature 98.3 F Pulse Rate 99 80 70 Respiratory 19 16 18 Rate Blood Pressure 124/84 98/62 93/57 O2 Sat by Pulse 96 96 98 Oximetry Medical Decision Making - Medical Decision Making This patient is 56-year-old man who presents to be evaluated for a constellation of symptoms. He states that he has been having this going back a number days. It is intermittent. He has not discovered worsening or relieving factors. No associated fever or chills. No vomiting. He has had some nausea. No diarrhea. No dark tarry stools or bloody stool. He complains of some diffuse abdominal cramping pain. He also complains of bilateral lower extremity redness and swelling. - Lab Data Result diagrams: 03/14/22 02:08 03/14/22 02:08 Lab Results 03/14/22 03/14/22 03/14/22 Range/Units 02:08 02:08 02:08 WBC 7.0 (3.8-10.6) k/uL RBC 4.04 L (4.30-5.90) m/uL Hgb 12.9 L (13.0-17.5) gm/dL Hct 39.3 (39.0-53.0) % MCV 97.2 (80.0-100.0) fL MCH 32.0 (25.0-35.0) pg MCHC 32.9 (31.0-37.0) g/dL RDW 13.5 (11.5-15.5) % Plt Count 225 (150-450) k/uL MPV 7.4 Neutrophils % 55 % Lymphocytes % 26 % Monocytes % 6 % Eosinophils % 11 % Basophils % 1 % Neutrophils # 3.9 (1.3-7.7) k/uL Lymphocytes # 1.8 (1.0-4.8) k/uL Monocytes # 0.4 (0-1.0) k/uL Eosinophils # 0.8 H (0-0.7) k/uL Basophils # 0.1 (0-0.2) k/uL Sodium 133 L (137-145) mmol/L Potassium 4.7 (3.5-5.1) mmol/L Chloride 101 (98-107) mmol/L Carbon Dioxide 30 (22-30) mmol/L Anion Gap 2 mmol/L BUN 13 (9-20) mg/dL Creatinine 0.72 (0.66-1.25) mg/dL Est GFR (CKD-EPI)AfAm >90 (>60 ml/min/1.73 sqM) Est GFR (CKD-EPI)NonAf >90 (>60 ml/min/1.73 sqM) Glucose 208 H (74-99) mg/dL POC Glucose (mg/dL) (75-99) mg/dL POC Glu Pediatric Physician ID Plasma Lactic Acid Mracos (0.7-2.0) mmol/L Calcium 8.5 (8.4-10.2) mg/dL Magnesium 1.8 (1.6-2.3) mg/dL Total Bilirubin 0.7 (0.2-1.3) mg/dL AST 36 (17-59) U/L ALT 19 (4-49) U/L Alkaline Phosphatase 47 (38-126) U/L Total Protein 6.1 L (6.3-8.2) g/dL Albumin 3.2 L (3.5-5.0) g/dL Amylase 41 (30-110) U/L Lipase 39 (23-300) U/L Urine Color Light Yellow Urine Appearance Clear (Clear) Urine pH 7.0 (5.0-8.0) Ur Specific [place] 1.006 (1.001-1.035) Urine Protein Negative (Negative) Urine Glucose (UA) Trace H (Negative) Urine Ketones Negative (Negative) Urine Blood Negative (Negative) Urine Nitrite Negative (Negative) Urine Bilirubin Negative (Negative) Urine Urobilinogen <2.0 (<2.0) mg/dL Ur Leukocyte Esterase Negative (Negative) 03/14/22 03/14/22 Range/Units 02:08 04:56 WBC (3.8-10.6) k/uL RBC (4.30-5.90) m/uL Hgb (13.0-17.5) gm/dL Hct (39.0-53.0) % MCV (80.0-100.0) fL MCH (25.0-35.0) pg MCHC (31.0-37.0) g/dL RDW (11.5-15.5) % Plt Count (150-450) k/uL MPV Neutrophils % % Lymphocytes % % Monocytes % % Eosinophils % % Basophils % % Neutrophils # (1.3-7.7) k/uL Lymphocytes # (1.0-4.8) k/uL Monocytes # (0-1.0) k/uL Eosinophils # (0-0.7) k/uL Basophils # (0-0.2) k/uL Sodium (137-145) mmol/L Potassium (3.5-5.1) mmol/L Chloride (98-107) mmol/L Carbon Dioxide (22-30) mmol/L Anion Gap mmol/L BUN (9-20) mg/dL Creatinine (0.66-1.25) mg/dL Est GFR (CKD-EPI)AfAm (>60 ml/min/1.73 sqM) Est GFR (CKD-EPI)NonAf (>60 ml/min/1.73 sqM) Glucose (74-99) mg/dL POC Glucose (mg/dL) 312 H (75-99) mg/dL POC Glu Pediatric Physician ID Marvin Valente Plasma Lactic Acid Marcos 1.9 (0.7-2.0) mmol/L Calcium (8.4-10.2) mg/dL Magnesium (1.6-2.3) mg/dL Total Bilirubin (0.2-1.3) mg/dL AST (17-59) U/L ALT (4-49) U/L Alkaline Phosphatase (38-126) U/L Total Protein (6.3-8.2) g/dL Albumin (3.5-5.0) g/dL Amylase (30-110) U/L Lipase (23-300) U/L Urine Color Urine Appearance (Clear) Urine pH (5.0-8.0) Ur Specific [place] (1.001-1.035) Urine Protein (Negative) Urine Glucose (UA) (Negative) Urine Ketones (Negative) Urine Blood (Negative) Urine Nitrite (Negative) Urine Bilirubin (Negative) Urine Urobilinogen (<2.0) mg/dL Ur Leukocyte Esterase (Negative) Disposition Clinical Impression: Constipation, Cellulitis Disposition: ADMITTED IP TO THIS [facility] Condition: Good Is patient prescribed a controlled substance at d/c from ED?: No Referrals: Linda Jasmine MD [Primary Care Provider] - 1-2 days
[2022-03-14] MEDS ORDERED: SODIUM CHLORIDE 0.9% 1,000 ML IV SCH (07:15)
[2022-03-14] MEDS: INSULIN ASPART (NovoLOG) 100 UNIT/ML VIAL SQ SCH ×5 (08:41→21:03)
[2022-03-14] MEDS: FAMOTIDINE 20 MG TAB PO SCH ×4 (08:43→21:03)
[2022-03-14] MEDS: ENOXAPARIN 40 MG/0.4 ML SYRINGE SQ SCH (08:43)
[2022-03-14 08:54] LABS: Glucose,Whole Blood 391 mg/dL (75-99)
[2022-03-14 11:48] LABS: Glucose,Whole Blood 297 mg/dL (75-99)
[2022-03-14] MEDS ORDERED: hydrOXYzine HCL 25 MG TAB PO PRN (14:13)
[2022-03-14] MEDS ORDERED: MINERAL OIL-WHITE PETROLATUM 120 GM JAR TOPICAL PRN (14:48)
--- NOTE | 2022-03-14 14:52 | P.HPIM ---
History of Present Illness H&P Date: 03/14/22 Chief Complaint: RUQ abdominal pain Patient is a 56-year-old male with PMH of diabetes mellitus, peripheral neuropathy, hypothyroidism, hypertension that presents to the ED for constellation of symptoms. Patient reported waking up with right upper quadrant abdominal pain on the day of admission. Patient describes the pain as colicky, no radiating features, 6 out of 10 in severity. He denies any nausea or vomiting. Patient also reports generalized pruritis. He reports bilateral lower extremity redness and swelling has been progressively getting worse over the past 2 weeks. He was seen in the ED on 03/06/2022 and discharged home with an antihistamine and prednisone. Duplex of bilateral lower extremity done on 03/07/2022 was negative for DVT. Patient denies any headache, nausea or vomiting, fever chills, cough, chest pain, shortness of breath, palpitations, c hanges in urination or bowel habits. No changes in appetite or weight. He denies any dizziness, numbness/weakness/tingling of extremities. In the ED, his vital signs were stable. CBC showed hemoglobin of 12.9. CMP showed sodium of 133 and glucose of 208. Urinalysis was negative for leukocyte esterase or nitrite. KUB showed mild constipation. Patient is admitted under observation status for multiple complaints. General: [non toxic], [no distress], [appears at stated age] Derm: [warm], [dry] Head: [atraumatic], [normocephalic], [symmetric] Eyes: [EOMI], [no lid lag], [anicteric sclera] Mouth: [no lip lesion], [mucus membranes moist] Cardiovascular: [S1S2 reg], [no murmur], [positive DP pulse bilateral], Lungs: [CTA bilateral], [no rhonchi, no rales] , [no accessory muscle use] Abdominal: [soft], [tenderness to palpation in the right upper quadrant, Monzon's positive, no rebound], [no guarding], [no appreciable organomegaly] Ext: [no gross muscle atrophy], [bilateral lower extremity edema left greater than right], [no contractures], [mild erythema bilaterally extending to the mid salguero], [xerosis of the skin bilaterally] Neuro: [ CN II-XI grossly intact], [no focal neuro deficits] Psych: [Alert], [oriented], [appropriate affect] #Right upper quadrant abdominal pain #Bilateral lower extremity cellulitis #Bilateral lower extremity xerosis #Generalized pruritus #Diabetes mellitus with hyperglycemia Patient presents with a constellation of symptoms. He is quite tender in his right upper quadrant without rebound. Monzon sign is positive. Liver enzymes are within normal limits. Gallbladder ultrasound will be ordered to rule out cholelithiasis. KUB showed mild constipation and patient has been having multiple bowel movements during this hospitalization. Patient will be started on Cefazolin 2 g IV every 8 hours for treatment of cellulitis. There are no signs of sepsis. Vascular duplex was done recently which ruled out DVT. Anticipated transition to oral antibiotic tomorrow. His generalized pruritus is likely related to xerosis. He has been prescribed E ucerin cream as needed. Continue hydroxyzine as needed for itching. Patient will be restarted on Levemir 60 units at bedtime. Insulin sliding scale has been ordered. Accu-Cheks 4 times a day with hypoglycemic precautions. DVT prophylaxis: [Lovenox] Discussed with: [Patient] Anticipated discharge: [1-2 days] Anticipated discharge place: [Home] A total of [45] minutes was spent on the care of this complex patient more than 50% of the time was spent in counseling and care coordination. Patient names his sister decision maker if he can't make decisions for himself. Patient would like to be full code. Review of Systems All systems: negative Past Medical History Past Medical History: Diabetes Mellitus, Deep Vein Thrombosis (DVT), GERD/Reflux, Hyperlipidemia, Hypertension Additional Past Medical History / Comment(s): IDDM type II, neuropathy bilateral hands/feet, bilateral leg DVTs, carpal tunnel syndrome bilaterally, migraines, chronic back pain, hypothyroid, low iron, hydrocele R side, bilateral lower leg edema. History of Any Multi-Drug Resistant Organisms: None Reported Past Surgical History: Heart Catheterization Additional Past Surgical History / Comment(s): Colonoscopy Past Anesthesia/Blood Transfusion Reactions: No Reported Reaction Smoking Status: Former smoker - Past Family History Father Family Medical History: Cancer Additional Family Medical History / Comment(s): Father of melanoma. Mother Family Medical History: No Reported History Additional Family Medical History / Comment(s): Mother is healthy. Medications and Allergies Home Medications Medication Instructions Recorded Confirmed Type Cyanocobalamin [Vitamin B-12] 1,000 mcg PO DAILY 09/28/18 03/14/22 History lisinopriL [Zestril] 2.5 mg PO DAILY 09/17/19 03/14/22 History Atorvastatin Calcium [Lipitor] 20 mg PO DAILY 01/30/20 03/14/22 History Ferrous Sulfate [Iron (65 MG 325 mg PO DAILY 01/30/20 03/14/22 History Elemental)] INSULIN LISPRO (humaLOG) [humaLOG] See Protocol SQ AC-TID PRN 02/06/21 03/14/22 History Aspirin 81 mg PO DAILY 15 Days #15 chew 02/19/21 03/14/22 Rx Insulin Glargine [Lantus] 60 unit SQ HS 05/26/21 03/14/22 History Famotidine [Pepcid] 20 mg PO BID #30 tablet 03/06/22 03/14/22 Rx hydrOXYzine HCL [Atarax] 25 mg PO QID PRN #28 tab 03/06/22 03/14/22 Rx Gabapentin 300 mg PO DAILY 03/14/22 03/14/22 History INSULIN LISPRO (humaLOG) [humaLOG] 6 units SQ AC-TID 03/14/22 03/14/22 History Levothyroxine Sodium [Synthroid] 150 mcg PO DAILY 03/14/22 03/14/22 History Allergies Allergy/AdvReac Type Severity Reaction Status Date / Time No Known Allergies Allergy Verified 03/14/22 07:06 Physical Exam Vitals: Vital Signs Temp Pulse Pulse Resp BP BP Pulse Ox 03/14/22 13:41 98.7 F 71 14 116/77 98 03/14/22 08:05 98.3 F 84 12 123/84 96 03/14/22 06:31 70 18 93/57 98 03/14/22 04:36 80 16 98/62 96 03/14/22 01:45 98.3 F 99 19 124/84 96 Intake and Output 03/13/22 03/14/22 03/14/22 22:59 06:59 14:59 Intake Total 960 Balance 960 Intake: Oral 960 Other: # Voids 3 Weight 99.79 kg 99.79 kg Results CBC & Chem 7: 03/14/22 02:08 03/14/22 02:08 Labs: Abnormal Lab Results - Last 24 Hours (Table) 03/14/22 03/14/22 03/14/22 Range/Units 02:08 02:08 02:08 RBC 4.04 L (4.30-5.90) m/uL Hgb 12.9 L (13.0-17.5) gm/dL Eosinophils # 0.8 H (0-0.7) k/uL Sodium 133 L (137-145) mmol/L Glucose 208 H (74-99) mg/dL POC Glucose (mg/dL) (75-99) mg/dL Total Protein 6.1 L (6.3-8.2) g/dL Albumin 3.2 L (3.5-5.0) g/dL Urine Glucose (UA) Trace H (Negative) 03/14/22 03/14/22 03/14/22 Range/Units 04:56 08:50 11:46 RBC (4.30-5.90) m/uL Hgb (13.0-17.5) gm/dL Eosinophils # (0-0.7) k/uL Sodium (137-145) mmol/L Glucose (74-99) mg/dL POC Glucose (mg/dL) 312 H 391 H 297 H (75-99) mg/dL Total Protein (6.3-8.2) g/dL Albumin (3.5-5.0) g/dL Urine Glucose (UA) (Negative) Thrombosis Risk Factor Assmnt - Choose All That Apply Any of the Below Risk Factors Present?: Yes Each Factor Represents 1 point: Age 41-60 years, Obesity (BMI >25), Swollen legs (current) Other Risk Factors: Yes Each Risk Factor Represents 3 Points: History of DVT/PE Other congenital or acquired thrombophilia - If yes, enter type in comment: No Thrombosis Risk Factor Assessment Total Risk Factor Score: 6 Thrombosis Risk Factor Assessment Level: High Risk
[2022-03-14 16:35] LABS: Glucose,Whole Blood 187 mg/dL (75-99)
[2022-03-14 20:16] LABS: Glucose,Whole Blood 324 mg/dL (75-99)
[2022-03-14] MEDS ORDERED: INSULIN DETEMIR (LEVEMIR) 100 UNIT/ML SYR SQ SCH (21:00)
[2022-03-15] MEDS ORDERED: LEVOTHYROXINE 75 MCG TAB PO SCH (06:30)
[2022-03-15 06:58] LABS: Glucose,Whole Blood 67 mg/dL (75-99)
[2022-03-15 07:25] LABS: Glucose,Whole Blood 64 mg/dL (75-99)
[2022-03-15 07:36] LABS: Glucose,Whole Blood 78 mg/dL (75-99)
[2022-03-15] MEDS: INSULIN ASPART (NovoLOG) 100 UNIT/ML VIAL SQ SCH (07:39)
[2022-03-15 08:08] VITALS: BP 91/60; PULSE 70; RESP 18; TEMP 98.1
--- NOTE | 2022-03-15 08:21 | US ---
EXAMINATION TYPE: US gallbladder DATE OF EXAM: 03/15/2022 COMPARISON: NONE CLINICAL HISTORY: RUQ pain. EXAM MEASUREMENTS: Liver Length: 16.2 cm Gallbladder Wall: 0.1 cm CBD: 0.4 cm Right Kidney: 10.4 x 5.1 x 6.2 cm Extensive overlying midline bowel gas, technically difficult limited study. Pancreas: Obscured by bowel gas Liver: There is coarse echotexture. No evident mass or dilated intra or extrahepatic biliary duct Gallbladder: wnl Evidence for sonographic Monzon's sign: yes CBD: wnl Right Kidney: Partially obscured by overlying bowel gas, portions visualized wnl IMPRESSION: Exam is limited technically. Correlate for possible hepatocellular disease, hepatic steat osis
[2022-03-15] MEDS ORDERED: CYANOCOBALAMIN 500 MCG TAB PO SCH (09:00)
[2022-03-15] MEDS ORDERED: GABAPENTIN 300 MG CAP PO SCH (09:00)
[2022-03-15] MEDS ORDERED: ATORVASTATIN 20 MG TAB PO SCH (09:00)
[2022-03-15] MEDS ORDERED: ASPIRIN 81 MG PO SCH (09:00)
[2022-03-15] MEDS ORDERED: FERROUS SULFATE 325 MG TAB PO SCH (09:00)
[2022-03-15] MEDS: ENOXAPARIN 40 MG/0.4 ML SYRINGE SQ SCH (09:20)
[2022-03-15] MEDS: FAMOTIDINE 20 MG TAB PO SCH ×2 (09:20→09:21)
--- NOTE | 2022-03-15 09:23 | P.DS ---
Providers Date of admission: 03/14/22 07:05 Expected date of discharge: 03/15/22 Attending physician: Ammy Soliz MD Primary care physician: [facility] Course: Patient is a 56-year-old male with PMH of diabetes mellitus, peripheral neuropathy, hypothyroidism, hypertension that presents to the ED for constellation of symptoms. Patient reported waking up with right upper quadrant abdominal pain on the day of admission. Patient describes the pain as colicky, no radiating features, 6 out of 10 in severity. He denies any nausea or vomiting. Patient also reports generalized pruritis. He reports bilateral lower extremity redness and swelling has been progressively getting worse over the past 2 weeks. He was seen in the ED on 03/06/2022 and discharged home with an antihistamine and prednisone. Duplex of bilateral lower extremity done on 03/07/2022 was negative for DVT. Patient denies any headache, nausea or vomiting, fever chills, cough, chest pain, shortness of breath, palpitations, changes in urination or bowel habits. No changes in appetite or weight. He denies any dizziness, numbness/weakness/tingling of extremities. In the ED, his vital signs were stable. CBC showed hemoglobin of 12.9. CMP showed sodium of 133 and glucose of 208. Urinalysis was negative for leukocyte esterase or nitrite. KUB showed mild constipation. Patient is admitted under observation status for multiple complaints. Right upper quadrant ultrasound showed hepatic steatosis and normal gallbladder. He was started on cefazolin IV for cellulitis. He was seen and examined on 03/15/2022. He reported continued generalized itching. He reported multiple bowel movements yesterday. He was hypoglycemic with blood glucose of 64 this morning. Patient reports no symptoms of hypoglycemia. Blood glucose improved with oral intake. He reported resolution of his abdominal pain. He was transitioned to Keflex by mouth to complete 4 more days, total 5 days of antibiotics. He was advised to use Eucerin for extreme dryness of the skin. He was advised to restart his home medications on discharge. Patient verbalized understanding of the plan. This complex discharge took about 45 minutes to complete. General: [non toxic], [no distress], [appears at stated age] Derm: [warm], [dry] Head: [atraumatic], [normocephalic], [symmetric] Eyes: [EOMI], [no lid lag], [anicteric sclera] Mouth: [no lip lesion], [mucus membranes moist] Cardiovascular: [S1S2 reg], [no murmur], [positive DP pulse bilateral], Lungs: [CTA bilateral], [no rhonchi, no rales] , [no accessory muscle use] Abdominal: [soft], [tenderness to palpation in the right upper quadrant, no rebound, improved from admission], [no guarding], [no appreciable organomegaly] Ext: [no gross muscle atrophy], [bilateral lower extremity edema left greater than right], [no contractures], [mild erythema bilaterally extending to the mid salguero], [xerosis of the skin bilaterally] Neuro: [no focal neuro deficits] Psych: [Alert], [oriented], [appropriate affect] Discharge Diagnosis: #Right upper quadrant abdominal pain #Mild constipation #Bilateral lower extremity cellulitis #Bilateral lower extremity xerosis #Generalized pruritus #Diabetes mellitus with hyperglycemia Chronic conditions: Peripheral neuropathy, hypothyroidism Pertinent Studies: KUB Gallbladder US Patient Condition at Discharge: Stable Plan - Discharge Summary Discharge Rx Participant: No New Discharge Prescriptions: New Cephalexin [Keflex] 500 mg PO Q6HR 4 Days #16 cap Continue Cyanocobalamin [Vitamin B-12] 1,000 mcg PO DAILY lisinopriL [Zestril] 2.5 mg PO DAILY Atorvastatin Calcium [Lipitor] 20 mg PO DAILY Ferrous Sulfate [Iron (65 MG Elemental)] 325 mg PO DAILY INSULIN LISPRO (humaLOG) [humaLOG] 6 units SQ AC-TID Levothyroxine Sodium [Synthroid] 150 mcg PO DAILY INSULIN LISPRO (humaLOG) [humaLOG] See Protocol SQ AC-TID PRN PRN Reason: Blood Sugar - High Aspirin 81 mg PO DAILY 15 Days #15 chew Insulin Glargine [Lantus Vial] 60 unit SQ HS hydrOXYzine HCL [Atarax] 25 mg PO QID PRN #28 tab PRN Reason: Itching Famotidine [Pepcid] 20 mg PO BID #30 tablet Gabapentin 300 mg PO DAILY Discharge Medication List Cyanocobalamin [Vitamin B-12] 1,000 mcg PO DAILY 09/28/18 [History] lisinopriL [Zestril] 2.5 mg PO DAILY 09/17/19 [History] Atorvastatin Calcium [Lipitor] 20 mg PO DAILY 01/30/20 [History] Ferrous Sulfate [Iron (65 MG Elemental)] 325 mg PO DAILY 01/30/20 [History] INSULIN LISPRO (humaLOG) [humaLOG] See Protocol SQ AC-TID PRN 02/06/21 [History] Aspirin 81 mg PO DAILY 15 Days #15 chew 02/19/21 [Rx] Insulin Glargine [Lantus Vial] 60 unit SQ HS 05/26/21 [History] Famotidine [Pepcid] 20 mg PO BID #30 tablet 03/06/22 [Rx] hydrOXYzine HCL [Atarax] 25 mg PO QID PRN #28 tab 03/06/22 [Rx] Gabapentin 300 mg PO DAILY 03/14/22 [History] INSULIN LISPRO (humaLOG) [humaLOG] 6 units SQ AC-TID 03/14/22 [History] Levothyroxine Sodium [Synthroid] 150 mcg PO DAILY 03/14/22 [History] Cephalexin [Keflex] 500 mg PO Q6HR 4 Days #16 cap 03/15/22 [Rx] Follow up Appointment(s)/Referral(s): Linda Jasmine MD [Primary Care Provider] - 1-2 days Activity/Diet/Wound Care/Special Instructions: Diet: Diabetic Follow up with your PCP within 3 days of discharge. Take all medications as advised. Use Eucerin cream for dry skin. Use Benadryl as needed for itching. Come back to the hospital for worsening abdominal pain, intractable nausea or vomiting, fever > 100.4F not relieved with Tylenol. Discharge Disposition: HOME SELF-CARE
== END 2022-03-15 11:11 | disposition home or self-care (01) ==
LOC: EC 01:05 → 6NMEDSUR 07:05
PROVIDERS: ADMIT Internal Medicine; ATTEND Internal Medicine
DX: R10.11 Right upper quadrant pain (principal); K59.00 Constipation, unspecified; L03.115 Cellulitis of right lower limb; L03.116 Cellulitis of left lower limb; L85.3 Xerosis cutis; L29.9 Pruritus, unspecified; E11.65 Type 2 diabetes mellitus with hyperglycemia; E11.42 Type 2 diabetes mellitus with diabetic polyneuropathy; E11.649 Type 2 diabetes mellitus with hypoglycemia without coma; R60.9 Edema, unspecified; I10 Essential (primary) hypertension; E78.5 Hyperlipidemia, unspecified; K21.9 Gastro-esophageal reflux disease without esophagitis; G56.03 Carpal tunnel syndrome, bilateral upper limbs; G43.909 Migraine, unspecified, not intractable, without status migrainosus; G89.29 Other chronic pain; M54.9 Dorsalgia, unspecified; E03.9 Hypothyroidism, unspecified; E66.9 Obesity, unspecified; Z68.32 Body mass index [BMI] 32.0-32.9, adult; K76.0 Fatty (change of) liver, not elsewhere classified; Z71.9 Counseling, unspecified; Z86.718 Personal history of other venous thrombosis and embolism; Z87.891 Personal history of nicotine dependence; Z86.711 Personal history of pulmonary embolism; Z79.899 Other long term (current) drug therapy; Z79.4 Long term (current) use of insulin; Z79.890 Hormone replacement therapy; Z79.82 Long term (current) use of aspirin; Z80.8 Family history of malignant neoplasm of other organs or systems
CPT/HCPCS: 96366 ×2; 96372 ×2; 96365; 99285; 36415; 80053; 82150; 83605; 83690; 83735; 85025; 81003; 74018; 76705; G0378 ×2; J0690 ×2; J1650 ×2; J0696